=== PATIENT | female | born 1960 | race Caucasian/White ===

== ENCOUNTER 2020-05-15 07:01 | Day surgery (SDC) | payer OTHER, SELFPAY ==
[2020-05-09 11:08] VITALS: BMI 18.9
--- NOTE | 2020-05-12 09:10 | P.CONAN_ITS ---
Documented by User: Viviane Patel 05/12/20 09:11 HPI - Anesthesia Eval Consult details Narrative: 60yo F for L knee arthroscopy PMFSH Past Medical History Medical History Anxiety Arthritis Asthma Back pain COPD (chronic obstructive pulmonary disease) Elevated cholesterol History of depression History of nephrolithiasis History of positive PPD Hx of hepatitis C Smoker Thyroid disease Surgical History Surgical History (Updated 05/09/20 @ 11:02 by Pura Gaytan) Hx of colonoscopy Hx of hysterectomy Hx of left knee surgery S/P cystoscopy with ureteral stent placement Social History Social History Smoking Status: Current every day smoker Packs Per Day: 0.5 Cigarettes Per Day: 10.0 Years Smoked: 40 plus Smoked in Last 30 Days: Yes Patient Interested in Nicotine Replacement: No Patient Given Instructions on How to Stop Smoking: Yes Date Education Initiated: 05/09/20 Use of substances other than those prescribed or required for medical reasons: No Advance Directives: No Advance Directives Information Provided: Yes Meds Allergies Allergy/AdvReac Type Severity Reaction Status Date / Time simvastatin [SIMVASTATIN] Allergy Unknown MUSCLE Unverified 05/09/20 11:04 ACHES celecoxib [From Celebrex] AdvReac Gastrointestinal Verified 05/09/20 11:04 Upset Home Medications Medication Instructions Recorded Confirmed Type albuterol sulfate [ProAir HFA] 2 puff INHALATION Q4-6H PRN 05/09/20 05/09/20 History ascorbic acid (vitamin C) [Vitamin 500 mg PO DAILY 05/09/20 05/09/20 History C] aspirin [Aspir-81] 81 mg PO DAILY 05/09/20 05/09/20 History levothyroxine 1 tab PO DAILY 05/09/20 05/09/20 History lidocaine 1 patch DAILY 05/09/20 05/09/20 History sertraline 1 tab PO DAILY 05/09/20 05/09/20 History Exam Exam Date and Time: May 12, 2020 0910 Height,Weight and Vital Signs: Height 5 ft 3 in Weight 48.534 kg Assessment and Plan Assessment Anesthesia Assessment: Chart Reviewed Documented by User: Shantelle Sellers 05/15/20 08:22 [facility] Past Medical History Medical History Anxiety Arthritis Asthma Back pain COPD (chronic obstructive pulmonary disease) Elevated cholesterol History of depression History of nephrolithiasis History of positive PPD Hx of hepatitis C Smoker Thyroid disease Family History Family history of problems with anesthesia: No Surgical History Surgical History (Updated 05/09/20 @ 11:02 by Pura Gaytan) Hx of colonoscopy Hx of hysterectomy Hx of left knee surgery S/P cystoscopy with ureteral stent placement History of Problems with Anesthesia: No Social History Social History Smoking Status: Current every day smoker Packs Per Day: 0.5 Cigarettes Per Day: 10.0 Years Smoked: 40 plus Smoked in Last 30 Days: Yes Patient Interested in Nicotine Replacement: No Patient Given Instructions on How to Stop Smoking: Yes Date Education Initiated: 05/09/20 Use of substances other than those prescribed or required for medical reasons: No Advance Directives: No Advance Directives Information Provided: Yes Meds Allergies Allergy/AdvReac Type Severity Reaction Status Date / Time simvastatin [SIMVASTATIN] Allergy Unknown MUSCLE Unverified 05/09/20 11:04 ACHES celecoxib [From Celebrex] AdvReac Gastrointestinal Verified 05/09/20 11:04 Upset Home Medications Medication Instructions Recorded Confirmed Type albuterol sulfate [ProAir HFA] 2 puff INHALATION Q4-6H PRN 05/09/20 05/09/20 History ascorbic acid (vitamin C) [Vitamin 500 mg PO DAILY 05/09/20 05/09/20 History C] aspirin [Aspir-81] 81 mg PO DAILY 05/09/20 05/09/20 History levothyroxine 1 tab PO DAILY 05/09/20 05/09/20 History lidocaine 1 patch DAILY 05/09/20 05/09/20 History sertraline 1 tab PO DAILY 05/09/20 05/09/20 History Exam Height,Weight and Vital Signs: Vital Signs Temp Pulse Resp BP Pulse Ox 05/15/20 07:54 97.8 F 62 20 126/69 100 05/15/20 06:14 97.8 F 60 20 126/69 100 Airway Mallampati Class: I TM Dist: >3cm Neck ROM: Full Loose/Missing/Broken Teeth: Upper (No teeth) and Lower (Only few teeth. No loose) Heart: RRR Lungs: CTAB Assessment and Plan Assessment Anesthesia Assessment: Anesthesia Plan Discussed, Consent Obtained and Chart Reviewed Final Anesthetic Review NPO: Yes Intake Type: Clears (Sip of water with medication) ASA Class: II Final Preanesthetic Review: No Changes in Pt Med Stat, Consent Obtained/Reviewed, Med/Surg/Anes Hx Reviewed, Last Cigarette (If Appl.) (05/14/2020 evening) and Anes Risks/Benef Reviewed Patient Risk: Intermediate Procedure Risk: Low Anesthetic Plan Anesthetic Plan: GA Disposition: Standard PACU
--- NOTE | 2020-05-13 22:06 | MHC.SHP ---
Pre-Procedural Eval Section A The patient is an INPATIENT: No Changes since office visit: No Cold of Flu in the past 2 weeks, No New Medical Problems, No Changes in Medication and No Patient answered all questions The History & Physical has been completed within 30 days and I have reviewed it.: Yes Section B Chief Complaint: Snapping Syndrome, Left Knee Pain Allergies: Allergies Allergy/AdvReac Type Severity Reaction Status Date / Time simvastatin [SIMVASTATIN] Allergy Unknown MUSCLE Unverified 05/09/20 11:04 ACHES celecoxib [From Celebrex] AdvReac Gastrointestinal Verified 05/09/20 11:04 Upset Plan Patient has been examined and remains a candidate for the planned procedure
--- NOTE | 2020-05-14 10:36 | MHC.SHP ---
Pre-Procedural Eval Section B Chief Complaint: Snapping Syndrome, Left Knee Pain Allergies: Allergies Allergy/AdvReac Type Severity Reaction Status Date / Time simvastatin [SIMVASTATIN] Allergy Unknown MUSCLE Unverified 05/09/20 11:04 ACHES celecoxib [From Celebrex] AdvReac Gastrointestinal Verified 05/09/20 11:04 Upset Plan Patient has been examined and remains a candidate for the planned procedure
[2020-05-15] VITALS (7 sets, daily range): BP systolic 89–129; BP diastolic 40–74; PULSE 60–83; RESP 12–20; TEMP 36.2–36.6; O2SAT 99–100
[2020-05-15] MEDS: Lactated Ringers 1,000 ML 100 ML IVCONT (08:03)
--- NOTE | 2020-05-15 09:01 | P.PCNOP_ITS ---
Brief Operative Note Date of procedure: 05/15/20 Pre-op diagnosis: left knee pain with possible medial meniscal tear Post-op diagnosis: other (Grade 3 injury medial femoral condyle as well as anterior compartment chondral injury) Procedure: Arthroscopic surgery with debridement medial femoral condyle and anterior compartment left knee. Clinical note: This lady has had ongoing problems with pain discomfort involving her left knee. She infected been seen previously elsewhere and had arthroscopic procedure with a did it debridement of a medial plica. However she has had ongoing problems with pain and difficulty and despite non operative management she has continued to have problems and therefore after explaining the risks benefits and alternatives and answered all her questions which agreed upon cared followup procedure. Motion: Full range of motion Stability: cruciate collateral ligaments intact OPERATIVE DETAILS Preparation: GA standard technique tourniquet to 300 mm Hg for 7 minutes Surgical time-out: Patient has identified. Procedure confirmed. Site confirmed. medical history and allergies reviewed. No preoperative antibiotics. No DVT prophylaxis. All other items discussed and agreed upon. Incisions: Superolateral inferolateral inferomedial stab incisions Synovial him: Normal Synovial fluid: Normal Medial compartment: The medial meniscus was thoroughly inspected and had no evidence of any abnormalities. There was grade 3 injury along a large portion of the weight-bearing surface of femoral condyle. This was debrided of loose articular cartilage. The tibial articular surface had grade 2 softening. Intercondylar notch: ACL visualized palpated intact. PCL palpated intact. Lateral compartment: The lateral meniscus was inspected and intact. The femoral and tibial articular surfaces were normal. The popliteus tendon was intact. Anterior compartment: Evidence of the previous medial plica resection was evidence. There was medial and lateral gutters were clear. Suprapatellar pouch was clear. The patella had grade 3 injury through the mid zone and medial facet. There was grade 3 injury through the femoral sulcus. This was all debrided with the power shaver. Closure: 30 cc of half and half solution of 0.75% Marcaine with epinephrine in no a mole saline was injected into the knee. Steri-Strips and sterile dressing were then applied. Recommendations: * Restore motion and strength * Activities tolerated * Discharge was prescription for Tylenol No.3, 20 tablets * Followup in the office in 2 weeks time Anesthesia: GLMA Surgeon: Rolf Sprague Estimated blood loss (mL): 0 Condition: stable Disposition: PACU
[2020-05-15] MEDS: Acetaminophen 325 MG TABLET 650 MG PO (09:39)
--- NOTE | 2020-05-15 10:36 | HO.POSTANES ---
Documented by User: Viviane Patel 05/15/20 10:38 Post Anesthesia Evaluation Post Anesthesia Evaluation Vital Signs: Vital Signs Temp Pulse Resp BP Pulse Ox 05/15/20 09:29 73 20 129/74 99 05/15/20 09:14 83 20 127/73 99 05/15/20 09:09 70 20 99/56 L 100 05/15/20 09:04 69 16 89/43 L 99 05/15/20 08:59 97.2 F 68 12 92/40 L 99 05/15/20 07:54 97.8 F 62 20 126/69 100 05/15/20 06:14 97.8 F 60 20 126/69 100 Anesthesia: General LMA Mental Status: Awake Pain Control: Satisfactory Nausea/Vomiting: None Hydration: Adequate Anesthesia-Related Issues: No Anes. Related Issues
== END 2020-05-15 11:05 | disposition home or self-care (01) ==
PROVIDERS: PCP Internal Medicine; Visit Provider Orthopaedic Surgery
PROC: (CPT 29870; principal; 2020-05-15 08:30)
DX: M22.2X2 Patellofemoral disorders, left knee (principal); M23.8X2 Other internal derangements of left knee; M25.562 Pain in left knee; Z98.890 Other specified postprocedural states; J44.9 Chronic obstructive pulmonary disease, unspecified; E78.00 Pure hypercholesterolemia, unspecified; E07.9 Disorder of thyroid, unspecified; Z86.19 Personal history of other infectious and parasitic diseases; Z79.82 Long term (current) use of aspirin; Z79.899 Other long term (current) drug therapy; F17.210 Nicotine dependence, cigarettes, uncomplicated; Z90.710 Acquired absence of both cervix and uterus; Z88.8 Allergy status to other drugs, medicaments and biological substances; M24.10 Other articular cartilage disorders, unspecified site
CPT/HCPCS: 29877; J0171; J1100; J1885; J2250; J3010

== ENCOUNTER → 2020-05-30 09:47 | Outpatient (BNVA) | payer OTHER, SELFPAY | PROVIDERS: PCP Internal Medicine; Referring Provider Internal Medicine; Visit Provider Physician Assistant | DX: Z47.89 Encounter for other orthopedic aftercare (principal) | CPT/HCPCS: 99212 ==

== ENCOUNTER → 2020-07-02 10:18 | Outpatient (BNVA) | payer OTHER, SELFPAY | PROVIDERS: Visit Provider Orthopaedic Surgery | DX: M17.12 Unilateral primary osteoarthritis, left knee (principal); Z98.890 Other specified postprocedural states | CPT/HCPCS: 20610; 99212; J1040 ==

== ENCOUNTER 2020-07-18 10:00 | Outpatient (RCR) | payer OTHER, SELFPAY ==
--- NOTE | 2020-06-10 12:04 | MHC.PT.EP ---
[facility] [place] Office [place] Office [place] Office [address] Lor Kinney [address] [phone] F: [phone] F: [phone] F: [phone] F: [phone] Physical Therapy Plan of Care Date of Evaluation: 06/10/20 Date of Surgery: 05/15/20 Diagnosis: Unilateral primary OA of L knee Assessment: 60 year old female referred for unilateral primary OA of L knee . Pt reports of having h/o chronic knee pain and has had 2 knee debridement surgeries- first was on apr 2019 and second was on 05/15/20. Pt is 3.5 weeks post op. Examination reveals 0/10 pain at rest and 7/10 pain with standing and walking more than 5 minutes, squats and stairs, TTP along medial aspect of knee, pain with knee bending, decreased muscle strength, altered posture and gait. She is independent with all ADLS but has pain with them and does them slowly to avoid increase in symptoms. She is a good candidate for PT based on age, goals, physical impairments and functional limitations. She would benefit from PT to decrease pain, improve ROM, increase muscle strength, postural correction and functional training. Frequency and Duration: The patient will be seen 2/week for 4 weeks Short Term Goals: 1. Pt will have 50% decrease in pain in 2 weeks. 2. Pt will be able to move knee joint without any in pain in 3 weeks. Chcf Goals: 1. Pt will be able to perform all ADLS without pain in 4 weeks. 2. Pt will return to PLOF in 5 weeks. Treatment Plan: Modalities to reduce pain, spasms and effusion. Manual therapy to restore motion and function. Therapeutic exercise to improve strength and flexibility. Neuromuscular re-education for posture and balance. Therapeutic activities to return to functional activities of daily living. Please sign and return to therapist. Thank you for your referral.
--- NOTE | 2020-08-04 11:55 | MHC.PT.DC ---
[facility] [place] Office [place] Office [place] Office [address] Lor Kinney [address] [phone] F: [phone] F: [phone] F: [phone] F: [phone] Physical Therapy Discharge Report Diagnosis: Unilateral primary OA of L knee Date of Surgery: 05/15/20 Date of Evaluation: 06/10/20 Date of Discharge: 08/04/20 Treatments to Date: 11 Cancellations to Date: 0 No Shows to Date: 0 Discharge Status: Recommend MD Follow-up Discharge Summary: Pt continued to reported of experiencing locking after standing for a long time. She had no change in this symptoms with exercise, tape and joint mobs. She functionally independent and independent with all her HEPS. Pt therefore d/c from therapy and advised to follow up with her physician. Electronically signed by: Marisol Pyle DPT Please sign and return to therapist. Thank you for your referral.
== END 2020-08-04 11:56 | disposition other institution (70) ==
LOC: HO.PT 10:00
PROVIDERS: Visit Provider Physician Assistant
DX: M17.12 Unilateral primary osteoarthritis, left knee (principal)
CPT/HCPCS: 97110; 97140; 97161; 97530

== ENCOUNTER → 2020-08-12 09:14 | Outpatient (BNVA) | payer OTHER, SELFPAY | PROVIDERS: Visit Provider Orthopaedic Surgery | DX: M17.12 Unilateral primary osteoarthritis, left knee (principal) | CPT/HCPCS: 99212 ==

== ENCOUNTER → 2020-08-26 14:23 | Outpatient (BNVA) | payer OTHER, SELFPAY | PROVIDERS: Visit Provider Orthopaedic Surgery | DX: M17.12 Unilateral primary osteoarthritis, left knee (principal) | CPT/HCPCS: 20610; 99212; J7323 ==

== ENCOUNTER → 2020-09-02 14:22 | Outpatient (BNVA) | payer OTHER, SELFPAY | PROVIDERS: Visit Provider Orthopaedic Surgery | DX: M17.12 Unilateral primary osteoarthritis, left knee (principal) | CPT/HCPCS: 20610; J7323 ==

== ENCOUNTER → 2020-09-09 14:24 | Outpatient (BNVA) | payer OTHER, SELFPAY | PROVIDERS: Visit Provider Orthopaedic Surgery | DX: M17.12 Unilateral primary osteoarthritis, left knee (principal) | CPT/HCPCS: 20610; J7323 ==

== ENCOUNTER → 2020-10-21 14:24 | Outpatient (BNVA) | payer OTHER, SELFPAY | PROVIDERS: PCP Internal Medicine; Visit Provider Orthopaedic Surgery | DX: M17.12 Unilateral primary osteoarthritis, left knee (principal) | CPT/HCPCS: 99212 ==

== ENCOUNTER → 2020-12-03 14:45 | Outpatient (BNVA) | payer OTHER, SELFPAY | PROVIDERS: PCP Internal Medicine; Visit Provider Nurse Practitioner Family | DX: M17.12 Unilateral primary osteoarthritis, left knee (principal) | CPT/HCPCS: 99202 ==

== ENCOUNTER 2020-12-31 09:48 | Outpatient (REF) | payer OTHER, SELFPAY ==
--- NOTE | ~2020-12-31 | US_ITS ---
EXAMINATION: US RETROPERITONEAL LIMITED (RENAL ONLY) CLINICAL INFORMATION: Calculus. COMPARISON: Ultrasound renal with bladder 12/13/2019 and 12/21/2018. TECHNIQUE: Real-time imaging of the kidneys. FINDINGS: RIGHT KIDNEY: 10.6 x 3.2 x 3.6 cm (SAG x AP x TRV). The kidney is normal in size, contour, and echogenicity. Renal cortical thickness is normal. No calculi or focal parenchymal lesions. No hydronephrosis. There is a duplicated collecting system with an extrarenal kidney pelvis. LEFT KIDNEY: 10.7 x 4.3 x 3.9 cm (SAG x AP x TRV). The kidney is normal in size, contour, and echogenicity. Renal cortical thickness is normal. No focal parenchymal lesions. There is nonobstructive echogenic stone upper/midpole measuring 0.1 x 0.1 cm. There is mild hydronephrosis versus extrarenal pelvis. 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 There is a nonobstructive echogenic calculi upper/midpole. Mild hydronephrosis versus extrarenal pelvis is noted.
== END 2020-12-31 09:49 | disposition home or self-care (01) ==
LOC: HO.US 09:48
PROVIDERS: PCP Internal Medicine; Visit Provider Urology
DX: N20.0 Calculus of kidney (principal)
CPT/HCPCS: 76775

== ENCOUNTER 2021-01-20 06:25 | Outpatient (REF) | payer OTHER, SELFPAY ==
--- NOTE | ~2021-01-20 | FL_ITS ---
EXAMINATION: XR FLUOROSCOPY WITH IMAGES CLINICAL INFORMATION: Unilateral primary osteoarthritis, left knee COMPARISON: None. TECHNIQUE: Fluoroscopy performed by Marnie Urbina. Fluoroscopy time: 0.1 minutes DAP: 3.55 Gycm2 Images: 1 FINDINGS: A single lateral image of the liver reveals 2 needles positioned superior to the patella and a solitary needle adjacent to the proximal tibia. No AP view was obtained. FL/FL guidance in treatment room IMPRESSION: Fluoroscopy was provided to Marnie Urbina for left knee pain management.
== END 2021-01-20 06:26 | disposition home or self-care (01) ==
LOC: HO.RADIR 06:25
PROVIDERS: Visit Provider Anesthesiology
DX: M17.12 Unilateral primary osteoarthritis, left knee (principal)
CPT/HCPCS: 64454

== ENCOUNTER → 2021-01-29 08:28 | Outpatient (BNVA) | payer OTHER, SELFPAY | PROVIDERS: PCP Internal Medicine; Visit Provider Anesthesiology | DX: M17.12 Unilateral primary osteoarthritis, left knee (principal); M25.562 Pain in left knee; G90.522 Complex regional pain syndrome I of left lower limb; E78.00 Pure hypercholesterolemia, unspecified; F41.8 Other specified anxiety disorders; F17.200 Nicotine dependence, unspecified, uncomplicated; Z98.890 Other specified postprocedural states | CPT/HCPCS: 99212 ==

== ENCOUNTER → 2021-02-11 14:26 | Outpatient (BNVA) | payer OTHER, SELFPAY | PROVIDERS: Visit Provider Urology ==

== ENCOUNTER 2021-06-04 11:23 | Outpatient (REF) | payer OTHER, SELFPAY ==
--- NOTE | ~2021-06-04 | US_ITS ---
EXAMINATION: US RETROPERITONEAL LIMITED (RENAL ONLY) CLINICAL INFORMATION: Calculus of kidney. COMPARISON: Renal ultrasound 12/31/2020 and 12/13/2019. CT abdomen and pelvis 02/28/2017. TECHNIQUE: Real-time imaging of the kidneys. FINDINGS: RIGHT KIDNEY: 10.0 x 3.2 x 4.3 cm (SAG x AP x TRV). The kidney is normal in size, contour, and echogenicity. Renal cortical thickness is normal. There are several small 1 mm echogenic densities questionable for tiny stones. No hydronephrosis is seen. There is fullness of the right renal pelvis. This may represent an extrarenal pelvis. LEFT KIDNEY: 9.3 x 3.3 x 4.4 cm (SAG x AP x TRV). The kidney is normal in size, contour, and echogenicity. Renal cortical thickness is normal. There are several small 1 mm echogenic densities questionable for tiny stones. No hydronephrosis is seen. There is fullness of the left renal pelvis. This may represent an extrarenal pelvis. US/US renal BI IMPRESSION: Question multiple small 1 mm in size stones. Probable bilateral extrarenal pelvises.
== END 2021-06-04 11:24 | disposition home or self-care (01) ==
LOC: HO.US 11:23
PROVIDERS: PCP Internal Medicine; Visit Provider Urology
DX: N20.0 Calculus of kidney (principal)
CPT/HCPCS: 76775

== ENCOUNTER → 2021-08-20 15:12 | Outpatient (BNVA) | payer OTHER, SELFPAY | PROVIDERS: PCP Internal Medicine ==

== ENCOUNTER → 2021-08-31 14:39 | Outpatient (BNVA) | payer OTHER, SELFPAY | PROVIDERS: PCP Internal Medicine; Visit Provider Anesthesiology | DX: M17.12 Unilateral primary osteoarthritis, left knee (principal); G90.522 Complex regional pain syndrome I of left lower limb | CPT/HCPCS: 99212 ==

== ENCOUNTER 2022-01-21 16:30 | Outpatient (REF) | payer OTHER, SELFPAY ==
--- NOTE | ~2022-01-21 | US_ITS ---
EXAMINATION: US RETROPERITONEAL LIMITED (RENAL ONLY) CLINICAL INFORMATION: Calculus of kidney. COMPARISON: Renal ultrasound 06/04/2021 and 12/31/2020. CT abdomen and pelvis 02/28/2017. TECHNIQUE: Real-time imaging of the kidneys. FINDINGS: RIGHT KIDNEY: 10.1 x 3.3 x 5.1 cm (SAG x AP x TRV). The kidney is normal in size, contour, and echogenicity. Renal cortical thickness is normal. No calculi or focal parenchymal lesions. No hydronephrosis. There are bilateral extrarenal pelvis with mild fullness. There are echogenic punctate calcifications seen throughout right kidney. LEFT KIDNEY: 11.3 x 4.0 x 4.4 cm (SAG x AP x TRV). The kidney is normal in size, contour, and echogenicity. Renal cortical thickness is normal. No calculi or focal parenchymal lesions. No hydronephrosis. There is an extrarenal left kidney pelvis with mild pelvic fullness and echogenic punctate calcifications throughout US/US renal BI IMPRESSION: Bilateral renal pelvic fullness with extrarenal kidney pelvises. There are bilateral echogenic punctate calcification seen throughout both kidneys.
== END 2022-01-21 16:31 | disposition home or self-care (01) ==
LOC: HO.US 16:30
DX: N20.0 Calculus of kidney (principal)
CPT/HCPCS: 76775

== ENCOUNTER → 2022-02-18 12:43 | Outpatient (BNVA) | payer OTHER, SELFPAY | PROVIDERS: PCP Internal Medicine | DX: N20.0 Calculus of kidney (principal); R33.9 Retention of urine, unspecified | CPT/HCPCS: 51798; 99212 ==

== ENCOUNTER 2022-03-04 16:11 | Outpatient (REF) | payer OTHER, SELFPAY ==
[2022-03-04 18:21] LABS: Creatinine Urine 54.08 mg/dL; Total Protein Urine Random < 7 mg/dL (<12)
[2022-03-04 18:25] LABS: Alanine Aminotransferase 20 U/L (0-31); Albumin Level 4.6 g/dL (3.5-5.0); Alkaline Phosphatase 38 U/L (39-117); Anion Gap 16 (12-20); Aspartate Amino Transferase 32 U/L (5-31); Bilirubin Total 0.4 mg/dL (0.0-1.0); Blood Urea Nitrogen 17 mg/dL (9-16); Calcium 9.7 mg/dL (8.4-10.2); Carbon Dioxide 24 mmol/L (22-29); Chloride 101 mmol/L (96-108); Estimated Glomerular Filt Rate 52; Glucose Random 83 mg/dL (60-115); Potassium 4.8 mmol/L (3.3-5.1); Sodium 136 mmol/L (135-145)
== END 2022-03-04 16:12 | disposition home or self-care (01) ==
LOC: HO.LAB 16:11
PROVIDERS: PCP Internal Medicine; Visit Provider Internal Medicine Hypertension Specialist
DX: N20.0 Calculus of kidney (principal)
CPT/HCPCS: 36415; 80053; 84156

== ENCOUNTER → 2022-06-11 09:56 | Outpatient (BNVA) | payer OTHER, SELFPAY | PROVIDERS: PCP Internal Medicine; Visit Provider Urology | DX: N20.0 Calculus of kidney (principal); R33.9 Retention of urine, unspecified | CPT/HCPCS: 99212 ==

== ENCOUNTER 2022-07-15 14:18 | Outpatient (REF) | payer OTHER, SELFPAY ==
--- NOTE | ~2022-07-15 | US_ITS ---
EXAMINATION: US RETROPERITONEAL LIMITED (RENAL ONLY) CLINICAL INFORMATION: Calculus of kidney. COMPARISON: Ultrasound retroperitoneal limited (renal only) 01/21/2022 and 06/04/2021. CT abdomen and pelvis without contrast 02/28/2017. TECHNIQUE: Real-time imaging of the kidneys. FINDINGS: RIGHT KIDNEY: 9.5 x 2.9 x 4.7 cm (SAG x AP x TRV). The kidney is normal in size, contour, and echogenicity. Renal cortical thickness is normal. No calculi or focal parenchymal lesions. No hydronephrosis. LEFT KIDNEY: 9.8 x 4.0 x 4.5 cm (SAG x AP x TRV). The kidney is normal in size, contour, and echogenicity. Renal cortical thickness is normal. No calculi or focal parenchymal lesions. No hydronephrosis. Extrarenal pelvis noted. US/US renal BI IMPRESSION: No renal calculi identified. No hydronephrosis.
== END 2022-07-15 14:19 | disposition home or self-care (01) ==
LOC: HO.US 14:18
PROVIDERS: Visit Provider Urology
DX: N20.0 Calculus of kidney (principal)
CPT/HCPCS: 76775

== ENCOUNTER 2022-12-31 09:46 | Outpatient (REF) | payer OTHER, SELFPAY ==
--- NOTE | ~2022-12-31 | US_ITS ---
EXAMINATION: US RETROPERITONEAL LIMITED (RENAL ONLY) CLINICAL INFORMATION: Calculus of kidney. COMPARISON: Renal ultrasound 07/15/2022 and 01/21/2022. CT abdomen and pelvis 02/28/2017. TECHNIQUE: Real-time imaging of the kidneys. FINDINGS: RIGHT KIDNEY: 10.0 x 4.5 x 5.1 cm (SAG x AP x TRV). The kidney is normal in size, contour, and echogenicity. Renal cortical thickness is normal. No calculi or focal parenchymal lesions. No hydronephrosis. LEFT KIDNEY: 10.9 x 4.0 x 4.4 cm (SAG x AP x TRV). The kidney is normal in size, contour, and echogenicity. Renal cortical thickness is normal. No calculi or focal parenchymal lesions. No hydronephrosis. US/US renal BI IMPRESSION: Unremarkable examination.
== END 2022-12-31 09:47 | disposition home or self-care (01) ==
LOC: HO.US 09:46
PROVIDERS: PCP Internal Medicine; Visit Provider Urology
DX: N20.0 Calculus of kidney (principal)
CPT/HCPCS: 76775

== ENCOUNTER → 2023-01-21 09:18 | Outpatient (BNVA) | payer OTHER, SELFPAY | PROVIDERS: PCP Internal Medicine; Visit Provider Urology | DX: N20.0 Calculus of kidney (principal); R33.9 Retention of urine, unspecified; N39.8 Other specified disorders of urinary system | CPT/HCPCS: 51798 ==

== ENCOUNTER 2023-03-07 13:51 | Outpatient (AMB) | payer OTHER, SELFPAY ==
--- NOTE | 2023-03-07 13:53 | MHC.PC.OV ---
Vital Signs 03/07/23 13:54 Height 5 ft 3 in Weight 122 lb BMI 21.6 BP 116/80 Blood Pressure Location Lt brachial Position Sitting Pulse 65 Pulse Source Pulse Oximeter Pulse Oximetry (%) 96 Oxygen Delivery Method Room Air Intake Visit Reasons: New patient-COPD Labor Specialist Required: No Accompanied by: Self / Same As Patient Allergies simvastatin [SIMVASTATIN] Allergy (Unknown, Verified 06/08/23 14:30) MUSCLE ACHES celecoxib [From Celebrex] Adverse Reaction (Verified 06/08/23 14:30) Gastrointestinal Upset Medication List - Last Reconciled 03/07/23 by Brooks Al MD albuterol sulfate 90 mcg/actuation (ProAir HFA) 2 puffs inhalation Q4-6H PRN ascorbic acid (vitamin C) (Vitamin C) 500 mg PO DAILY ezetimibe (Zetia) 10 mg PO DAILY fenofibrate nanocrystallized 145 mg PO DAILY lactobacillus combination no.9 (Adult 50 Plus Probiotic) 4,000 mmu cells PO DAILY levothyroxine 1 tab PO DAILY lidocaine 5% 1 patch DAILY pyridoxine (vitamin B6) 100 mg PO DAILY 90 days sertraline 100 mg PO DAILY Tobacco use date assessed: 03/07/23 Dental Screening Dental Screen Date: 03/07/23 Did you have a dental visit in the last 12 months?: Yes Did you have a dental problem in the last 6 months where you did not have access to dental care?: No Was dental information given to patient?: Patient has dentist HPI New patient-COPD HPI Details Patient comes in today to establish care - is a new patient to the practice States that she has had problems with her left knee and has been experiencing increasing pain over her knee lately Has been advised that she has some problems with her kidneys and should no longer be taking NSAIDs as much as possible Was recently started on a trial of Celebrex to help with her pain and at the same time cut down on the number of times she has to take Rx for pain but could not tolerate Celebrex (recalls that the medication upset her stomach) She was seeing orthopedics and pain management in the past but has not been back to see them in a while and would like to try going back to pain management She continues to follow up with urology regularly for recurrent kidney stones States that she feels okay otherwise She denies any headaches or dizziness Denies any chest pains, no SOB No nausea/vomiting, no abdominal pain No change in bowel habits noted Needs her Levothyroxine Rx refilled PFSH Medical History (Updated 06/09/23 @ 06:10 by Brooks Al MD) Locking of left knee Acquired hypothyroidism Retention of urine Complex regional pain syndrome i of left lower limb Arthritis Back pain Thyroid disease Hx of hepatitis C History of positive PPD COPD (chronic obstructive pulmonary disease) Anxiety History of depression History of nephrolithiasis Smoker Asthma Elevated cholesterol Surgical History Hx of colonoscopy Hx of hysterectomy S/P cystoscopy with ureteral stent placement Hx of left knee surgery Social History Housing: Apartment Patient Tobacco Use Status: Current everyday Tobacco user Cigarette Packs Per Day: 0.5 Cigarettes Per Day: 10.0 Years Smoked: 40 plus e-Cigarette/Vaping Use: Never Used service: No Current occupational status: other Current occupation: Right Handed Cognitive needs: No Hearing needs: No Vision needs: No Questionnaire PHQ-9 Over the last 2 weeks, how often have you been bothered by any of the following problems? 1. Little interest or pleasure in doing things: nearly every day 2. Feeling down, depressed, or hopeless: nearly every day 3. Trouble falling or staying asleep, or sleeping too much: nearly every day 4. Feeling tired or having little energy: nearly every day 5. Poor appetite or overeating: not at all 6. Feeling bad about yourself - or that you are a failure or have let yourself or your family down: not at all 7. Trouble concentrating on things, such as reading the newspaper or watching television: not at all 8. Moving or speaking so slowly that other people could have noticed. Or the opposite - being so fidgety or restless that you have been moving around a lot more than usual: not at all 9. Thoughts that you would be better off or of hurting yourself in some way: not at all Total score: 12 Depression Screening Interpretation: Positive Depression Screening Follow-up: Existing condition and In treatment 44830 - PHQ-9 Billing: Yes Source: Developed by Felicity Neil Murphy, Kit Carballo and colleagues, with an educational elena from [employer]. Thrive Questionnaire Date Thrive assessed: 03/07/23 I am a: Patient What is your living situation today?: I have a steady place to live Within the past 12 months, did the food you bought not last and you didn't have the money to get more?: Never true Within the past 12 months, did you worry whether your food would run out before you got money to buy more?: Never true Do you have trouble paying for medicines?: No Do you have trouble getting transportation to medical appointments?: No Do you have trouble paying your heating and electricity bill?: No Do you have trouble taking care of your child, family member or friend?: No Do you have trouble with day-to-day activities such as bathing, preparing meals, shopping, managing finances, etc.?: No Are you currently unemployed and looking for a job?: No Are you interested in more education?: No Please select the resources that you would like help with: None Currently or been in a relationship where the following occur: no concerns reported AUDIT C Alcohol Use Questionnaire (AUDIT-C) 1. How often do you have a drink containing alcohol?: Monthly or less Total Score: 1 Score Reviewed/Action Taken: Yes TIMOTHY-7 AMB Questionnaire TIMOTHY-7 Date TIMOTHY - 7 assessed: 03/07/23 Feeling nervous, anxious, or on edge: 1 = Several days Not being able to stop or control worryin = Several days Worrying too much about different things: 1 = Several days Trouble relaxin = Several days Being so restless that it is hard to sit still: 1 = Several days Becoming easily annoyed or irritable: 1 = Several days Feeling afraid as if something awful might happen: 0 = Not at all Total TIMOTHY-7 score (0-4 normal; 5-9 mild; 10-14 moderate; 15-21 severe): 6 Source: Developed by Drs. Agustin Tse, Felicity Arrington, Kit Carballo and colleagues, with an educational elena from [employer]. Review of Systems Const Denies chills, Denies fatigue, Denies fever(s) and Denies headache(s) ENT Denies dysphagia, Denies dizziness, Denies otalgia, Denies headache(s), Denies neck pain, Denies odynophagia and Denies sore throat Card Denies chest pain, Denies palpitations and Denies dyspnea Resp Denies cough and Denies dyspnea GI Denies abdominal pain, Denies constipation, Denies dysphagia, Denies heartburn, Denies diarrhea, Denies nausea, Denies odynophagia and Denies vomiting Denies difficulty voiding, Denies nocturia and Denies dysuria Musc Details: (+) chronic left lower extremity pain Reports arthralgias (left knee) and Denies neck pain Skin/Breast Details: (+) painful cyst on the left forearm near the elbow Denies rash Neuro Denies dizziness and Denies headache(s) Endo Denies fatigue and Denies palpitations Physical exam (Primary Care) Vital Signs: Last Vital Signs Pulse 65 03/07/23 13:54 BP 116/80 03/07/23 13:54 Pulse Ox 96 03/07/23 13:54 Oxygen Delivery Method Room Air 03/07/23 13:54 BMI result Body Mass Index 21.6 Tobacco/Smoking Status: Tobacco use Status Tobacco use date assessed 03/07/23 03/07/23 14:04 Patient Tobacco Use Status Current everyday Tobacco 03/07/23 14:04 e-Cigarette/Vaping Use Never Used 03/07/23 14:04 PHQ-9: PHQ-9 Score PHQ-9: Total score 12 05/30/23 18:43 Depression Screening Interpretation: Positive Depression Screening Follow-up: Existing condition and In treatment Thrive Assessment: Date of Thrive Assessment Date Thrive assessed 03/07/23 03/07/23 14:04 Currently or been in a relationship where the following occur: no concerns reported Const General: no acute distress and alert HENMT Ears: TM's normal bilaterally and EAC's normal Throat: Yes posterior oropharynx normal and Yes tonsils normal (no TP congestion) Neck Neck: Yes no lymphadenopathy and Yes supple Resp Auscultation: clear to auscultation bilaterally, no rales and no wheezes Cardio Rate: regular rate Rhythm: regular rhythm Heart sounds: no murmurs GI Palpation (GI): Soft to palpation and nontender Auscultation: normal bowel sounds Skin Other: (+) small firm cystic lesion over the extensor aspect of the left forearm, just a couple of inches distal to the left elbow Rashes: no rashes Extrem General: Yes no clubbing, cyanosis or edema Left lower extremity: knee Details: tenderness (chronic); no swelling Assessment and Plan Assessment & Plan (1) Acquired hypothyroidism: Code(s): E03.9 - Hypothyroidism, unspecified Plan: Continue Levothyroxine 88 mcg 1 tablet daily on Mondays to Saturdays and 2 tablets QD on Sundays - Rx refilled Will recheck her TFTs in 4 months for follow up (2) Mixed hyperlipidemia: Code(s): E78.2 - Mixed hyperlipidemia Plan: Reinforced low-cholesterol diet Continue Fenofibrate 145 mg QD and Ezetimibe 10 mg QD Will recheck her labs and fasting lipids in 3 months for follow-up (3) Asthma: Code(s): J45.909 - Unspecified asthma, uncomplicated Qualifiers: Asthma severity: mild Asthma persistence: intermittent Asthma complication type: uncomplicated Qualified Code(s): J45.20 - Mild intermittent asthma, uncomplicated Plan: Continue Albuterol HFA 1 to 2 inhalations Q 6 hours PRN (4) Osteoarthritis of left knee: Code(s): M17.12 - Unilateral primary osteoarthritis, left knee Qualifiers: Osteoarthritis type: primary Qualified Code(s): M17.12 - Unilateral primary osteoarthritis, left knee Plan: S/P arthroscopic surgery x 2 in the past; has also tried physical therapy, cortisone injections and Euflexxa injections with no significant relief or improvement of symptoms Used to see both orthopedics and pain management but has not been back in a while Per request, will refer her back to pain management and orthopedics for her chronic left knee issues and pain (5) Nephrolithiasis: Code(s): N20.0 - Calculus of kidney Plan: Follow up with urology as scheduled for continuing management (6) Anxiety: Code(s): F41.9 - Anxiety disorder, unspecified Plan: Continue Sertraline 100 mg QD (7) Smoker: Code(s): F17.200 - Nicotine dependence, unspecified, uncomplicated Plan: Counseled on smoking cessation Plan Follow up in 3 months Orders: Orders Complete Blood Count Auto Diff 3 Months I10 - Essential (primary) hypertension Lipid Panel 3 Months E78.00 - Pure hypercholesterolemia, unspecified Vitamin D 25-OH Total 3 Months E55.9 - Vitamin D deficiency, unspecified UA CC w/rflx Micro + Cult 3 Months R30.0 - Dysuria Comprehensive [facility]. Panel Fast 3 Months E78.00 - Pure hypercholesterolemia, unspecified Thyroid Stimulating Hormone 3 Months E03.9 - Hypothyroidism, unspecified Free T4 (Free Thyroxine) 3 Months E03.9 - Hypothyroidism, unspecified Hemoglobin A1c 3 Months R73.01 - Impaired fasting glucose Referrals Pain Management Referral M17.12 - Unilateral primary osteoarthritis, left knee Orthopedics Referral M17.12 - Unilateral primary osteoarthritis, left knee Medications: Changed From levothyroxine Take 1 tablet daily Mondays through Saturdays and 2 tablets daily on Sundays daily E03.9 - Hypothyroidism, unspecified To levothyroxine Take 1 tablet daily Mondays through Saturdays and 2 tablets daily on Sundays daily 96 tabs 3RF 12 weeks E03.9 - Hypothyroidism, unspecified Coding Level of Care Code Est Pt Level 4 (17470) Diagnoses Acquired hypothyroidism E03.9 Mixed hyperlipidemia E78.2 Mild intermittent asthma without complication J45.20 Asthma severity: mild Asthma persistence: intermittent Asthma complication type: uncomplicated Primary osteoarthritis of left knee M17.12 Osteoarthritis type: primary Nephrolithiasis N20.0 Anxiety F41.9 Smoker F17.200
[2023-03-07 13:54] VITALS: BP 116/80; PULSE 65; O2SAT 96; BMI 21.6
== END 2023-03-07 15:06 | disposition home or self-care (01) ==
PROVIDERS: PCP Internal Medicine; Visit Provider Internal Medicine
DX: E03.9 Hypothyroidism, unspecified (principal); E78.2 Mixed hyperlipidemia; J45.20 Mild intermittent asthma, uncomplicated; M17.12 Unilateral primary osteoarthritis, left knee; N20.0 Calculus of kidney; F41.9 Anxiety disorder, unspecified; F17.200 Nicotine dependence, unspecified, uncomplicated
CPT/HCPCS: 99214

== ENCOUNTER 2023-03-25 09:43 | Outpatient (REF) | payer OTHER, SELFPAY ==
--- NOTE | ~2023-03-25 | XR_ITS ---
EXAMINATION: XR KNEE, RIGHT CLINICAL INFORMATION: Pain in unspecified knee COMPARISON: Same-day standing view both knees TECHNIQUE: Lateral and sunrise views of the right knee FINDINGS: No fracture or joint effusion. The lateral femoral condyle does not fully cover the lateral tibial plateau bilaterally. No joint space narrowing. No abnormal soft tissue calcification. XR/XR knee RT 2V IMPRESSION: The lateral femoral condyle does not fully cover the lateral tibial plateau bilaterally. No joint space narrowing.
--- NOTE | ~2023-03-25 | XR_ITS ---
EXAMINATION: XR KNEE, LEFT CLINICAL INFORMATION: Pain in unspecified knee COMPARISON: Same-day standing view both knees TECHNIQUE: Lateral and sunrise view of the left knee FINDINGS: No fracture or joint effusion. The lateral femoral condyle does not fully cover the lateral tibial plateau bilaterally. No joint space narrowing. No abnormal soft tissue calcification. XR/XR knee LT 2V IMPRESSION: The lateral femoral condyle does not fully cover the lateral tibial plateau bilaterally. No joint space narrowing.
--- NOTE | ~2023-03-25 | XR_ITS ---
EXAMINATION: XR KNEE AP STANDING CLINICAL INFORMATION: Pain in unspecified knee COMPARISON: Lateral and sunrise view of the right and left knee today TECHNIQUE: AP bilateral standing view of the knees was obtained. FINDINGS: No fracture or joint effusion. The lateral femoral condyle does not fully cover the lateral tibial plateau bilaterally. No joint space narrowing. No abnormal soft tissue calcification. XR/XR knee standing BI IMPRESSION: The lateral femoral condyle does not fully cover the lateral tibial plateau bilaterally. No joint space narrowing.
== END 2023-03-25 09:44 | disposition home or self-care (01) ==
LOC: HO.HOSX 09:43
PROVIDERS: Visit Provider Orthopaedic Surgery
DX: M23.92 Unspecified internal derangement of left knee (principal); M17.12 Unilateral primary osteoarthritis, left knee; M25.561 Pain in right knee
CPT/HCPCS: 73560; 73565

== ENCOUNTER 2023-03-25 11:05 | Outpatient (AMB) | payer OTHER, SELFPAY ==
--- NOTE | 2023-03-25 11:32 | MHC.OFFVIS ---
Intake Vital Signs 03/25/23 11:33 Height 5 ft 3 in Weight 122 lb BMI 21.6 Intake Visit Reasons: OV- B/L knee pain Intake Note: Jessy is a 62 year old female who presents today for a follow up of her bilateral knee pain. Last seen with Dr. Sprague who did Euflexxa injections with no relief, she was then referred to pain mgmt. They are seeing her for Complex Regional Pain Syndrome of the lower extremity and have scheduled her for a Femoral Nerve block. Allergies simvastatin [SIMVASTATIN] Allergy (Unknown, Verified 03/30/23 09:38) MUSCLE ACHES celecoxib [From Celebrex] Adverse Reaction (Verified 03/30/23 09:38) Gastrointestinal Upset HPI OV- B/L knee pain HPI Details Jessy Buenrostro is a 62-year-old female who returns with bilateral knee pain. She was last seen in the clinic in 09/[address] Sprague. She received a Euflexxa injection in the left knee on 09/09/2020. She states the Euflexxa injection gave her no relief and she was referred to Pain Management. She claims she may have had about 2 weeks of pain relief. She states Pain Management is seeing her for Complex Regional Pain Syndrome of the lower extremities. She confirms she is scheduled for a Femoral Nerve Block. She states she is unsure if she is going to move forward due to feeling uncomfortable with the side effects. She confirms pain the her back. She states the pain in chronic throughout the entire knee. She states she has issues walking and is unable to walk long distances. She states her bilateral knees lock on her and she has to manually manipulate the knee to cause it to unlock. She denies any inflammation. She confirms taking Tylenol OTC PRN with no relief. She states she has tired Lidocaine and dicolfenac, with no relief. She confirms a knee arthroscopy with Dr. Sprague. He performed the 2nd surgery in 2019. She also has a surgery with Dr. Solis prior for a left knee arthroscopy for a tissue biopsy in 2019. [facility] Medical History (Updated 03/30/23 @ 11:52 by Daniel Aguirre MD) Acquired hypothyroidism Anxiety Arthritis Asthma Back pain Complex regional pain syndrome i of left lower limb COPD (chronic obstructive pulmonary disease) Elevated cholesterol History of depression History of nephrolithiasis History of positive PPD Hx of hepatitis C Locking of left knee Retention of urine Smoker Thyroid disease Surgical History Hx of colonoscopy Hx of hysterectomy Hx of left knee surgery S/P cystoscopy with ureteral stent placement Social History Housing: Apartment Patient Tobacco Use Status: Current everyday Tobacco user Cigarette Packs Per Day: 0.5 Cigarettes Per Day: 10.0 Years Smoked: 40 plus e-Cigarette/Vaping Use: Never Used service: No Current occupational status: other Current occupation: Right Handed Cognitive needs: No Hearing needs: No Vision needs: No Review of Systems Const All systems reviewed & are unremarkable except as noted in HPI and below Physical Exam Vital Signs: BMI result Body Mass Index 21.6 Const General: cooperative, healthy appearing and no acute distress Orientation/consciousness: patient oriented x3 Resp Effort & Inspection: normal respiratory effort and able to speak in complete sentences Cardio Rate: regular rate Peripheral pulses: Peripheral pulses 2+ throughout GI Palpation (GI): Soft to palpation Skin General skin exam: no rashes or lesions noted Lesions: no lesions Rashes: no rashes Neuro General: patient oriented x3 Extrem Other: Left knee: Lateral compartment and lateral joint line pain. Tenderness to palpation without effusion. No medial sided pain. Assessment & Plan Assessment & Plan (1) Locking of left knee: Code(s): M23.92 - Unspecified internal derangement of left knee (2) Osteoarthritis of left knee: Code(s): M17.12 - Unilateral primary osteoarthritis, left knee Qualifiers: Osteoarthritis type: primary Qualified Code(s): M17.12 - Unilateral primary osteoarthritis, left knee Plan I discussed the role of non-surgical verses surgical intervention with patient today. I discussed the role of cortisone injections verses Gel injections. Because locking is present we will proceed forward with MRI imaging. She will be referred for an MRI to further evaluate the integrity of the left knee. Follow up will be after the MRI is obtained. Orders: Orders XR knee LT 2V 03/25/23 M25.569 - Pain in unspecified knee XR knee RT 2V 03/25/23 M25.569 - Pain in unspecified knee XR knee standing BI 03/25/23 M25.569 - Pain in unspecified knee MR knee LT wo con 03/25/23 M23.92 - Unspecified internal derangement of left knee Patient Instructions: Scribed for Dr. Osei Pineda by Julianna Ferrell, medical education specialist, on 03/15/2023 at 11:25 am, EST. Coding Level of Care Code Est Pt Level 4 (96176) Diagnoses Locking of left knee M23.92 Osteoarthritis of left knee M17.12 Osteoarthritis type: primary
[2023-03-25 11:33] VITALS: BMI 21.6
== END 2023-03-25 12:01 | disposition home or self-care (01) ==
PROVIDERS: PCP Internal Medicine; Visit Provider Orthopaedic Surgery
DX: M23.92 Unspecified internal derangement of left knee (principal); M17.12 Unilateral primary osteoarthritis, left knee
CPT/HCPCS: 99214

== ENCOUNTER 2023-03-30 09:18 | Outpatient (AMB) | payer OTHER, SELFPAY ==
--- NOTE | 2023-03-30 09:34 | MHC.OFFVIS ---
Intake Vital Signs 03/30/23 09:37 Height 5 ft 3 in Weight 119 lb BMI 21.1 BP 130/66 Blood Pressure Location Rt brachial Position Sitting Respiration 14 Pulse 71 Pulse Source Pulse Oximeter Pulse Oximetry (%) 97 Oxygen Delivery Method Room Air Intake Visit Reasons: F.U./Unilateral primary osteoarthritis, left knee Allergies simvastatin [SIMVASTATIN] Allergy (Unknown, Verified 03/30/23 09:38) MUSCLE ACHES celecoxib [From Celebrex] Adverse Reaction (Verified 03/30/23 09:38) Gastrointestinal Upset HPI HPI Comments History of Present Illness Details Jessy is back in my office to discuss possibility of treatments in our office. She is currently under observation of Dr. Pineda who sent her for MRI of the left knee. Therefore I would need to wait with neuromodulation on this patient until Dr. Pineda is done and through with her. If no new surgeries after MRI will be implicated she will be back in pain management office. I offered her today platelet rich plasma injection. She cannot afford this procedure. In the past I was considering femoral nerve block. If femoral block will successfully cover her pain I will perform trial and implantation of freedom/cure on X PNS. If this will not be effective I will try SCS [employer] in left gutter lumbar position in the attempt to alleviate her pain. Prior: complaints of left knee pain. She had arthroscopic surgery performed by Dr. Solis in 2016 and then again by in May 2020. She noted a slight improvement after her most recent surgery and was able to complete physical therapy.? Unfortunately, her pain returned and worsened around July 2020, without any inciting events.? She has tried cortisone injections as well as 3 EUFLEXXA injections with little to no improvement in her pain.? At this time, she has reportedly not a surgical candidate for total knee replacement.?She went for diagnostic genicular nerve block and she reported only aggravation of the pain from the genicular nerve block.? I examined the left knee of the patient today and the results are as below.? I strongly believe that patient suffers from Complex regional pain syndrome of the left lower extremity.? She reports that pain spreads wider than the knee area itself.?? Knee image revealed osteoarthritis as well as intact tendons.? Most of the pain she is experiencing is anterior.? She reports some instability after prolonged walking and a ?popping and clicking? sensation.? She denies any edema, erythema or warmth of the left knee. ?I think that at this time appropriate?way of treating her pain would be left diagnostic femoral nerve block.??The patient was confused thinking that the injection in the vicinity of the left femoral nerve will cause permanent paralysis in the leg.? I explained to her that although partial paralysis of the muscular groups of the legs are inevitable side effect of the injection if the pain relieve lasts longer than the paralysis than there is a possibility to treat her pain with peripheral nerve stimulation. [facility] Medical History (Updated 03/30/23 @ 11:52 by Daniel Aguirre MD) Acquired hypothyroidism Anxiety Arthritis Asthma Back pain Complex regional pain syndrome i of left lower limb COPD (chronic obstructive pulmonary disease) Elevated cholesterol History of depression History of nephrolithiasis History of positive PPD Hx of hepatitis C Locking of left knee Retention of urine Smoker Thyroid disease Surgical History Hx of colonoscopy Hx of hysterectomy Hx of left knee surgery S/P cystoscopy with ureteral stent placement Social History Housing: Apartment Patient Tobacco Use Status: Current everyday Tobacco user Cigarette Packs Per Day: 0.5 Cigarettes Per Day: 10.0 Years Smoked: 40 plus e-Cigarette/Vaping Use: Never Used service: No Current occupational status: other Current occupation: Right Handed Cognitive needs: No Hearing needs: No Vision needs: No Review of Systems Const All systems reviewed & are unremarkable except as noted in HPI and below Physical Exam Vital Signs: Last Vital Signs Pulse 71 03/30/23 09:37 Resp 14 03/30/23 09:37 BP 130/66 03/30/23 09:37 Pulse Ox 97 03/30/23 09:37 Oxygen Delivery Method Room Air 03/30/23 09:37 BMI result Body Mass Index 21.1 Const Other: Severely uncomfortable was walking. General: cooperative, healthy appearing, no acute distress and alert Orientation/consciousness: oriented to person, oriented to place and oriented to time Limitations: ambulation with cane HEENT Head: Yes normal to inspection, Yes normocephalic and Yes atraumatic Ears: hearing grossly normal bilaterally Mouth: moist mucous membranes Eyes General: appearance normal, both eyes and all related structures Resp Effort & Inspection: normal respiratory effort, able to speak in complete sentences and audible wheezes Cardio Jugular venous distension: no JVD Palpation: other (no appreciable rhythmic abnormalities) Peripheral pulses: popliteal pulses present Back/Spine/Pelvis Other: Examination of patient's bilateral knees was performed today: She had her left knee about 2.5 cm thinner in the mid patellar area compared to the healthy right knee. There is certain discoloration in projection of the left knee it is more red in color. The temperature is different on palpation of bilateral knees. The left knee is more warm on palpation. Flexing the knee results in very loud clicks and crepitus which can be heard even without palpation. Anterior drawer posterior drawer over and lateral collateral tests seem to be negative for instability. Majority of the patient's problem mostly is patellofemoral osteoarthritis. Neuro General: oriented to person, oriented to place, oriented to time and moves all extremities Gait exam (Neuro): Antalgic gait present Motor exam (neuro): 5/5 motor strength present throughout Psych Appearance: grossly normal Mental Status: mental status grossly normal Speech and movement: Normal speech and movement present and Clear speech present Affect: normal affect Attitude: cooperative Thought process: Normal thought process present Thought content: Normal thought content present Insight: Good insight present (Psych) Judgement: Good judgement present (Psych) Assessment & Plan Assessment & Plan (1) Osteoarthritis of left knee: Code(s): M17.12 - Unilateral primary osteoarthritis, left knee Qualifiers: Osteoarthritis type: primary Qualified Code(s): M17.12 - Unilateral primary osteoarthritis, left knee (2) Complex regional pain syndrome i of left lower limb: Code(s): G90.522 - Complex regional pain syndrome I of left lower limb Plan: The patient is under care of Dr. Pineda at this time. She was sent for MRI. If after MRI she will go for surgery on the left knee no to pain management interventions will be planned. However if surgery is not indicated for this patient she will come back to this office will try femoral nerve block in preparation for PNS freedom/cure on X. If femoral nerve block will not be effective I will consider [employer] SCS left lumbar gutter. She will give us a call after she is through with Dr. Pineda. Coding Level of Care Code Est Pt Level 3 (20152) Diagnoses Osteoarthritis of left knee M17.12 Osteoarthritis type: primary Complex regional pain syndrome i of left lower limb G90.520
[2023-03-30 09:37] VITALS: BP 130/66; PULSE 71; RESP 14; O2SAT 97; BMI 21.1
== END 2023-03-30 10:15 | disposition home or self-care (01) ==
PROVIDERS: PCP Internal Medicine; Visit Provider Anesthesiology
DX: M17.12 Unilateral primary osteoarthritis, left knee (principal); G90.522 Complex regional pain syndrome I of left lower limb
CPT/HCPCS: 99213

== ENCOUNTER → 2023-03-30 09:18 | Outpatient (BNVA) | payer OTHER, SELFPAY | PROVIDERS: PCP Internal Medicine; Visit Provider Anesthesiology ==

== ENCOUNTER 2023-05-06 08:53 | Outpatient (REF) | payer OTHER, SELFPAY ==
--- NOTE | ~2023-05-06 | MR_ITS ---
EXAMINATION: MR KNEE WITHOUT CONTRAST, LEFT CLINICAL INFORMATION: Left knee pain and locking. Prior cartilage surgery. COMPARISON: Left knee radiographs dated 03/25/2023. TECHNIQUE: MRI of the knee without contrast was performed using routine sequences on a high-field scanner. FINDINGS: MENISCI: Medial Meniscus: Intact Lateral Meniscus: Intact LIGAMENTS: Cruciate: Mildly increased T2 signal within the anterior cruciate ligament which could represent normal variation versus a grade 1 sprain. Intact posterior cruciate ligament. Collateral: Intact. EXTENSOR MECHANISM: Intact. ARTICULAR CARTILAGE/BONE: Patellofemoral Compartment: Patellar articular cartilage signal heterogeneity with partial-thickness loss along the central and medial patella. Central trochlear signal heterogeneity. Tiny marginal osteophytes. Medial Compartment: Intact articular cartilage. Lateral Compartment: Intact articular cartilage. JOINT FLUID AND BURSAE: Small joint effusion. MR/MR knee LT wo con IMPRESSION: 1. Mild patellofemoral osteoarthritis. Small joint effusion. 2. Increased T2 signal within the anterior cruciate ligament which could represent normal variation versus a grade 1 sprain. 3. No meniscal tear.
== END 2023-05-06 08:54 | disposition home or self-care (01) ==
LOC: HO.MRI 08:53
PROVIDERS: PCP Internal Medicine; Visit Provider Orthopaedic Surgery
DX: M23.92 Unspecified internal derangement of left knee (principal)
CPT/HCPCS: 73721

== ENCOUNTER 2023-05-25 11:38 | Outpatient (REF) | payer OTHER, SELFPAY ==
[2023-05-25 12:05] LABS: MANUAL DIFF FLAG NO
[2023-05-25 12:44] LABS: Basophils Percent Auto 0.6 % (0-2); Eosinophils Absolute Auto 0.2 X10*3/uL (0.0-0.4); Eosinophils Percent Auto 3.2 % (0-4); Hemoglobin 13.7 g/dl (12.0-16.0); Imm Gran Abs Auto 0.02 X10*3/uL (0.00-0.03); Imm Gran Pct Auto 0.4 % (0.0-0.4); Lymphocytes Absolute Auto 1.8 X10*3/uL (1.2-4.9); Lymphocytes Percent Auto 39.2 % (20-40); Mean Corpuscular HGB Conc 33.4 g/dl (31.0-35.0); Mean Corpuscular Hemoglobin 33.3 pg (27.0-33.0); Mean Corpuscular Volume 99.5 fL (80.0-98.0); Mean Platelet Volume 9.9 fL (9.4-12.3); Monocytes Absolute Auto 0.6 X10*3/uL (0.1-1.2); Monocytes Percent Auto 11.7 % (2-11); Neutrophils Absolute Auto 2.1 x10*3/uL (2.0-8.3); Neutrophils Percent Auto 44.9 % (45-73); Platelet Count 286 X10*3/uL (160-400); Red Blood Count 4.12 X10*6/uL (4.20-5.50); Red Cell Distribution Width 13.2 % (11.0-16.0); White Blood Count 4.7 X10*3/uL (4.8-10.8)
[2023-05-25 12:51] LABS: Estimated Average Glucose 103 mg/dL; Hemoglobin A1c % 5.2 % (<6.0)
[2023-05-25 13:04] LABS: Appearance Urine Cloudy; Color Urine Yellow; Glucose Urine UA Negative (Negative); Leukocyte Esterase Urine Trace (Negative); Nitrite Urine Negative (Negative); Specific Gravity - Urine 1.015 (1.005-1.025); UMIC TRIGGER UACC YES; Urine Blood Negative (Negative); Urine Ketones Negative (Negative); Urine Protein Negative (Neg-Trace)
[2023-05-25 13:07] LABS: Bacteria Urine None Seen (None Seen); Hyaline Casts Urine 0-2 /LPF (0-2); WBC Urine 0-5 /HPF (0-5)
[2023-05-25 14:48] LABS: Alanine Aminotransferase 17 U/L (0-31); Albumin Level 4.7 g/dL (3.5-5.0); Alkaline Phosphatase 37 U/L (39-117); Anion Gap 15 (12-20); Aspartate Amino Transferase 30 U/L (5-31); Bilirubin Total 0.5 mg/dL (0.0-1.0); Blood Urea Nitrogen 14 mg/dL (9-16); Calcium 10.4 mg/dL (8.4-10.2); Carbon Dioxide 26 mmol/L (22-29); Chloride 102 mmol/L (96-108); Cholesterol 213 mg/dL (<200); Estimated Glomerular Filt Rate 49; Glucose Fasting 89 mg/dL (60-99); HDL Cholesterol 75 mg/dL (>40); LDL Cholesterol Calculated 120 mg/dL (<100); Potassium 4.3 mmol/L (3.3-5.1); Sodium 139 mmol/L (135-145); Total Protein 7.7 g/dL (6.5-8.0); Triglycerides 92 mg/dL (<150)
[2023-05-25 14:59] LABS: Free T4 (Free Thyroxine) 1.17 ng/dL (0.71-1.85); Thyroid Stimulating Hormone 0.58 uIU/mL (0.32-4.0); Vitamin D 25-OH Total 33.2 ng/mL (>30)
== END 2023-05-25 11:39 | disposition home or self-care (01) ==
LOC: HO.LAB 11:38
PROVIDERS: PCP Internal Medicine; Visit Provider Internal Medicine
DX: I10 Essential (primary) hypertension (principal); E78.00 Pure hypercholesterolemia, unspecified; E55.9 Vitamin D deficiency, unspecified; E03.9 Hypothyroidism, unspecified; R73.01 Impaired fasting glucose
CPT/HCPCS: 36415; 80053; 80061; 81001; 81003; 82306; 83036; 84439; 84443; 85025

== ENCOUNTER 2023-06-02 12:41 | Outpatient (AMB) | payer OTHER, SELFPAY ==
--- NOTE | 2023-06-02 12:54 | MHC.OFFVIS ---
Intake Intake Visit Reasons: MRI Review LT knee 05/06/2023 Intake Note: Jessy is a 63 year old female who presents today for an MRI follow up of her left knee. At her last visit Injection vs Surgery was discussed, due to her locking an MRI was ordered. She has also been seen with pain mgmt who suggested possible neuromodulation but wanted patient to follow up to see is surgical intervention is needed Allergies simvastatin [SIMVASTATIN] Allergy (Unknown, Verified 03/30/23 09:38) MUSCLE ACHES celecoxib [From Celebrex] Adverse Reaction (Verified 03/30/23 09:38) Gastrointestinal Upset HPI MRI Review LT knee 05/06/2023 HPI Details Jessy is a 63-year-old woman who returns for an MRI review of her left knee pain. She continues to have pain with daily activity, along with locking of her knee occasionally. She is unable to walk long distances and that her pain continues to be throughout her knee. She follows with Dr. Aguirre for CRPS I of the lower extremities. She was offered a femoral nerve block trial & a PRP injection. She was unable to afford PRP and wanted to discuss treatment options here before returning to discuss a nerve block. She confirms taking Tylenol OTC PRN with no relief. She states she has tired Lidocaine and dicolfenac, with no relief. [facility], [facility] Medical History (Updated 03/30/23 @ 11:52 by Daniel Aguirre MD) Locking of left knee Acquired hypothyroidism Retention of urine Complex regional pain syndrome i of left lower limb Arthritis Back pain Thyroid disease Hx of hepatitis C History of positive PPD COPD (chronic obstructive pulmonary disease) Anxiety History of depression History of nephrolithiasis Smoker Asthma Elevated cholesterol Surgical History Hx of colonoscopy Hx of hysterectomy S/P cystoscopy with ureteral stent placement Hx of left knee surgery Social History Housing: Apartment Patient Tobacco Use Status: Current everyday Tobacco user Cigarette Packs Per Day: 0.5 Cigarettes Per Day: 10.0 Years Smoked: 40 plus e-Cigarette/Vaping Use: Never Used service: No Current occupational status: other Current occupation: Right Handed Cognitive needs: No Hearing needs: No Vision needs: No Physical Exam Extrem Other: Mild retropatellar ttp FUll ROM Stable ligamentous exam Results Reviewed Results Reviewed: 1. Mild patellofemoral osteoarthritis. Small joint effusion. 2. Increased T2 signal within the anterior cruciate ligament which could represent normal variation versus a grade 1 sprain. 3. No meniscal tear. Assessment & Plan Assessment & Plan (1) Osteoarthritis of left knee: Code(s): M17.12 - Unilateral primary osteoarthritis, left knee Qualifiers: Osteoarthritis type: primary Qualified Code(s): M17.12 - Unilateral primary osteoarthritis, left knee Plan: This is a 63 year old woman with mild left knee PF OA. MRI unimpressive. She has pain with daily activity, along with popping, and is limited in her ambulation. No intervention warranted at this time. Will return for injections shoud pain worsen. (2) Complex regional pain syndrome i of left lower limb: Code(s): G90.522 - Complex regional pain syndrome I of left lower limb Coding Level of Care Code Est Pt Level 3 (77255) Diagnoses Primary osteoarthritis of left knee M17.12 Osteoarthritis type: primary Complex regional pain syndrome i of left lower limb G90.522
== END 2023-06-02 14:10 | disposition home or self-care (01) ==
PROVIDERS: PCP Internal Medicine; Visit Provider Orthopaedic Surgery
DX: M17.12 Unilateral primary osteoarthritis, left knee (principal); G90.522 Complex regional pain syndrome I of left lower limb
CPT/HCPCS: 99213

== ENCOUNTER → 2023-06-02 12:41 | Outpatient (BNVA) | payer OTHER, SELFPAY | PROVIDERS: PCP Internal Medicine; Visit Provider Orthopaedic Surgery ==

== ENCOUNTER 2023-06-08 13:55 | Outpatient (AMB) | payer OTHER, SELFPAY ==
[2023-06-08 13:56] VITALS: BP 130/82; PULSE 76; O2SAT 95; BMI 21.0
--- NOTE | 2023-06-08 13:56 | MHC.PC.OV ---
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 Accompanied by: Self / Same As Patient Allergies simvastatin [SIMVASTATIN] Allergy (Unknown, Verified 06/08/23 14:30) MUSCLE ACHES celecoxib [From Celebrex] Adverse Reaction (Verified 06/08/23 14:30) Gastrointestinal Upset Medication List - Last Reconciled 06/08/23 by Brooks Al MD albuterol sulfate 90 mcg/actuation (ProAir HFA) 2 puffs inhalation Q4-6H PRN ascorbic acid (vitamin C) (Vitamin C) 500 mg PO DAILY ezetimibe (Zetia) 10 mg PO DAILY fenofibrate nanocrystallized 145 mg PO DAILY 90 days folic acid 1 mg PO DAILY 90 days lactobacillus combination no.9 (Adult 50 Plus Probiotic) 4,000 mmu cells PO DAILY levothyroxine Take 1 tablet daily Mondays through Saturdays and 2 tablets daily on Sundays daily 12 weeks pyridoxine (vitamin B6) 100 mg PO DAILY 90 days sertraline 100 mg PO DAILY Tobacco use date assessed: 06/08/23 Dental Screening Dental Screen Date: 06/08/23 Did you have a dental visit in the last 12 months?: No Did you have a dental problem in the last 6 months where you did not have access to dental care?: No Was dental information given to patient?: No HPI 3 month f/u HPI Details Patient comes in today for her follow-up visit States that she feels okay She denies any headaches or dizziness Denies any chest pains, no shortness of breath No nausea / vomiting, no abdominal pain No change in bowel habits noted States that she has a cyst near left elbow that has been present for a few years but feels that it has gotten bigger lately and feels painful sometimes - would like to see if this can be removed She continues to follow-up with Dr. Pineda for her chronic left knee pain /osteoarthritis; has also been seeing Pain Management for her chronic left knee and left leg pain and was apparently advised to call them back if needed after her knee issues are addressed by orthopedics States that keen surgery/joint replacement is a possibilty She would also like to request for some thing to help with quitting smoking - states that she has done well with Chantix in the past but she went back to smoking after a while Had her follow up labs done a couple of weeks ago - to discuss her results FORMERLY [facility], [facility] Medical History (Updated 06/09/23 @ 06:10 by Brooks Al MD) Locking of left knee Acquired hypothyroidism Retention of urine Complex regional pain syndrome i of left lower limb Arthritis Back pain Thyroid disease Hx of hepatitis C History of positive PPD COPD (chronic obstructive pulmonary disease) Anxiety History of depression History of nephrolithiasis Smoker Asthma Elevated cholesterol Surgical History Hx of colonoscopy Hx of hysterectomy S/P cystoscopy with ureteral stent placement Hx of left knee surgery Social History Housing: Apartment Patient Tobacco Use Status: Current everyday Tobacco user Cigarette Packs Per Day: 0.5 Cigarettes Per Day: 10.0 Years Smoked: 40 plus e-Cigarette/Vaping Use: Never Used service: No Current occupational status: other Current occupation: Right Handed Cognitive needs: No Hearing needs: No Vision needs: No Questionnaire PHQ-9 Over the last 2 weeks, how often have you been bothered by any of the following problems? 1. Little interest or pleasure in doing things: nearly every day 2. Feeling down, depressed, or hopeless: nearly every day 3. Trouble falling or staying asleep, or sleeping too much: nearly every day 4. Feeling tired or having little energy: nearly every day 5. Poor appetite or overeating: not at all 6. Feeling bad about yourself - or that you are a failure or have let yourself or your family down: not at all 7. Trouble concentrating on things, such as reading the newspaper or watching television: not at all 8. Moving or speaking so slowly that other people could have noticed. Or the opposite - being so fidgety or restless that you have been moving around a lot more than usual: not at all 9. Thoughts that you would be better off or of hurting yourself in some way: not at all Total score: 12 Depression Screening Interpretation: Positive Depression Screening Follow-up: Existing condition and In treatment Depression Screening Done: Yes [id number] - PHQ-9 Billing: Yes Source: Developed by Drs. Agustin Tse, Kit Schuster and colleagues, with an educational elena from [employer]. Thrive Questionnaire Date Thrive assessed: 06/08/23 I am a: Patient What is your living situation today?: I have a steady place to live Within the past 12 months, did the food you bought not last and you didn't have the money to get more?: Never true Within the past 12 months, did you worry whether your food would run out before you got money to buy more?: Never true Do you have trouble paying for medicines?: No Do you have trouble getting transportation to medical appointments?: No Do you have trouble paying your heating and electricity bill?: No Do you have trouble taking care of your child, family member or friend?: No Do you have trouble with day-to-day activities such as bathing, preparing meals, shopping, managing finances, etc.?: No Are you currently unemployed and looking for a job?: No Are you interested in more education?: No Please select the resources that you would like help with: None Currently or been in a relationship where the following occur: no concerns reported AUDIT C Alcohol Use Questionnaire (AUDIT-C) 1. How often do you have a drink containing alcohol?: Monthly or less 3. How often do you have six or more drinks on one occasion?: Less than monthly Total Score: 2 Score Reviewed/Action Taken: Yes TIMOTHY-7 AMB Questionnaire TIMOTHY-7 Date TIMOTHY - 7 assessed: 06/08/23 Feeling nervous, anxious, or on edge: 1 = Several days Not being able to stop or control worryin = Several days Worrying too much about different things: 1 = Several days Trouble relaxin = Several days Being so restless that it is hard to sit still: 1 = Several days Becoming easily annoyed or irritable: 1 = Several days Feeling afraid as if something awful might happen: 0 = Not at all Total TIMOTHY-7 score (0-4 normal; 5-9 mild; 10-14 moderate; 15-21 severe): 6 Source: Developed by Felicity Neil Kurt Kroenke and colleagues, with an educational elena from [employer]. Review of Systems Const Denies chills, Denies fatigue, Denies fever(s) and Denies headache(s) ENT Denies dysphagia, Denies dizziness, Denies otalgia, Denies headache(s), Denies neck pain, Denies odynophagia and Denies sore throat Card Denies chest pain, Denies palpitations and Denies dyspnea Resp Denies cough and Denies dyspnea GI Denies abdominal pain, Denies constipation, Denies dysphagia, Denies heartburn, Denies diarrhea, Denies nausea, Denies odynophagia and Denies vomiting Denies difficulty voiding, Denies nocturia and Denies dysuria Musc Details: (+) chronic left lower extremity pain Reports arthralgias (left knee) and Denies neck pain Skin/Breast Details: (+) painful cyst on the left forearm near the elbow Neuro Denies dizziness and Denies headache(s) Endo Denies fatigue and Denies palpitations Physical exam (Primary Care) Vital Signs: Last Vital Signs Pulse 76 06/08/23 13:56 BP 130/82 06/08/23 13:56 Pulse Ox 95 06/08/23 13:56 Oxygen Delivery Method Room Air 06/08/23 13:56 BMI result Body Mass Index 21.0 Tobacco/Smoking Status: Tobacco use Status Tobacco use date assessed 06/08/23 06/08/23 13:58 Patient Tobacco Use Status Current everyday Tobacco 06/08/23 13:58 e-Cigarette/Vaping Use Never Used 06/08/23 13:58 PHQ-9: PHQ-9 Score PHQ-9: Total score 12 06/08/23 14:34 Depression Screening Interpretation: Positive Depression Screening Follow-up: Existing condition and In treatment Thrive Assessment: Date of Thrive Assessment Date Thrive assessed 06/08/23 06/08/23 13:58 Currently or been in a relationship where the following occur: no concerns reported Const General: no acute distress and alert HENMT Ears: TM's normal bilaterally and EAC's normal Throat: Yes posterior oropharynx normal and Yes tonsils normal (no TP congestion) Neck Neck: Yes no lymphadenopathy and Yes supple Resp Auscultation: clear to auscultation bilaterally, no rales and no wheezes Cardio Rate: regular rate Rhythm: regular rhythm Heart sounds: no murmurs GI Palpation (GI): Soft to palpation and nontender Auscultation: normal bowel sounds Skin Other: (+) small firm cystic lesion over the extensor aspect of the left forearm, just a couple of inches distal to the left elbow Rashes: no rashes Extrem General: Yes no clubbing, cyanosis or edema Left lower extremity: knee Details: tenderness (chronic) Results Reviewed Results Reviewed: Laboratory Tests 05/25/23 05/25/23 11:56 12:03 WBC 4.7 L Hgb 13.7 Hct 41.0 Plt Count 286 Sodium 139 Potassium 4.3 Creatinine 1.12 Estimated GFR 49 Fasting Glucose 89 Hemoglobin A1c % 5.2 Calcium 10.4 H D AST 30 ALT 17 Triglycerides 92 Cholesterol 213 H LDL Cholesterol, Calc 120 H HDL Cholesterol 75 25-OH Vitamin D Total 33.2 TSH 0.58 Free T4 1.17 Ur Specific [place] 1.015 Urine Protein Negative Urine Glucose (UA) Negative Urine Blood Negative Assessment and Plan Assessment & Plan (1) Mixed hyperlipidemia: Code(s): E78.2 - Mixed hyperlipidemia Plan: Results of her labs done a couple of weeks ago reviewed and discussed with patient Reinforced low-cholesterol diet Continue Fenofibrate 145 mg QD and Ezetimibe 10 mg QD Will recheck her labs and fasting lipids in 4 months for follow-up (2) Acquired hypothyroidism: Code(s): E03.9 - Hypothyroidism, unspecified Plan: Her TFTs are normal on recent labs Continue Levothyroxine 88 mcg 1 tablet daily on Mondays to Saturdays and 2 tablets QD on Sundays Will recheck her TFTs in 4 months for follow up (3) Asthma: Code(s): J45.909 - Unspecified asthma, uncomplicated Qualifiers: Asthma severity: mild Asthma persistence: intermittent Asthma complication type: uncomplicated Qualified Code(s): J45.20 - Mild intermittent asthma, uncomplicated Plan: Continue Albuterol HFA 1 to 2 inhalations Q 6 hours PRN (4) Osteoarthritis of left knee: Code(s): M17.12 - Unilateral primary osteoarthritis, left knee Qualifiers: Osteoarthritis type: primary Qualified Code(s): M17.12 - Unilateral primary osteoarthritis, left knee Plan: S/P arthroscopic surgery x 2 in the past; has also tried physical therapy, cortisone injections and Euflexxa injections with no significant relief or improvement of symptoms Follow up with orthopedics as scheduled (5) Complex regional pain syndrome i of left lower limb: Code(s): G90.522 - Complex regional pain syndrome I of left lower limb Plan: Follow up with pain management as scheduled (6) Nephrolithiasis: Code(s): N20.0 - Calculus of kidney Plan: Follow up with urology as scheduled for continuing management (7) Cutaneous cyst: Code(s): L72.9 - Follicular cyst of the skin and subcutaneous tissue, unspecified Plan: Will refer her to surgery for further evaluation and consideration for excision of the cyst on her left forearm (8) Anxiety: Code(s): F41.9 - Anxiety disorder, unspecified Plan: Continue Sertraline 100 mg QD (9) Smoker: Code(s): F17.200 - Nicotine dependence, unspecified, uncomplicated Plan: Counseled again on smoking cessation Per request, will start back on Varenicline to help patient quit smoking Plan Follow up in 4 months Orders: Orders Comprehensive Met. Panel 4 Months E78.2 - Mixed hyperlipidemia Free T4 (Free Thyroxine) 4 Months E03.9 - Hypothyroidism, unspecified Vitamin D 25-OH Total 4 Months E55.9 - Vitamin D deficiency, unspecified Lipid Panel 4 Months E78.00 - Pure hypercholesterolemia, unspecified Complete Blood Count Auto Diff 4 Months D72.819 - Decreased white blood cell count, unspecified, E78.2 - Mixed hyperlipidemia Thyroid Stimulating Hormone 4 Months E03.9 - Hypothyroidism, unspecified UA CC w/rflx Micro + Cult 4 Months R30.0 - Dysuria Referrals General Surgery Referral L72.9 - Follicular cyst of the skin and subcutaneous tissue, unspecified Medications: New varenicline administer on days 4, 5, and 6 of therapy 0.5 mg PO BID 6 tabs 0RF 3 days varenicline administer on days 1, 2, and 3 of therapy 0.5 mg PO DAILY 3 tabs 0RF 3 days varenicline 1 mg PO BID 56 tabs 3RF 28 days Coding Level of Care Code Est Pt Level 4 (00566) Diagnoses Mixed hyperlipidemia E78.2 Acquired hypothyroidism E03.9 Mild intermittent asthma without complication J45.20 Asthma severity: mild Asthma persistence: intermittent Asthma complication type: uncomplicated Primary osteoarthritis of left knee M17.12 Osteoarthritis type: primary Complex regional pain syndrome i of left lower limb G90.522 Nephrolithiasis N20.0 Cutaneous cyst L72.9 Anxiety F41.9 Smoker F17.200
== END 2023-06-08 14:50 | disposition home or self-care (01) ==
PROVIDERS: PCP Internal Medicine; Visit Provider Internal Medicine
DX: E78.2 Mixed hyperlipidemia (principal); E03.9 Hypothyroidism, unspecified; J45.20 Mild intermittent asthma, uncomplicated; M17.12 Unilateral primary osteoarthritis, left knee; G90.522 Complex regional pain syndrome I of left lower limb; N20.0 Calculus of kidney; L72.9 Follicular cyst of the skin and subcutaneous tissue, unspecified; F41.9 Anxiety disorder, unspecified; F17.200 Nicotine dependence, unspecified, uncomplicated
CPT/HCPCS: 99214

== ENCOUNTER 2023-06-15 08:48 | Outpatient (AMB) | payer OTHER, SELFPAY ==
--- NOTE | 2023-06-15 08:52 | MHC.OFFVIS ---
Intake Vital Signs 06/15/23 08:57 Height 5 ft 3 in Weight 120 lb BMI 21.3 BP 119/58 L Blood Pressure Location Rt brachial Position Sitting Respiration 14 Pulse 70 Pulse Source Pulse Oximeter Pulse Oximetry (%) 99 Oxygen Delivery Method Room Air Intake Visit Reasons: Requesting nerve block left knee/CONFIRMED Allergies simvastatin [SIMVASTATIN] Allergy (Unknown, Verified 06/15/23 08:58) MUSCLE ACHES celecoxib [From Celebrex] Adverse Reaction (Verified 06/15/23 08:58) Gastrointestinal Upset HPI HPI Comments History of Present Illness Details Jessy is back in my office to discuss possibility of treatments in our office. She went to Dr. Pineda for recent consult and she was told that no surgeries indicated for her knee. The MRI also was negative for any soft tissue changes. The patient complains on pain on anterior as well as posterior surface of the knee. I will schedule her for femoral nerve block. I will send her for psychological evaluation in preparation of freedom/curonix PNS. She will go for trial of curonix after the positive femoral nerve block. Therefore need to perform femoral nerve block for her now. If this will not be effective I will try SCS [employer] in left gutter lumbar position in the attempt to alleviate her pain. Prior: complaints of left knee pain. She had arthroscopic surgery performed by Dr. Solis in 2016 and then again by in May 2020. She noted a slight improvement after her most recent surgery and was able to complete physical therapy.? Unfortunately, her pain returned and worsened around July 2020, without any inciting events.? She has tried cortisone injections as well as 3 EUFLEXXA injections with little to no improvement in her pain.? At this time, she has reportedly not a surgical candidate for total knee replacement.?She went for diagnostic genicular nerve block and she reported only aggravation of the pain from the genicular nerve block.? I examined the left knee of the patient today and the results are as below.? I strongly believe that patient suffers from Complex regional pain syndrome of the left lower extremity.? She reports that pain spreads wider than the knee area itself.?? Knee image revealed osteoarthritis as well as intact tendons.? Most of the pain she is experiencing is anterior.? She reports some instability after prolonged walking and a ?popping and clicking? sensation.? She denies any edema, erythema or warmth of the left knee. FORMERLY [facility] Medical History (Updated 06/15/23 @ 09:12 by Daniel Aguirre MD) Locking of left knee Acquired hypothyroidism Retention of urine Complex regional pain syndrome i of left lower limb Arthritis Back pain Thyroid disease Hx of hepatitis C History of positive PPD COPD (chronic obstructive pulmonary disease) Anxiety History of depression History of nephrolithiasis Smoker Asthma Elevated cholesterol Surgical History Hx of colonoscopy Hx of hysterectomy S/P cystoscopy with ureteral stent placement Hx of left knee surgery Social History Housing: Apartment Patient Tobacco Use Status: Current everyday Tobacco user Cigarette Packs Per Day: 0.5 Cigarettes Per Day: 10.0 Years Smoked: 40 plus e-Cigarette/Vaping Use: Never Used service: No Current occupational status: other Current occupation: Right Handed Cognitive needs: No Hearing needs: No Vision needs: No Review of Systems Const All systems reviewed & are unremarkable except as noted in HPI and below Physical Exam Const Other: Severely uncomfortable was walking. General: cooperative, healthy appearing, no acute distress and alert Orientation/consciousness: oriented to person, oriented to place and oriented to time Limitations: ambulation with cane HEENT Head: Yes normal to inspection, Yes normocephalic and Yes atraumatic Ears: hearing grossly normal bilaterally Mouth: moist mucous membranes Eyes General: appearance normal, both eyes and all related structures Resp Effort & Inspection: normal respiratory effort, able to speak in complete sentences and audible wheezes Cardio Jugular venous distension: no JVD Palpation: other (no appreciable rhythmic abnormalities) Peripheral pulses: popliteal pulses present Back/Spine/Pelvis Other: Examination of patient's bilateral knees was performed today: She had her left knee about 2.5 cm thinner in the mid patellar area compared to the healthy right knee. There is certain discoloration in projection of the left knee it is more red in color. The temperature is different on palpation of bilateral knees. The left knee is more warm on palpation. Flexing the knee results in very loud clicks and crepitus which can be heard even without palpation. Anterior drawer posterior drawer over and lateral collateral tests seem to be negative for instability. Majority of the patient's problem mostly is patellofemoral osteoarthritis. Neuro General: oriented to person, oriented to place, oriented to time and moves all extremities Gait exam (Neuro): Antalgic gait present Motor exam (neuro): 5/5 motor strength present throughout Extrem Other: Mild retropatellar ttp FUll ROM Stable ligamentous exam Psych Appearance: grossly normal Mental Status: mental status grossly normal Speech and movement: Normal speech and movement present and Clear speech present Affect: normal affect Attitude: cooperative Thought process: Normal thought process present Thought content: Normal thought content present Insight: Good insight present (Psych) Judgement: Good judgement present (Psych) Assessment & Plan Assessment & Plan (1) Osteoarthritis of left knee: Code(s): M17.12 - Unilateral primary osteoarthritis, left knee Qualifiers: Osteoarthritis type: primary Qualified Code(s): M17.12 - Unilateral primary osteoarthritis, left knee (2) Complex regional pain syndrome i of left lower limb: Code(s): G90.522 - Complex regional pain syndrome I of left lower limb Plan: No indication for surgery from Dr. Pineda. She complains on pain on anterior and posterior levels of the knee. She reports anterior pain is hurting her more. She exhibits symptoms of Complex regional pain syndrome of the left lower extremity. She has discoloration of the knee as well as lose of muscular mass on the anterior surface of the left thigh. Femoral nerve PNS is considered to help her pain. I will send her for psychological evaluation. Meanwhile I will schedule her for femoral nerve block. Schedule now for femoral nerve block in preparation for PNS freedom/cure on X. If femoral nerve block will not be effective I will consider [employer] SCS left lumbar gutter. (3) Status post arthroscopy of left knee: Code(s): Z98.890 - Other specified postprocedural states (4) Left knee pain: Code(s): M25.562 - Pain in left knee Coding Level of Care Code Est Pt Level 3 (67577) Diagnoses Primary osteoarthritis of left knee M17.12 Osteoarthritis type: primary Complex regional pain syndrome i of left lower limb G90.522 Status post arthroscopy of left knee Z98.890 Left knee pain M25.562
[2023-06-15 08:57] VITALS: BP 119/58; PULSE 70; RESP 14; O2SAT 99; BMI 21.3
== END 2023-06-15 09:09 | disposition home or self-care (01) ==
PROVIDERS: PCP Internal Medicine; Visit Provider Anesthesiology
DX: M17.12 Unilateral primary osteoarthritis, left knee (principal); G90.522 Complex regional pain syndrome I of left lower limb; Z98.890 Other specified postprocedural states; M25.562 Pain in left knee
CPT/HCPCS: 99214

== ENCOUNTER → 2023-06-15 08:48 | Outpatient (BNVA) | payer OTHER, SELFPAY | PROVIDERS: PCP Internal Medicine; Visit Provider Anesthesiology ==

== ENCOUNTER 2023-06-21 13:44 | Outpatient (AMB) | payer OTHER, SELFPAY ==
--- NOTE | 2023-06-21 13:50 | A.OFFVIS_ITS ---
Intake Vital Signs 06/21/23 13:58 Height 5 ft 3 in Weight 117 lb BMI 20.7 BP 141/68 H Blood Pressure Location Rt brachial Position Sitting Pulse 80 Intake Visit Reasons: Cyst~ Lt forearm distal to elbow Intake Note: Patient referred by PCP Dr. Al for cyst on Lt forearm. Has been present for 1yr. C/o increasing in size. Denies hx of trauma to area. Fitness/Wellness Director Required: No Accompanied by: Self / Same As Patient Allergies simvastatin [SIMVASTATIN] Allergy (Unknown, Verified 06/21/23 13:55) MUSCLE ACHES celecoxib [From Celebrex] Adverse Reaction (Verified 06/21/23 13:55) Gastrointestinal Upset Medication List - Last Reconciled 06/21/23 by Christo Bob MD albuterol sulfate 90 mcg/actuation (ProAir HFA) 2 puffs inhalation Q4-6H PRN ascorbic acid (vitamin C) (Vitamin C) 500 mg PO DAILY ezetimibe (Zetia) 10 mg PO DAILY fenofibrate nanocrystallized 145 mg PO DAILY 90 days folic acid 1 mg PO DAILY 90 days lactobacillus combination no.9 (Adult 50 Plus Probiotic) 4,000 mmu cells PO DAILY levothyroxine Take 1 tablet daily Mondays through Saturdays and 2 tablets daily on Sundays daily 12 weeks pyridoxine (vitamin B6) 100 mg PO DAILY 90 days sertraline 100 mg PO DAILY varenicline 0.5 mg PO BID 3 days HPI HPI Comments History of Present Illness Details Patient has approximate 1 year history of a left soft tissue cyst just distal to her left elbow. His increasing in size, becoming more symptomatic. She wishes to have it excised. She has no such lesions elsewhere. Chart was reviewed patient evaluated [facility] Medical History Locking of left knee Acquired hypothyroidism Retention of urine Complex regional pain syndrome i of left lower limb Arthritis Back pain Thyroid disease Hx of hepatitis C History of positive PPD COPD (chronic obstructive pulmonary disease) Anxiety History of depression History of nephrolithiasis Smoker Asthma Elevated cholesterol Surgical History Hx of colonoscopy Hx of hysterectomy S/P cystoscopy with ureteral stent placement Hx of left knee surgery Social History (Updated 06/21/23 @ 13:56 by BRETT Bonilla) Housing: Apartment Alcohol intake: current Alcohol intake frequency: holidays/special occasions only Alcohol type: beer and hard liquor Patient Tobacco Use Status: Current everyday Tobacco user Cigarette Packs Per Day: 0.5 Cigarettes Per Day: 10.0 Years Smoked: 40 plus e-Cigarette/Vaping Use: Never Used service: No Current occupational status: other Current occupation: Right Handed Cognitive needs: No Hearing needs: No Vision needs: No Physical Exam Vital Signs: Last Vital Signs Pulse 80 06/21/23 13:58 BP 141/68 H 06/21/23 13:58 BMI result Body Mass Index 20.7 Extrem Other: Approximately 2 x 1 cm subcutaneous cyst type mass. Very mobile. Very superficial Office Procedures Excision Details: Risks, benefits, alternatives of excision of left elbow soft tissue cyst reviewed the patient included but not limited to bleeding, infection, recurrence, numbness, pain, scarring, wound dehiscence and the patient wished to proceed. All questions were answered. Consent was signed. After appropriately position, patient's left elbow area underwent 1% lidocaine and Betadine prep. A longitudinal incision was made over the cyst type mass which was uneventfully enucleated. This measured approximately 2 x 1 cm. And passing of the pathology, the cyst actually popped. Was irrigated, secured hemostasis, and closed using interrupted inverted dermal 3-0 Vicryl sutures followed by Steri-Strips and sterile dressings. Patient tolerated procedure well. Procedure code (CPT) selection complete Office Meds lidocaine 1 %-epinephrine 1:100,000 injection solution Performing Provider: Christo Bob MD Performing Location: [facility] [place] General Surgeons Administered by: Christo Bob MD on 06/21/23 14:13 Dose Route Admin Location Dispensed Lot Number Expiration Date [facility] [place]NOTE 2[place] Residential Therapist 10 mL Infiltration 10 mL Assessment & Plan Assessment & Plan (1) EIC (epidermal inclusion cyst): Code(s): L72.0 - Epidermal cyst Plan: Patient has been given local instructions including avoid strenuous activities for next few days, ice to the wound periodically, may shower in 2 days, and will follow-up as directed or p.r.n.. Tylenol p.r.n. pain. Orders: Orders AMB Excision Today L72.0 - Epidermal cyst Coding Level of Care Code New Pt Level 4 (92331) Diagnoses EIC (epidermal inclusion cyst) L72.0
[2023-06-21 13:58] VITALS: BP 141/68; PULSE 80; BMI 20.7
== END 2023-06-21 14:12 | disposition home or self-care (01) ==
PROVIDERS: PCP Internal Medicine; Referring Provider Internal Medicine; Visit Provider Surgery
DX: L72.0 Epidermal cyst (principal)
CPT/HCPCS: 99204

== ENCOUNTER 2023-06-21 13:44 | Outpatient (REF) | payer OTHER, SELFPAY | END 2023-06-21 13:45 | disposition home or self-care (01) | LOC: HO.LNP 13:44 | PROVIDERS: PCP Internal Medicine; Referring Provider Internal Medicine; Visit Provider Surgery | DX: L72.0 Epidermal cyst (principal); Z79.899 Other long term (current) drug therapy | CPT/HCPCS: 11402; 88304; 88305 ==

== ENCOUNTER 2023-06-28 11:23 | Outpatient (AMB) | payer OTHER, SELFPAY ==
[2023-06-28 11:28] VITALS: BP 116/57; PULSE 80; BMI 20.5
--- NOTE | 2023-06-28 11:28 | A.OFFVIS_ITS ---
Intake Vital Signs 06/28/23 11:28 Height 5 ft 3 in Weight 116 lb BMI 20.5 BP 116/57 L Blood Pressure Location Rt brachial Position Sitting Pulse 80 Intake Visit Reasons: S/p exc lt distal forearm Intake Note: Patient here s/p exc Lt distal forearm. Reports incision healing well. Denies bleeding, pain, itch. Director Of Corporate Sales Required: No Accompanied by: Self / Same As Patient Allergies simvastatin [SIMVASTATIN] Allergy (Unknown, Verified 06/28/23 11:29) MUSCLE ACHES celecoxib [From Celebrex] Adverse Reaction (Verified 06/28/23 11:29) Gastrointestinal Upset HPI HPI Comments History of Present Illness Details Patient presents for follow-up. She has no wound issues or complaints. Pathology is benign. [facility] Medical History Locking of left knee Acquired hypothyroidism Retention of urine Complex regional pain syndrome i of left lower limb Arthritis Back pain Thyroid disease Hx of hepatitis C History of positive PPD COPD (chronic obstructive pulmonary disease) Anxiety History of depression History of nephrolithiasis Smoker Asthma Elevated cholesterol Surgical History Hx of colonoscopy Hx of hysterectomy S/P cystoscopy with ureteral stent placement Hx of left knee surgery Housing: Apartment Alcohol intake: current Alcohol intake frequency: holidays/special occasions only Alcohol type: beer and hard liquor Patient Tobacco Use Status: Current everyday Tobacco user Cigarette Packs Per Day: 0.5 Cigarettes Per Day: 10.0 Years Smoked: 40 plus e-Cigarette/Vaping Use: Never Used service: No Current occupational status: other Current occupation: Right Handed Cognitive needs: No Hearing needs: No Vision needs: No Physical Exam Vital Signs: Last Vital Signs Pulse 80 06/28/23 11:28 BP 116/57 L 06/28/23 11:28 BMI result Body Mass Index 20.5 Extrem Other: Wound healing very well clean dry and intact Assessment & Plan Assessment & Plan (1) EIC (epidermal inclusion cyst): Code(s): L72.0 - Epidermal cyst Plan Patient has been given local wound instructions, and will follow-up p.r.n. Coding Level of Care Code Global (57141) Diagnoses EIC (epidermal inclusion cyst) L72.0
== END 2023-06-28 11:46 | disposition home or self-care (01) ==
PROVIDERS: PCP Internal Medicine; Visit Provider Surgery
DX: L72.0 Epidermal cyst (principal)
CPT/HCPCS: 99024

== ENCOUNTER → 2023-06-28 11:23 | Outpatient (BNVA) | payer OTHER, SELFPAY | PROVIDERS: PCP Internal Medicine; Visit Provider Surgery ==

== ENCOUNTER 2023-07-19 06:05 | Outpatient (REF) | payer OTHER, SELFPAY | END 2023-07-19 06:06 | disposition home or self-care (01) | LOC: CF 06:05 | PROVIDERS: Visit Provider Anesthesiology | DX: M17.12 Unilateral primary osteoarthritis, left knee (principal); G90.522 Complex regional pain syndrome I of left lower limb; Z98.890 Other specified postprocedural states | CPT/HCPCS: 64447; J2795 ==

== ENCOUNTER 2023-07-19 09:50 | Outpatient (AMB) | payer OTHER, SELFPAY ==
--- OUTSIDE RECORDS SUMMARY | 2023-07-19 09:51 | XMS_ITS | Continuity of Care Document ---
Author Name Unknown Organization [facility] Address [address] [place] [address]- Care Team Providers Care Digitizer Name Role Phone Solomon DE LA FUENTE MD, Shaun Wheeler Primary Care Physician [phone] Encounter [facility] Date(s): 05/27/22 - 05/27/[address] [address]- Discharge Disposition: A-D/C Home Attending Physician: Júnior Perdue MD Admitting Physician: Júnior Perdue MD Referring Physician: Not on Staff, Referring MD Allergies, Adverse Reactions, Alerts Substance Reaction Severity Status simvastatin Active Immunizations Given and Recorded Vaccine Date Status Refusal Reason tetanus/diphtheria/pertussis, acel(Tdap) 09/14/20 Given Medications Acidophilus Probiotic Blend By Mouth, Daily, 0 Refills, Maintenance, 09/14/20 19:36:00 EST, Partial fill upon patient request if the prescription is for a schedule II opioid drug. Start Date: 09/14/20 Status: Ordered cetirizine 10 mg oral tablet 1 tablet = 10 mg, By Mouth, Daily, # 30 tablet, 0 Refills, Maintenance, 04/14/22 16:48:00 EDT, Tablet, Partial fill upon patient request if the prescription is for a schedule II opioid drug. Start Date: 04/14/22 Status: Ordered ibuprofen 600 mg oral tablet 600 mg, 1, tablet, By Mouth, 3 times a day, for 30 days, # 90 tablet, Refills 0, Tot. Refills 0, Acute 06/26/22 11:51:00 EST, 05/27/22 11:51:00 EDT, Route to Pharmacy Electronically, [facility]/pharmacy #[id number], Partial fill upon patient request if the prescri... Start Date: 05/27/22 Stop Date: 06/26/22 Status: Ordered levothyroxine 0.088 mg oral tablet 1 tablet = 88 mcg, By Mouth, Daily, # 30 tablet, 0 Refills, Maintenance, 04/14/22 13:00:00 EDT, Tablet, Partial fill upon patient request if the prescription is for a schedule II opioid drug. Start Date: 04/14/22 Status: Ordered NuLYTELY with Flavor Packs oral powder for reconstitution 240 mL, By Mouth, Every 10 minutes, prior to colonoscopy, # 1 each, 0 Refills, Maintenance, 04/29/21 10:16:00 EDT, REC Powder, [facility]/pharmacy #[id number], Partial fill upon patient request if the prescription is for a schedule II opioid drug., 240 mL By Mouth... Start Date: 04/29/21 Status: Ordered oxyCODONE 5 mg oral tablet 5 mg, 1, tablet, By Mouth, Every 6 hours, PRN, for 5 days, # 16 tablet, Refills 0, Tot. Refills 0, Acute 06/01/22 11:51:00 EDT, Pain , Severe, 05/27/22 11:51:00 EDT, Route to Pharmacy Electronically,[facility]/pharmacy #[id number], Partial fill upon patient reque... Start Date: 05/27/22 Stop Date: 06/01/22 Status: Ordered Sertraline = 10 mg, By Mouth, Daily, 0 Refills, Maintenance, 09/14/20 19:35:00 EST, Partial fill upon patient request if the prescription is for a schedule II opioid drug. Start Date: 09/14/20 Status: Ordered turmeric 500 mg oral capsule 1 capsule = 500 mg, By Mouth, Daily, # 60 capsule, 0 Refills, Maintenance, 09/14/20 19:36:00 EST, Capsule, Partial fill upon patient request if the prescription is for a schedule II opioid drug. Start Date: 09/14/20 Status: Ordered Vitamin C By Mouth, Daily, 0 Refills, Maintenance, 09/14/20 19:37:00 EST, Partial fill upon patient request if the prescription is for a schedule II opioid drug. Start Date: 09/14/20 Status: Ordered Vitamin D3 By Mouth, Daily, 0 Refills, Maintenance, 09/14/20 19:37:00 EST, Partial fill upon patient request if the prescription is for a schedule II opioid drug. Start Date: 09/14/20 Status: Ordered Zetia 10 mg oral tablet 1 tablet = 10 mg, By Mouth, Daily, # 30 tablet, 0 Refills, Maintenance, 09/14/20 19:36:00 EST, Tablet, Partial fill upon patient request if the prescription is for a schedule II opioid drug. Start Date: 09/14/20 Status: Ordered Results Radiology Reports * Exam Date Time Procedure Performing Provider Status 05/27/22 10:49 AM Ribs W/ PA Chest Right Margaret Johnson; Auth (Verified) Notes: (Ribs W/ PA Chest Right) Reason For Exam: Trauma RESULT: Ribs W/ PA Chest Right Ribs W/ PA Chest Right Total of 4 images. Hx of Present Illness: R rib pain Epigastric pain x 2 weeks. Unsure of injury. Pain worse on palpation and with position changes. Describes as aching . Denies N V D.; Reason: Trauma; Clinical Question(s): Fracture COMPARISON: 04/02/2022. FINDINGS: LINES AND TUBES: None. LUNGS AND PLEURA: Stable calcified granuloma in the lower right lung. Otherwise, the lungs are clear. No focal consolidation or pulmonary edema. No effusion or pneumothorax. HEART, MEDIASTINUM AND MISHEL: Normal. BONES: No fractures or bone lesions, including no displaced rib fracture identified. SOFT TISSUES: No acute abnormality. IMPRESSION: No acute fracture or dislocation. No acute cardiopulmonary abnormality. WSN: [id number] Ordering Physician: Júnior Perdue Dictated By: Pollo Mooney MD Dictated Date/Time: 05/27/22 11:26 a Reviewed By: Pollo Mooney MD Signed By: Pollo Mooney MD Signed Date/Time: 05/27/22 11:26 am Transcribed By: GERMANIA Transcribed Date/Time: 05/27/22 11:22 am Vital Signs Most recent to oldest [Reference Range]: 1 2 3 Height 160 cm (05/27/22 12:07 PM) 160 cm (05/27/22 10:05 AM) 160 cm (05/27/22 10:03 AM) Weight 58.1 kg (05/27/22 12:07 PM) 58.1 kg (05/27/22 10:05 AM) 58.1 kg (05/27/22 10:03 AM) Oxygen Saturation [94-100 %] 99 % (05/27/22 12:07 PM) 100 % (05/27/22 10:03 AM) Pulse Rate [55-90 bpm] 77 bpm (05/27/22 12:07 PM) 81 bpm (05/27/22 10:03 AM) Body Mass Index [18.5-24.99 kg/m2] 22.7 kg/m2 (05/27/22 12:07 PM) 22.7 kg/m2 (05/27/22 10:03 AM) Blood Pressure [90-138/55-84 mm Hg] 138/79mm Hg (05/27/22 12:07 PM) 135/73mm Hg (05/27/22 10:03 AM) Respiratory Rate [16-30 br/min] 20 br/min (05/27/22 12:07 PM) 18 br/min (05/27/22 10:03 AM) Temperature [96.8-100.4 DegF] 97.8 DegF (05/27/22 10:03 AM) Mode of Delivery (Oxygen) Room air (05/27/22 12:07 PM) Room air (05/27/22 10:03 AM) Blood pressure sites Arm, left (05/27/22 12:07 PM) Arm, left (05/27/22 10:03 AM) Temperature Route Temporal (05/27/22 10:03 AM) Dry Weight 58.1 kg (05/27/22 12:07 PM) 58.1 kg (05/27/22 10:05 AM) 58.1 kg (05/27/22 10:03 AM) Weight Obtained Via Standing scale (05/27/22 10:03 AM) Social History Social History Type Response Smoking Status 10 or more cigarette s (1/2 pack or more)/day in last 30 days entered on: 05/27/22 Sex XR Ribs - right Views and Chest PA * [facility] , CIS S: TRANSCRIBE Pollo Mooney MD: VERIFY Event Display: Result: Authored Date: Ribs W/ PA Chest Right Total of 4 images. Hx of Present Illness: R rib pain Epigastric pain x 2 weeks. Unsure of injury. Pain worse on palpation and with position changes. Describes as aching . Denies N V D.; Reason: Trauma; Clinical Question(s): Fracture COMPARISON: 04/02/2022. FINDINGS: LINES AND TUBES: None. LUNGS AND PLEURA: Stable calcified granuloma in the lower right lung. Otherwise, the lungs are clear. No focal consolidation or pulmonary edema. No effusion or pneumothorax. HEART, MEDIASTINUM AND MISHEL: Normal. BONES: No fractures or bone lesions, including no displaced rib fracture identified. SOFT TISSUES: No acute abnormality. IMPRESSION: No acute fracture or dislocation. No acute cardiopulmonary abnormality. WSN: [id number] Ordering Physician: Júnior Perdue Dictated By: Pollo Mooney MD Dictated Date/Time: 05/27/22 11:26 a Reviewed By: Pollo Mooney MD Signed By: Pollo Mooney MD Signed Date/Time: 05/27/22 11:26 am Transcribed By: GERMANIA Transcribed Date/Time: 05/27/22 11:22 am Patient Care team information Personnel Name: Shaun Carbajal III, MD Address: Address: [address] [place] [id number]
--- OUTSIDE RECORDS SUMMARY | 2023-07-19 09:51 | XMS_ITS | Continuity of Care Document ---
Author Name Unknown Organization [facility] Address [address] [place] [address]- Care Team Providers Care Pr Intern Name Role Phone Shaun Carbajal III, MD Primary Care Physician Encounter [facility] Date(s): 04/29/21 - 05/29/21 [facility] [address] [place] [address]- Attending Physician: Esteban Baig Admitting Physician: AdmEsteban knowles Referring Physician: AdmtrEsteban Allergies, Adverse Reactions, Alerts Substance Reaction Severity Status simvastatin Active Immunizations Given and Recorded Vaccine Date Status Refusal Reason tetanus/diphtheria/pertussis, acel(Tdap) 09/14/20 Given Medications Acidophilus Probiotic Blend By Mouth, Daily, 0 Refills, Maintenance, 09/14/20 19:36:00 EST, Partial fill upon patient request if the prescription is for a schedule II opioid drug. Start Date: 09/14/20 Status: Ordered aspirin 81 mg oral tablet, chewable 81 mg, 1, tablet, By Mouth, Daily, # 30 tablet, Refills 0, Maintenance, 09/14/20 19:36:00 EST, Partial fill upon patient request if the prescription is for a schedule II opioid drug. Start Date: 09/14/20 Status: Ordered Sertraline = 10 mg, By [...]
--- OUTSIDE RECORDS SUMMARY | 2023-07-19 09:51 | XMS_ITS | Continuity of Care Document ---
Author Name Unknown Organization [facility] Address [address] [place] [address]- Care Team Providers Care Roller Picker Name Role Phone Shaun Carbajal III, MD Primary Care Physician Encounter [facility] Date(s): 04/14/22 - 04/14/[address] [address]- Encounter Diagnosis Chronic sinusitis, unspecified(Final) - 04/14/22 Cigarette smoker motivated to quit(Final) - 04/14/22 Discharge Disposition: A-D/C Home Attending Physician: Júnior [...] opioid drug. Start Date: 04/14/22 Status: Ordered levothyroxine 0.088 mg oral tablet [...] Refills, Maintenance, 04/29/21 10:16:00 EDT, REC Powder, [facility]/pharmacy #[id number], Partial fill upon patient request if the prescription is for a schedule II opioid drug., 240 mL By Mouth... Start Date: 04/29/21 Status: Ordered Sertraline = 10 mg, By Mouth, Daily, 0 Refills, Maintenance, 09/14/20 19:35:00 EST, Partial fill upon patient request if the prescription is for a schedule II opioid drug. Start Date: 09/14/20 Status: Ordered tamsulosin 0.4 mg oral capsule 0.4 mg, 1, capsule, By Mouth, Daily, # 30 capsule, Refills 0, Maintenance, 04/14/22 16:48:00 EDT, Partial fill upon patient request if the prescription is for a schedule II opioid drug. Start Date: 04/14/22 Status: Ordered tamsulosin 0.4 mg oral capsule 0.4 mg, 1, capsule, By Mouth, Daily, # 30 capsule, Refills 0, Maintenance, 04/14/22 13:01:00 EDT, Partial fill upon patient request if the prescription is for a schedule II opioid drug. Start Date: 04/14/22 Status: Ordered turmeric 500 mg oral capsule [...] opioid drug. Start Date: 09/14/20 Status: Ordered Vital Signs Most recent to oldest [Reference Range]: 1 2 3 Height 160 cm (04/14/22 5:36 PM) 160 cm (04/14/22 12:59 PM) 160 cm (04/14/22 12:58 PM) Weight 56.0 kg (04/14/22 12:59 PM) 56.0 kg (04/14/22 12:58 PM) Oxygen Saturation [94-100 %] 100 % (04/14/22 5:36 PM) 100 % (04/14/22 12:59 PM) Pulse Rate [55-90 bpm] 59 bpm (04/14/22 5:36 PM) 63 bpm (04/14/22 12:59 PM) Body Mass Index [18.5-24.99] 21.88 (04/14/22 12:58 PM) Blood Pressure [90-138/55-84 mm Hg] 132/78mm Hg (04/14/22 5:36 PM) 138/72mm Hg (04/14/22 12:59 PM) Respiratory Rate [16-30 br/min] 16 br/min (04/14/22 5:36 PM) 18 br/min (04/14/22 12:59 PM) Temperature [96.8-100.4 DegF] 97.2 DegF (04/14/22 12:59 PM) Mode of Delivery (Oxygen) Room air (04/14/22 5:36 PM) Room air (04/14/22 12:59 PM) Blood pressure sites Arm, right (04/14/22 5:36 PM) Arm, right (04/14/22 12:59 PM) Temperature Route Temporal (04/14/22 12:59 PM) Dry Weight 56.0 kg (04/14/22 12:59 PM) 56.0 kg (04/14/22 12:58 PM) Care Team Personnel Name: Solomon DE LA FUENTE MD, Shaun Wheeler Address: [address] [place] [id number]
--- OUTSIDE RECORDS SUMMARY | 2023-07-19 09:51 | XMS_ITS | Continuity of Care Document ---
Author Name Unknown Organization [facility] Address [address] [place] [address]- Care Team Providers Care Outside Machinist Helper Name Role Phone hSaun Carbajal III, MD Primary Care Physician Encounter [facility] Date(s): 05/29/21 - 05/29/[address] [address]- Discharge Disposition: A-D/C Home Attending Physician: Darius Ly MD Admitting Physician: Darius Ly MD Referring Physician: Darius Ly MD Allergies, Adverse Reactions, Alerts Substance Reaction [...] opioid drug. Start Date: 09/14/20 Status: Ordered Procedures Procedure Date Related Diagnosis Body Site Status Colonoscopy 05/29/21 Completed Vital Signs Most recent to oldest [Reference Range]: 1 2 3 Height 160 cm (05/29/21 12:43 PM) Weight 59.5 kg (05/29/21 12:43 PM) Oxygen Saturation [94-100 %] 97 % (05/29/21 2:10 PM) 98 % (05/29/21 2:04 PM) 98 % (05/29/21 1:52 PM) Pulse Rate [55-90 bpm] 59 bpm (05/29/21 12:43 PM) Body Mass Index [18.5-24.99] 23.24 (05/29/21 12:43 PM) Blood Pressure [90-138/55-84 mm Hg] 117/70mm Hg (05/29/21 2:20 PM) 102/60mm Hg (05/29/21 2:10 PM) 107/45mm Hg (05/29/21 2:04 PM) Respiratory Rate [16-30 br/min] 22 br/min (05/29/21 2:20 PM) 16 br/min (05/29/21 2:10 PM) 13 br/min *L* (05/29/21 2:04 PM) Temperature [96.8-100.4 DegF] 97.7 DegF (05/29/21 12:43 PM) Mode of Delivery (Oxygen) Room air (05/29/21 2:20 PM) Room air (05/29/21 2:10 PM) Room air (05/29/21 2:04 PM) Blood pressure sites Arm, left (05/29/21 2:20 PM) Arm, left (05/29/21 2:10 PM) Arm, left (05/29/21 2:04 PM) Temperature Route Temporal (05/29/21 12:43 PM) Weight Obtained Via Patient/family state d (05/29/21 12:43 PM)
--- OUTSIDE RECORDS SUMMARY | 2023-07-19 09:51 | XMS_ITS | Continuity of Care Document ---
Author Name Unknown Organization [facility] Address [address] [place] [address]- Care Team Providers Care Sock Lining Examiner Name Role Phone Not on Staff, PCP Primary Care Physician Unavail able [id number] Date(s): 09/14/20 - 09/14/[address] [address]- Discharge Disposition: A-D/C Home Attending Physician: Ansley Wu MD Admitting Physician: Ansley Wu MD Referring Physician: Shaun Carbajal III, MD Allergies, Adverse Reactions, Alerts Substance Reaction [...] Most recent to oldest [Reference Range]: 1 Height 160 cm (09/14/20 7:32 PM) Weight 56.1 kg (09/14/20 7:32 PM) Oxygen Saturation [94-100 %] 97 % (09/14/20 7:32 PM) Pulse Rate [55-90 bpm] 80 bpm (09/14/20 7:32 PM) Blood Pressure [90-138/55-84 mm Hg] 115/ 96mm Hg (09/14/20 7:32 PM) Respiratory Rate [16-30 br/min] 20 br/mi n (09/14/20 7:32 PM) Temperature [96.8-100.4 DegF] 98.5 DegF (09/14/20 7:32 PM) Mode of Delivery (Oxygen) Room air (09/14/20 7:32 PM) Blood pressure sites Arm, left (09/14/20 7:32 PM) Temperature Route Oral (09/14/20 7:32 PM) Dry Weight 56.1 kg (09/14/20 7:32 PM) Weight Obtained Via Standing scale (09/14/20 7:32 PM)
[2023-07-19 10:01] VITALS: BP 98/68; PULSE 66; RESP 16; O2SAT 99; BMI 20.5
--- NOTE | 2023-07-19 10:01 | MHC.OFFVIS ---
Intake Vital Signs 07/19/23 10:01 07/19/23 11:06 Height 5 ft 3 in 5 ft 3 in Weight 116 lb 116 lb BMI 20.5 20.5 BP 98/68 98/74 Blood Pressure Location Rt brachial Lt brachial Position Sitting Sitting Respiration 16 16 Pulse 66 60 Pulse Source Pulse Oximeter Pulse Oximeter Pulse Oximetry (%) 99 99 Oxygen Delivery Method Room Air Room Air Comment pre-op post-op Intake Visit Reasons: L FEM NERVE BLOCK W/US/LOCAL Allergies simvastatin [SIMVASTATIN] Allergy (Unknown, Verified 07/19/23 10:02) MUSCLE ACHES celecoxib [From Celebrex] Adverse Reaction (Verified 07/19/23 10:02) Gastrointestinal Upset PFSH Medical History Locking of left knee Acquired hypothyroidism Retention of urine Complex regional pain syndrome i of left lower limb Arthritis Back pain Thyroid disease Hx of hepatitis C History of positive PPD COPD (chronic obstructive pulmonary disease) Anxiety History of depression History of nephrolithiasis Smoker Asthma Elevated cholesterol Surgical History Hx of colonoscopy Hx of hysterectomy S/P cystoscopy with ureteral stent placement Hx of left knee surgery Social History Housing: Apartment Alcohol intake: current Alcohol intake frequency: holidays/special occasions only Alcohol type: beer and hard liquor Patient Tobacco Use Status: Current everyday Tobacco user Cigarette Packs Per Day: 0.5 Cigarettes Per Day: 10.0 Years Smoked: 40 plus e-Cigarette/Vaping Use: Never Used service: No Current occupational status: other Current occupation: Right Handed Cognitive needs: No Hearing needs: No Vision needs: No Physical Exam Vital Signs: Last Vital Signs Pulse 60 07/19/23 11:06 Resp 16 07/19/23 11:06 BP 98/74 07/19/23 11:06 Pulse Ox 99 07/19/23 11:06 Oxygen Delivery Method Room Air 07/19/23 11:06 BMI result Body Mass Index 20.5 Assessment & Plan Assessment & Plan (1) Osteoarthritis of left knee: Code(s): M17.12 - Unilateral primary osteoarthritis, left knee Qualifiers: Osteoarthritis type: primary Qualified Code(s): M17.12 - Unilateral primary osteoarthritis, left knee (2) Complex regional pain syndrome i of left lower limb: Code(s): G90.522 - Complex regional pain syndrome I of left lower limb Plan: No indication for surgery from Dr. Pineda. She complains on pain on anterior and posterior levels of the knee. She reports anterior pain is hurting her more. She exhibits symptoms of Complex regional pain syndrome of the left lower extremity. She has discoloration of the knee as well as lose of muscular mass on the anterior surface of the left thigh. Femoral nerve PNS is considered to help her pain. I will send her for psychological evaluation. Meanwhile I will schedule her for femoral nerve block. Schedule now for femoral nerve block in preparation for PNS freedom/cure on X. If femoral nerve block will not be effective I will consider Robert Applebaum MD SCS left lumbar gutter. (3) Status post arthroscopy of left knee: Code(s): Z98.890 - Other specified postprocedural states Plan: Ultrasound-guided left femoral nerve block. Informed consent was obtained risks and benefits were explained to the patient. The patient came to the examination room and she was position supine on the examination stretcher. Time-out was performed delineating name and date of of the patient, site and side of the procedure, need for antibiotic prophylaxis which is none , risk of DVT. Left groin of the patient was prepped with ChloraPrep and draped with sterile safe adhesive utility towels. Sterilely draped ultrasound probe was brought over the operating field and ultrasound picture of the femoral vein, femoral artery and femoral nerves were delineating on the screen. 100 mm echo stim needle was inserted extra anatomically through the skin in in plane fashion, it was advanced to were the projection of the femoral nerve under direct live view vision. When tip of the needle was in the projection of the vicinity of the femoral nerve injection of the normal saline was performed into the needle after aspiration. There were no blood on aspiration. The injection met no resistance. 1 cc was injected. After that 5 cc of ropivacaine 0.5% was injected in the vicinity of the femoral nerve. Upon completion of the injection the needle was withdrawn and Band-Aid was applied. Patient tolerated procedure well. She went home without immediate complications. (4) Left knee pain: Code(s): M25.562 - Pain in left knee Plan Orders: Orders US guide needle placement 07/19/23 G90.522 - Complex regional pain syndrome I of left lower limb Coding Level of Care Code Procedure Only Diagnoses Primary osteoarthritis of left knee M17.12 Osteoarthritis type: primary Complex regional pain syndrome i of left lower limb G90.522 Status post arthroscopy of left knee Z98.890 Left knee pain M25.562
[2023-07-19 11:06] VITALS: BP 98/74; PULSE 60; RESP 16; O2SAT 99; BMI 20.5
== END 2023-07-19 10:57 | disposition home or self-care (01) ==
LOC: HO.PMCPRC 09:50
PROVIDERS: PCP Internal Medicine; Visit Provider Anesthesiology
DX: M17.12 Unilateral primary osteoarthritis, left knee (principal); G90.522 Complex regional pain syndrome I of left lower limb; Z98.890 Other specified postprocedural states; M25.562 Pain in left knee
CPT/HCPCS: 64447; 76942

== ENCOUNTER 2023-07-21 10:37 | Outpatient (AMB) | payer OTHER, SELFPAY ==
--- NOTE | 2023-07-21 10:41 | A.OFFVIS_ITS ---
Intake Vital Signs 07/21/23 11:00 Height 5 ft 3 in Weight 117 lb 6 oz BMI 20.8 BP 118/62 Blood Pressure Location Lt brachial Position Sitting Respiration 14 Pulse 79 Pulse Source Pulse Oximeter Pulse Oximetry (%) 99 Oxygen Delivery Method Room Air Intake Visit Reasons: L FEM NERVE BLOCK W/US 07/19/confirmed Allergies simvastatin [SIMVASTATIN] Allergy (Unknown, Verified 07/21/23 11:02) MUSCLE ACHES celecoxib [From Celebrex] Adverse Reaction (Verified 07/21/23 11:02) Gastrointestinal Upset HPI HPI Comments History of Present Illness Details Jessy is here for the follow up after the diagnostic left femorel nerve block Reports appropriate numbness and weakness in the left knee after the procedure. reports no pain while the knee was nimb. Longevity of the numbness is 28 hours. I believe with this report curonix PTM left femoral nerve trial is justified. I will send her for psychological evaluation in preparation of freedom/curonix PNS. She will go for trial of curonix after the positive femoral nerve block. Therefore need to perform femoral nerve block for her now. If this will not be effective I will try SCS [employer] in left gutter lumbar position in the attempt to alleviate her pain. She will try xynex stimulation meanwhile. She went to Dr. Pineda for recent consult and she was told that no surgeries indicated for her knee. The MRI also was negative for any soft tissue changes. The patient complains on pain on anterior as well as posterior surface of the knee. I will send her for psychological evaluation. Prior: complaints of left knee pain. She had arthroscopic surgery performed by Dr. Solis in 2016 and then again by in May 2020. She noted a slight improvement after her most recent surgery and was able to complete physical therapy.? Unfortunately, her pain returned and worsened around July 2020, without any inciting events.? She has tried cortisone injections as well as 3 EUFLEXXA injections with little to no improvement in her pain.? At this time, she has reportedly not a surgical candidate for total knee replacement.?She went for diagnostic genicular nerve block and she reported only aggravation of the pain from the genicular nerve block.? I examined the left knee of the patient today and the results are as below.? I strongly believe that patient suffers from Complex regional pain syndrome of the left lower e xtremity.? She reports that pain spreads wider than the knee area itself.?? Knee image revealed osteoarthritis as well as intact tendons.? Most of the pain she is experiencing is anterior.? She reports some instability after prolonged walking and a ?popping and clicking? sensation.? She denies any edema, erythema or warmth of the left knee. [facility] Medical History Locking of left knee Acquired hypothyroidism Retention of urine Complex regional pain syndrome i of left lower limb Arthritis Back pain Thyroid disease Hx of hepatitis C History of positive PPD COPD (chronic obstructive pulmonary disease) Anxiety History of depression History of nephrolithiasis Smoker Asthma Elevated cholesterol Surgical History Hx of colonoscopy Hx of hysterectomy S/P cystoscopy with ureteral stent placement Hx of left knee surgery Social History Housing: Apartment Alcohol intake: current Alcohol intake frequency: holidays/special occasions only Alcohol type: beer and hard liquor Patient Tobacco Use Status: Current everyday Tobacco user Cigarette Packs Per Day: 0.5 Cigarettes Per Day: 10.0 Years Smoked: 40 plus e-Cigarette/Vaping Use: Never Used service: No Current occupational status: other Current occupation: Right Handed Cognitive needs: No Hearing needs: No Vision needs: No Review of Systems Const All systems reviewed & are unremarkable except as noted in HPI and below Physical Exam Vital Signs: Last Vital Signs Pulse 79 07/21/23 11:00 Resp 14 07/21/23 11:00 BP 118/62 07/21/23 11:00 Pulse Ox 99 07/21/23 11:00 Oxygen Delivery Method Room Air 07/21/23 11:00 BMI result Body Mass Index 20.8 Const Other: Severely uncomfortable was walking. General: cooperative, healthy appearing, no acute distress and alert Orientation/consciousness: oriented to person, oriented to place and oriented to time Limitations: ambulation with cane HEENT Head: Yes normal to inspection, Yes normocephalic and Yes atraumatic Ears: hearing grossly normal bilaterally Mouth: moist mucous membranes Eyes General: appearance normal, both eyes and all related structures Resp Effort & Inspection: normal respiratory effort, able to speak in complete sentences and audible wheezes Cardio Jugular venous distension: no JVD Palpation: other (no appreciable rhythmic abnormalities) Peripheral pulses: popliteal pulses present Back/Spine/Pelvis Other: Examination of patient's bilateral knees was performed today: She had her left knee about 2.5 cm thinner in the mid patellar area compared to the healthy right knee. There is certain discoloration in projection of the left knee it is more red in color. The temperature is different on palpation of bilateral knees. The left knee is more warm on palpation. Flexing the knee results in very loud clicks and crepitus which can be heard even without palpation. Anterior drawer posterior drawer over and lateral collateral tests seem to be negative for instability. Majority of the patient's problem mostly is patellofemoral osteoarthritis. Neuro General: oriented to person, oriented to place, oriented to time and moves all extremities Gait exam (Neuro): Antalgic gait present Motor exam (neuro): 5/5 motor strength present throughout Extrem Other: Mild retropatellar ttp FUll ROM Stable ligamentous exam Psych Appearance: grossly normal Mental Status: mental status grossly normal Speech and movement: Normal speech and movement present and Clear speech present Affect: normal affect Attitude: cooperative Thought process: Normal thought process present Thought content: Normal thought content present Insight: Good insight present (Psych) Judgement: Good judgement present (Psych) Assessment & Plan Assessment & Plan (1) Osteoarthritis of left knee: Code(s): M17.12 - Unilateral primary osteoarthritis, left knee Qualifiers: Osteoarthritis type: primary Qualified Code(s): M17.12 - Unilateral primary osteoarthritis, left knee (2) Complex regional pain syndrome i of left lower limb: Code(s): G90.522 - Complex regional pain syndrome I of left lower limb Plan: No indication for surgery from Dr. Pineda. She complains on pain on anterior and posterior levels of the knee. She reports anterior pain is hurting her more. She exhibits symptoms of Complex regional pain syndrome of the left lower extremity. She has discoloration of the knee as well as lose of muscular mass on the anterior surface of the left thigh. Femoral nerve PNS is considered to help her pain. Femoral nerve block left results are 28 hrs of numbness with corresponding pain relieve. She has to go for psych eval if she wants a trial of PNS curonix. If trial is not effective - I will consider [employer] SCS left lumbar gutter. Meanwhile she will try xynex stimulation as temporization measure. (3) Status post arthroscopy of left knee: Code(s): Z98.890 - Other specified postprocedural states Plan: Ultrasound-guided left femoral nerve block. Informed consent was obtained risks and benefits were explained to the patient. The patient came to the examination room and she was position supine on the examination stretcher. Time-out was performed delineating name and date of of the patient, site and side of the procedure, need for antibiotic prophylaxis which is none , risk of DVT. Left groin of the patient was prepped with ChloraPrep and draped with sterile safe adhesive utility towels. Sterilely draped ultrasound probe was brought over the operating field and ultrasound picture of the femoral vein, femoral artery and femoral nerves were delineating on the screen. 100 mm echo stim needle was inserted extra anatomically through the skin in in plane fashion, it was advanced to were the projection of the femoral nerve under direct live view vision. When tip of the needle was in the projection of the vicinity of the femoral nerve injection of the normal saline was performed into the needle after aspiration. There were no blood on aspiration. The injection met no resistance. 1 cc was injected. After that 5 cc of ropivacaine 0.5% was injected in the vicinity of the femoral nerve. Upon completion of the injection the needle was withdrawn and Band-Aid was applied. Patient tolerated procedure well. She went home without immediate complications. (4) Left knee pain: Code(s): M25.562 - Pain in left knee Plan Coding Level of Care Code Est Pt Level 3 (71990) Diagnoses Primary osteoarthritis of left knee M17.12 Osteoarthritis type: primary Complex regional pain syndrome i of left lower limb G90.522 Status post arthroscopy of left knee Z98.890 Left knee pain M25.562
[2023-07-21 11:00] VITALS: BP 118/62; PULSE 79; RESP 14; O2SAT 99; BMI 20.8
== END 2023-07-21 11:09 | disposition home or self-care (01) ==
PROVIDERS: PCP Internal Medicine; Visit Provider Anesthesiology
DX: M17.12 Unilateral primary osteoarthritis, left knee (principal); G90.522 Complex regional pain syndrome I of left lower limb; Z98.890 Other specified postprocedural states; M25.562 Pain in left knee
CPT/HCPCS: 99213

== ENCOUNTER → 2023-07-21 10:37 | Outpatient (BNVA) | payer OTHER, SELFPAY | PROVIDERS: PCP Internal Medicine; Visit Provider Anesthesiology ==

== ENCOUNTER 2023-08-03 11:34 | Outpatient (AMB) | payer OTHER, SELFPAY ==
--- NOTE | 2023-08-03 11:37 | MHC.OFFVIS ---
Intake Vital Signs 08/03/23 11:45 Height 5 ft 3 in Weight 119 lb BMI 21.1 BP 124/60 Blood Pressure Location Lt brachial Position Sitting Respiration 14 Pulse 71 Pulse Source Pulse Oximeter Pulse Oximetry (%) 97 Oxygen Delivery Method Room Air Intake Visit Reasons: discuss medication options per /conf Allergies simvastatin [SIMVASTATIN] Allergy (Unknown, Verified 08/03/23 11:44) MUSCLE ACHES celecoxib [From Celebrex] Adverse Reaction (Verified 08/03/23 11:44) Gastrointestinal Upset HPI HPI Comments History of Present Illness Details Jessy is here for the follow up in my office with complaint on severe pain in the left knee with radiation down to the medial ankle. She reports pain is unbearable she is requesting me to prescribe some medications for her. She needs to go through psychological evaluation in preparation of PNS Curonix. She reports that she will have co-pay only next month and then she will pain for the psychological evaluation. To temporize her pain I offered her oxycodone 5 mg qid for the next 10 days. Unfortunately she cannot take NSAIDs due to stomach problems, she tried topical diclofenac without success. Tried muscle relaxants without effect. She received good results of diagnostic left femoral nerve block .Reports appropriate numbness and weakness in the left knee after the procedure. reports no pain while the knee was nimb. Longevity of the numbness is 28 hours. I believe with this report curonix PTM left femoral nerve trial is justified. I will send her for psychological evaluation in preparation of freedom/curonix PNS. She will go for trial of curonix after the positive femoral nerve block. Therefore need to perform femoral nerve block for her now. If this will not be effective I will try S[facility] [employer] in left gutter lumbar position in the attempt to alleviate her pain. She will try xynex stimulation meanwhile. She went to Dr. Pineda for recent consult and she was told that no surgeries indicated for her knee. The MRI also was negative for any soft tissue changes. The patient complains on pain on anterior as well as posterior surface of the knee. I will send her for psychological evaluation. Prior: complaints of left knee pain. She had arthroscopic surgery performed by Dr. Solis in 2016 and then again by in May 2020. She noted a slight improvement after her most recent surgery and was able to complete physical therapy.? Unfortunately, her pain returned and worsened around July 2020, without any inciting events.? She has tried cortisone injections as well as 3 EUFLEXXA injections with little to no improvement in her pain.? At this time, she has reportedly not a surgical candidate for total knee replacement.?She went for diagnostic genicular nerve block and she reported only aggravation of the pain from the genicular nerve block.? I examined the left knee of the patient today and the results are as below.? I strongly believe that patient suffers from Complex regional pain syndrome of the left lower extremity.? She reports that pain spreads wider than the knee area itself.?? Knee image revealed osteoarthritis as well as intact tendons.? Most of the pain she is experiencing is anterior.? She reports some instability after prolonged walking and a ?popping and clicking? sensation.? She denies any edema, erythema or warmth of the left knee. COUNT INCLUDES [facility] Medical History Locking of left knee Acquired hypothyroidism Retention of urine Complex regional pain syndrome i of left lower limb Arthritis Back pain Thyroid disease Hx of hepatitis C History of positive PPD COPD (chronic obstructive pulmonary disease) Anxiety History of depression History of nephrolithiasis Smoker Asthma Elevated cholesterol Surgical History Hx of colonoscopy Hx of hysterectomy S/P cystoscopy with ureteral stent placement Hx of left knee surgery Social History Housing: Apartment Alcohol intake: current Alcohol intake frequency: holidays/special occasions only Alcohol type: beer and hard liquor Patient Tobacco Use Status: Current everyday Tobacco user Cigarette Packs Per Day: 0.5 Cigarettes Per Day: 10.0 Years Smoked: 40 plus e-Cigarette/Vaping Use: Never Used service: No Current occupational status: other Current occupation: Right Handed Cognitive needs: No Hearing needs: No Vision needs: No Review of Systems Const All systems reviewed & are unremarkable except as noted in HPI and below Physical Exam Vital Signs: Last Vital Signs Pulse 71 08/03/23 11:45 Resp 14 08/03/23 11:45 BP 124/60 08/03/23 11:45 Pulse Ox 97 08/03/23 11:45 Oxygen Delivery Method Room Air 08/03/23 11:45 BMI result Body Mass Index 21.1 Const Other: Severely uncomfortable was walking. General: cooperative, healthy appearing, no acute distress and alert Orientation/consciousness: oriented to person, oriented to place and oriented to time Limitations: ambulation with cane HEENT Head: Yes normal to inspection, Yes normocephalic and Yes atraumatic Ears: hearing grossly normal bilaterally Mouth: moist mucous membranes Eyes General: appearance normal, both eyes and all related structures Resp Effort & Inspection: normal respiratory effort, able to speak in complete sentences and audible wheezes Cardio Jugular venous distension: no JVD Palpation: other (no appreciable rhythmic abnormalities) Peripheral pulses: popliteal pulses present Back/Spine/Pelvis Other: She had her left knee about 2.5 cm thinner in the mid patellar area compared to the healthy right knee. There is certain discoloration in projection of the left knee it is more red in color. The temperature is different on palpation of bilateral knees. The left knee is more warm on palpation. Flexing the knee results in very loud clicks and crepitus which can be heard even without palpation. Anterior drawer posterior drawer over and lateral collateral tests seem to be negative for instability. Majority of the patient's problem mostly is patellofemoral osteoarthritis. Neuro General: oriented to person, oriented to place, oriented to time and moves all extremities Gait exam (Neuro): Antalgic gait present Motor exam (neuro): 5/5 motor strength present throughout Extrem Other: Mild retropatellar ttp FUll ROM Stable ligamentous exam Psych Appearance: grossly normal Mental Status: mental status grossly normal Speech and movement: Normal speech and movement present and Clear speech present Affect: normal affect Attitude: cooperative Thought process: Normal thought process present Thought content: Normal thought content present Insight: Good insight present (Psych) Judgement: Good judgement present (Psych) Assessment & Plan Assessment & Plan (1) Osteoarthritis of left knee: Code(s): M17.12 - Unilateral primary osteoarthritis, left knee Qualifiers: Osteoarthritis type: primary Qualified Code(s): M17.12 - Unilateral primary osteoarthritis, left knee (2) Complex regional pain syndrome i of left lower limb: Code(s): G90.522 - Complex regional pain syndrome I of left lower limb Plan: No indication for surgery from Dr. Pineda. She complains on pain on anterior and posterior levels of the knee. She reports anterior pain is hurting her more. She exhibits symptoms of Complex regional pain syndrome of the left lower extremity. She has discoloration of the knee as well as lose of muscular mass on the anterior surface of the left thigh. Femoral nerve PNS is considered to help her pain. Femoral nerve block left results are 28 hrs of numbness with corresponding pain relieve. She has to go for psych eval if she wants a trial of PNS curonix. If trial is not effective - I will consider [employer] SCS left lumbar gutter. I will issue a short course of the opioids for the patient she will try to stretch the pills to get her through the psychological evaluation. (3) Status post arthroscopy of left knee: Code(s): Z98.890 - Other specified postprocedural states Plan: Ultrasound-guided left femoral nerve block. Informed consent was obtained risks and benefits were explained to the patient. The patient came to the examination room and she was position supine on the examination stretcher. Time-out was performed delineating name and date of of the patient, site and side of the procedure, need for antibiotic prophylaxis which is none , risk of DVT. Left groin of the patient was prepped with ChloraPrep and draped with sterile safe adhesive utility towels. Sterilely draped ultrasound probe was brought over the operating field and ultrasound picture of the femoral vein, femoral artery and femoral nerves were delineating on the screen. 100 mm echo stim needle was inserted extra anatomically through the skin in in plane fashion, it was advanced to were the projection of the femoral nerve under direct live view vision. When tip of the needle was in the projection of the vicinity of the femoral nerve injection of the normal saline was performed into the needle after aspiration. There were no blood on aspiration. The injection met no resistance. 1 cc was injected. After that 5 cc of ropivacaine 0.5% was injected in the vicinity of the femoral nerve. Upon completion of the injection the needle was withdrawn and Band-Aid was applied. Patient tolerated procedure well. She went home without immediate complications. (4) Left knee pain: Code(s): M25.562 - Pain in left knee Plan Medications: New oxycodone Partial Fill upon patient request. 5 mg PO Q6H 10 days PRN 40 tabs 0RF pain Coding Level of Care Code Est Pt Level 3 (74703) Diagnoses Primary osteoarthritis of left knee M17.12 Osteoarthritis type: primary Complex regional pain syndrome i of left lower limb G90.522 Status post arthroscopy of left knee Z98.890 Left knee pain M25.562
[2023-08-03 11:45] VITALS: BP 124/60; PULSE 71; RESP 14; O2SAT 97; BMI 21.1
== END 2023-08-03 12:05 | disposition home or self-care (01) ==
PROVIDERS: PCP Internal Medicine; Visit Provider Anesthesiology
DX: G90.522 Complex regional pain syndrome I of left lower limb (principal); Z98.890 Other specified postprocedural states; M17.12 Unilateral primary osteoarthritis, left knee; M25.562 Pain in left knee
CPT/HCPCS: 64447; 99213

== ENCOUNTER → 2023-08-03 11:34 | Outpatient (BNVA) | payer OTHER, SELFPAY | PROVIDERS: PCP Internal Medicine; Visit Provider Anesthesiology | DX: M17.12 Unilateral primary osteoarthritis, left knee (principal); G90.522 Complex regional pain syndrome I of left lower limb; Z98.890 Other specified postprocedural states | CPT/HCPCS: 64447; J2795 ==

== ENCOUNTER 2023-09-05 10:58 | Outpatient (AMB) | payer OTHER, SELFPAY ==
--- NOTE | 2023-09-05 11:04 | MHC.OFFVIS ---
Intake Vital Signs 09/05/23 11:08 Height 5 ft 3 in Weight 119 lb BMI 21.1 BP 130/60 Blood Pressure Location Lt brachial Position Sitting Respiration 14 Pulse 85 Pulse Source Pulse Oximeter Pulse Oximetry (%) 98 Oxygen Delivery Method Room Air Intake Visit Reasons: refill request Intake Note: Patient comes in to discuss medication. Reports pain 04/17. Allergies simvastatin [SIMVASTATIN] Allergy (Unknown, Verified 09/05/23 11:09) MUSCLE ACHES celecoxib [From Celebrex] Adverse Reaction (Verified 09/05/23 11:09) Gastrointestinal Upset HPI HPI Comments History of Present Illness Details Jessy is here for the follow up in my office with complaint on severe pain in the left knee with radiation down to the medial ankle. She reports pain is unbearable she is requesting me to prescribe some medications for her. She needs to go through psychological evaluation in preparation of PNS Curonix. She stated today that she will not have funds to pay for psychological evaluation until October of 2023. I am willing to wait for it. She requested me to give her another refill of the oxycodone. I agreed to do it for the last time. I explained to her that chronic opioid program at this time with close. I told her that she might request her primary care physician Dr. Al to prescribe her some short-term opioid medications or admit her to opioid program if this exists with Dr. Al's practice. Unfortunately she cannot take NSAIDs due to stomach problems, she tried topical diclofenac without success. Tried muscle relaxants without effect. She received good results of diagnostic left femoral nerve block .Reports appropriate numbness and weakness in the left knee after the procedure. reports no pain while the knee was nimb. Longevity of the numbness is 28 hours. I believe with this report curonix PTM left femoral nerve trial is justified. I will send her for psychological evaluation in preparation of freedom/curonix PNS. She will go for trial of curonix after the positive femoral nerve block. Therefore need to perform femoral nerve block for her now. If this will not be effective I will try SCS [employer] in left gutter lumbar position in the attempt to alleviate her pain. She will try xynex stimulation meanwhile. She went to Dr. Pineda for recent consult and she was told that no surgeries indicated for her knee. The MRI also was negative for any soft tissue changes. The patient complains on pain on anterior as well as posterior surface of the knee. I will send her for psychological evaluation. Prior: complaints of left knee pain. She had arthroscopic surgery performed by Dr. Solis in 2016 and then again by in May 2020. She noted a slight improvement after her most recent surgery and was able to complete physical therapy.? Unfortunately, her pain returned and worsened around July 2020, without any inciting events.? She has tried cortisone injections as well as 3 EUFLEXXA injections with little to no improvement in her pain.? At this time, she has reportedly not a surgical candidate for total knee replacement.?She went for diagnostic genicular nerve block and she reported only aggravation of the pain from the genicular nerve block.? I examined the left knee of the patient today and the results are as below.? I strongly believe that patient suffers from Complex regional pain syndrome of the left lower extremity.? She reports that pain spreads wider than the knee area itself.?? Knee image revealed osteoarthritis as well as intact tendons.? Most of the pain she is experiencing is anterior.? She reports some instability after prolonged walking and a ?popping and clicking? sensation.? She denies any edema, erythema or warmth of the left knee. [facility] Medical History Locking of left knee Acquired hypothyroidism Retention of urine Complex regional pain syndrome i of left lower limb Arthritis Back pain Thyroid disease Hx of hepatitis C History of positive PPD COPD (chronic obstructive pulmonary disease) Anxiety History of depression History of nephrolithiasis Smoker Asthma Elevated cholesterol Surgical History Hx of colonoscopy Hx of hysterectomy S/P cystoscopy with ureteral stent placement Hx of left knee surgery Social History Housing: Apartment Alcohol intake: current Alcohol intake frequency: holidays/special occasions only Alcohol type: beer and hard liquor Patient Tobacco Use Status: Current everyday Tobacco user Cigarette Packs Per Day: 0.5 Cigarettes Per Day: 10.0 Years Smoked: 40 plus e-Cigarette/Vaping Use: Never Used service: No Current occupational status: other Current occupation: Right Handed Cognitive needs: No Hearing needs: No Vision needs: No Review of Systems Const All systems reviewed & are unremarkable except as noted in HPI and below Physical Exam Const Other: Severely uncomfortable was walking. General: cooperative, healthy appearing, no acute distress and alert Orientation/consciousness: oriented to person, oriented to place and oriented to time Limitations: ambulation with cane HEENT Head: Yes normal to inspection, Yes normocephalic and Yes atraumatic Ears: hearing grossly normal bilaterally Mouth: moist mucous membranes Eyes General: appearance normal, both eyes and all related structures Resp Effort & Inspection: normal respiratory effort, able to speak in complete sentences and audible wheezes Cardio Jugular venous distension: no JVD Palpation: other (no appreciable rhythmic abnormalities) Peripheral pulses: popliteal pulses present Back/Spine/Pelvis Other: She had her left knee about 2.5 cm thinner in the mid patellar area compared to the healthy right knee. There is certain discoloration in projection of the left knee it is more red in color. The temperature is different on palpation of bilateral knees. The left knee is more warm on palpation. Flexing the knee results in very loud clicks and crepitus which can be heard even without palpation. Anterior drawer posterior drawer over and lateral collateral tests seem to be negative for instability. Majority of the patient's problem mostly is patellofemoral osteoarthritis. Neuro General: oriented to person, oriented to place, oriented to time and moves all extremities Gait exam (Neuro): Antalgic gait present Motor exam (neuro): 5/5 motor strength present throughout Extrem Other: Mild retropatellar ttp FUll ROM Stable ligamentous exam Psych Appearance: grossly normal Mental Status: mental status grossly normal Speech and movement: Normal speech and movement present and Clear speech present Affect: normal affect Attitude: cooperative Thought process: Normal thought process present Thought content: Normal thought content present Insight: Good insight present (Psych) Judgement: Good judgement present (Psych) Assessment & Plan Assessment & Plan (1) Osteoarthritis of left knee: Code(s): M17.12 - Unilateral primary osteoarthritis, left knee Qualifiers: Osteoarthritis type: primary Qualified Code(s): M17.12 - Unilateral primary osteoarthritis, left knee (2) Complex regional pain syndrome i of left lower limb: Code(s): G90.522 - Complex regional pain syndrome I of left lower limb Plan: No indication for surgery from Dr. Pineda. She complains on pain on anterior and posterior levels of the knee. She reports anterior pain is hurting her more. She exhibits symptoms of Complex regional pain syndrome of the left lower extremity. She has discoloration of the knee as well as lose of muscular mass on the anterior surface of the left thigh. Femoral nerve PNS is considered to help her pain. Femoral nerve block left results are 28 hrs of numbness with corresponding pain relieve. Psychologic evaluation in preparation for PNS curonix trial would need to be made in October because of the patient's financial constraints.. If trial is not effective - I will consider [employer] SCS left lumbar gutter. I will renew her opioid medications 1 more time. After that I will recommend her to discuss chronic opioid therapy with primary care physician Dr. Al since the chronic opioid program in this office currently is closed for new admissions. (3) Status post arthroscopy of left knee: Code(s): Z98.890 - Other specified postprocedural states (4) Left knee pain: Code(s): M25.562 - Pain in left knee Plan Medications: Refilled oxycodone Partial Fill upon patient request. 5 mg PO Q6H 10 days PRN 40 tabs 0RF pain Coding Level of Care Code Est Pt Level 3 (36366) Diagnoses Primary osteoarthritis of left knee M17.12 Osteoarthritis type: primary Complex regional pain syndrome i of left lower limb G90.522 Status post arthroscopy of left knee Z98.890 Left knee pain M25.562
[2023-09-05 11:08] VITALS: BP 130/60; PULSE 85; RESP 14; O2SAT 98; BMI 21.1
== END 2023-09-05 11:18 | disposition home or self-care (01) ==
PROVIDERS: PCP Internal Medicine; Visit Provider Anesthesiology
DX: M17.12 Unilateral primary osteoarthritis, left knee (principal); G90.522 Complex regional pain syndrome I of left lower limb; Z98.890 Other specified postprocedural states; M25.562 Pain in left knee
CPT/HCPCS: 99213

== ENCOUNTER → 2023-09-05 10:58 | Outpatient (BNVA) | payer OTHER, SELFPAY | PROVIDERS: PCP Internal Medicine; Visit Provider Anesthesiology ==

== ENCOUNTER 2023-10-03 07:33 | Outpatient (REF) | payer MEDICARE, SELFPAY ==
[2023-10-03 07:46] LABS: MANUAL DIFF FLAG NO
[2023-10-03 08:00] LABS: Basophils Percent Auto 0.7 % (0-2); Eosinophils Absolute Auto 0.1 X10*3/uL (0.0-0.4); Eosinophils Percent Auto 2.5 % (0-4); Hematocrit 40.6 % (37.0-47.0); Hemoglobin 13.2 g/dl (12.0-16.0); Imm Gran Abs Auto 0.03 X10*3/uL (0.00-0.03); Imm Gran Pct Auto 0.5 % (0.0-0.4); Lymphocytes Percent Auto 35.3 % (20-40); Mean Corpuscular HGB Conc 32.5 g/dl (31.0-35.0); Mean Corpuscular Hemoglobin 32.3 pg (27.0-33.0); Mean Corpuscular Volume 99.3 fL (80.0-98.0); Mean Platelet Volume 9.6 fL (9.4-12.3); Monocytes Absolute Auto 0.5 X10*3/uL (0.1-1.2); Monocytes Percent Auto 8.1 % (2-11); Neutrophils Percent Auto 52.9 % (45-73); Platelet Count 283 X10*3/uL (160-400); Red Blood Count 4.09 X10*6/uL (4.20-5.50); Red Cell Distribution Width 13.2 % (11.0-16.0); White Blood Count 5.7 X10*3/uL (4.8-10.8)
[2023-10-03 08:24] LABS: Alanine Aminotransferase 18 U/L (0-31); Albumin Level 4.4 g/dL (3.5-5.0); Alkaline Phosphatase 38 U/L (39-117); Anion Gap 12 (12-20); Aspartate Amino Transferase 27 U/L (5-31); Bilirubin Total 0.5 mg/dL (0.0-1.0); Blood Urea Nitrogen 23 mg/dL (9-16); Calcium 9.7 mg/dL (8.4-10.2); Carbon Dioxide 27 mmol/L (22-29); Chloride 106 mmol/L (96-108); Cholesterol 218 mg/dL (<200); Estimated Glomerular Filt Rate 43; Glucose Random 94 mg/dL (60-115); HDL Cholesterol 74 mg/dL (>40); LDL Cholesterol Calculated 126 mg/dL (<100); Potassium 4.6 mmol/L (3.3-5.1); Sodium 140 mmol/L (135-145); Total Protein 7.2 g/dL (6.5-8.0); Triglycerides 93 mg/dL (<150)
[2023-10-03 08:39] LABS: Free T4 (Free Thyroxine) 0.95 ng/dL (0.71-1.85); Thyroid Stimulating Hormone 3.82 uIU/mL (0.32-4.0); Vitamin D 25-OH Total 25.5 ng/mL (>30)
== END 2023-10-03 07:34 | disposition home or self-care (01) ==
LOC: HO.LAB 07:33
PROVIDERS: PCP Internal Medicine; Visit Provider Internal Medicine
DX: E03.9 Hypothyroidism, unspecified (principal); E55.9 Vitamin D deficiency, unspecified; D72.819 Decreased white blood cell count, unspecified; E78.2 Mixed hyperlipidemia
CPT/HCPCS: 36415; 80053; 80061; 82306; 84439; 84443; 85025

== ENCOUNTER 2023-10-07 13:41 | Outpatient (AMB) | payer OTHER, SELFPAY ==
[2023-10-07 13:45] VITALS: BP 128/68; PULSE 64; RESP 15; O2SAT 100; BMI 20.6
--- NOTE | 2023-10-07 13:45 | MHC.PC.OV ---
Vital Signs 10/07/23 13:45 Height 5 ft 3 in Weight 116 lb 6 oz BMI 20.6 BP 128/68 Blood Pressure Location Lt brachial Position Sitting Respiration 15 Pulse 64 Pulse Source Pulse Oximeter Pulse Oximetry (%) 100 Oxygen Delivery Method Room Air Intake Visit Reasons: pre op Intake Note: Patient is here for a Pre-op for Right middle lobe wedge resection possible Lobectomy with Ascencion Desouza on 10/12/23. . Quarter Supervisor Required: No Accompanied by: Self / Same As Patient Allergies simvastatin [SIMVASTATIN] Allergy (Unknown, Verified 10/07/23 14:21) MUSCLE ACHES celecoxib [From Celebrex] Adverse Reaction (Verified 10/07/23 14:21) Gastrointestinal Upset Medication List - Last Reconciled 10/07/23 by Brooks Al MD albuterol sulfate 90 mcg/actuation (ProAir HFA) 2 puffs inhalation Q4-6H PRN ascorbic acid (vitamin C) (Vitamin C) 500 mg PO DAILY ezetimibe (Zetia) 10 mg PO DAILY fenofibrate nanocrystallized 145 mg PO DAILY 90 days folic acid 1 mg PO DAILY 90 days lactobacillus combination no.9 (Adult 50 Plus Probiotic) 4,000 mmu cells PO DAILY levothyroxine Take 1 tablet daily Mondays through Saturdays and 2 tablets daily on Sundays daily 12 weeks oxycodone 5 mg PO Q6H PRN 10 days pyridoxine (vitamin B6) 100 mg PO DAILY 90 days sertraline 100 mg PO DAILY varenicline 0.5 mg PO BID 3 days Tobacco use date assessed: 10/07/23 HPI pre op HPI Details Patient comes in today at the request of Dr. Ramirez for a preoperative medical examination for clearance for surgery She is scheduled for Da Anaid right middle lobe wedge resection with possible lobectomy under general anesthesia on 10/12/2023 Patient reportedly already had pulmonary function testing done recently, with FEV1 at 86% of predicted prebronchodilator going up to 101% of predicted post-bronch and DLCO VA at 56% of predicted Patient states that she currently feels okay She denies any headaches or dizziness; denies any fever or recent weight loss Denies any chest pains, no increased SOB and is independent with most ADLs No nausea/vomiting, no abdominal pain No change in bowel habits noted She had some follow up labs done earlier this week and also reportedly had an EKG done at [place] recently She is also requesting again for a prescription for some Oxycodone 5 mg for her chronic pain [facility] Medical History Locking of left knee Acquired hypothyroidism Retention of urine Complex regional pain syndrome i of left lower limb Arthritis Back pain Thyroid disease Hx of hepatitis C History of positive PPD COPD (chronic obstructive pulmonary disease) Anxiety History of depression History of nephrolithiasis Smoker Asthma Elevated cholesterol Surgical History Hx of colonoscopy Hx of hysterectomy S/P cystoscopy with ureteral stent placement Hx of left knee surgery Social History Housing: Apartment Alcohol intake: current Alcohol intake frequency: holidays/special occasions only Alcohol type: beer and hard liquor Patient Tobacco Use Status: Current everyday Tobacco user Cigarette Packs Per Day: 0.5 Cigarettes Per Day: 10.0 Years Smoked: 40 plus e-Cigarette/Vaping Use: Never Used service: No Current occupational status: other Current occupation: Right Handed Cognitive needs: No Hearing needs: No Vision needs: No Questionnaire PHQ-9 Over the last 2 weeks, how often have you been bothered by any of the following problems? 1. Little interest or pleasure in doing things: not at all 2. Feeling down, depressed, or hopeless: several days 3. Trouble falling or staying asleep, or sleeping too much: nearly every day 4. Feeling tired or having little energy: more than half the days 5. Poor appetite or overeating: not at all 6. Feeling bad about yourself - or that you are a failure or have let yourself or your family down: not at all 7. Trouble concentrating on things, such as reading the newspaper or watching television: more than half the days 8. Moving or speaking so slowly that other people could have noticed. Or the opposite - being so fidgety or restless that you have been moving around a lot more than usual: not at all 9. Thoughts that you would be better off or of hurting yourself in some way: not at all Total score: 8 Depression Screening Interpretation: Positive Depression Screening Follow-up: Existing condition and In treatment Depression Screening Done: Yes 52669 - PHQ-9 Billing: Yes Source: Developed by Drs. Agustin Tse, Felicity Arrington, Kit Carballo and colleagues, with an educational elena from [employer]. Thrive Questionnaire Date Thrive assessed: 10/07/23 I am a: Patient What is your living situation today?: I have a steady place to live Within the past 12 months, did the food you bought not last and you didn't have the money to get more?: Never true Within the past 12 months, did you worry whether your food would run out before you got money to buy more?: Never true Do you have trouble paying for medicines?: No Do you have trouble getting transportation to medical appointments?: No Do you have trouble paying your heating and electricity bill?: No Do you have trouble taking care of your child, family member or friend?: No Do you have trouble with day-to-day activities such as bathing, preparing meals, shopping, managing finances, etc.?: No Are you currently unemployed and looking for a job?: No Are you interested in more education?: No Please select the resources that you would like help with: None Currently or been in a relationship where the following occur: no concerns reported THRIVE Score: 0 AUDIT C Alcohol Use Questionnaire (AUDIT-C) 1. How often do you have a drink containing alcohol?: Monthly or less 2. How many drinks containing alcohol do you have on a typical day when you are drinking?: 1 or 2 3. How often do you have six or more drinks on one occasion?: Never Total Score: 1 Score Reviewed/Action Taken: Yes TIMOTHY-7 AMB Questionnaire TIMOTHY-7 Date TIMOTHY - 7 assessed: 10/07/23 Feeling nervous, anxious, or on edge: 3 = Nearly every day Not being able to stop or control worryin = Several days Worrying too much about different things: 3 = Nearly every day Trouble relaxin = More than half the days Being so restless that it is hard to sit still: 1 = Several days Becoming easily annoyed or irritable: 2 = More than half the days Feeling afraid as if something awful might happen: 2 = More than half the days Total TIMOTHY-7 score (0-4 normal; 5-9 mild; 10-14 moderate; 15-21 severe): 14 Source: Developed by Drs. Agustin Tse, Felicity Arrington, Kit Carballo and colleagues, with an educational elena from [employer]. TIMOTHY-7 Assessment Billing TIMOTHY-7 Assessment Tool: TIMOTHY-7 Assessment 94256 Review of Systems Const Denies chills, Denies fatigue, Denies fever(s) and Denies headache(s) ENT Denies dysphagia, Denies dizziness, Denies otalgia, Denies headache(s), Denies neck pain, Denies odynophagia and Denies sore throat Card Denies chest pain, Denies palpitations and Denies dyspnea Resp Denies chest congestion, Reports cough (on and off, non-productive), Denies hemoptysis and Denies dyspnea GI Denies abdominal pain, Denies constipation, Denies dysphagia, Denies heartburn, Denies diarrhea, Denies nausea, Denies odynophagia and Denies vomiting Denies difficulty voiding, Denies nocturia, Denies dysuria and Denies urinary urgency Musc Details: (+) chronic left lower extremity pain Reports arthralgias (left knee) and Denies neck pain Skin/Breast Denies rash Neuro Denies dizziness and Denies headache(s) Endo Denies fatigue and Denies palpitations Physical exam (Primary Care) Vital Signs: Last Vital Signs Pulse 64 10/07/23 13:45 Resp 15 10/07/23 13:45 BP 128/68 10/07/23 13:45 Pulse Ox 100 10/07/23 13:45 Oxygen Delivery Method Room Air 10/07/23 13:45 BMI result Body Mass Index 20.6 Tobacco/Smoking Status: Tobacco use Status Tobacco use date assessed 10/07/23 10/07/23 13:49 Patient Tobacco Use Status Current everyday Tobacco 10/07/23 13:45 e-Cigarette/Vaping Use Never Used 10/07/23 13:45 PHQ-9: PHQ-9 Score PHQ-9: Total score 8 10/07/23 14:26 Depression Screening Interpretation: Positive Depression Screening Follow-up: Existing condition and In treatment Thrive Assessment: Date of Thrive Assessment Date Thrive assessed 10/07/23 10/07/23 14:00 Currently or been in a relationship where the following occur: no concerns reported Const General: no acute distress and alert HENMT Ears: TM's normal bilaterally and EAC's normal Throat: Yes posterior oropharynx normal and Yes tonsils normal (no TP congestion) Neck Neck: Yes no lymphadenopathy and Yes supple Thyroid: Thyroid normal Resp Auscultation: clear to auscultation bilaterally, no rales and no wheezes Cardio Rate: regular rate Rhythm: regular rhythm Heart sounds: no murmurs GI Palpation (GI): Soft to palpation and nontender Auscultation: normal bowel sounds General: Yes no CVA tenderness Back/Spine/Pelvis Back: no CVA tenderness Thoracic/Lumbar Spine: thoracic and lumbar spine normal to inspection Skin Rashes: no rashes Extrem General: Yes no clubbing, cyanosis or edema Left lower extremity: knee Details: tenderness (chronic) Results Reviewed Results Reviewed: Laboratory Tests 10/03/23 07:41 WBC 5.7 Hgb 13.2 Hct 40.6 Plt Count 283 Sodium 140 Potassium 4.6 Creatinine 1.25 Estimated GFR 43 Random Glucose 94 Calcium 9.7 D AST 27 ALT 18 Triglycerides 93 Cholesterol 218 H LDL Cholesterol, Calc 126 H HDL Cholesterol 74 25-OH Vitamin D Total 25.5 L TSH 3.82 Free T4 0.95 Assessment and Plan Assessment & Plan (1) Preoperative examination: Code(s): Z01.818 - Encounter for other preprocedural examination Plan: Patient presents with acceptable risks and appears to be medically optimized for planned intermediate cardiac risk procedure Results of her labs done earlier this week reviewed and discussed with patient - her results are attached to this report Per patient, she also had an EKG done at [place] recently but we do not have a copy of this for review We will try to see if we can get a copy of her recent EKG sent over [facility] but in case we are not successful, will have patient get her EKG done at [facility] to complete her preop evaluation (2) Pulmonary nodule: Code(s): R91.1 - Solitary pulmonary nodule Plan: She is currently scheduled for Da Anaid right middle lobe wedge resection with possible lobectomy under general anesthesia by Dr. Ascencion Ramirez on 10/12/2023 (3) Mixed hyperlipidemia: Code(s): E78.2 - Mixed hyperlipidemia Plan: Reinforced low-cholesterol diet Continue Fenofibrate 145 mg QD and Ezetimibe 10 mg QD Will recheck her labs and fasting lipids in 3 to 4 months for follow-up (4) Acquired hypothyroidism: Code(s): E03.9 - Hypothyroidism, unspecified Plan: Her TFTs are normal on recent labs Continue Levothyroxine 88 mcg 1 tablet daily on Mondays to Saturdays and 2 tablets QD on Sundays Will recheck her TFTs in 3 to 4 months for follow up (5) Asthma: Code(s): J45.909 - Unspecified asthma, uncomplicated Qualifiers: Asthma severity: mild Asthma persistence: intermittent Asthma complication type: uncomplicated Qualified Code(s): J45.20 - Mild intermittent asthma, uncomplicated Plan: Continue Albuterol HFA 1 to 2 inhalations Q 6 hours PRN (6) Osteoarthritis of left knee: Code(s): M17.12 - Unilateral primary osteoarthritis, left knee Qualifiers: Osteoarthritis type: primary Qualified Code(s): M17.12 - Unilateral primary osteoarthritis, left knee Plan: S/P arthroscopic surgery x 2 in the past; she has also tried physical therapy, cortisone injections and Euflexxa injections with no significant relief or improvement of symptoms Follow up with orthopedics as scheduled (7) Complex regional pain syndrome i of left lower limb: Code(s): G90.522 - Complex regional pain syndrome I of left lower limb Plan: Follow up with pain management as scheduled Per request, will provide her again with Rx for a small amount of Oxycodone 5 mg to take PRN for increased pain (8) Nephrolithiasis: Code(s): N20.0 - Calculus of kidney Plan: Follow up with urology as scheduled for continuing management (9) Anxiety: Code(s): F41.9 - Anxiety disorder, unspecified Plan: Continue Sertraline 100 mg QD (10) Smoker: Code(s): F17.200 - Nicotine dependence, unspecified, uncomplicated Plan: Counseled again on smoking cessation Plan Patient currently appears medically optimized for surgery and unless her EKG comes back abnormal, should not have any contraindications to undergo planned surgical procedure on 10/12/2023 Will follow up her EKG, which she is instructed to get done DAVID or her recent EKG done at [place], whichever arrives first, and will then provide final clearance for her upcoming surgery Follow up in 3 to 4 months Orders: Orders Free T4 (Free Thyroxine) 3 Months E03.9 - Hypothyroidism, unspecified ECG 12 lead EKG 10/07/23 R91.1 - Solitary pulmonary nodule, Z01.818 - Encounter for other preprocedural examination Comprehensive [place]. Panel Fast 3 Months E78.00 - Pure hypercholesterolemia, unspecified Lipid Panel 3 Months E78.00 - Pure hypercholesterolemia, unspecified Complete Blood Count Auto Diff 3 Months D64.9 - Anemia, unspecified Thyroid Stimulating Hormone 3 Months E03.9 - Hypothyroidism, unspecified UA CC w/rflx Micro + Cult 3 Months R30.0 - Dysuria Vitamin D 25-OH Total 3 Months E55.9 - Vitamin D deficiency, unspecified Medications: Refilled oxycodone Partial Fill upon patient request. 5 mg PO Q6H PRN 40 tabs 0RF pain 10 days Coding Level of Care Code Est Pt Level 4 (80192) Diagnoses Preoperative examination Z01.818 Pulmonary nodule R91.1 Mixed hyperlipidemia E78.2 Acquired hypothyroidism E03.9 Mild intermittent asthma without complication J45.20 Asthma severity: mild Asthma persistence: intermittent Asthma complication type: uncomplicated Primary osteoarthritis of left knee M17.12 Osteoarthritis type: primary Complex regional pain syndrome i of left lower limb G90.522 Nephrolithiasis N20.0 Anxiety F41.9 Smoker F17.200 Additional Codes TIMOTHY-7 Assessment Billing - TIMOTHY-7 Assessment Tool: TIMOTHY-7 Assessment [id number] ([id number])
== END 2023-10-07 14:31 | disposition home or self-care (01) ==
PROVIDERS: PCP Internal Medicine; Visit Provider Internal Medicine
DX: Z01.818 Encounter for other preprocedural examination (principal); R91.1 Solitary pulmonary nodule; E78.2 Mixed hyperlipidemia; E03.9 Hypothyroidism, unspecified; J45.20 Mild intermittent asthma, uncomplicated; M17.12 Unilateral primary osteoarthritis, left knee; G90.522 Complex regional pain syndrome I of left lower limb; N20.0 Calculus of kidney; F41.9 Anxiety disorder, unspecified; F17.200 Nicotine dependence, unspecified, uncomplicated
CPT/HCPCS: 99214

== ENCOUNTER → 2023-10-10 09:12 | Outpatient (REF) | payer OTHER, MEDICAID, SELFPAY ==
--- NOTE | 2023-10-10 09:17 | ECG_ITS ---
Test Reason : PREPROC EXAM Blood Pressure : / mmHG Vent. Rate : 065 BPM Atrial Rate : 065 BPM P-R Int : 178 ms QRS Dur : 074 ms QT Int : 398 ms P-R-T Axes : 045 -38 041 degrees QTc Int : 413 ms Normal sinus rhythm Left axis deviation Nonspecific T wave abnormality Abnormal ECG When compared with ECG of 28-FEB-2017 16:21, Criteria for Septal infarct are no longer Present Nonspecific T wave abnormality now evident in Lateral leads Referred By: Brooks Al Electronically Signed By:David Emery
== END ==
LOC: HO.CARD 09:12
PROVIDERS: PCP Internal Medicine; Visit Provider Internal Medicine
DX: Z01.818 Encounter for other preprocedural examination (principal); R91.1 Solitary pulmonary nodule
CPT/HCPCS: 93005

== ENCOUNTER → 2023-10-10 09:17 | Outpatient (BNV) | payer OTHER, SELFPAY | PROVIDERS: PCP Internal Medicine; Visit Provider Internal Medicine Cardiovascular Disease | DX: I44.4 Left anterior fascicular block (principal); Z01.810 Encounter for preprocedural cardiovascular examination | CPT/HCPCS: 93010 ==

== ENCOUNTER 2023-11-27 11:42 | Emergency (ER) | payer MEDICAID, SELFPAY ==
--- NOTE | ~2023-11-27 | CT_ITS ---
EXAMINATION: CT abdomen pelvis w IV con CLINICAL INFORMATION: Reason for Exam lower abdominal pain, blood in stool, diarrhea COMPARISON: Prior CT 2017 TECHNIQUE: Multidetector volumetric imaging was performed from the superior aspect of the liver through the pubic symphysis approximately 85 mL of Omnipaque 350 injected. Sagittal and coronal reformatted images were obtained on the technologist's workstation. This CT examination was performed using dose optimization techniques as appropriate, variously including the following: *Automated exposure control *Adjustment of mA and/or kV according to patient size (this includes techniques or standardized protocols for targeted exams where dose is matched to indication/reason for exam; i.e. extremities or head) *Use of iterative reconstruction technique DLP: 322 mGy-cm FINDINGS: LOWER THORAX: Included lung bases are clear. HEPATOBILIARY: No focal hepatic lesions. No biliary ductal dilatation. GALLBLADDER: Gallbladder unremarkable. SPLEEN: Spleen is normal in size. PANCREAS: No focal mass or ductal dilatation. STOMACH AND GASTROINTESTINAL TRACT: Stomach is grossly unremarkable. There is circumferential wall thickening of the rectum and sigmoid colon without evidence of obstruction, this is nonspecific CT finding and can be due to infection, inflammatory and less commonly neoplastic process. Visualized bowels are otherwise normal. No CT evidence of appendicitis. ADRENALS: No adrenal nodules. KIDNEYS/URETERS: There is heterogeneous solid renal lesion involving the right kidney upper pole measures 2.4 x 2 cm, irregular margins, concerning for infection nephroma versus renal cell carcinoma. No kidney stone or hydronephrosis. Left kidney is unremarkable. URINARY BLADDER: Partially decompressed. PELVIC VISCERA: Unremarkable PERITONEUM: No free air or fluid. LYMPH NODES: No lymphadenopathy. VASCULAR:Aortic vascular calcifications. BONES, ABDOMINAL WALL AND SOFT TISSUES: Age-appropriate changes of the spine and skeletal system, no destructive osteolytic or osteosclerotic bone lesion found CT/CT abdomen pelvis w IV con IMPRESSION: 1. There is circumferential WALL THICKENING OF THE RECTUM and sigmoid colon without evidence of obstruction, this is nonspecific CT finding and can be due to infection, inflammatory and less commonly neoplastic process. GI consultation recommended, consider correlation with follow-up colonoscopy. 2. There is heterogeneous SOLID RIGHT RENAL LESION involving the right kidney upper pole measures 2.4 cm, irregular margins, concerning for infection nephroma versus renal cell carcinoma. Further investigation with follow-up advanced imaging contrast enhanced MRI recommended. 3. Vascular calcifications. (Referring physician staff is being called, by physician staff assistance, to be alerted of the above critical findings and recommendations.) A J 11/27/2023 3:44 PM
[2023-11-27 11:47] VITALS: BP 139/41; PULSE 80; RESP 19; TEMP 36.6; O2SAT 98; BMI 18.6
--- NOTE | 2023-11-27 11:50 | ED_ITS ---
HPI - General Adult General Chief complaint: Abdominal Pain Stated complaint: GI issues Time Seen by Provider: 11/27/23 11:58 Source: patient and family Mode of arrival: ambulatory Limitations: no limitations History of Present Illness HPI narrative: 63-year-old female history of high cholesterol, hypothyroidism, kidney stones, pulmonary nodule with recent wedge resection here with complaints of abdominal pain and diarrhea for the last 6 days. Patient reports pain is on the right side. She has had up to 4 episodes of diarrhea daily although this seems to be improving and stools are more formed now. She denies any bloody stools but reports some blood in the toilet paper after moving her bowels noted. No vomiting, fevers, chills. No history of abdominal surgery. No recent travel or sick contact. Related Data Home Medications ?Medication ?Instructions ?Recorded ?Confirmed ascorbic acid (vitamin C) 500 mg 500 mg PO DAILY 05/09/20 10/07/23 tablet (Vitamin C) lactobacillus combination no.9 4 4,000 mmu cells PO DAILY 12/03/20 10/07/23 billion cell capsule (Adult 50 Plus Probiotic) Previous Rx's ?Medication ?Instructions ?Recorded levothyroxine 88 mcg tablet See Rx Instructions .Route DAILY 03/07/23 12 weeks #96 tabs pyridoxine (vitamin B6) 100 mg 100 mg PO DAILY 90 days #90 tabs 03/07/23 tablet ezetimibe 10 mg tablet (Zetia) 10 mg PO DAILY #90 tabs 03/16/23 albuterol sulfate 90 mcg/actuation 2 puff inhalation Q4-6H PRN 03/22/23 aerosol inhaler (ProAir HFA) Wheezing #8.5 grams folic acid 1 mg tablet 1 mg PO DAILY 90 days #90 tabs 03/22/23 fenofibrate nanocrystallized 145 145 mg PO DAILY 90 days #90 tabs 05/30/23 mg tablet varenicline 0.5 mg tablet 0.5 mg PO BID 3 days #6 tabs 07/15/23 oxycodone 5 mg tablet 5 mg PO Q6H PRN pain 10 days #40 10/07/23 tabs sertraline 100 mg tablet 100 mg PO DAILY #30 tabs 10/23/23 dicyclomine 10 mg capsule 10 mg PO QID PRN abdominal pain 11/27/23 #20 caps levofloxacin 750 mg tablet 750 mg PO DAILY 7 days #7 tabs 11/27/23 metronidazole 500 mg tablet 500 mg PO BID 10 days #20 tabs 11/27/23 ondansetron 4 mg disintegrating 4 mg PO Q6H PRN nausea and 11/27/23 tablet vomiting #10 tabs Allergies Allergy/AdvReac Type Severity Reaction Status Date / Time simvastatin [SIMVASTATIN] Allergy Unknown MUSCLE Verified 11/27/23 11:49 ACHES celecoxib [From Celebrex] AdvReac Gastrointestinal Verified 11/27/23 11:49 Upset Review of Systems 2 Review of Systems: Yes all other systems are reviewed and are negative Constitutional: Constitutional: Reports no additional constitutional complaints, Denies body ache(s), Denies chills, Denies fever(s), Denies headache(s) and Denies weakness Eyes: Eyes: Reports no additional eye complaints and Denies change in vision ENT: Reports system reviewed and no additional complaints, except as documented, Denies dizziness, Denies headache(s), Denies nasal congestion, Denies nasal discharge and Denies neck pain Cardiovascular: Cardiovascular: Reports no additional cardiovascular complaints, Denies chest pain, Denies leg edema and Denies dyspnea Respiratory: Respiratory: Reports no additional respiratory complaints, Denies cough and Denies dyspnea Gastrointestinal: Gastrointestinal: Reports no additional gastrointestinal complaints, Reports abdominal pain, Denies melena, Reports diarrhea, Denies nausea and Denies vomiting Genitourinary: Genitourinary: Reports no additional female genitourinary complaints and Denies urinary incontinence Musculoskeletal: Musculoskeletal: Reports no additional musculoskeletal complaints, Denies back pain, Denies arthralgias, Denies joint swelling, Denies neck pain, Denies numbness and Denies tingling Integumentary/Breasts: Skin/Breast: Reports system reviewed and no additional complaints, except as docu and Denies rash Neurologic: Reports system reviewed and no additional complaints, except as documented, Denies Abnormal speech present, Denies dizziness, Denies headache(s), Denies numbness, Denies tingling and Denies weakness PMFSH Past Medical History Attestation statement: The following information was validated with the patient. Source: old records reviewed and nursing notes reviewed Medical History Locking of left knee Acquired hypothyroidism Retention of urine Complex regional pain syndrome i of left lower limb Arthritis Back pain Thyroid disease Hx of hepatitis C History of positive PPD COPD (chronic obstructive pulmonary disease) Anxiety History of depression History of nephrolithiasis Smoker Asthma Elevated cholesterol Surgical History Hx of colonoscopy Hx of hysterectomy S/P cystoscopy with ureteral stent placement Hx of left knee surgery Social History Social History Housing: Apartment Alcohol intake: current Alcohol intake frequency: holidays/special occasions only Alcohol type: beer and hard liquor Patient Tobacco Use Status: Current everyday Tobacco user Cigarette Packs Per Day: 0.5 Cigarettes Per Day: 10.0 Years Smoked: 40 plus Smoked in Last 30 Days: No e-Cigarette/Vaping Use: Never Used Use of substances other than those prescribed or required for medical reasons: No Advance Directives: No Advance Directives Information Provided: No service: No Current occupational status: other Current occupation: Right Handed Cognitive needs: No Hearing needs: No Vision needs: No Physical Exam ED Vital Signs: Vital Signs - 24 hr 11/27/23 11:47 11/27/23 12:00 11/27/23 12:43 Temperature 98 F 98.0 F Pulse Rate 80 73 Respiratory Rate 19 16 15 Blood Pressure 139/41 L 126/63 Pulse Oximetry 98 98 Oxygen Delivery Method Room Air Room Air 11/27/23 15:00 11/27/23 17:23 Temperature 98 F Pulse Rate 59 59 Respiratory Rate 16 18 Blood Pressure 127/56 L 127/56 L Pulse Oximetry 99 97 Oxygen Delivery Method Room Air Room Air BMI result Body Mass Index 18.6 Const General: cooperative, healthy appearing, comfortable and no acute distress Orientation/consciousness: patient oriented x3 Limitations: no limitations HENMT Head: Yes normal to inspection Ears: hearing grossly normal bilaterally General nose exam: Normal external nose present Face and sinus: Yes normal facial exam Mouth: Normal oral and palatal mucosa present Throat: Yes posterior oropharynx normal Eyes General: appearance normal, both eyes and all related structures Pupils: Equal, round and reactive pupils present Neck Neck: Yes normal visual inspection Chest Chest palpation & inspection: normal inspection of the chest Resp Effort & Inspection: normal respiratory effort Auscultation: clear to auscultation bilaterally Cardio Rate: regular rate Rhythm: regular rhythm Peripheral pulses: Peripheral pulses 2+ throughout GI Inspection: Yes normal to inspection Palpation (GI): Soft to palpation, Tenderness to palpation present (GI) in the RLQ and in the RUQ and Guarding due to palpation present (GI) Auscultation: normal bowel sounds Back/Spine/Pelvis Thoracic/Lumbar Spine: thoracic and lumbar spine normal to inspection Skin General skin exam: no rashes or lesions noted Neuro General: patient oriented x3, no focal motor deficits and normal sensation to monofilament Cranial nerves: Yes Equal, round and reactive pupils present Cognition (Neuro): normal cognition Speech: No Abnormal speech present Gait exam (Neuro): Normal gait present Motor exam (neuro): 5/5 motor strength present throughout Extrem General: Yes normal to inspection Course Course Course Narrative: RME: 63-year-old female presents to ED 6 days of diarrhea, slight blood in stool, and lower abdominal pain. labs, stool sample, and CT scan of abdomen Reevaluation(s) Reevaluation #1: 1600- Ct shows IMPRESSION: 1. There is circumferential WALL THICKENING OF THE RECTUM and sigmoid colon without evidence of obstruction, this is nonspecific CT finding and can be due to infection, inflammatory and less commonly neoplastic process. GI consultation recommended, consider correlation with follow-up colonoscopy. 2. There is heterogeneous SOLID RIGHT RENAL LESION involving the right kidney upper pole measures 2.4 cm, irregular margins, concerning for infection nephroma versus renal cell carcinoma. Further investigation with follow-up advanced imaging contrast enhanced MRI recommended. 3. Vascular calcifications. UA is consistent with the UTI. Therefore I favor infection nephroma versus renal cell carcinoma. Patient non toxic, afebrile, normal renal function, no leukocytosis. i did speak to dr parekh who recommended treating urinary tract infection and then after completion patient should have outpatient follow- up with MRI in 1 month. Patient reports that she has been seen by Dr. Jean Marie brooks in the past and she will follow-up with her outpatient. In regards to the wall thickening of the rectum I did speak to Dr. Purcell from Gastroenterology. She believes patient can complete a course of antibiotics and then follow up outpatient for colonoscopy. I did speak to the patient in regards to this. She reports she had a colonoscopy 4 years ago which was normal. This was at [facility]. She will follow up outpatient with GI. Reviewed worrisome signs and symptoms of when to return to the emergency room. Comfortable plan for discharge home. Medications Administered Discontinued Medications Generic Name Dose Route Start Last Admin Trade Name Nicholas PRN Reason Stop Dose Admin Sodium Chloride 1,000 mls @ 999 mls/hr 11/27/23 12:20 11/27/23 12:43 Ns IV 11/27/23 13:20 999 mls/hr .Q1H1M STA Administration Iohexol 100 ml 11/27/23 13:36 11/27/23 13:37 Iohexol 350 Mg/Ml 100 Ml Infus..Btl IV 11/27/23 13:37 85 ml ONCE ONE Administration Levofloxacin 750 mg 11/27/23 16:33 11/27/23 17:18 Levofloxacin 750 Mg Tablet PO 11/27/23 16:34 750 mg ONCE ONE Administration Metronidazole 500 mg 11/27/23 16:33 11/27/23 17:18 Metronidazole 500 Mg Tablet PO 11/27/23 16:34 500 mg ONCE ONE Administration Morphine Sulfate 4 mg 11/27/23 12:20 11/27/23 12:43 Morphine Sulfate 4 Mg/Ml Cartridge IVPUSH 11/27/23 12:21 4 mg ONCE ONE Administration Protocol Ondansetron HCl 4 mg 11/27/23 12:20 11/27/23 12:41 Ondansetron Hcl 4 Mg/2 Ml Vial IVPUSH 11/27/23 12:21 4 mg ONCE ONE Administration Medical Decision Making Medical Decision Making MDM Narrative: 63 year-old female history of high cholesterol, hypothyroidism, kidney stones, pulmonary nodule with recent wedge resection here with complaints of abdominal pain and diarrhea for the last 6 days.? Patient reports pain is on the right side.? She has had up to 4 episodes of diarrhea daily although this seems to be improving and stools are more formed now.? She denies any bloody stools but reports some blood in the toilet paper after moving her bowels noted.? No vomiting, fevers, chills.? No history of abdominal surgery.? No recent travel or sick contact. Tenderness the right abdomen with no rebound or guarding Will obtain labs, stool studies, UA and CT Differential Diagnosis Differential Diagnoses: The differential diagnosis associated with the presentation includes Diverticulitis, gastroenteritis, infectious colitis, IBD Admission/Observation Consideration of admission/observation: Escalation of care including admission/observation considered see course of care Consult Healthcare Provider Management of the patient was discussed with: Director [employer] Lab Data MDM Lab Attestation statement: I reviewed the patient's lab results. 11/27/23 12:07 11/27/23 12:07 Labs: Lab Results 11/27/23 11/27/23 Range/Units 12:07 15:03 WBC 9.0 (4.8-10.8) X10*3/uL RBC 3.97 L (4.20-5.50) X10*6/uL Hgb 12.8 (12.0-16.0) g/dl Hct 38.2 (37.0-47.0) % MCV 96.2 (80.0-98.0) fL MCH 32.2 (27.0-33.0) pg MCHC 33.5 (31.0-35.0) g/dl RDW 12.8 (11.0-16.0) % Plt Count 305 (160-400) X10*3/uL MPV 9.4 (9.4-12.3) fL Immature Gran % (Auto) 0.7 H (0.0-0.4) % Neut % (Auto) 74.0 H (45-73) % Lymph % (Auto) 11.0 L (20-40) % [place] % (Auto) 13.7 H (2-11) % Eos % (Auto) 0.3 (0-4) % Baso % (Auto) 0.3 (0-2) % Lymph # (Auto) 1.0 L (1.2-4.9) X10*3/uL [place] # (Auto) 1.2 (0.1-1.2) X10*3/uL Eos # (Auto) 0.0 (0.0-0.4) X10*3/uL Baso # (Auto) 0.0 (0.0-0.2) X10*3/uL Abs Immat Gran (auto) 0.06 H (0.00-0.03) X10*3/uL Absolute Neuts (auto) 6.7 (2.0-8.3) x10*3/uL Absolute Nucleated RBC 0.000 (0.0-0.012) X10*3/uL Nucleated RBC % (auto) 0.0 (0.0-0.2) /100WBC PT 13.5 H (11.1-13.3) SEC INR 1.1 (0.9-1.1) APTT 29.3 (26.0-36.8) SEC Sodium 140 (135-145) mmol/L Potassium 4.5 (3.3-5.1) mmol/L Chloride 105 (96-108) mmol/L Carbon Dioxide 26 (22-29) mmol/L Anion Gap 14 (12-20) BUN 15 (9-16) mg/dL Creatinine 1.02 (0.5-1.4) mg/dL Estim Creat Clear Calc 42.4 Estimated GFR 55 Random Glucose 97 (60-115) mg/dL Calcium 10.2 (8.4-10.2) mg/dL Total Bilirubin 0.4 (0.0-1.0) mg/dL AST 23 (5-31) U/L ALT 15 (0-31) U/L Alkaline Phosphatase 51 (39-117) U/L Total Protein 8.2 H (6.5-8.0) g/dL Albumin 4.6 (3.5-5.0) g/dL Lipase 19 (8-78) U/L Urine Color Yellow Urine Appearance Clear Urine pH 5.5 (5.0-9.0) Ur Specific [place] >= 1.030 H (1.005-1.025) Urine Protein Trace (Neg-Trace) mg/dL Urine Glucose (UA) Negative (Negative) mg/dL Urine Ketones Negative (Negative) mg/dL Urine Blood Small (1+) H (Negative) Urine Nitrite Positive H (Negative) Ur Leukocyte Esterase Moderate (2+) H (Negative) Urine RBC 3-5 H (0-2) /HPF Urine WBC >50 H (0-5) /HPF Ur Squamous Epith Cells 0-2 (0-2) /HPF Urine Bacteria 4+ (None Seen) Hyaline Casts 0-2 (0-2) /LPF Independent Interpretation I performed an independent interpretation of an: CT Scan Interpretation: I independently reviewed the CT scan and agree with the rad report. Radiology Impression Discussion of test interpretation with radiology: I have reviewed the radiologist's reading. Radiologist Impression: [address] [address] [address] Scan Report Signed Patient: Jessy Buenrostro MR#: [id number] : 1960 Acct:[id number] Age/Sex: 63 / F ADM Date: 11/27/23 Loc: HO.ED Attending Dr: Ordering Physician: Balbir Rosenbaum Date of Service: 11/27/23 Procedure(s): CT abdomen pelvis w IV con Accession Number(s): [id number] cc: Brooks Al MD; Balbir Rosenbaum~ EXAMINATION: CT abdomen pelvis w IV con CLINICAL INFORMATION: Reason for Exam lower abdominal pain, blood in stool, diarrhea COMPARISON: Prior CT 2017 TECHNIQUE: Multidetector volumetric imaging was performed from the superior aspect of the liver through the pubic symphysis approximately 85 mL of Omnipaque 350 injected. Sagittal and coronal reformatted images were obtained on the technologist's workstation. This CT examination was performed using dose optimization techniques as appropriate, variously including the following: *Automated exposure control *Adjustment of mA and/or kV according to patient size (this includes techniques or standardized protocols for targeted exams where dose is matched to indication/reason for exam; i.e. extremities or head) *Use of iterative reconstruction technique DLP: 322 mGy-cm FINDINGS: LOWER THORAX: Included lung bases are clear. HEPATOBILIARY: No focal hepatic lesions. No biliary ductal dilatation. GALLBLADDER: Gallbladder unremarkable. SPLEEN: Spleen is normal in size. PANCREAS: No focal mass or ductal dilatation. STOMACH AND GASTROINTESTINAL TRACT: Stomach is grossly unremarkable. There is circumferential wall thickening of the rectum and sigmoid colon without evidence of obstruction, this is nonspecific CT finding and can be due to infection, inflammatory and less commonly neoplastic process. Visualized bowels are otherwise normal. No CT evidence of appendicitis. ADRENALS: No adrenal nodules. KIDNEYS/URETERS: There is heterogeneous solid renal lesion involving the right kidney upper pole measures 2.4 x 2 cm, irregular margins, concerning for infection nephroma versus renal cell carcinoma. No kidney stone or hydronephrosis. Left kidney is unremarkable. URINARY BLADDER: Partially decompressed. PELVIC VISCERA: Unremarkable PERITONEUM: No free air or fluid. LYMPH NODES: No lymphadenopathy. VASCULAR:Aortic vascular calcifications. BONES, ABDOMINAL WALL AND SOFT TISSUES: Age-appropriate changes of the spine and skeletal system, no destructive osteolytic or osteosclerotic bone lesion found CT/CT abdomen pelvis w IV con IMPRESSION: 1. There is circumferential WALL THICKENING OF THE RECTUM and sigmoid colon without evidence of obstruction, this is nonspecific CT finding and can be due to infection, inflammatory and less commonly neoplastic process. GI consultation recommended, consider correlation with follow-up colonoscopy. 2. There is heterogeneous SOLID RIGHT RENAL LESION involving the right kidney upper pole measures 2.4 cm, irregular margins, concerning for infection nephroma versus renal cell carcinoma. Further investigation with follow-up advanced imaging contrast enhanced MRI recommended. 3. Vascular calcifications. (Referring physician staff is being called, by physician staff assistance, to be alerted of the above critical findings and recommendations.) Lisy Lester 11/27/2023 3:44 PM Critical Care Time Critical Care Time Critical Care Time: Yes Total Critical Care Time: 60 Attestation: Multiple abnormalities on CT scan requiring consultation with both Urology and Gastroenterology Discharge Plan Discharge Clinical Impression: Colitis, UTI (urinary tract infection), Abnormal CT scan Patient Disposition: Home, Self-Care Instructions: Urinary Tract Infection in Women (ED), Colitis (ED) Additional Instructions: Your CT scan shows inflammation in your colon. This may be from an infection. We can not rule out any underlying mass. They do recommend that he have an outpatient colonoscopy to rule this out completely. Therefore we spoke to the foil stamp operator and you can follow-up with them outpatient Your CT also shows a lesion on your right kidney. This may be from your urinary tract infection but may also be underlying cancer. We spoke to the urologist who recommended that you have an outpatient MRI 1 month. Please return for any worsening pain, fever or vomiting Prescriptions: New metronidazole 500 mg tablet 500 mg PO BID 10 Days Qty: 20 0RF levofloxacin 750 mg tablet 750 mg PO DAILY 7 Days Qty: 7 0RF ondansetron 4 mg tablet,disintegrating 4 mg PO Q6H PRN (Reason: nausea and vomiting) Qty: 10 0RF dicyclomine 10 mg capsule 10 mg PO QID PRN (Reason: abdominal pain) Qty: 20 0RF No Action pyridoxine (vitamin B6) 100 mg tablet 100 mg PO DAILY 90 Days Qty: 90 3RF ezetimibe [Zetia] 10 mg tablet 10 mg PO DAILY Qty: 90 1RF albuterol sulfate [ProAir HFA] 90 mcg/actuation HFA aerosol inhaler 2 puff INHALATION Q4-6H PRN (Reason: Wheezing) Qty: 8.5 3RF folic acid 1 mg tablet 1 mg PO DAILY 90 Days Qty: 90 3RF fenofibrate nanocrystallized 145 mg tablet 145 mg PO DAILY 90 Days Qty: 90 3RF varenicline 0.5 mg tablet 0.5 mg PO BID 3 Days Qty: 6 0RF Rx Instructions: administer on days 4, 5, and 6 of therapy sertraline 100 mg tablet 100 mg PO DAILY Qty: 30 0RF ascorbic acid (vitamin C) [Vitamin C] 500 mg Tablet 500 mg PO DAILY levothyroxine 88 mcg tablet See Rx Instructions .ROUTE DAILY 84 Days Qty: 96 3RF Rx Instructions: Take 1 tablet daily Mondays through Saturdays and 2 tablets daily on Sundays daily oxycodone 5 mg tablet 5 mg PO Q6H PRN (Reason: pain) 10 Days Qty: 40 0RF Rx Instructions: Partial Fill upon patient request. Adult 50 Plus Probiotic 4 billion cell capsule 4,000 mmu cells PO DAILY Rx Instructions: administer with a meal Referrals: Althea Parekh MD [Physician] - 2 weeks Bonnie Purcell MD [Physician] - 2 weeks Interventions: ED Discharge Assessment Last Done: 11/27/23 17:23 Discharge Date/Time: 11/27/23 17:39 Print Language: Nigerien
[2023-11-27 12:00] VITALS: BP 126/63; PULSE 73; RESP 16; TEMP 36.7; O2SAT 98
[2023-11-27 12:18] LABS: MANUAL DIFF FLAG NO
[2023-11-27 12:19] LABS: Basophils Percent Auto 0.3 % (0-2); Eosinophils Percent Auto 0.3 % (0-4); Hematocrit 38.2 % (37.0-47.0); Hemoglobin 12.8 g/dl (12.0-16.0); Imm Gran Abs Auto 0.06 X10*3/uL (0.00-0.03); Imm Gran Pct Auto 0.7 % (0.0-0.4); Mean Corpuscular HGB Conc 33.5 g/dl (31.0-35.0); Mean Corpuscular Hemoglobin 32.2 pg (27.0-33.0); Mean Corpuscular Volume 96.2 fL (80.0-98.0); Mean Platelet Volume 9.4 fL (9.4-12.3); Monocytes Absolute Auto 1.2 X10*3/uL (0.1-1.2); Monocytes Percent Auto 13.7 % (2-11); Neutrophils Absolute Auto 6.7 x10*3/uL (2.0-8.3); Platelet Count 305 X10*3/uL (160-400); Red Blood Count 3.97 X10*6/uL (4.20-5.50); Red Cell Distribution Width 12.8 % (11.0-16.0)
[2023-11-27 12:24] LABS: INTERNATIONAL NORM RATIO 1.1 (0.9-1.1); Prothrombin Time 13.5 SEC (11.1-13.3)
[2023-11-27 12:27] LABS: Partial Thromboplastin Time 29.3 SEC (26.0-36.8)
--- NOTE | 2023-11-27 12:27 | PC.NURSE ---
Pt presents to ED from home, reports right sided ABD pain along with multiple episodes of watery diarrhea X6 days. Pt reports poor PO intake and a couple episode of vomiting. Pt denies CP, SOB, fevers, cough. Pt is alert and oriented, breathing even and unlabored, skin WNL. VSS.
[2023-11-27] MEDS: ondansetron HCL 4 MG/2 ML VIAL IVPUSH (12:41)
[2023-11-27 12:43] VITALS: RESP 15
[2023-11-27] MEDS: Morphine Sulfate 4 MG/ML CARTRIDGE IVPUSH (12:43)
[2023-11-27] MEDS: 0.9 % Sodium Chloride 1,000 ML 999 ML IV (12:43)
[2023-11-27 13:15] LABS: Alanine Aminotransferase 15 U/L (0-31); Albumin Level 4.6 g/dL (3.5-5.0); Alkaline Phosphatase 51 U/L (39-117); Anion Gap 14 (12-20); Aspartate Amino Transferase 23 U/L (5-31); Bilirubin Total 0.4 mg/dL (0.0-1.0); Blood Urea Nitrogen 15 mg/dL (9-16); Calcium 10.2 mg/dL (8.4-10.2); Carbon Dioxide 26 mmol/L (22-29); Chloride 105 mmol/L (96-108); Creatinine Clr Calc Pharmacy 42.4; Estimated Glomerular Filt Rate 55; Glucose Random 97 mg/dL (60-115); Lipase 19 U/L (8-78); Potassium 4.5 mmol/L (3.3-5.1); Sodium 140 mmol/L (135-145); Total Protein 8.2 g/dL (6.5-8.0)
[2023-11-27] MEDS: iohexoL 350 MG/ML 100 ML INFUS..BTL IV (13:37)
[2023-11-27 15:00] VITALS: BP 127/56; PULSE 59; RESP 16; O2SAT 99
[2023-11-27 15:10] LABS: Appearance Urine Clear; Color Urine Yellow; Glucose Urine UA Negative (Negative); Leukocyte Esterase Urine Moderate (2+) (Negative); Nitrite Urine Positive (Negative); PH 5.5 (5.0-9.0); Specific Gravity - Urine >= 1.030 (1.005-1.025); UMIC TRIGGER UACC YES; Urine Blood Small (1+) (Negative); Urine Ketones Negative (Negative); Urine Protein Trace mg/dL (Neg-Trace)
[2023-11-27 15:21] LABS: Bacteria Urine 4+ (None Seen); Hyaline Casts Urine 0-2 /LPF (0-2); Squamous Epithelial Cell Urine 0-2 /HPF (0-2); UACC Culture Trigger YES; WBC Urine >50 /HPF (0-5)
[2023-11-27] MEDS: metroNIDAZOLE 500 MG TABLET PO (17:18)
[2023-11-27] MEDS: levoFLOXacin 750 MG TABLET PO (17:18)
[2023-11-27 17:23] VITALS: BP 127/56; PULSE 59; RESP 18; TEMP 36.6; O2SAT 97
== END 2023-11-27 17:39 | disposition home or self-care (01) ==
PROVIDERS: Nurse Practitioner Family; Physician Assistant; Emergency Provider Emergency Medicine; PCP Internal Medicine
DX: K52.89 Other specified noninfective gastroenteritis and colitis (principal); N39.0 Urinary tract infection, site not specified; R93.89 Abnormal findings on diagnostic imaging of other specified body structures; R10.9 Unspecified abdominal pain; Z79.899 Other long term (current) drug therapy
CPT/HCPCS: 36415; 74177; 80053; 81001; 83690; 85025; 85610; 85730; 87086; 87088; 87186; 96374; 96375; 99284; J2270; J2405; Q9967

== ENCOUNTER 2023-12-19 13:57 | Outpatient (AMB) | payer OTHER, SELFPAY ==
--- NOTE | 2023-12-19 14:35 | A.OFFVIS_ITS ---
Intake Visit Reasons: ER follow up/kidney lesion Intake Note: Patient presents today for a ER follow-up Kidney Lesion: Meds: None Allergies to Antibiotic: None Blood Thinner: None Sales Account Associate Required: No Accompanied by: Self / Same As Patient Allergies simvastatin [SIMVASTATIN] Allergy (Unknown, Verified 12/19/23 14:36) MUSCLE ACHES celecoxib [From Celebrex] Adverse Reaction (Verified 12/19/23 14:36) Gastrointestinal Upset HPI Comments Details: 12/19/2023 Jessy is a 63-year-old female who has not followed for history of kidney stones. She was in the emergency room last month with pain and irritative voiding symptoms. Urinalysis was consistent with UTI, urine culture did come back positive for E coli. The patient had a CT scan done which was significant for a 2.4 cm solid lesion etiology considered inflammatory versus neoplastic. Jessy states that she does have persistent discomfort in the left flank area. Urinary symptoms are resolved. She has a renal ultrasound appointment this week that was ordered previously. Discussed that she will keep that appointment since is already scheduled. I have discussed MRI abdomen further evaluation. I have discussed that renal masses less than 3 cm respond well to minimally invasive cryoablation performed by Interventional Radiology. Reviewed chart: 07/23/22- Jessy Buenrostro is here for FU being followed for kidney stones. I reviewed most recent imaging 01/2022, with bilateral echogenic punctate calcifications, no renal calculi. The patient is asymptomatic. She states she was given flomax to help with bladder emptying but stopped due to sinus issues. Discussed 24 hour urine results: Total volume 1.9L, Calcium 168 mg; Oxalate 22 mg, Sodium 75, Citrate 560 mg. Discussed that her results are within normal limits and to continue treatment plan, reinforced the importance of adequate fluid intake, Low oxalate diet, low sodium diet. Plan: fu in 6 months - OV with renal u/s at that time. 01/21/23-- On discusion today discussed with the patient the renal US--12/31/22--WNL, no kidney stones visualized. The patient had history of kidney and had prior kidney stone t/t on 04/2017 right, ureteroscopy, stent placement. I have discussed with the patient to continue Vitamin B6 100 mg daily. Currently the patient is emptying bladder adequately. Evaluation today-- Blood: 10 Ariel/uL, leukocytes: 15 Petra/uL. Bladder scan PVR: 0 mL. Prior Imagin11/2017 - an IV Pyelogram, showing no evidence of stones 12/2018 - US no stones, mild left hydro 12/2019 - a renal ultrasound, showing no evidence of stones 12/2020 - renal ultrasound 1 mm stone on left side PFSH Medical History Locking of left knee Acquired hypothyroidism Retention of urine Complex regional pain syndrome i of left lower limb Arthritis Back pain Thyroid disease Hx of hepatitis C History of positive PPD COPD (chronic obstructive pulmonary disease) Anxiety History of depression History of nephrolithiasis Smoker Asthma Elevated cholesterol Surgical History Hx of colonoscopy Hx of hysterectomy S/P cystoscopy with ureteral stent placement Hx of left knee surgery Social History Housing: Apartment Alcohol intake: current Alcohol intake frequency: holidays/special occasions only Alcohol type: beer and hard liquor Patient Tobacco Use Status: Current everyday Tobacco user Cigarette Packs Per Day: 0.5 Cigarettes Per Day: 10.0 Years Smoked: 40 plus e-Cigarette/Vaping Use: Never Used service: No Current occupational status: other Current occupation: Right Handed Cognitive needs: No Hearing needs: No Vision needs: No Review of Systems Const All systems reviewed & are unremarkable except as noted in HPI and below Reports no additional complaints Eyes Reports no additional complaints ENT Reports no additional complaints Card Reports no additional complaints Resp Reports no additional complaints GI Reports no additional complaints Reports as per HPI Musc Reports no additional complaints Skin/Breast Reports system reviewed and no additional complaints, except as documented Neuro Reports no additional complaints Psych Reports no additional complaints Endo Reports no additional complaints Clifford/Lymph Reports no additional complaints Aller/Immun Reports no additional complaints Physical Exam Const General: cooperative, healthy appearing and no acute distress Orientation/consciousness: patient oriented x3 HEENT Head: Yes normal to inspection, Yes normocephalic and Yes atraumatic Eyes Conjunctivae: conjunctivae normal Neck Neck: Yes normal visual inspection and Yes trachea midline Chest Chest palpation & inspection: normal inspection of the chest Resp Effort & Inspection: normal respiratory effort Cardio Rate: regular rate GI Inspection: Yes normal to inspection Skin General skin exam: no rashes or lesions noted Neuro General: patient oriented x3 Extrem General: No edema Psych Appearance: grossly normal Results AMB Urinalysis, Automated UA Leukoctes 0 Petra/uL Last Edit by BRETT Turner on 12/19/23 14:39 UA Nitrite Negative Last Edit by BRETT Turner on 12/19/23 14:39 UA Urobilinogen 0.2 mg/dL Last Edit by Candelario Colbert Lisy on 12/19/23 14:3 9 UA Protein 0 mg/dL Last Edit by Candelario Colbert Lisy on 12/19/23 14:39 UA pH 6.0 Last Edit by Candelario Colbert Lisy on 12/19/23 14:39 UA Blood 10 Ariel/uL Last Edit by BRETT Turner on 12/19/23 14:39 UA Specific [place] 1.025 Last Edit by Candelario Colbert Lisy on 12/19/23 14: 39 UA Ketone Negative Last Edit by BRETT Turner on 12/19/23 14:39 UA Bilirubin 0 mg/dL Last Edit by Candelario Colbert Lisy on 12/19/23 14:39 UA Glucose 0 mg/dL Last Edit by Candelario Colbert [facility] on 12/19/23 14:39 Results Reviewed Results Reviewed: Laboratory Last Values Urine pH (Auto) 6.0 12/19/23 14:26 Specific [place] (Auto) 1.025 12/19/23 14:26 Urine Protein (Auto) 0 mg/dL 12/19/23 14:26 Glucose (UA)(Auto) 0 mg/dL 12/19/23 14:26 Urine Ketones (Auto) Negative 12/19/23 14:26 Urine Blood (Auto) 10 Ariel/uL 12/19/23 14:26 Urine Nitrite (Auto) Negative 12/19/23 14:26 Urine Bilirubin (Auto) 0 mg/dL 12/19/23 14:26 Urine Urobilinogen (Auto) 0.2 mg/dL 12/19/23 14:26 Leukocyte Esterase (Auto) 0 Petra/uL 12/19/23 14:26 Collected: 11/27/23-1503 Status: COMP Req#: [id number] Received: 11/27/23-1530 Source: [facility] Desc: Urine aponte Subm Dr: Saloni Hatfield [employer] Ordered: Urine Culture Procedure Result Verified Urine Culture Final 11/29/23-718 Organism 1 Escherichia coli Quant > 100,000 cfu/mL E coli M.I.C. RX --------- --- Ampicillin <=2 S Ceftriaxone <=0.25 S Gentamicin <=1 S Levofloxacin <=0.12 S Nitrofurantoin <=16 S Trimethoprim/Sulfamethoxazole <=20 S Date of Service: 11/27/23 EXAMINATION: CT abdomen pelvis w IV con CLINICAL INFORMATION: Reason for Exam lower abdominal pain, blood in stool, diarrhea COMPARISON: Prior CT 2016 TECHNIQUE: Multidetector volumetric imaging was performed from the superior aspect of the liver through the pubic symphysis approximately 85 mL of Omnipaque 350 injected. Sagittal and coronal reformatted images were obtained on the technologist's workstation. This CT examination was performed using dose optimization techniques as appropriate, variously including the following: *Automated exposure control *Adjustment of mA and/or kV according to patient size (this includes techniques or standardized protocols for targeted exams where dose is matched to indication/reason for exam; i.e. extremities or head) *Use of iterative reconstruction technique DLP: 322 mGy-cm FINDINGS: LOWER THORAX: Included lung bases are clear. HEPATOBILIARY: No focal hepatic lesions. No biliary ductal dilatation. GALLBLADDER: Gallbladder unremarkable. SPLEEN: Spleen is normal in size. PANCREAS: No focal mass or ductal dilatation. STOMACH AND GASTROINTESTINAL TRACT: Stomach is grossly unremarkable. There is circumferential wall thickening of the rectum and sigmoid colon without evidence of obstruction, this is nonspecific CT finding and can be due to infection, inflammatory and less commonly neoplastic process. Visualized bowels are otherwise normal. No CT evidence of appendicitis. ADRENALS: No adrenal nodules. KIDNEYS/URETERS: There is heterogeneous solid renal lesion involving the right kidney upper pole measures 2.4 x 2 cm, irregular margins, concerning for infection nephroma versus renal cell carcinoma. No kidney stone or hydronephrosis. Left kidney is unremarkable. URINARY BLADDER: Partially decompressed. PELVIC VISCERA: Unremarkable PERITONEUM: No free air or fluid. LYMPH NODES: No lymphadenopathy. VASCULAR:Aortic vascular calcifications. BONES, ABDOMINAL WALL AND SOFT TISSUES: Age-appropriate changes of the spine and skeletal system, no destructive osteolytic or osteosclerotic bone lesion found IMPRESSION: 1. There is circumferential WALL THICKENING OF THE RECTUM and sigmoid colon without evidence of obstruction, this is nonspecific CT finding and can be due to infection, inflammatory and less commonly neoplastic process. GI consultation recommended, consider correlation with follow-up colonoscopy. 2. There is heterogeneous SOLID RIGHT RENAL LESION involving the right kidney upper pole measures 2.4 cm, irregular margins, concerning for infection nephroma versus renal cell carcinoma. Further investigation with follow-up advanced imaging contrast enhanced MRI recommended. 3. Vascular calcifications. Date of Service: 12/31/22 US RETROPERITONEAL LIMITED (RENAL ONLY) CLINICAL INFORMATION: Calculus of kidney. COMPARISON: Renal ultrasound 07/15/2022 and 01/21/2022. CT abdomen and pelvis 02/28/2017. TECHNIQUE: Real-time imaging of the kidneys.? FINDINGS: RIGHT KIDNEY: 10.0 x 4.5 x 5.1 cm (SAG x AP x TRV). The kidney is normal in size, contour, and echogenicity. Renal cortical thickness is normal. No calculi or focal parenchymal lesions. No hydronephrosis. LEFT KIDNEY: 10.9 x 4.0 x 4.4 cm (SAG x AP x TRV). The kidney is normal in size, contour, and echogenicity. Renal cortical thickness is normal. No calculi or focal parenchymal lesions. No hydronephrosis. IMPRESSION: Unremarkable examination. Assessment & Plan Assessment & Plan (1) Renal mass of unknown nature: Code(s): N28.89 - Other specified disorders of kidney and ureter Category: Medical (2) Nephrolithiasis: Code(s): N20.0 - Calculus of kidney Category: Medical Plan History of kidney stones. No recurrent calcifications noted. Recent UTI. E coli, was treated with antibiotics urinary symptoms resolved. Right kidney renal mass 2.4 cm. MRI for further evaluation. Follow-up post. Orders: Orders AMB Urinalysis Automated Today Z13.9 - Encounter for screening, unspecified MR abdomen wo/w con Today N28.89 - Other specified disorders of kidney and ureter Patient Instructions: The patient had an opportunity to ask questions regarding treatment plan. The patient expressed understanding and agreement with the above treatment plan. The patient is aware they should contact our office by phone for worsening of their current condition or the appearance of new symptoms. Compliance is encouraged with any medications and followup testing that is ordered. It is a privilege to be allowed the opportunity to participate in the urologic care of your patient. If you have any questions or concerns regarding treatment for the above conditions please do not hesitate to contact me. The office telephone contact is [phone]. This note is constructed in part using voice recognition software. While every effort has been made to ensure accuracy technical supervisor errors may have been included. Yours sincerely, Althea Parekh MD Coding Level of Care Code Est Pt Level 4 (25557) Complex EM visit Add On G2211 Diagnoses Renal mass of unknown nature N28.89 Nephrolithiasis N20.0
== END 2023-12-19 15:27 | disposition home or self-care (01) ==
PROVIDERS: PCP Internal Medicine; Visit Provider Urology
DX: N28.89 Other specified disorders of kidney and ureter (principal); N20.0 Calculus of kidney; Z13.9 Encounter for screening, unspecified
CPT/HCPCS: 99214; G2211

== ENCOUNTER → 2023-12-19 13:57 | Outpatient (BNVA) | payer OTHER, SELFPAY | PROVIDERS: PCP Internal Medicine; Visit Provider Urology | DX: N28.89 Other specified disorders of kidney and ureter (principal); N20.0 Calculus of kidney | CPT/HCPCS: 81003; 99212 ==

== ENCOUNTER 2023-12-22 09:57 | Outpatient (REF) | payer OTHER, MEDICAID, SELFPAY ==
--- NOTE | ~2023-12-22 | US_ITS ---
EXAMINATION: US RETROPERITONEAL LIMITED (RENAL ONLY) CLINICAL INFORMATION: Calculus of kidney. COMPARISON: CT abdomen and pelvis 11/27/2023. Renal ultrasound 12/31/2022 and 07/15/2022. TECHNIQUE: Real-time imaging of the kidneys. FINDINGS: RIGHT KIDNEY: 9.2 x 3.6 x 4.8 cm (SAG x AP x TRV). The kidney is normal in size, contour, and echogenicity. Renal cortical thickness is normal. No renal calculi or hydronephrosis. Small simple cyst in the upper pole measuring 6 mm. No follow-up imaging is recommended. No discrete lesion is seen to correlate with recent CT. LEFT KIDNEY: 9.8 x 3.8 x 4.5 cm (SAG x AP x TRV). The kidney is normal in size, contour, and echogenicity. Renal cortical thickness is normal. No calculi or focal parenchymal lesions. No hydronephrosis. US/US renal BI IMPRESSION: No discrete lesion is seen in the upper pole the right kidney to correlate with the finding on recent abdominal CT. The lack of sonographic visualization does not exclude underlying pathology. Recommend follow-up CT abdomen without and with contrast as clinically appropriate. No visible nephrolithiasis.
== END 2023-12-22 09:58 | disposition home or self-care (01) ==
LOC: HO.US 09:57
PROVIDERS: PCP Internal Medicine; Visit Provider Urology
DX: N20.0 Calculus of kidney (principal); R33.9 Retention of urine, unspecified
CPT/HCPCS: 76775

== ENCOUNTER 2024-01-17 10:28 | Outpatient (AMB) | payer OTHER, SELFPAY ==
[2024-01-17 10:28] VITALS: BP 92/56; PULSE 61; O2SAT 97; BMI 19.7
--- NOTE | 2024-01-17 10:28 | MHC.PC.OV ---
Vital Signs 01/17/24 10:28 01/17/24 11:45 Height 5 ft 3 in Weight 111 lb 0.4 oz BMI 19.7 BP 92/56 L 104/70 Blood Pressure Location Lt brachial Lt brachial Position Sitting Sitting Pulse 61 Pulse Source Pulse Oximeter Pulse Oximetry (%) 97 Oxygen Delivery Method Room Air Intake Visit Reasons: 3mth f/u Intake Note: Patient is here to follow up [facility] Examiner Required: No Allergies simvastatin [SIMVASTATIN] Allergy (Unknown, Verified 01/17/24 11:38) MUSCLE ACHES celecoxib [From Celebrex] Adverse Reaction (Verified 01/17/24 11:38) Gastrointestinal Upset Medication List - Last Reconciled 01/17/24 by Brooks Al MD albuterol sulfate 90 mcg/actuation (ProAir HFA) 2 puffs inhalation Q4-6H PRN ascorbic acid (vitamin C) (Vitamin C) 500 mg PO DAILY dicyclomine 10 mg PO QID PRN ezetimibe (Zetia) 10 mg PO DAILY fenofibrate nanocrystallized 145 mg PO DAILY 90 days folic acid 1 mg PO DAILY 90 days lactobacillus combination no.9 (Adult 50 Plus Probiotic) 4,000 mmu cells PO DAILY levothyroxine Take 1 tablet daily Mondays through Saturdays and 2 tablets daily on Sundays daily 12 weeks oxycodone 5 mg PO Q6H PRN 10 days pyridoxine (vitamin B6) 100 mg PO DAILY 90 days sertraline 100 mg PO DAILY varenicline 0.5 mg PO BID 3 days Tobacco use date assessed: 01/17/24 Dental Screening Dental Screen Date: 01/17/24 HPI 3mth f/u HPI Details Patient comes in today for her follow up visit States that she currently feels okay except for on and off episodes of increased sweating over the past 3 weeks She denies any associated hot flashes or hot/cold intolerance She underwent a robotic right middle lobe wedge resection and mediastinal lymphadenectomy with Dr. Ramirez on 10/12/2023 States that her surgery went well and she is happy to report that her surgical pathology came out benign with no cancer Pathology was non-neoplastic lung with necrotizing granulomatous inflammation, stains were all negative and her lymph node was benign She went to the ER back in November 2023 for abdominal pain and diarrhea and abdominal CT done at the time revealed the presence of a solid right renal lesion She was then seen by urology and had renal US done last month, which surprisingly, did not show the right renal lesion - No discrete lesion is seen in the upper pole the right kidney to correlate with the finding on recent abdominal CT She is currently awaiting an abdominal MRI for further evaluation She denies any headaches or dizziness; denies any fever Denies any chest pains, no SOB No nausea/vomiting, no abdominal pain No change in bowel habits noted She had some labs done a couple of months ago but these were non-fasting labs and the ones I previously ordered are still in her chart - she is advised to try to go and get these done [facility] Medical History Locking of left knee Acquired hypothyroidism Retention of urine Complex regional pain syndrome i of left lower limb Arthritis Back pain Thyroid disease Hx of hepatitis C History of positive PPD COPD (chronic obstructive pulmonary disease) Anxiety History of depression History of nephrolithiasis Smoker Asthma Elevated cholesterol Surgical History (Updated 01/17/24 @ 12:42 by Brooks Al MD) History of lung surgery Hx of colonoscopy Hx of hysterectomy S/P cystoscopy with ureteral stent placement Hx of left knee surgery Social History Housing: Apartment Alcohol intake: current Alcohol intake frequency: holidays/special occasions only Alcohol type: beer and hard liquor Patient Tobacco Use Status: Current everyday Tobacco user Cigarette Packs Per Day: 0.5 Cigarettes Per Day: 10.0 Years Smoked: 40 plus Packs Per Year: 0 Packs per year/per ci.00 e-Cigarette/Vaping Use: Never Used service: No Current occupational status: other Current occupation: Right Handed Cognitive needs: No Hearing needs: No Vision needs: No Questionnaire PHQ-9 Over the last 2 weeks, how often have you been bothered by any of the following problems? 1. Little interest or pleasure in doing things: not at all 2. Feeling down, depressed, or hopeless: several days 3. Trouble falling or staying asleep, or sleeping too much: nearly every day 4. Feeling tired or having little energy: more than half the days 5. Poor appetite or overeating: not at all 6. Feeling bad about yourself - or that you are a failure or have let yourself or your family down: not at all 7. Trouble concentrating on things, such as reading the newspaper or watching television: more than half the days 8. Moving or speaking so slowly that other people could have noticed. Or the opposite - being so fidgety or restless that you have been moving around a lot more than usual: not at all 9. Thoughts that you would be better off or of hurting yourself in some way: not at all Total score: 8 Depression Screening Interpretation: Positive Depression Screening Follow-up: Existing condition and In treatment Depression Screening Done: Yes 01110 - PHQ-9 Billing: Yes Source: Developed by Drs. Agustin Tse, Felicity Arrington, Kit Carballo and colleagues, with an educational elena from [employer] Thrive Questionnaire Date Thrive assessed: 10/07/23 AUDIT C Alcohol Use Questionnaire (AUDIT-C) 1. How often do you have a drink containing alcohol?: Monthly or less 2. How many drinks containing alcohol do you have on a typical day when you are drinking?: 1 or 2 3. How often do you have six or more drinks on one occasion?: Never Total Score: 1 Score Reviewed/Action Taken: Yes TIMOTHY-7 AMB Questionnaire TIMOTHY-7 Date TIMOTHY - 7 assessed: 10/07/23 Source: Developed by Drs. Agustin Tse, Felicity Arrington, Kit Carballo and colleagues, with an educational elena from [employer] Review of Systems Const Denies chills, Reports excessive sweating (see HPI), Denies fatigue, Denies fever(s) and Denies headache(s) ENT Denies dysphagia, Denies dizziness, Denies otalgia, Denies headache(s), Denies neck pain, Denies odynophagia and Denies sore throat Card Denies chest pain, Denies palpitations and Denies dyspnea Resp Denies chest congestion, Denies cough, Denies hemoptysis and Denies dyspnea GI Denies abdominal pain, Denies constipation, Denies dysphagia, Denies heartburn, Denies diarrhea, Denies nausea, Denies odynophagia and Denies vomiting Denies difficulty voiding, Denies nocturia, Denies dysuria and Denies urinary urgency Musc Details: (+) chronic left lower extremity pain Denies back pain, Reports arthralgias (left knee) and Denies neck pain Skin/Breast Denies rash Neuro Denies dizziness and Denies headache(s) Endo Denies cold intolerance, Reports excessive sweating (see HPI), Denies fatigue, Denies flushing and Denies palpitations Physical exam (Primary Care) Vital Signs: Last Vital Signs Pulse 61 01/17/24 10:28 BP 104/70 01/17/24 11:45 Pulse Ox 97 01/17/24 10:28 Oxygen Delivery Method Room Air 01/17/24 10:28 BMI result Body Mass Index 19.7 Tobacco/Smoking Status: Tobacco use Status Tobacco use date assessed 01/17/24 01/17/24 10:30 Patient Tobacco Use Status Current everyday Tobacco 01/17/24 10:30 e-Cigarette/Vaping Use Never Used 01/17/24 10:30 PHQ-9: PHQ-9 Score PHQ-9: Total score 8 01/17/24 12:45 Depression Screening Interpretation: Positive Depression Screening Follow-up: Existing condition and In treatment Thrive Assessment: Date of Thrive Assessment Date Thrive assessed 10/07/23 01/17/24 10:30 Const General: no acute distress and alert HENMT Ears: TM's normal bilaterally and EAC's normal Throat: Yes posterior oropharynx normal and Yes tonsils normal (no TP congestion) Neck Neck: Yes no lymphadenopathy and Yes supple Thyroid: Thyroid normal Resp Auscultation: clear to auscultation bilaterally, no rales and no wheezes Cardio Rate: regular rate Rhythm: regular rhythm Heart sounds: no murmurs GI Palpation (GI): Soft to palpation and nontender Auscultation: normal bowel sounds General: Yes no CVA tenderness Back/Spine/Pelvis Back: no CVA tenderness Thoracic/Lumbar Spine: thoracic and lumbar spine normal to inspection Skin Rashes: no rashes Extrem General: Yes no clubbing, cyanosis or edema Left lower extremity: knee Details: tenderness (chronic) Assessment and Plan Assessment & Plan (1) Pulmonary nodule: Code(s): R91.1 - Solitary pulmonary nodule Plan: She underwent a robotic right middle lobe wedge resection and mediastinal lymphadenectomy with Dr. Ramirez on 10/12/2023 States that her surgery went well and she is happy to report that her surgical pathology came out benign with no cancer Pathology was non-neoplastic lung with necrotizing granulomatous inflammation, stains were all negative and her lymph node was benign (2) Mixed hyperlipidemia: Code(s): E78.2 - Mixed hyperlipidemia Plan: She was not able to get her follow up labs done yet and is instructed to go and get these done DAVID Reinforced low-cholesterol diet Continue Fenofibrate 145 mg QD and Ezetimibe 10 mg QD Will recheck her labs and fasting lipids again in 3 months for follow-up (3) Acquired hypothyroidism: Code(s): E03.9 - Hypothyroidism, unspecified Plan: Continue Levothyroxine 88 mcg 1 tablet daily on Mondays to Saturdays and 2 tablets QD on Sundays Will recheck her TFTs in 3 months for follow up (4) Asthma: Code(s): J45.909 - Unspecified asthma, uncomplicated Qualifiers: Asthma severity: mild Asthma persistence: intermittent Asthma complication type: uncomplicated Qualified Code(s): J45.20 - Mild intermittent asthma, uncomplicated Plan: Stable Continue Albuterol HFA 1 to 2 inhalations Q 6 hours PRN (5) Osteoarthritis of left knee: Code(s): M17.12 - Unilateral primary osteoarthritis, left knee Qualifiers: Osteoarthritis type: primary Qualified Code(s): M17.12 - Unilateral primary osteoarthritis, left knee Plan: S/P arthroscopic surgery x 2 in the past; she has also tried physical therapy, cortisone injections and Euflexxa injections with no significant relief or improvement of symptoms Follow up with orthopedics as scheduled (6) Complex regional pain syndrome i of left lower limb: Code(s): G90.522 - Complex regional pain syndrome I of left lower limb Plan: Follow up with pain management as scheduled (7) Nephrolithiasis: Code(s): N20.0 - Calculus of kidney Plan: Follow up with urology as scheduled for continuing management (8) Renal mass of unknown nature: Code(s): N28.89 - Other specified disorders of kidney and ureter Plan: This was first noted when she went to the ER back in November 2023 for abdominal pain and diarrhea - abdominal CT done at the time revealed the presence of a solid right renal lesion She was then seen by urology and had renal US done last month, which surprisingly, did not show the right renal lesion - No discrete lesion is seen in the upper pole the right kidney to correlate with the finding on recent abdominal CT She is currently awaiting an abdominal MRI for further evaluation Follow up with urology as scheduled (9) Anxiety: Code(s): F41.9 - Anxiety disorder, unspecified Plan: Continue Sertraline 100 mg QD (10) Smoker: Code(s): F17.200 - Nicotine dependence, unspecified, uncomplicated Plan: Counseled again on smoking cessation Plan To return as scheduled in April 2024 for her annual physical examination Coding Level of Care Code Est Pt Level 4 (38330) Diagnoses Pulmonary nodule R91.1 Mixed hyperlipidemia E78.2 Acquired hypothyroidism E03.9 Mild intermittent asthma without complication J45.20 Asthma severity: mild Asthma persistence: intermittent Asthma complication type: uncomplicated Primary osteoarthritis of left knee M17.12 Osteoarthritis type: primary Complex regional pain syndrome i of left lower limb G90.522 Nephrolithiasis N20.0 Renal mass of unknown nature N28.89 Anxiety F41.9 Smoker F17.200
[2024-01-17 11:45] VITALS: BP 104/70
== END 2024-01-17 16:23 | disposition home or self-care (01) ==
PROVIDERS: PCP Internal Medicine; Visit Provider Internal Medicine
DX: R91.1 Solitary pulmonary nodule (principal); E78.2 Mixed hyperlipidemia; E03.9 Hypothyroidism, unspecified; J45.20 Mild intermittent asthma, uncomplicated; M17.12 Unilateral primary osteoarthritis, left knee; G90.522 Complex regional pain syndrome I of left lower limb; N20.0 Calculus of kidney; N28.89 Other specified disorders of kidney and ureter; F41.9 Anxiety disorder, unspecified; F17.200 Nicotine dependence, unspecified, uncomplicated
CPT/HCPCS: 99214

== ENCOUNTER 2024-02-03 09:27 | Outpatient (REF) | payer OTHER, MEDICAID, SELFPAY ==
[2024-02-03 09:44] LABS: MANUAL DIFF FLAG NO
[2024-02-03 09:59] LABS: Basophils Percent Auto 0.4 % (0-2); Eosinophils Absolute Auto 0.2 X10*3/uL (0.0-0.4); Eosinophils Percent Auto 3.6 % (0-4); Hematocrit 39.1 % (37.0-47.0); Hemoglobin 13.1 g/dl (12.0-16.0); Imm Gran Abs Auto 0.01 X10*3/uL (0.00-0.03); Imm Gran Pct Auto 0.2 % (0.0-0.4); Lymphocytes Absolute Auto 1.7 X10*3/uL (1.2-4.9); Lymphocytes Percent Auto 36.4 % (20-40); Mean Corpuscular HGB Conc 33.5 g/dl (31.0-35.0); Mean Corpuscular Hemoglobin 32.8 pg (27.0-33.0); Mean Corpuscular Volume 97.8 fL (80.0-98.0); Mean Platelet Volume 9.6 fL (9.4-12.3); Monocytes Absolute Auto 0.6 X10*3/uL (0.1-1.2); Monocytes Percent Auto 11.6 % (2-11); Neutrophils Absolute Auto 2.3 x10*3/uL (2.0-8.3); Neutrophils Percent Auto 47.8 % (45-73); Platelet Count 271 X10*3/uL (160-400); Red Cell Distribution Width 13.9 % (11.0-16.0); White Blood Count 4.8 X10*3/uL (4.8-10.8)
[2024-02-03 11:15] LABS: Alanine Aminotransferase 16 U/L (0-31); Albumin Level 4.4 g/dL (3.5-5.0); Alkaline Phosphatase 39 U/L (39-117); Anion Gap 11 (12-20); Aspartate Amino Transferase 33 U/L (5-31); Bilirubin Total 0.4 mg/dL (0.0-1.0); Blood Urea Nitrogen 17 mg/dL (9-16); Calcium 9.9 mg/dL (8.4-10.2); Carbon Dioxide 30 mmol/L (22-29); Chloride 103 mmol/L (96-108); Cholesterol 199 mg/dL (<200); Estimated Glomerular Filt Rate 41; Glucose Fasting 95 mg/dL (60-99); HDL Cholesterol 68 mg/dL (>40); LDL Cholesterol Calculated 116 mg/dL (<100); Potassium 4.3 mmol/L (3.3-5.1); Sodium 140 mmol/L (135-145); Triglycerides 75 mg/dL (<150)
[2024-02-03 11:33] LABS: Free T4 (Free Thyroxine) 0.83 ng/dL (0.71-1.85); Thyroid Stimulating Hormone 2.43 uIU/mL (0.32-4.0); Vitamin D 25-OH Total 32.4 ng/mL (>30)
== END 2024-02-03 09:28 | disposition home or self-care (01) ==
LOC: HO.LAB 09:27
PROVIDERS: PCP Internal Medicine; Visit Provider Internal Medicine
DX: E78.00 Pure hypercholesterolemia, unspecified (principal); R30.0 Dysuria; E55.9 Vitamin D deficiency, unspecified; E03.9 Hypothyroidism, unspecified; D64.9 Anemia, unspecified
CPT/HCPCS: 36415; 80053; 80061; 82306; 84439; 84443; 85025

== ENCOUNTER 2024-02-09 09:42 | Outpatient (REF) | payer OTHER, MEDICAID, SELFPAY ==
--- NOTE | ~2024-02-09 | MR_ITS ---
EXAMINATION: MR ABDOMEN WITHOUT AND WITH CONTRAST CLINICAL INFORMATION: Other specified disorders of the kidneys and ureters COMPARISON: Renal ultrasound 12/22/[address] abdomen and pelvis 11/27/2023 TECHNIQUE: MRI of the abdomen before and after the IV administration of 5 mL of Gadavist was obtained using routine sequences. FINDINGS: LUNG BASES: The visualized lung bases are unremarkable. KIDNEYS AND URETERS: Bosniak 1 right renal cysts, no imaging follow-up recommended. Right upper pole renal parenchymal cortical scarring. There is been interval resolution of previously seen focal signal heterogeneity in the right upper renal pole, therefore favoring interval resolution of a focal pyelonephritis rather than a true renal mass. GALLBLADDER: Unremarkable. LIVER AND BILIARY TREE: The liver is normal in signal and morphology. No suspicious liver lesion. No intra or extrahepatic biliary duct dilatation. PANCREAS: Unremarkable SPLEEN: Unremarkable ADRENAL GLANDS: Unremarkable GASTROINTESTINAL TRACT: Unremarkable. LYMPH NODES: No lymphadenopathy. VASCULAR: Unremarkable ABDOMINAL WALL: Unremarkable. OSSEOUS STRUCTURES: Unremarkable. MR/MR abdomen wo/w con IMPRESSION: There has been interval resolution of previously seen focal signal heterogeneity in the right upper renal pole, therefore favoring interval resolution of a focal pyelonephritis rather than a true renal mass.
[2024-02-09] MEDS: gadobutroL 7.5 ML VIAL IVPUSH (09:55)
== END 2024-02-09 09:43 | disposition home or self-care (01) ==
LOC: HO.MRI 09:42
PROVIDERS: PCP Internal Medicine; Visit Provider Urology
DX: N28.89 Other specified disorders of kidney and ureter (principal)
CPT/HCPCS: 74183; A9585

== ENCOUNTER 2024-03-16 13:49 | Outpatient (AMB) | payer OTHER, MEDICAID, SELFPAY ==
--- NOTE | 2024-03-16 13:54 | A.OFFVIS_ITS ---
Intake Visit Reasons: Follow up/MRI(MRI 02/08) Intake Note: Patient presents today for a follow up/MRI Meds: None Allergies to Antibiotic: None Blood Thinner: None Outside Property Agent Required: No Accompanied by: Self / Same As Patient Allergies simvastatin [SIMVASTATIN] Allergy (Unknown, Verified 03/16/24 13:54) MUSCLE ACHES celecoxib [From Celebrex] Adverse Reaction (Verified 03/16/24 13:54) Gastrointestinal Upset HPI Comments Details: 03/16/24-- Discussed MRI 02/09/24-- notes resolution of abnormality in kidney cons istent with infectious process. Pt states she is doing well, no more pain. Plan US renal in 9 months. Reviewed chart: 12/19/2023 Jessy is a 63-year-old female who has not followed for history of ki dney stones. She was in the emergency room last month with pain and irritative voiding symptoms. Urinalysis was consistent with UTI, urine culture did come back positive for E coli. The patient had a CT scan done which was significant for a 2.4 cm solid lesion etiology considered inflammatory versus neoplastic. Jessy states that she does have persistent discomfort in the left flank area. Urinary symptoms are resolved. She has a renal ultrasound appointment this week that was ordered previously. Discussed that she will keep that appointment since is already scheduled. I have discussed MRI abdomen further evaluation. I have discussed that renal masses less than 3 cm respond well to minimally invasive cryoablation performed by Interventional Radiology. 07/23/22- Jessy Buenrostro is here for FU being followed for kidney stones. I reviewed most recent imaging 01/2022, with bilateral echogenic punctate calcifications, no renal calculi. The patient is asymptomatic. She states she was given flomax to help with bladder emptying but stopped due to sinus issues. Discussed 24 hour urine results: Total volume 1.9L, Calcium 168 mg; Oxalate 22 mg, Sodium 75, Citrate 560 mg. Discussed that her results are within normal limits and to continue treatment plan, reinforced the importance of adequate fluid intake, Low oxalate diet, low sodium diet. Plan: fu in 6 months - OV with renal u/s at that time. 01/21/23-- On discusion today discussed with the patient the renal US--12/31/22--WNL, no kidney stones visualized. The patient had history of kidney and had prior kidney stone t/t on 04/2017 right, ureteroscopy, stent placement. I have discussed with the patient to continue Vitamin B6 100 mg daily. Currently the patient is emptying bladder adequately. Evaluation today-- Blood: 10 Ariel/uL, leukocytes: 15 Petar/uL. Bladder scan PVR: 0 mL. Prior Imagin11/2017 - an IV Pyelogram, showing no evidence of stones 12/2018 - US no stones, mild left hydro 12/2019 - a renal ultrasound, showing no evidence of stones 12/2020 - renal ultrasound 1 mm stone on left side PFSH Medical History (Updated 03/16/24 @ 14:20 by Althea Parekh MD) Locking of left knee Acquired hypothyroidism Retention of urine Complex regional pain syndrome i of left lower limb Arthritis Back pain Thyroid disease Hx of hepatitis C History of positive PPD COPD (chronic obstructive pulmonary disease) Anxiety History of depression History of nephrolithiasis Smoker Asthma Elevated cholesterol Surgical History (Updated 01/17/24 @ 12:42 by Brooks Al MD) History of lung surgery Hx of colonoscopy Hx of hysterectomy S/P cystoscopy with ureteral stent placement Hx of left knee surgery Social History Housing: Apartment Alcohol intake: current Alcohol intake frequency: holidays/special occasions only Alcohol type: beer and hard liquor Patient Tobacco Use Status: Current everyday Tobacco user Cigarette Packs Per Day: 0.5 Cigarettes Per Day: 10.0 Years Smoked: 40 plus e-Cigarette/Vaping Use: Never Used service: No Current occupational status: other Current occupation: Right Handed Cognitive needs: No Hearing needs: No Vision needs: No Results Reviewed Results Reviewed: Date of Service: 02/09/24 MR ABDOMEN WITHOUT AND WITH CONTRAST CLINICAL INFORMATION: Other specified disorders of the kidneys and ureters COMPARISON: Renal ultrasound 12/22/[address] abdomen and pelvis 11/27/2023 TECHNIQUE: MRI of the abdomen before and after the IV administration of 5 mL of Gadavist was obtained using routine sequences. FINDINGS: LUNG BASES: The visualized lung bases are unremarkable. KIDNEYS AND URETERS: Bosniak 1 right renal cysts, no imaging follow-up recommended. Right upper pole renal parenchymal cortical scarring. There is been interval resolution of previously seen focal signal heterogeneity in the right upper renal pole, therefore favoring interval resolution of a focal pyelonephritis rather than a true renal mass. GALLBLADDER: Unremarkable. LIVER AND BILIARY TREE: The liver is normal in signal and morphology. No suspicious liver lesion. No intra or extrahepatic biliary duct dilatation. PANCREAS: Unremarkable SPLEEN: Unremarkable ADRENAL GLANDS: Unremarkable GASTROINTESTINAL TRACT: Unremarkable. LYMPH NODES: No lymphadenopathy. VASCULAR: Unremarkable ABDOMINAL WALL: Unremarkable. OSSEOUS STRUCTURES: Unremarkable. IMPRESSION: There has been interval resolution of previously seen focal signal heterogeneity in the right upper renal pole, therefore favoring interval resolution of a focal pyelonephritis rather than a true renal mass. Collected: 11/27/23 Status: COMP Req#: [id number] Received: 11/27/23153 Source: [facility] Sp Desc: Urine aponte Subm Dr: Saloni Hatfield HORSE TRADER Ordered: Urine Culture Procedure Result Verified Urine Culture Final 11/29/23 Organism 1 Escherichia coli Quant > 100,000 cfu/mL E coli M.I.C. RX --------- --- Ampicillin <=2 S Ceftriaxone <=0.25 S Gentamicin <=1 S Levofloxacin <=0.12 S Nitrofurantoin <=16 S Trimethoprim/Sulfamethoxazole <=20 S Date of Service: 11/27/23 EXAMINATION: CT abdomen pelvis w IV con CLINICAL INFORMATION: Reason for Exam lower abdominal pain, blood in stool, diarrhea COMPARISON: Prior CT 2016 TECHNIQUE: Multidetector volumetric imaging was performed from the superior aspect of the liver through the pubic symphysis approximately 85 mL of Omnipaque 350 injected. Sagittal and coronal reformatted images were obtained on the technologist's workstation. This CT examination was performed using dose optimization techniques as appropriate, variously including the following: *Automated exposure control *Adjustment of mA and/or kV according to patient size (this includes techniques or standardized protocols for targeted exams where dose is matched to indication/reason for exam; i.e. extremities or head) *Use of iterative reconstruction technique DLP: 322 mGy-cm FINDINGS: LOWER THORAX: Included lung bases are clear. HEPATOBILIARY: No focal hepatic lesions. No biliary ductal dilatation. GALLBLADDER: Gallbladder unremarkable. SPLEEN: Spleen is normal in size. PANCREAS: No focal mass or ductal dilatation. STOMACH AND GASTROINTESTINAL TRACT: Stomach is grossly unremarkable. There is circumferential wall thickening of the rectum and sigmoid colon without evidence of obstruction, this is nonspecific CT finding and can be due to infection, inflammatory and less commonly neoplastic process. Visualized bowels are otherwise normal. No CT evidence of appendicitis. ADRENALS: No adrenal nodules. KIDNEYS/URETERS: There is heterogeneous solid renal lesion involving the right kidney upper pole measures 2.4 x 2 cm, irregular margins, concerning for infection nephroma versus renal cell carcinoma. No kidney stone or hydronephrosis. Left kidney is unremarkable. URINARY BLADDER: Partially decompressed. PELVIC VISCERA: Unremarkable PERITONEUM: No free air or fluid. LYMPH NODES: No lymphadenopathy. VASCULAR:Aortic vascular calcifications. BONES, ABDOMINAL WALL AND SOFT TISSUES: Age-appropriate changes of the spine and skeletal system, no destructive osteolytic or osteosclerotic bone lesion found IMPRESSION: 1. There is circumferential WALL THICKENING OF THE RECTUM and sigmoid colon without evidence of obstruction, this is nonspecific CT finding and can be due to infection, inflammatory and less commonly neoplastic process. GI consultation recommended, consider correlation with follow-up colonoscopy. 2. There is heterogeneous SOLID RIGHT RENAL LESION involving the right kidney upper pole measures 2.4 cm, irregular margins, concerning for infection nephroma versus renal cell carcinoma. Further investigation with follow-up advanced imaging contrast enhanced MRI recommended. 3. Vascular calcifications. Date of Service: 12/31/22 US RETROPERITONEAL LIMITED (RENAL ONLY) CLINICAL INFORMATION: Calculus of kidney. COMPARISON: Renal ultrasound 07/15/2022 and 01/21/2022. CT abdomen and pelvis 02/28/2017. TECHNIQUE: Real-time imaging of the kidneys.? FINDINGS: RIGHT KIDNEY: 10.0 x 4.5 x 5.1 cm (SAG x AP x TRV). The kidney is normal in size, contour, and echogenicity. Renal cortical thickness is normal. No calculi or focal parenchymal lesions. No hydronephrosis. LEFT KIDNEY: 10.9 x 4.0 x 4.4 cm (SAG x AP x TRV). The kidney is normal in size, contour, and echogenicity. Renal cortical thickness is normal. No calculi or focal parenchymal lesions. No hydronephrosis. IMPRESSION: Unremarkable examination. Assessment & Plan Assessment & Plan (1) History of nephrolithiasis: Code(s): Z87.442 - Personal history of urinary calculi Category: Medical (2) History of kidney infection: Code(s): Z87.440 - Personal history of urinary (tract) infections Category: Medical Plan US in 8 months FU post. Orders: Orders US renal BI 8 Months Z87.440 - Personal history of urinary (tract) infections, Z87.442 - Personal history of urinary calculi Patient Instructions: The patient had an opportunity to ask questions regarding treatment plan. The patient expressed understanding and agreement with the above treatment plan. The patient is aware they should contact our office by phone for worsening of their current condition or the appearance of new symptoms. Compliance is encouraged with any medications and followup testing that is ordered. It is a privilege to be allowed the opportunity to participate in the urologic care of your patient. If you have any questions or concerns regarding treatment for the above conditions please do not hesitate to contact me. The office telephone contact is [phone]. This note is constructed in part using voice recognition software. While every effort has been made to ensure accuracy fur clipper errors may have been included. Yours sincerely, Althea Parekh MD Coding Level of Care Code Est Pt Level 3 (47096) Diagnoses History of nephrolithiasis Z87.442 History of kidney infection Z87.440
== END 2024-03-16 14:22 | disposition home or self-care (01) ==
PROVIDERS: PCP Internal Medicine; Visit Provider Urology
DX: Z87.442 Personal history of urinary calculi (principal); Z87.440 Personal history of urinary (tract) infections
CPT/HCPCS: 99213

== ENCOUNTER → 2024-03-16 13:49 | Outpatient (BNVA) | payer OTHER, MEDICAID, SELFPAY | PROVIDERS: PCP Internal Medicine; Visit Provider Urology | DX: Z87.442 Personal history of urinary calculi (principal); Z87.440 Personal history of urinary (tract) infections | CPT/HCPCS: 99212 ==

== ENCOUNTER 2024-04-18 13:39 | Outpatient (AMB) | payer OTHER, MEDICAID, SELFPAY ==
--- NOTE | 2024-04-18 13:46 | MHC.PC.OV ---
Vital Signs 04/18/24 13:47 Height 5 ft 3 in Weight 110 lb BMI 19.5 BP 108/70 Blood Pressure Location Lt brachial Position Sitting Pulse 69 Pulse Source Pulse Oximeter Pulse Oximetry (%) 97 Oxygen Delivery Method Room Air Intake Visit Reasons: PE/ mo f/u Strainer Tender Required: No Accompanied by: Self / Same As Patient Allergies simvastatin [SIMVASTATIN] Allergy (Unknown, Verified 04/18/24 14:08) MUSCLE ACHES celecoxib [From Celebrex] Adverse Reaction (Verified 04/18/24 14:08) Gastrointestinal Upset Medication List - Last Reconciled 04/18/24 by Brooks Al MD albuterol sulfate 90 mcg/actuation (ProAir HFA) 2 puffs inhalation Q4-6H PRN ascorbic acid (vitamin C) (Vitamin C) 500 mg PO DAILY dicyclomine 10 mg PO QID PRN ezetimibe (Zetia) 10 mg PO DAILY fenofibrate nanocrystallized 145 mg PO DAILY 90 days folic acid 1 mg PO DAILY 90 days lactobacillus combination no.9 (Adult 50 Plus Probiotic) 4,000 mmu cells PO DAILY levothyroxine Take 1 tablet daily Mondays through Saturdays and 2 tablets daily on Sundays daily 12 weeks oxycodone 5 mg PO Q6H PRN 7 days pyridoxine (vitamin B6) 100 mg PO DAILY 90 days sertraline 100 mg PO DAILY Tobacco use date assessed: 04/18/24 Fall risk assessment: 2 + Falls in past year Last assessed Fall Risk: 04/18/24 Dental Screening Dental Screen Date: 04/18/24 Did you have a dental visit in the last 12 months?: No Did you have a dental problem in the last 6 months where you did not have access to dental care?: No Was dental information given to patient?: Patient has dentist HPI PE/ 3 mo f/u HPI Details Patient comes in today for her annual physical examination States that she continues to experience increased pain in her knees States that she was working on getting psychological evaluation in preparation of PNS Curonix (she did not have enough funds to pay for psychological evaluation until October 2023) but she ended up having lung surgery (RML wedge resection) done for a pulmonary nodule that was suspicious for cancer and this set back the whole process Her pathology fortunately came out benign (non-neoplastic with necrotizing granulomatous inflammation) States that she will now start working on getting psychological evaluation and clearance again for her to be able to get the stimulator implant to help with her chronic pain States that she feels okay otherwise She denies any headaches or dizziness Denies any chest pains, no increased SOB No nausea/vomiting, no abdominal pain No change in bowel habits noted She denies any acute urinary symptoms Adds that she also has been experiencing recurrent tingling sensation and numbness in both of her hands lately and this seems to be occurring more often and feels more pronounced now She had her follow up labs done back in January 2024 just after her last visit She had a screening colonoscopy supposedly done at [facility] in [place] about 10 years ago and was advised that she had a polyp that was benign on pathology - was recommended to get a repeat colonoscopy in 10 years Her last annual mammogram was done at [facility] over a year ago and she is now due for repeat mammogram States that she had a complete hysterectomy done back in 1996 and she does not need to continue with yearly gynecology exam and pap smear as a result FORMERLY [facility], [facility]–1983 Medical History Locking of left knee Acquired hypothyroidism Retention of urine Complex regional pain syndrome i of left lower limb Arthritis Back pain Thyroid disease Hx of hepatitis C History of positive PPD COPD (chronic obstructive pulmonary disease) Anxiety History of depression History of nephrolithiasis Smoker Asthma Elevated cholesterol Surgical History Status post total abdominal hysterectomy and bilateral salpingo-oophorectomy (TA-BSO) History of lung surgery Hx of colonoscopy S/P cystoscopy with ureteral stent placement Hx of left knee surgery Social History Housing: Apartment Alcohol intake: current Alcohol intake frequency: holidays/special occasions only Alcohol type: beer and hard liquor Patient Tobacco Use Status: Current everyday Tobacco user Cigarette Packs Per Day: 0.5 Cigarettes Per Day: 10.0 Years Smoked: 40 plus e-Cigarette/Vaping Use: Never Used service: No Current occupational status: other Current occupation: Right Handed Cognitive needs: No Hearing needs: No Vision needs: No Questionnaire PHQ-9 Over the last 2 weeks, how often have you been bothered by any of the following problems? 1. Little interest or pleasure in doing things: several days 2. Feeling down, depressed, or hopeless: several days 3. Trouble falling or staying asleep, or sleeping too much: several days 4. Feeling tired or having little energy: several days 5. Poor appetite or overeating: not at all 6. Feeling bad about yourself - or that you are a failure or have let yourself or your family down: not at all 7. Trouble concentrating on things, such as reading the newspaper or watching television: not at all 8. Moving or speaking so slowly that other people could have noticed. Or the opposite - being so fidgety or restless that you have been moving around a lot more than usual: several days 9. Thoughts that you would be better off or of hurting yourself in some way: not at all Total score: 5 Depression Screening Interpretation: Positive Depression Screening Follow-up: Existing condition and In treatment Depression Screening Done: Yes 19650 - PHQ-9 Billing: Yes Source: Developed by Drs. Agustin Tse, Felicity Arrington, Kit Carballo and colleagues, with an educational elena from [employer]. Thrive Questionnaire Date Thrive assessed: 04/18/24 I am a: Patient What is your living situation today?: I have a steady place to live Within the past 12 months, did the food you bought not last and you didn't have the money to get more?: Sometimes True Within the past 12 months, did you worry whether your food would run out before you got money to buy more?: Sometimes True Do you have trouble paying for medicines?: No Do you have trouble getting transportation to medical appointments?: No Do you have trouble paying your heating and electricity bill?: No Do you have trouble taking care of your child, family member or friend?: No Do you have trouble with day-to-day activities such as bathing, preparing meals, shopping, managing finances, etc.?: No Are you currently unemployed and looking for a job?: No Are you interested in more education?: No Please select the resources that you would like help with: Housing/Fpc Currently or been in a relationship where the following occur: No concerns reported THRIVE Score: 2 AUDIT C Alcohol Use Questionnaire (AUDIT-C) 1. How often do you have a drink containing alcohol?: Monthly or less 2. How many drinks containing alcohol do you have on a typical day when you are drinking?: 1 or 2 3. How often do you have six or more drinks on one occasion?: Never Total Score: 1 Score Reviewed/Action Taken: Yes TIMOTHY-7 AMB Questionnaire TIMOTHY-7 Date TIMOTHY - 7 assessed: 04/18/24 Feeling nervous, anxious, or on edge: 1 = Several days Not being able to stop or control worryin = Several days Worrying too much about different things: 1 = Several days Trouble relaxin = Several days Being so restless that it is hard to sit still: 0 = Not at all Becoming easily annoyed or irritable: 1 = Several days Feeling afraid as if something awful might happen: 1 = Several days Total TIMOTHY-7 score (0-4 normal; 5-9 mild; 10-14 moderate; 15-21 severe): 6 Source: Developed by Drs. Agustin Tse, Felicity Arrington, Kit Carballo and colleagues, with an educational elena from [employer]. Review of Systems Const Denies chills, Denies fatigue, Denies fever(s) and Denies headache(s) Eyes Denies blurry vision, Denies change in vision, Denies irritation and Denies itchy eyes ENT Denies dysphagia, Denies dizziness, Denies otalgia, Denies headache(s), Denies neck pain, Denies odynophagia and Denies sore throat Card Denies chest pain, Denies palpitations and Denies dyspnea Resp Denies chest congestion, Denies cough, Denies hemoptysis, Denies dyspnea and Denies wheezing GI Denies abdominal pain, Denies constipation, Denies dysphagia, Denies heartburn, Denies diarrhea, Denies nausea, Denies odynophagia and Denies vomiting Denies difficulty voiding, Denies nocturia, Denies dysuria and Denies urinary urgency Musc Details: (+) chronic left lower extremity pain Denies back pain, Reports arthralgias (left knee - chronic), Denies neck pain, Reports numbness (recurrent, in both hands) and Reports tingling (recurrent in both hands) Skin/Breast Denies rash Neuro Denies dizziness, Denies headache(s), Reports numbness (recurrent, in both hands) and Reports tingling (recurrent in both hands) Psych Denies anxiety and Denies depression Endo Denies cold intolerance, Denies fatigue, Denies flushing and Denies palpitations Clifford/Lymph Denies easy bruising Aller/Immun Denies itchy eyes and Denies wheezing Physical exam (Primary Care) Vital Signs: Last Vital Signs Pulse 69 04/18/24 13:47 BP 108/70 04/18/24 13:47 Pulse Ox 97 04/18/24 13:47 Oxygen Delivery Method Room Air 04/18/24 13:47 BMI result Body Mass Index 19.5 Tobacco/Smoking Status: Tobacco use Status Tobacco use date assessed 04/18/24 04/18/24 13:52 Patient Tobacco Use Status Current everyday Tobacco 04/18/24 13:52 e-Cigarette/Vaping Use Never Used 04/18/24 13:52 PHQ-9: PHQ-9 Score PHQ-9: Total score 5 04/19/24 09:10 Depression Screening Interpretation: Positive Depression Screening Follow-up: Existing condition and In treatment Thrive Assessment: Date of Thrive Assessment Date Thrive assessed 04/18/24 04/18/24 13:52 Currently or been in a relationship where the following occur: No concerns reported Const General: no acute distress, alert and awake Orientation/consciousness: patient oriented x3 HENMT Head: Yes normocephalic and Yes atraumatic Ears: external ears normal, TM's normal bilaterally and EAC's normal General nose exam: No nasal discharge present Face and sinus: Yes normal facial exam and Yes sinuses nontender Teeth and gingiva: dentition normal Throat: Yes posterior oropharynx normal and Yes tonsils normal (no TP congestion) Eyes Eyelids: Yes eyelids normal Conjunctivae: conjunctivae normal Pupils: Equal, round and reactive pupils present EOM: EOMs intact bilaterally Neck Neck: Yes no lymphadenopathy and Yes supple Thyroid: Thyroid normal Resp Auscultation: clear to auscultation bilaterally, no rales and no wheezes Cardio Rate: regular rate Rhythm: regular rhythm Heart sounds: no murmurs GI Palpation (GI): Soft to palpation, nontender and No hepatosplenomegaly present Auscultation: normal bowel sounds General: Yes no CVA tenderness Back/Spine/Pelvis Back: no CVA tenderness Thoracic/Lumbar Spine: thoracic and lumbar spine normal to inspection Skin Lesions: no lesions Rashes: no rashes Neuro General: patient oriented x3, moves all extremities, no focal motor deficits and CN's II-XI intact bilaterally Cranial nerves: Yes Equal, round and reactive pupils present Cognition (Neuro): normal cognition Gait exam (Neuro): Normal gait present Extrem General: Yes no clubbing, cyanosis or edema Right upper extremity: wrist Details: no tenderness Left upper extremity: wrist (no tenderness noted on exam) Left lower extremity: knee Details: tenderness (chronic) Results Reviewed Results Reviewed: Laboratory Tests 11/27/23 02/03/24 12:07 09:43 WBC 9.0 4.8 Hgb 12.8 13.1 Hct 38.2 39.1 Plt Count 305 271 Sodium 140 140 Potassium 4.5 4.3 Creatinine 1.02 1.30 Estimated GFR 55 41 Random Glucose 97 Fasting Glucose 95 Calcium 10.2 9.9 AST 33 H ALT 16 Triglycerides 75 Cholesterol 199 LDL Cholesterol, Calc 116 H HDL Cholesterol 68 25-OH Vitamin D Total 32.4 TSH 2.43 Free T4 0.83 Assessment and Plan Assessment & Plan (1) Annual physical exam: Code(s): Z00.00 - Encounter for general adult medical examination without abnormal findings Plan: Results of her labs done back in January 2024 reviewed and discussed with patient States that she had a complete hysterectomy done back in 1996 and she does not need to continue with yearly gynecology exam and pap smear as a result She had a screening colonoscopy supposedly done at [facility] in [place] about 10 years ago and was advised that she had a polyp that was benign on pathology - was recommended to get a repeat colonoscopy in 10 years so she is now due for repeat colonoscopy Her last annual mammogram was done at [facility] over a year ago and she is now due for repeat mammogram States that she had a complete hysterectomy done back in 1996 and she does not need to continue with yearly gynecology exam and pap smear as a result (2) Pulmonary nodule: Code(s): R91.1 - Solitary pulmonary nodule Plan: She underwent a robotic right middle lobe wedge resection and mediastinal lymphadenectomy with Dr. Ramirez on 10/12/2023 States that her surgery went well and she is happy to report that her surgical pathology came out benign with no cancer Pathology was non-neoplastic lung with necrotizing granulomatous inflammation, stains were all negative and her lymph node was benign Follow up with thoracic surgery as scheduled or as needed (3) Mixed hyperlipidemia: Code(s): E78.2 - Mixed hyperlipidemia Plan: She is advised that her cholesterol levels were within normal range when they were last checked in January 2024 although her LDL cholesterol of 116 mg/dl should be improved further as much as possible Reinforced low-cholesterol diet Continue Fenofibrate 145 mg QD and Ezetimibe 10 mg QD Will recheck her labs and fasting lipids again in 4 months for follow-up (4) Acquired hypothyroidism: Code(s): E03.9 - Hypothyroidism, unspecified Plan: Her TFTs were normal when last checked in January 2024 Continue Levothyroxine 88 mcg 1 tablet daily on Mondays to Saturdays and 2 tablets QD on Sundays Will recheck her TFTs in 3 months for follow up (5) Asthma: Code(s): J45.909 - Unspecified asthma, uncomplicated Qualifiers: Asthma complication type: uncomplicated Asthma persistence: intermittent Asthma severity: mild Qualified Code(s): J45.20 - Mild intermittent asthma, uncomplicated Plan: Stable Continue Albuterol HFA 1 to 2 inhalations Q 6 hours PRN (6) Osteoarthritis of left knee: Code(s): M17.12 - Unilateral primary osteoarthritis, left knee Qualifiers: Osteoarthritis type: primary Qualified Code(s): M17.12 - Unilateral primary osteoarthritis, left knee Plan: S/P arthroscopic surgery x 2 in the past; she has also tried physical therapy, cortisone injections and Euflexxa injections with no significant relief or improvement of symptoms Follow up with orthopedics as scheduled (7) Complex regional pain syndrome i of left lower limb: Code(s): G90.522 - Complex regional pain syndrome I of left lower limb Plan: Follow up with pain management as scheduled Dr. Aguirre thinks that patient suffers from Complex regional pain syndrome (CRPS) of the left lower extremity and would benefit greatly from PNS Curonix but she needs to get psychological clearance for this before he can proceed with the implant Patient was supposedly working on getting psychological evaluation in preparation for the PNS Curonix (she did not have enough funds to pay for psychological evaluation and had to wait until October 2023) but she ended up having lung surgery (RML wedge resection) done in October 2023 for a pulmonary nodule that was suspicious for cancer and this set back the whole process for her States that now she had her pulmonary wedge resection done and has completely recovered from it, she will now start working on getting psychological evaluation and clearance again for her to be able to get the stimulator implant to help with her chronic pain I have advised her that I will agree to continue providing her with some pain meds (she is currently on Oxycodone 5 mg Q 6 hours) but she really needs to try taking it only as needed and as sparingly as possible until she can get back in to see Dr. Aguirre Have advised her that I have been concerned that she seems to need to take her pain meds every 6 hours [id number] for several weeks now and this will just make it harder for her to eventually be able to wean off and stop taking her Oxycodone the longer she is on it on a regular basis Follow up with pain management as scheduled In the meantime, will send her for repeat x-rays of both knees to complete her pain evaluation (8) Paresthesia of both hands: Code(s): R20.2 - Paresthesia of skin Plan: Will send her for EMG and NCV of both upper extremities for further evaluation (9) Nephrolithiasis: Code(s): N20.0 - Calculus of kidney Plan: Follow up with urology as scheduled for continuing management (10) Renal mass of unknown nature: Code(s): N28.89 - Other specified disorders of kidney and ureter Plan: This was first noted when she went to the ER back in November 2023 for abdominal pain and diarrhea - abdominal CT done at the time revealed the presence of a solid right renal lesion She was then seen by urology and had renal US done last month, which surprisingly, did not show the right renal lesion - No discrete lesion is seen in the upper pole the right kidney to correlate with the finding on recent abdominal CT Abdominal MRI done in early February 2024 confirmed the resolution of this renal mass - (+) interval resolution of the previously seen focal signal heterogeneity in the right upper renal pole, therefore favoring interval resolution of a focal pyelonephritis rather than a true renal mass Follow up with urology as scheduled (11) Anxiety: Code(s): F41.9 - Anxiety disorder, unspecified Plan: Continue Sertraline 100 mg QD (12) Smoker: Code(s): F17.200 - Nicotine dependence, unspecified, uncomplicated Plan: Counseled again on smoking cessation (13) Breast cancer screening by mammogram: Code(s): Z12.31 - Encounter for screening mammogram for malignant neoplasm of breast Plan: Will send her for repeat mammography for breast cancer screening - previous mammogram was done at [facility] (14) Colon cancer screening: Code(s): Z12.11 - Encounter for screening for malignant neoplasm of colon Plan: Will refer her to GI for repeat colonoscopy - her last one was done at [facility] at or over 10 years ago now (15) Osteoporosis screening: Code(s): Z13.820 - Encounter for screening for osteoporosis Plan: Will send patient for BMD for osteoporosis screening Plan Follow up in 4 months Orders: Orders XR DEXA axial skeleton 04/18/24 Z78.0 - Asymptomatic menopausal state XR knee LT 4V 04/18/24 M25.562 - Pain in left knee XR knee RT 4V 04/18/24 M25.561 - Pain in right knee NE electromyogram (EMG) 04/18/24 R20.2 - Paresthesia of skin Comprehensive [place]. Panel Fast 4 Months E78.00 - Pure hypercholesterolemia, unspecified Lipid Panel 4 Months E78.00 - Pure hypercholesterolemia, unspecified Thyroid Stimulating Hormone 4 Months E03.9 - Hypothyroidism, unspecified Free T4 (Free Thyroxine) 4 Months E03.9 - Hypothyroidism, unspecified Vitamin D 25-OH Total 4 Months E55.9 - Vitamin D deficiency, unspecified Vitamin B12 and Folate 4 Months E53.8 - Deficiency of other specified B group vitamins MM tomosynthesis screening BI 04/18/24 Z12.31 - Encounter for screening mammogram for malignant neoplasm of breast NE nerve conduction velocity 04/18/24 R20.2 - Paresthesia of skin Complete Blood Count Auto Diff 4 Months D64.9 - Anemia, unspecified Coding Level of Care Code Complex EM visit Add On G2211 Diagnoses Annual physical exam Z00.00 Pulmonary nodule R91.1 Mixed hyperlipidemia E78.2 Acquired hypothyroidism E03.9 Mild intermittent asthma without complication J45.20 Asthma complication type: uncomplicated Asthma persistence: intermittent Asthma severity: mild Primary osteoarthritis of left knee M17.12 Osteoarthritis type: primary Complex regional pain syndrome i of left lower limb G90.522 Paresthesia of both hands R20.2 Nephrolithiasis N20.0 Renal mass of unknown nature N28.89 Anxiety F41.9 Smoker F17.200 Breast cancer screening by mammogram Z12.31 Colon cancer screening Z12.11 Osteoporosis screening Z13.820
[2024-04-18 13:47] VITALS: BP 108/70; PULSE 69; O2SAT 97; BMI 19.5
== END 2024-04-18 14:31 | disposition home or self-care (01) ==
PROVIDERS: PCP Internal Medicine; Visit Provider Internal Medicine
DX: Z00.00 Encounter for general adult medical examination without abnormal findings (principal); R91.1 Solitary pulmonary nodule; E78.2 Mixed hyperlipidemia; E03.9 Hypothyroidism, unspecified; J45.20 Mild intermittent asthma, uncomplicated; M17.12 Unilateral primary osteoarthritis, left knee; G90.522 Complex regional pain syndrome I of left lower limb; R20.2 Paresthesia of skin; N20.0 Calculus of kidney; N28.89 Other specified disorders of kidney and ureter; F41.9 Anxiety disorder, unspecified; F17.200 Nicotine dependence, unspecified, uncomplicated; Z12.31 Encounter for screening mammogram for malignant neoplasm of breast; Z12.11 Encounter for screening for malignant neoplasm of colon; Z13.820 Encounter for screening for osteoporosis
CPT/HCPCS: 99214; 99396

== ENCOUNTER 2024-04-24 13:13 | Outpatient (REF) | payer OTHER, MEDICAID, SELFPAY ==
--- NOTE | ~2024-04-24 | XR_ITS ---
EXAMINATION: XR KNEE, LEFT CLINICAL INFORMATION: M25.562 - Pain in left knee COMPARISON: MRI 04/30/2023. TECHNIQUE: Four views of the left knee. FINDINGS: Normal bony mineralization. Normal alignment. No fracture, dislocation, or focal bony abnormality. Joint spaces are preserved. Mild patellofemoral arthritic change involving the lateral facet. There is no evidence of joint effusion. Patella is normally aligned. XR/XR knee LT 4V IMPRESSION: 1. No acute findings left knee. 2. Mild patellofemoral arthritic change. Electronically signed by: Joe Short MD 07/04/2024 01:36 PM [facility]
--- NOTE | ~2024-04-24 | XR_ITS ---
EXAMINATION: XR KNEE, RIGHT CLINICAL INFORMATION: M25.561 - Pain in right knee COMPARISON: 03/25/2023. TECHNIQUE: Four views of the right knee. FINDINGS: Normal bony mineralization. Normal alignment. No fracture, dislocation, or focal bony abnormality. Minimal loss of joint space medial and patellofemoral compartments. Subtle chondrocalcinosis medial compartment, suggesting CPPD. No evidence of significant joint effusion. Patella is normally aligned. No soft tissue abnormalities. XR/XR knee RT 4V IMPRESSION: 1. No acute findings left knee. 2. Mild medial and patellofemoral compartment arthritis. Subtle medial compartment chondrocalcinosis could suggest underlying CPPD. Electronically signed by: Joe Short MD 07/04/2024 01:38 PM [facility]
== END 2024-04-24 13:14 | disposition home or self-care (01) ==
LOC: HO.XRAY 13:13
PROVIDERS: PCP Internal Medicine; Visit Provider Internal Medicine
DX: M25.562 Pain in left knee (principal); M25.561 Pain in right knee
CPT/HCPCS: 73564

== ENCOUNTER → 2024-04-24 13:16 | Outpatient (BNV) | payer OTHER, MEDICAID, SELFPAY | PROVIDERS: PCP Internal Medicine; Visit Provider Radiology Diagnostic Radiology | DX: M25.562 Pain in left knee (principal); M25.561 Pain in right knee | CPT/HCPCS: 73564 ==

== ENCOUNTER 2024-05-17 15:06 | Outpatient (REF) | payer OTHER, SELFPAY ==
--- NOTE | 2024-05-17 | EMG_ITS ---
Chief complaint: Bilateral hand numbness, denies neck pain Reason for referral: Evaluate for Carpal Tunnel Syndrome Referred by: Dr. Al Procedure done: Upper extremity NCS/EMG Precautions and/or limitations: None The limb temperature was monitored continuously and remained between 32-36 degrees C during the performance of the NCS. Nerve Conduction Studies Anti Sensory Summary Table ?Stim Site NR Onset (ms) Norm Onset (ms) Peak (ms) Norm Peak (ms) O-P Amp (?V) Norm O-P Amp Site1 Site2 Delta-0 (ms) Dist (cm) Aron (m/s) Norm Aron (m/s) Left Median Anti Sensory (2nd Digit) Wrist ? 2.5 3.7 <3.6 24.6 >10 Wrist 2nd Digit 2.5 14.0 56 Right Median Anti Sensory (2nd Digit) Wrist ? 3.2 4.1 <3.6 34.0 >10 Wrist 2nd Digit 3.2 14.0 44 Left Ulnar Anti Sensory (5th Digit) Wrist ? 2.7 3.3 <3.7 40.0 >15.0 Wrist 5th Digit 2.7 14.0 52 Right Ulnar Anti Sensory (5th Digit) Wrist ? 2.6 3.5 <3.7 29.9 >15.0 Wrist 5th Digit 2.6 14.0 54 Motor Summary Table ?Stim Site NR Onset (ms) Norm Onset (ms) O-P Amp (mV) Norm O-P Amp iAmp (mV) Amp (1st) (%) Site1 Site2 Delta-0 (ms) Dist (cm) Aron (m/s) Norm Aron (m/s) Left Median Motor (Abd Poll Brev) Wrist ? 3.0 <3.9 6.8 >4.5 8.2 100.0 Elbow Wrist 3.9 19.0 49 >45 Elbow ? 6.9 9.7 11.5 142.6 Right Median Motor (Abd Poll Brev) Wrist ? 3.8 <3.9 11.7 >4.5 13.8 100.0 Elbow Wrist 3.4 18.0 53 >45 Elbow ? 7.2 12.2 13.6 104.3 Left Ulnar Motor (Abd Dig Minimi) Wrist ? 3.0 <3.0 8.1 >5 9.7 100.0 B Elbow Wrist 3.0 16.5 55 >45 B Elbow ? 6.0 7.6 9.3 93.8 A Elbow B Elbow 1.4 10.0 71 >45 A Elbow ? 7.4 7.5 9.2 92.6 Right Ulnar Motor (Abd Dig Minimi) Wrist ? 2.8 <3.0 7.6 >5 10.2 100.0 B Elbow Wrist 3.1 16.5 53 >45 B Elbow ? 5.9 6.8 9.0 89.5 A Elbow B Elbow 1.0 10.0 100 >45 A Elbow ? 6.9 6.7 8.8 88.2 Comparison Summary Table ?Stim Site NR Peak (ms) Norm Peak (ms) P-T Amp (?V) Site1 Site2 Delta-P (ms) Norm Delta (ms) Right Median/Radial Dig I Comparison (Digit 1 - 10cm) Median ? 3.3 <2.9 87.5 Median Radial 0.1 Radial ? 3.2 <2.8 70.2 EMG ?Side Muscle Nerve Root Ins Act Fibs Psw Amp Dur Poly Recrt Int Pat Comment Right 1stDorInt Ulnar C8-T1 Nml Nml Nml Nml Nml 0 Nml Complete Right FlexCarRad Median C6-7 Nml Nml Nml Nml Nml 0 Nml Complete Right Biceps Musculocut C5-6 Nml Nml Nml Nml Nml 0 Nml Complete Right Triceps Radial C6-7-8 Nml Nml Nml Nml Nml 0 Nml Complete Right Deltoid Axillary C5-6 Nml Nml Nml Nml Nml 0 Nml Complete Left 1stDorInt Ulnar C8-T1 Nml Nml Nml Nml Nml 0 Nml Complete Left FlexCarRad Median C6-7 Nml Nml Nml Nml Nml 0 Nml Complete Left Biceps Musculocut C5-6 Nml Nml Nml Nml Nml 0 Nml Complete Left Triceps Radial C6-7-8 Nml Nml Nml Nml Nml 0 Nml Complete Left Deltoid Axillary C5-6 Nml Nml Nml Nml Nml 0 Nml Complete FINDINGS: Bilateral median sensory nerves showed prolonged peak latency. All other nerves tested were within normal. Concentric needle EMG was performed in selected muscles of the bilateral upper extremities. Study did not reveal signs of electric abnormalities as shown in the table above. IMPRESSION: 1. This is an abnormal study. 2. There is electrodiagnostic evidence for bilateral mild median neuropathy at the wrist, consistent with carpal tunnel syndrome. 3. There is no electrodiagnostic evidence for ulnar neuropathy, brachial plexopathy, or cervical radiculopathy. CLINICAL COMMENT: Advised to wear wrist splints at night. Thank you for your kind referral. Shabnam Schwartz MD, WES Board Certified, [place] [employer] and [employer] (ABPMR) Board Certified, [place] [employer] Electrodiagnostic Medicine (ABEM) CODIN [phone] MTDD
== END 2024-05-17 15:07 | disposition home or self-care (01) ==
LOC: HO.NEURO 15:06
PROVIDERS: PCP Internal Medicine; Visit Provider Internal Medicine
DX: R20.2 Paresthesia of skin (principal)
CPT/HCPCS: 95886; 95911

== ENCOUNTER → 2024-05-17 15:10 | Outpatient (BNV) | payer OTHER, SELFPAY | PROVIDERS: PCP Internal Medicine; Visit Provider Physical Medicine & Rehabilitation | DX: G56.03 Carpal tunnel syndrome, bilateral upper limbs (principal) | CPT/HCPCS: 95886; 95911 ==

== ENCOUNTER 2024-05-25 14:08 | Outpatient (REF) | payer OTHER, SELFPAY ==
--- NOTE | ~2024-05-25 | MM_ITS ---
EXAMINATION: MM SCREENING DIGITAL BREAST TOMOSYNTHESIS, BILATERAL CLINICAL INFORMATION: Screening. Asymptomatic. COMPARISON: Mammography: Comparison is made with available priors TECHNIQUE: Digital breast mammography with tomosynthesis is performed in both the craniocaudal and mediolateral oblique views along with computer-aided detection (CAD). FINDINGS: The breasts are heterogeneously dense, which may obscure small masses (ACR BI-RADS breast composition Category c). There are no significant masses, abnormal calcifications, or other abnormalities. MM/MM tomosynthesis screening BI IMPRESSION: No mammographic evidence of malignancy. ASSESSMENT: BI-RADS BI-RADS 1 - Negative RECOMMENDATION: Routine annual mammography screening. 1 year F/U This examination should not preclude the clinical evaluation of a suspicious palpable abnormality. This patient's information was entered into a reminder system with a target due date for their next mammogram. Electronically signed by: Irlanda Da Silva DO 06/06/2024 04:03 PM EDT
--- NOTE | ~2024-05-25 | MM_ITS ---
EXAMINATION: BONE DENSITOMETRY CLINICAL INDICATION: Asymptomatic menopausal state. COMPARISON: This is the patient's baseline examination. TECHNIQUE: Using a [employer] DXA System (software version: 13.1) manufactured by [employer] ([employer]), dual-energy x-ray absorptiometry was performed of the lumbar spine and left hip. The images are of good technical quality. Summary results are attached. FINDINGS: AP SPINE L1-L4: BMD 1.031 g/cm2, Z-score 0.8, T-score -1.2, osteopenia. LEFT FEMUR, NECK: BMD 0.741 g/cm2, Z-score -0.4, T-score -2.1, osteopenia. LEFT FEMUR, TOTAL: BMD 0.803 g/cm2, Z-score -0.1, T-score -1.6, osteopenia. IDENTIFIED RISK FACTORS: Renal disease. Current smoker. Recurrent falls. Low calcium intake. Secondary osteoporosis (hyperthyroidism, early menopause). Hysterectomy. Bilateral oophorectomy. HISTORY OF FRACTURE: None listed. MEDICATIONS: Calcium supplement and/or multivitamin. Vitamin D. MM/XR DEXA axial skeleton IMPRESSION: 1. DIAGNOSIS: Osteopenia based on the lowest T-score value of -2.1 in the femoral neck applying World Health Organization criteria. 2. 10-YEAR FRACTURE RISK PREDICTION, FRAX: Major osteoporotic fracture (clinical spine, forearm, hip or shoulder) 10.2%. Hip fracture 2.9%. 3. Treatment Recommendations: NOF guidelines recommend consideration for treatment in postmenopausal women and men age 50 and older presenting with the following: -A hip or vertebral (clinical or morphometric) fracture. -T-score less than or equal to -2.5 at the femoral neck or spine after appropriate evaluation to exclude secondary causes. -Low bone mass at the hip or spine and a 10-year fracture probability by FRAX of greater than or equal to 3% for hip fracture or greater than or equal to 20% for major osteoporotic fracture based on the [place] adapted WHO algorithm. 4. Other Recommendations: All treatment decisions require clinical judgment and consideration of individual patient factors, including patient preferences, comorbidities, previous drug use, risk factors not captured in the FRAX model (e.g. frailty, falls, vitamin D deficiency, increased bone turnover, interval significant decline in bone density) and possible under or overestimation of fracture risk by FRAX. Additional medical evaluation for secondary cause of low bone mineral density may be appropriate. FUTURE SCAN RECOMMENDATION: People with diagnosed cases of osteoporosis or at high risk for fracture should have regular bone mineral density tests. For patients eligible for Medicare, routine testing is allowed once every 2 years. The testing frequency can be increased to one year for patients who have rapidly progressing disease, those who are receiving or discontinuing medical therapy to restore bone mass, or have additional risk factors. Electronically signed by: Pam Rodgers MD 05/28/2024 10:01 AM EDT [facility]
== END 2024-05-25 14:09 | disposition home or self-care (01) ==
LOC: HO.MAMMO 14:08
PROVIDERS: PCP Internal Medicine; Visit Provider Internal Medicine
DX: Z12.31 Encounter for screening mammogram for malignant neoplasm of breast (principal); Z13.820 Encounter for screening for osteoporosis; Z78.0 Asymptomatic menopausal state
CPT/HCPCS: 77063; 77067; 77080

== ENCOUNTER → 2024-05-25 14:51 | Outpatient (BNV) | payer OTHER, SELFPAY | PROVIDERS: PCP Internal Medicine; Visit Provider Internal Medicine | DX: Z12.31 Encounter for screening mammogram for malignant neoplasm of breast (principal) | CPT/HCPCS: 77063; 77067 ==

== ENCOUNTER 2024-08-13 13:09 | Outpatient (REF) | payer OTHER, SELFPAY ==
[2024-08-13 13:31] LABS: MANUAL DIFF FLAG NO
[2024-08-13 14:04] LABS: Basophils Percent Auto 0.7 % (0-2); Eosinophils Percent Auto 0.7 % (0-4); Hematocrit 37.2 % (37.0-47.0); Hemoglobin 12.3 g/dl (12.0-16.0); Imm Gran Abs Auto 0.02 X10*3/uL (0.00-0.03); Imm Gran Pct Auto 0.3 % (0.0-0.4); Lymphocytes Absolute Auto 1.3 X10*3/uL (1.2-4.9); Lymphocytes Percent Auto 22.7 % (20-40); Mean Corpuscular HGB Conc 33.1 g/dl (31.0-35.0); Mean Corpuscular Hemoglobin 32.5 pg (27.0-33.0); Mean Corpuscular Volume 98.2 fL (80.0-98.0); Monocytes Absolute Auto 0.5 X10*3/uL (0.1-1.2); Neutrophils Absolute Auto 3.9 x10*3/uL (2.0-8.3); Neutrophils Percent Auto 67.6 % (45-73); Platelet Count 298 X10*3/uL (160-400); Red Blood Count 3.79 X10*6/uL (4.20-5.50); Red Cell Distribution Width 13.4 % (11.0-16.0); White Blood Count 5.8 X10*3/uL (4.8-10.8)
[2024-08-13 14:53] LABS: Alanine Aminotransferase 17 U/L (0-31); Albumin Level 4.5 g/dL (3.5-5.0); Anion Gap 11 (12-20); Aspartate Amino Transferase 34 U/L (5-31); Bilirubin Total 0.4 mg/dL (0.0-1.0); Blood Urea Nitrogen 19 mg/dL (9-16); Calcium 9.6 mg/dL (8.4-10.2); Carbon Dioxide 29 mmol/L (22-29); Chloride 104 mmol/L (96-108); Cholesterol 180 mg/dL (<200); Estimated Glomerular Filt Rate 51; Glucose Fasting 112 mg/dL (60-99); HDL Cholesterol 71 mg/dL (>40); LDL Cholesterol Calculated 101 mg/dL (<100); Potassium 4.8 mmol/L (3.3-5.1); Sodium 139 mmol/L (135-145); Total Protein 7.1 g/dL (6.5-8.0); Triglycerides 43 mg/dL (<150)
[2024-08-13 15:21] LABS: Alkaline Phosphatase 29 U/L (39-117)
[2024-08-13 15:24] LABS: Free T4 (Free Thyroxine) 1.18 ng/dL (0.71-1.85); Thyroid Stimulating Hormone 0.77 uIU/mL (0.32-4.0); Vitamin D 25-OH Total 38.5 ng/mL (>30)
[2024-08-13 15:43] LABS: Folate > 20.0 ng/mL (> or = 4.0); Vitamin B12 597 pg/mL (200-900)
== END 2024-08-13 13:10 | disposition home or self-care (01) ==
LOC: HO.LAB 13:09
PROVIDERS: PCP Internal Medicine; Visit Provider Internal Medicine
DX: D64.9 Anemia, unspecified (principal); E55.9 Vitamin D deficiency, unspecified; E03.9 Hypothyroidism, unspecified; E53.8 Deficiency of other specified B group vitamins; E78.00 Pure hypercholesterolemia, unspecified
CPT/HCPCS: 36415; 80053; 80061; 82306; 82607; 82746; 84439; 84443; 85025

== ENCOUNTER 2024-08-20 13:50 | Outpatient (AMB) | payer OTHER, SELFPAY ==
--- NOTE | 2024-08-20 08:59 | MHC.PC.OV ---
Vital Signs 08/20/24 13:52 Height 5 ft 3 in Weight 109 lb 2 oz BMI 19.3 BP 100/72 Blood Pressure Location Lt brachial Position Sitting Pulse 76 Pulse Source Pulse Oximeter Temp 98.4 F Temp Source Oral Pulse Oximetry (%) 97 Oxygen Delivery Method Room Air Intake Visit Reasons: 4 month f/u Seed Laboratory Assistant Required: No Accompanied by: Self / Same As Patient Allergies simvastatin [SIMVASTATIN] Allergy (Unknown, Verified 08/20/24 14:00) MUSCLE ACHES celecoxib [From Celebrex] Adverse Reaction (Verified 08/20/24 14:00) Gastrointestinal Upset Medication List - Last Reconciled 08/20/24 by IRASEMA Carrero albuterol sulfate 90 mcg/actuation (ProAir HFA) 2 puffs inhalation Q4-6H PRN ascorbic acid (vitamin C) (Vitamin C) 500 mg PO DAILY dicyclomine 10 mg PO QID PRN ezetimibe (Zetia) 10 mg PO DAILY fenofibrate nanocrystallized 145 mg PO DAILY 90 days folic acid 1 mg PO DAILY 90 days lactobacillus combination no.9 (Adult 50 Plus Probiotic) 4,000 mmu cells PO DAILY levothyroxine Take 1 tablet daily Mondays through Saturdays and 2 tablets daily on Sundays daily 12 weeks oxycodone 5 mg PO Q6H PRN 7 days pyridoxine (vitamin B6) 100 mg PO DAILY 90 days sertraline 100 mg PO DAILY varenicline (Chantix Starting Month Box) PO PER PKG DIR Tobacco use date assessed: 08/20/24 Fall risk assessment: 2 + Falls in past year Last assessed Fall Risk: 08/20/24 Dental Screening Dental Screen Date: 08/20/24 Did you have a dental visit in the last 12 months?: Yes Did you have a dental problem in the last 6 months where you did not have access to dental care?: No Was dental information given to patient?: Patient has dentist HPI 4 month f/u HPI Details The patient is a 64-year-old female with significant past medical history of solitary pulmonary nodule post right middle lobe wedge resection and mediastinal lymphadenectomy with Dr. Ramirez on 10/2023, mixed hyperlipidemia, acquired hypothyroidism, as, osteoarthritis of left knee The patient is presenting for follow up appointment she had labs done few days ago-to discuss The patient denies shortness of breath, chest pain, heart palpitations, abdominal pain or change in bowel habits. [facility] Medical History Locking of left knee Acquired hypothyroidism Retention of urine Complex regional pain syndrome i of left lower limb Arthritis Back pain Thyroid disease Hx of hepatitis C History of positive PPD COPD (chronic obstructive pulmonary disease) Anxiety History of depression History of nephrolithiasis Smoker Asthma Elevated cholesterol Surgical History Status post total abdominal hysterectomy and bilateral salpingo-oophorectomy (TA-BSO) History of lung surgery Hx of colonoscopy S/P cystoscopy with ureteral stent placement Hx of left knee surgery Social History Housing: Apartment Alcohol intake: current Alcohol intake frequency: holidays/special occasions only Alcohol type: beer and hard liquor Patient Tobacco Use Status: Current everyday Tobacco user Cigarette Packs Per Day: 0.5 Cigarettes Per Day: 10.0 Years Smoked: 40 plus e-Cigarette/Vaping Use: Never Used service: No Current occupational status: other Current occupation: Right Handed Cognitive needs: No Hearing needs: No Vision needs: No Questionnaire PHQ-9 Over the last 2 weeks, how often have you been bothered by any of the following problems? 1. Little interest or pleasure in doing things: several days 2. Feeling down, depressed, or hopeless: several days 3. Trouble falling or staying asleep, or sleeping too much: several days 4. Feeling tired or having little energy: several days 5. Poor appetite or overeating: not at all 6. Feeling bad about yourself - or that you are a failure or have let yourself or your family down: not at all 7. Trouble concentrating on things, such as reading the newspaper or watching television: not at all 8. Moving or speaking so slowly that other people could have noticed. Or the opposite - being so fidgety or restless that you have been moving around a lot more than usual: several days 9. Thoughts that you would be better off or of hurting yourself in some way: not at all Total score: 5 Depression Screening Interpretation: Positive Depression Screening Follow-up: Existing condition and In treatment Depression Screening Done: Yes 32025 - PHQ-9 Billing: Yes Source: Developed by Drs. Agustin Tse, Felicity Arrington, Kit Carballo and colleagues, with an educational elena from [employer]. Thrive Questionnaire Date Thrive assessed: 08/20/24 I am a: Patient What is your living situation today?: I have a steady place to live Within the past 12 months, did the food you bought not last and you didn't have the money to get more?: Sometimes True Within the past 12 months, did you worry whether your food would run out before you got money to buy more?: Sometimes True Do you have trouble paying for medicines?: No Do you have trouble getting transportation to medical appointments?: No Do you have trouble paying your heating and electricity bill?: No Do you have trouble taking care of your child, family member or friend?: No Do you have trouble with day-to-day activities such as bathing, preparing meals, shopping, managing finances, etc.?: No Are you currently unemployed and looking for a job?: No Are you interested in more education?: No Please select the resources that you would like help with: Housing/Snf Currently or been in a relationship where the following occur: No concerns reported THRIVE Score: 2 AUDIT C Alcohol Use Questionnaire (AUDIT-C) 1. How often do you have a drink containing alcohol?: Monthly or less 2. How many drinks containing alcohol do you have on a typical day when you are drinking?: 1 or 2 3. How often do you have six or more drinks on one occasion?: Never Total Score: 1 Score Reviewed/Action Taken: Yes TIMOTHY-7 AMB Questionnaire TIMOTHY-7 Date TIMTOHY - 7 assessed: 08/20/24 Feeling nervous, anxious, or on edge: 1 = Several days Not being able to stop or control worryin = Several days Worrying too much about different things: 1 = Several days Trouble relaxin = Several days Being so restless that it is hard to sit still: 0 = Not at all Becoming easily annoyed or irritable: 1 = Several days Feeling afraid as if something awful might happen: 1 = Several days Total TIMOTHY-7 score (0-4 normal; 5-9 mild; 10-14 moderate; 15-21 severe): 6 Source: Developed by Drs. Agustin Tse, Felicity Arrington, Kit Carballo and colleagues, with an educational elena from [employer]. TIMOTHY-7 Assessment Billing TIMOTHY-7 Assessment Tool: TIMOTHY-7 Assessment 02022 Review of Systems Const Details: Denies chills, Denies fatigue, Denies fever(s), Denies headache(s) and Denies weakness HEENT Denies change in vision, Denies dizziness, Denies headache(s), Denies hearing loss, Denies nasal congestion, Denies sinus pain, Denies sinus pressure and Denies sore throat Card Denies chest pain, Denies lightheadedness, Denies dyspnea and Denies other (palpitations) Resp Denies cough, Denies dyspnea and Denies wheezing GI Denies abdominal pain, Denies melena, Denies hematochezia, Denies change in bowel habits, Denies dyspepsia and Denies nausea Denies hematuria and Denies dysuria Musc Denies abnormal gait, reports recurrent myalgias in left lower extremity, reports recurrent arthralgias in left lower extremity, Denies numbness and Denies tingling Skin/Breast Denies rash, Denies unusual bruising and Denies wounds Neuro Denies abnormal gait, Denies dizziness, Denies headache(s), Denies memory loss, Denies numbness, Denies Sensory deficit (Neuro), Denies tingling and Denies weakness Psych Denies anxiety, Denies depression and Denies memory loss Endo Denies cold intolerance, Denies fatigue, Denies heat intolerance, Denies polydipsia and Denies polyuria Clifford/Lymph Denies easy bleeding and Denies easy bruising Aller/Immun Denies wheezing Physical exam (Primary Care) Vital Signs: Last Vital Signs Temp 98.4 F 08/20/24 13:52 Pulse 76 08/20/24 13:52 BP 100/72 08/20/24 13:52 Pulse Ox 97 08/20/24 13:52 Oxygen Delivery Method Room Air 08/20/24 13:52 BMI result Body Mass Index 19.3 Tobacco/Smoking Status: Tobacco use Status Tobacco use date assessed 08/20/24 08/20/24 13:58 Patient Tobacco Use Status Current everyday Tobacco 08/20/24 09:06 e-Cigarette/Vaping Use Never Used 08/20/24 09:06 PHQ-9: PHQ-9 Score PHQ-9: Total score 5 08/20/24 21:02 Depression Screening Interpretation: Positive Depression Screening Follow-up: Existing condition and In treatment Thrive Assessment: Date of Thrive Assessment Date Thrive assessed 08/20/24 08/20/24 13:58 Currently or been in a relationship where the following occur: No concerns reported Const Other: General: no acute distress, well developed, alert and awake Nutritional Appearance: well nourished Orientation/consciousness: patient oriented x3 HENMT Head: Yes normocephalic and Yes atraumatic Ears: hearing grossly normal bilaterally and TM's normal bilaterally General nose exam: Normal external nose present and Normal nares present Mouth: Normal oral and palatal mucosa present and moist mucous membranes Teeth and gingiva: dentition normal Throat: Yes oropharynx normal Eyes Pupils: Equal, round and reactive pupils present and Pupil accommodation reflex normal EOM: EOMs intact bilaterally Neck Neck: Yes normal visual inspection, Yes no lymphadenopathy and Yes trachea midline Thyroid: Thyroid normal Carotids: no bruits Lymphatic: no lymphadenopathy noted Chest Chest palpation & inspection: normal inspection of the chest Resp Effort & Inspection: normal respiratory effort Auscultation: clear to auscultation bilaterally Cardio Rate: regular rate Rhythm: regular rhythm Heart sounds: S1 normal heart sound present, S2 normal heart sound present, no gallops, no murmurs and no rubs Bruits: no abdominal aortic bruits and no carotid bruits GI Palpation (GI): No Abdominal aortic bruit present, Soft to palpation, nontender, No hepatosplenomegaly present and No Rebound tenderness present Auscultation: normal bowel sounds General: Yes no CVA tenderness Back/Spine/Pelvis Back: no CVA tenderness Cervical Spine: cervical ROM normal and No Cervical spine tenderness Thoracic/Lumbar Spine: thoraco-lumbar ROM normal, No pain with thoraco-lumbar ROM, No thoracic spinal tenderness and No lumbar spinal tenderness, left knee tenderness to palpation. Positive range of motion bilateral knees. Skin General: warm and dry. Normal skin color. Normal skin turgor Lesions: no lesions Rashes: no rashes Trauma: no lacerations or abrasions Wounds: no wounds Nails: normal Neuro General: patient oriented x3, gait normal and CN's II-XI intact bilaterally Cranial nerves: Yes Equal, round and reactive pupils present Cognition (Neuro): normal cognition Gait exam (Neuro): Normal gait present Extrem General: Yes normal to inspection, No edema and No calf tenderness Psych Appearance: grossly normal Affect: normal affect Attitude: cooperative Thought process: Normal thought process present Results Reviewed Results Reviewed: Laboratory Tests 08/13/24 13:29 WBC 5.8 RBC 3.79 L Hgb 12.3 Hct 37.2 MCV 98.2 H MCH 32.5 Plt Count 298 Sodium 139 Potassium 4.8 Chloride 104 Carbon Dioxide 29 BUN 19 H Creatinine 1.09 Estimated GFR 51 Fasting Glucose 112 H AST 34 H ALT 17 Alkaline Phosphatase 29 L Triglycerides 43 Cholesterol 180 LDL Cholesterol, Calc 101 H HDL Cholesterol 71 Vitamin B12 597 25-OH Vitamin D Total 38.5 Folate > 20.0 TSH 0.77 Free T4 1.18 Coding Level of Care Code Est Pt Level 4 (04802) Diagnoses Mixed hyperlipidemia E78.2 Mild intermittent asthma without complication J45.20 Asthma complication type: uncomplicated Asthma persistence: intermittent Asthma severity: mild Acquired hypothyroidism E03.9 Primary osteoarthritis of left knee M17.12 Osteoarthritis type: primary Elevated AST (SGOT) R74.01 Anxiety F41.9 Smoker F17.200 Additional Codes TIMOTHY-7 Assessment Billing - TIMOTHY-7 Assessment Tool: TIMOTHY-7 Assessment 57321 ([id number]) PHQ-9 - 02293 - PHQ-9 Billing: Yes ([id number]) Assessment & Plan Assessment & Plan (1) Mixed hyperlipidemia: Code(s): E78.2 - Mixed hyperlipidemia Category: Medical Plan: LDL 101 Continued ezetimibe 10 mg daily and fenofibrate 145 mg daily Recheck labs in 6 months (2) Asthma: Code(s): J45.909 - Unspecified asthma, uncomplicated Category: Medical Qualifiers: Asthma complication type: uncomplicated Asthma persistence: intermittent Asthma severity: mild Qualified Code(s): J45.20 - Mild intermittent asthma, uncomplicated Plan: Stable Continue Albuterol HFA 1 to 2 inhalation (3) Acquired hypothyroidism: Code(s): E03.9 - Hypothyroidism, unspecified Category: Medical Plan: TFTs continues to be within normal range Continue Levothyroxine 88 mcg 1 tablet daily on Mondays to Saturdays and 2 tablets QD on Sundays Will recheck her TFTs in 6 months for follow up (4) Osteoarthritis of left knee: Code(s): M17.12 - Unilateral primary osteoarthritis, left knee Category: Medical Qualifiers: Osteoarthritis type: primary Qualified Code(s): M17.12 - Unilateral primary osteoarthritis, left knee Plan: S/P arthroscopic surgery x 2 in the past; she has also tried physical therapy, cortisone injections and Euflexxa injections with no significant relief or improvement of symptoms continue oxycodone 5 mg prn Q6H PRN X 7 days Follow up with orthopedics as scheduled (5) Elevated AST (SGOT): Code(s): R74.01 - Elevation of levels of liver transaminase levels Category: Medical Plan: AST 34: patient reports taking Tylenol 1000mg otc twice a day. reports infrequent alcohol intake Encouraged decreasing Tylenol intake and alcohol cessation (6) Anxiety: Code(s): F41.9 - Anxiety disorder, unspecified Category: Medical Plan: Continue sertraline 100 mg daily Denies SI/HI (7) Smoker: Code(s): F17.200 - Nicotine dependence, unspecified, uncomplicated Category: Social Hx Plan: Encouraged smoking cessation, patient verbalized that she is ready to try to stop again Varenicline ordered with RX instructions: the patient verbalized that this worked in the past for her Plan I personally spent 34 minutes reviewing the chart, caring for the patient and documenting after the visit. Follow up in 6 months Orders: Orders Complete Blood Count Auto Diff 6 Months E03.9 - Hypothyroidism, unspecified, E78.2 - Mixed hyperlipidemia, F17.200 - Nicotine dependence, unspecified, uncomplicated, F41.9 - Anxiety disorder, unspecified, J45.20 - Mild intermittent asthma, uncomplicated, R91.1 - Solitary pulmonary nodule, Z00.00 - Encounter for general adult medical examination without abnormal findings Comprehensive [place]. Panel Fast 6 Months E03.9 - Hypothyroidism, unspecified, E78.2 - Mixed hyperlipidemia, F17.200 - Nicotine dependence, unspecified, uncomplicated, F41.9 - Anxiety disorder, unspecified, J45.20 - Mild intermittent asthma, uncomplicated, R91.1 - Solitary pulmonary nodule, Z00.00 - Encounter for general adult medical examination without abnormal findings Glucose Fasting 6 Months E03.9 - Hypothyroidism, unspecified, E78.2 - Mixed hyperlipidemia, F17.200 - Nicotine dependence, unspecified, uncomplicated, F41.9 - Anxiety disorder, unspecified, J45.20 - Mild intermittent asthma, uncomplicated, R91.1 - Solitary pulmonary nodule, Z00.00 - Encounter for general adult medical examination without abnormal findings TSH reflex Free T4 6 Months E03.9 - Hypothyroidism, unspecified, E78.2 - Mixed hyperlipidemia, F17.200 - Nicotine dependence, unspecified, uncomplicated, F41.9 - Anxiety disorder, unspecified, J45.20 - Mild intermittent asthma, uncomplicated, R91.1 - Solitary pulmonary nodule, Z00.00 - Encounter for general adult medical examination without abnormal findings Free T4 (Free Thyroxine) 6 Months E03.9 - Hypothyroidism, unspecified, E78.2 - Mixed hyperlipidemia, F17.200 - Nicotine dependence, unspecified, uncomplicated, F41.9 - Anxiety disorder, unspecified, J45.20 - Mild intermittent asthma, uncomplicated, R91.1 - Solitary pulmonary nodule, Z00.00 - Encounter for general adult medical examination without abnormal findings UA CC w/rflx Micro + Cult 6 Months E03.9 - Hypothyroidism, unspecified, E78.2 - Mixed hyperlipidemia, F17.200 - Nicotine dependence, unspecified, uncomplicated, F41.9 - Anxiety disorder, unspecified, J45.20 - Mild intermittent asthma, uncomplicated, R91.1 - Solitary pulmonary nodule, Z00.00 - Encounter for general adult medical examination without abnormal findings Vitamin B12 and Folate 6 Months E03.9 - Hypothyroidism, unspecified, E78.2 - Mixed hyperlipidemia, F17.200 - Nicotine dependence, unspecified, uncomplicated, F41.9 - Anxiety disorder, unspecified, J45.20 - Mild intermittent asthma, uncomplicated, R91.1 - Solitary pulmonary nodule, Z00.00 - Encounter for general adult medical examination without abnormal findings Vitamin D 25-OH Total 6 Months E03.9 - Hypothyroidism, unspecified, E78.2 - Mixed hyperlipidemia, F17.200 - Nicotine dependence, unspecified, uncomplicated, F41.9 - Anxiety disorder, unspecified, J45.20 - Mild intermittent asthma, uncomplicated, R91.1 - Solitary pulmonary nodule, Z00.00 - Encounter for general adult medical examination without abnormal findings Microalbumin, Random (w Creat) 6 Months E03.9 - Hypothyroidism, unspecified, E78.2 - Mixed hyperlipidemia, F17.200 - Nicotine dependence, unspecified, uncomplicated, F41.9 - Anxiety disorder, unspecified, J45.20 - Mild intermittent asthma, uncomplicated, R91.1 - Solitary pulmonary nodule, Z00.00 - Encounter for general adult medical examination without abnormal findings Lipid Panel 6 Months E03.9 - Hypothyroidism, unspecified, E78.2 - Mixed hyperlipidemia, F17.200 - Nicotine dependence, unspecified, uncomplicated, F41.9 - Anxiety disorder, unspecified, J45.20 - Mild intermittent asthma, uncomplicated, R91.1 - Solitary pulmonary nodule, Z00.00 - Encounter for general adult medical examination without abnormal findings Medications: New varenicline (Chantix Starting Month Box) PO PER PKG DIR 53 ea 0RF nicotine dependance
[2024-08-20 13:52] VITALS: BP 100/72; PULSE 76; TEMP 36.9; O2SAT 97; BMI 19.3
== END 2024-08-20 14:22 | disposition home or self-care (01) ==
PROVIDERS: PCP Internal Medicine
DX: E78.2 Mixed hyperlipidemia (principal); J45.20 Mild intermittent asthma, uncomplicated; E03.9 Hypothyroidism, unspecified; M17.12 Unilateral primary osteoarthritis, left knee; R74.01 Elevation of levels of liver transaminase levels; F41.9 Anxiety disorder, unspecified; F17.200 Nicotine dependence, unspecified, uncomplicated

== ENCOUNTER → 2024-08-20 13:50 | Outpatient (BNVA) | payer OTHER, SELFPAY | PROVIDERS: PCP Internal Medicine | DX: E78.2 Mixed hyperlipidemia (principal); J45.20 Mild intermittent asthma, uncomplicated; E03.9 Hypothyroidism, unspecified; M17.12 Unilateral primary osteoarthritis, left knee; R74.01 Elevation of levels of liver transaminase levels; F41.1 Generalized anxiety disorder; F17.200 Nicotine dependence, unspecified, uncomplicated; Z71.6 Tobacco abuse counseling | CPT/HCPCS: 96127; 99212 ==

== ENCOUNTER 2024-11-14 12:49 | Outpatient (REF) | payer OTHER, SELFPAY ==
--- NOTE | ~2024-11-14 | US_ITS ---
EXAMINATION: ULTRASOUND RENAL BILATERALLY. CLINICAL INFORMATION: Urinary tract infection. COMPARISON: December 22, 2023. Correlated to MRI abdomen dated February 09, 2024. TECHNIQUE: Real-time ultrasound of the kidneys using grayscale and color Doppler technique. FINDINGS: Right kidney: 10 x 4 x 4. Normal echotexture. Normal renal cortical thickness. No hydronephrosis. No solid lesion. 5 mm anechoic lesion in the upper pole without septations or flow on color Doppler interrogation. Left kidney: 11 x 5 x 3 cm. Normal echotexture. Normal renal cortical thickness. No hydronephrosis. No solid or cystic lesion. Normal flow on color Doppler interrogation of the renal hilum. US/US renal BI IMPRESSION: 5 mm simple cyst, upper pole right kidney. No hydronephrosis. Electronically signed by: Jonh Giron MD 11/14/2024 02:26 PM EDT
--- OUTSIDE RECORDS SUMMARY | 2024-11-14 14:49 | XMS_ITS | Clinical Summary ---
Author Organization [facility] Address [address] [place] [address] Care Team Providers Care Blanket Washer Name Role Phone Brooks Al MD Primary Care Provider [phone] Surgical History Surgery Date Site/Laterality Comments HYSTERECTOMY 1989 PROCEDURE: HISTORICAL TOTAL HYSTERECTOMY WITH BSO; COMMENT: chronic infection, scarring CHOLECYSTECTOMY 1989 PROCEDURE: HISTORICAL CHOLECYSTECTOMY OTHER SURGICAL HISTORY 07/30/2013 PROCEDURE: OUTSIDE MAMMO; COMMENT: breast MRI Kenny Nazario 6 month repeat advised COLONOSCOPY 07/23/2010 PROCEDURE: OUTSIDE COLONOSCOPY; COMMENT: normal Dr Fernandez OTHER SURGICAL HISTORY 04/2019 Left PROCEDURE: [place] ARTHROSCOPY KNEE SYNOVECTOMY LIMITED SPX; COMMENT: for synovial plica impingement OTHER SURGICAL HISTORY 10/12/2023 Right PROCEDURE: [place] THORACOSCOPY W/THERA WEDGE RESEXN INITIAL UNILAT; COMMENT: RML Wedge with Biopsies Medical History Medical History Date Comments Hep C w/o coma, chronic (CMS/HCC) 12/14/2013 DX:Hep C w/o coma, chronic (HCC); COMMENT: Per pt, had treatment, follows with Dr. Fernandez, Major depression in full rem ission (CMS/HCC) DX:Major depression in full remission (HCC) Osteopenia 03/13/2014 DX:Osteopenia Skin cancer DX:Skin cancer Mixed hyperlipidemia DX:Mixed hy perlipidemia Kidney disease DX:Kidney diseas e Thyroid disease DX:Thyroid disea se COPD (chronic obstructive pu lmonary disease) (CMS/HCC) DX:COPD (chronic obstructive pulmonary disease) ([facility]) Tuberculosis DX:Tuberculosis; COMMENT: teens, s/p treatment (per patient) Family History Medical History Relation Name Comments Hyperlipidemia Brother 1 Lymphoma Brother 1 Other: HIV Brother 1 Coronary artery disease Brother 2 Hypertension Brother 2 Diabetes Father at age 85 from DM complication, no [place], Stroke Lung cancer Mother from lung Ca at age 42, smoker Arthritis Sister 1 Lung cancer Sister 1 Ovarian cancer Sister 1 Bipolar disorder Sister 2 Diabetes Sister 2 Hyperlipidemia Sister 2 Thyroid disease Sister 2 Hyperlipidemia Son Relation Name Status Comments Brother 1 HIV Brother 2 Alive hepatitis Father Mother Sister 1 Alive Sister 2 Alive Son Alive Social History Tobacco Use Types Packs/Day Years Used Date Smoking Tobacco: Former Cigarettes 1 47.2 0 08/08/1976 - 10/12/2023 Smokeless Tobacco: Never Alcohol Use Standard Drinks/Week Comments Yes 0 (1 standard drink = 0.6 oz pur e alcohol) Comments Unknown Sex and Gender Information Value Date Recorded Sex Assigned at Not on file Legal Sex Female 9:29 AM EST Gender Identity Not on file Sexual Orientation Not on file Obstetrics History Last Filed Vital Signs Vital Sign Reading Time Taken Comments Blood Pressure 136/72 01/26/2024 9:12 AM EDT Sit ting L Arm Pulse 62 01/26/2024 9:12 AM EDT Temperature - - Respiratory Rate - - Oxygen Saturation - - Inhaled Oxygen Concentration - - Weight 49.9 kg (110 lb) 01/26/2024 9:12 AM EDT Height 160 cm (5' 3 ) 01/26/2024 9:12 AM EDT Body Mass Index 19.49 01/26/2024 9:12 AM EDT Plan of Treatment Health Maintenance Due Date Last Done Comments Cervical Cancer Screening: Pap Smear 1981 Hepatitis A Vaccines (2 of 2 - Risk 2-dose series) 09/18/2008 03/18/2008 Pneumococcal Vaccine: 50+ Years (2 of 2 - PCV) 05/25/2013 05/25/2012, 05/23/2011 Hepatitis B Vaccines (1 of 3 - Risk 3-dose series) 2020 RSV Immunization Adult Patients (1 - Risk 60-74 years 1-dose series) 2020 Cholesterol Screening (Lipid Panel) 07/17/2022 Colorectal Cancer Screening: Colonoscopy 07/17/2022 Depression Screening 07/17/2022 HIV Screening 07/17/2022 Hepatitis C Screening 07/17/2022 Social Influencers of Health Screening 07/17/2022 COVID-19 Vaccine ( season) 2024 11/10/2021, 10/09/2020, 09/18/2020 Lung Cancer Screening (Low Dose CT) 05/30/2024 05/30/2023, 05/20/2022, 05/14/2021 Breast Cancer Screening 06/17/2024 06/17/20, 06/12/2021, 08/05/2017 Influenza Vaccine (Season Ended) 2025 04/09/2020, 05/16/2019, 05/10/2018, Additional history exists DTaP,Tdap,and Td Vaccines (5 - Td or Tdap) 09/14/2030 09/14/2020, 12/14/2015, 12/14/2015, Additional history exists Pneumococcal Vaccine: Pediatrics (0 to 5 Years) and At-Risk Patients (6 to 64 Years) Aged Out 05/25/2012, 05/23/2011 No longer eligibl e based on patient's age to complete this topic Zoster Vaccines Completed 06/29/2019, 03/25/2019 HIB Vaccines Aged Out No longer eligi ble based on patient's age to complete this topic HPV Vaccines Aged Out No longer eligi ble based on patient's age to complete this topic IPV Vaccines Aged Out No longer eligi ble based on patient's age to complete this topic MMR Vaccines Aged Out No longer eligi ble based on patient's age to complete this topic Meningococcal ACWY Vaccine Aged Out N o longer eligible based on patient's age to complete this topic Meningococcal B Vaccine Aged Out No l onger eligible based on patient's age to complete this topic RSV Immunization Patients Under 20 months Aged Out No longer eligible based on patient's age to complete this topic Varicella Vaccines Aged Out No longer eligible based on patient's age to complete this topic Procedures Procedure Name Priority Date/Time Associated Diagnosis Comments CT LUNG SCREENING LOW DOSE Routine 05/30/2023 4:57 AM EDT Personal history of nicotine dependence SCREENING MAMMOGRAPHY BI 2-VIEW BREAST INC CAD Routine 06/17/2022 9:08 AM EST Encounter for screening mammogram for malignant neoplasm of breast from Last 3 Months or Most Recently Relevant to Health Maintenance Results * CT LUNG SCREENING LOW DOSE (05/30/2023 4:57 AM EDT) Anatomical Region Laterality Modality Computed Tomogra phy 05/26/2023 11:1 4 AM EDT Narrative 05/30/2023 4:57 AM EDT [facility] Diagnostic Imaging Department [address] [place] [id number] Patient: ??JESSY BUENORSTRO ?/Age/Sex: 1960 - 63 - F Unit#: ??[id number] ? Location/Status: ??SPDICATLS/REG CLI ? Mnemonic/Ordering Site: ??[facility]/SPCT Ordering Physician: ??ASCENCION CASIANO MD CT Lung Screening Low Dose - 05/26/23 - Report Status:Signed Indication: Greater than 20 total pack-year smoking history, asymptomatic current smoker Technique: Low-dose CT scan of the chest obtained as a lung cancer screening study. Multiplanar reformatted images were obtained. ??Dose reduction technique: ASIR (Adaptive statistical iterative reconstruction) and/or AEC (automated exposure control) COMPARISON: 2021. FINDINGS: Lack of intravenous contrast limits evaluation of the jos, vascular structures and visualized abdominal viscera. Lungs/airways: Debris/secretions are noted in the trachea and mainstem bronchus. ??Mild bronchial wall thickening. ??Calcified granulomata. Tree-in-bud/reticulonodular opacities in the right middle lobe (series 4, image 143) which are more prominent in appearance in comparison to multiple priors, likely represents postinfectious/postinflammatory change and waxes and wanes over time. ??Mild emphysematous changes. New 6 mm juxtapleural nodule/opacity left lower lobe (series 4, image 143). Other scattered sub-5 mm pulmonary nodules are similar to prior. Base of the neck, mediastinum, heart, chest wall, vessels: Thoracic aortic and coronary artery calcifications. ??Calcified mediastinal and right hilar lymph nodes which may represent stigmata of prior granulomatous disease. Upper abdomen: ??This study was performed without contrast and with lower than standard dose. These factors reduce the sensitivity for detection of small lesions in the upper abdomen. No significant abnormality is seen Bones/soft tissues: Mild degenerative changes Impression: New 6 mm juxtapleural nodule/opacity left lower lobe which may be postinfectious or postinflammatory in etiology. Lung RADS 0: ??Incomplete. ??Findings suggestive of an inflammatory or infectious process.1-3 month LDCT Dictating Physician: ??SIRI GRIDER MD Electronically Signed by: ??SIRI GRIDER MD Dic Date/Time: ??05/30/23446 Sign date/Time: ??05/30/23456 Procedure Note Siri Grider MD - 09/13/2023 [facility] Diagnostic Imaging Department [address] [place] [id number] Patient: PINEDA,JESSY FrancisB./Age/Sex: 1960 - 63 - F Unit#: [id number] Location/Status: SPDICATLS/REG CLI [facility] Ordering Physician: ASCENCION CASIANO MD CT Lung Screening Low Dose - 05/26/23 - Report Status:Signed Indication: Greater than 20 total pack-year smoking history,asymptomatic current smoker Technique: Low-dose CT scan of the chest obtained as a lung cancerscreening study. Multiplanar reformatted images were obtained. Dose reductiontechnique: ASIR (Adaptive statistical iterative reconstruction) and/or AEC(automated exposure control) COMPARISON: 2021. FINDINGS: Lack of intravenous contrast limits evaluation of the jos,vascular structures and visualized abdominal viscera. Lungs/airways: Debris/secretions are noted in the trachea and mainstem bronchus. Mild bronchial wall thickening. Calcified granulomata. Tree-in-bud/reticulonodular opacities in the right middle lobe (series 4,image 143) which are more prominent in appearance in comparison to multiplepriors, likely represents postinfectious/postinflammatory change and waxes andwanes over time. Mild emphysematous changes. New 6 mm juxtapleural nodule/opacity left lower lobe (series 4, [id number]). Other scattered sub-5 mm pulmonary nodules are similar to prior. Base of the neck, mediastinum, heart, chest wall, vessels: Thoracic aorticand coronary artery calcifications. Calcified mediastinal and right hilarlymph nodes which may represent stigmata of prior granulomatous disease. Upper abdomen: This study was performed without contrast and with lowerthan standard dose. These factors reduce the sensitivity for detection ofsmall lesions in the upper abdomen. No significant abnormality is seen Bones/soft tissues: Mild degenerative changes Impression: New 6 mm juxtapleural nodule/opacity left lower lobe which may be postinfectious or postinflammatory in etiology. Lung RADS 0: Incomplete. Findings suggestive of an inflammatory orinfectious process.1-3 month LDCT Dictating Physician: SIRI GRIDER MD Electronically Signed by: SIRI GRIDER MD Dic Date/Time: 05/30/23446 Sign date/Time: 05/30/23456 us Acsencion Casiano MD IMG CT PROCEDURES Final Result * SCREENING MAMMOGRAPHY BI 2-VIEW BREAST INC CAD (06/17/2022 9:08 AM EST) Anatomical Region Laterality Modality Radiographic Jessica ging 06/12/2021 9:00 AM EDT Narrative 06/17/2022 5:28 PM EST This is a summary report. The complete report is available in the patient's medical record. If you cannot access the medical record, please contact the sending organization for a detailed fax or copy. BILATERAL 2D and 3D DIGITAL SCREENING MAMMOGRAM History: Routine screening. ??No current breast complaints. ?? Comparison: Multiple priors dating back to 08/05/2017 Technique: Bilateral full-field digital 2D and 3D mammography was performed using standard CC and MLO projections CAD was used to evaluate this mammogram. Findings: Density: ?? The breasts are heterogeneously dense which may obscure small masses-C RIGHT: No suspicious masses, groups of microcalcification or areas of architectural distortion identified. Stable typically benign parenchymal asymmetries LEFT: No suspicious masses, groups of microcalcifications or areas of architectural distortion identified. Stable typically benign parenchymal asymmetries IMPRESSION: : 1. ??No mammographic evidence of malignancy. BI-RADS Category 2 benign findings Recommendation: Routine annual screening mammography is recommended Procedure Note Flory Leblanc MD - 09/12/2023 This is a summary report. The complete report is available in thepatient's medical record. If you cannot access the medical record, pleasecontact the sending organization for a detailed fax or copy. BILATERAL 2D and 3D DIGITAL SCREENING MAMMOGRAM History: Routine screening. No current breast complaints. Comparison: Multiple priors dating back to 08/05/2017 Technique: Bilateral full-field digital 2D and 3D mammography wasperformed using standard CC and MLO projections CAD was used to evaluate this mammogram. Findings: Density: The breasts are heterogeneously dense which may obscure smallmasses-C RIGHT: No suspicious masses, groups of microcalcification or areas ofarchitectural distortion identified. Stable typically benign parenchymalasymmetries LEFT: No suspicious masses, groups of microcalcifications or areas ofarchitectural distortion identified. Stable typically benign parenchymalasymmetries IMPRESSION: : 1. No mammographic evidence of malignancy. BI-RADS Category 2 benign findings Recommendation: Routine annual screening mammography is recommended us Shaun Carbajal MD IMG XR PROCEDURES Final Result from Last 3 Months or Most Recently Relevant to Health Maintenance Care Teams Blanket Washer Relationship Specialty Start Date End Date Brooks Al MD [address] [place] [address] [address] EFREN Vivas PCP - General 05/30/23
--- OUTSIDE RECORDS SUMMARY | 2024-11-14 14:49 | XMS_ITS | Clinical Summary ---
Author Organization [facility] Facility Address [address] [place] [address] Care Team Providers Care Casino Cage Manager Name Role Phone Shaun Carbajal MD Primary Care Provider [phone] Allergies Active Allergy Reactions Criticality Noted Date Comments Celecoxib GI intolerance 03/03/2022 Simvastatin Other (see comments) 03/03/2022 Muscle aches Medications ezetimibe (ZETIA) 10 MG tablet Take 10 mg by mouth 09/14/2020 Active fenofibrate (TRICOR) 145 MG tablet Take 145 mg by mouth 1 (one) time each day 01/24/2022 Active levothyroxine (SYNTHROID, LEVOTHROID) 88 MCG tablet Take 88 mcg by mouth 1 (one) time each day 01/26/2022 Active pyridoxine (VITAMIN B-6) 100 MG tablet Take 100 mg by mouth 1 (one) time each day 03/03/2022 Active sertraline (ZOLOFT) 100 MG tablet Take 100 mg by mouth 1 (one) time each day 01/14/2022 Active tamsulosin (FLOMAX) 0.4 MG 24 hr capsule Take 0.4 mg by mouth every night 02/18/2022 Active Cholecalciferol (Vitamin D3) 1.25 MG (45407 UT) capsule Take by mouth Active Ascorbic Acid (vitamin C) 1000 MG tablet Take 1,000 mg by mouth 1 (one) time each day Active Turmeric (QC TUMERIC COMPLEX PO) Take by mouth Active Active Problems Problem Noted Date Diagnosed Date Nephrolithiasis 03/04/2022 Social History Tobacco Use Types Packs/Day Years Used Date Smoking Tobacco: Every Day Cigarettes 0.5 10 Tobacco Cessation:Ready to Q uit: Not Asked; Counseling Given: Not Answered Comments Unknown Sex and Gender Information Value Date Recorded Sex Assigned at Not on file Legal Sex Female 10:40 AM EDT Gender Identity Not on file Sexual Orientation Not on file Last Filed Vital Signs Vital Sign Reading Time Taken Comments Blood Pressure 108/60 03/04/2022 3:44 PM EDT Pulse 72 03/04/2022 3:44 PM EDT Temperature - - Respiratory Rate - - Oxygen Saturation 93% 03/04/2022 3:44 PM EDT Inhaled Oxygen Concentration - - Weight 67.4 kg (148 lb 9.6 oz) 03/04/2022 3:44 P M EDT Height - - Body Mass Index - - Plan of Treatment Health Maintenance Due Date Last Done Comments Breast Cancer Screening 1960 Pneumococcal Vaccine: Pediat rics (0 to 5 Years) and At-Risk Patients (6 to 64 Years) (1 of 2 - PCV) 1966 Colorectal Cancer Screening: Annual FOBT 2009 Colorectal Cancer Screening: Colonoscopy 2009 Colorectal Cancer Screening: Sigmoidoscopy 2009 Influenza Vaccine (Season Ended) 2025 Hepatitis B Vaccine Aged Out No longe r eligible based on patient's age to complete this topic Insurance MEDICAID [facility] MEDICAID Care Teams Casino Cage Manager Relationship Specialty Start Date End Date Shaun Carbajal MD PCP - General Internal Medicine 02/22/22
== END 2024-11-14 12:50 | disposition home or self-care (01) ==
LOC: HO.US 12:49
PROVIDERS: PCP Internal Medicine; Visit Provider Urology
DX: Z87.442 Personal history of urinary calculi (principal); Z87.440 Personal history of urinary (tract) infections
CPT/HCPCS: 76775

== ENCOUNTER → 2024-11-14 12:51 | Outpatient (BNV) | payer OTHER, SELFPAY | PROVIDERS: PCP Internal Medicine; Visit Provider Radiology Diagnostic Radiology | DX: N39.0 Urinary tract infection, site not specified (principal); N28.1 Cyst of kidney, acquired | CPT/HCPCS: 76775 ==

== ENCOUNTER 2024-11-14 15:06 | Outpatient (AMB) | payer OTHER, SELFPAY ==
--- NOTE | 2024-11-14 15:12 | A.OFFVIS_ITS ---
Vital Signs 11/14/24 15:14 Height 5 ft 3 in Weight 110 lb BMI 19.5 BP 105/56 L Blood Pressure Location Lt brachial Position Sitting Respiration 16 Pulse 69 Pulse Source Pulse Oximeter Pulse Oximetry (%) 99 Oxygen Delivery Method Room Air Intake Visit Reasons: FU Knee pain Detective Lieutenant Required: No Allergies simvastatin [SIMVASTATIN] Allergy (Unknown, Verified 11/14/24 15:14) MUSCLE ACHES celecoxib [From Celebrex] Adverse Reaction (Verified 11/14/24 15:14) Gastrointestinal Upset Medication List - Last Reconciled 11/14/24 by Marika Yi LPN albuterol sulfate 90 mcg/actuation (ProAir HFA) 2 puffs inhalation Q4-6H PRN ascorbic acid (vitamin C) (Vitamin C) 500 mg PO DAILY ezetimibe (Zetia) 10 mg PO DAILY fenofibrate nanocrystallized 145 mg PO DAILY 90 days folic acid 1 mg PO DAILY 90 days lactobacillus combination no.9 (Adult 50 Plus Probiotic) 4,000 mmu cells PO DAILY levothyroxine Take 1 tablet daily Mondays through Saturdays and 2 tablets daily on Sundays daily 12 weeks oxycodone 5 mg PO Q6H PRN 7 days pyridoxine (vitamin B6) 100 mg PO DAILY 90 days sertraline 100 mg PO DAILY 30 days varenicline tartrate (Chantix Starting Month Box) PO PER PKG DIR HPI Comments Details: Jessy is back in my office with continuous complain on pain in bilateral knees. See physical exam as below. She was under my care with complains on pain in th e left knee, she had multiple procedures in the left knee from orthopedic surgery, eventually she was told that she is not a good candidate for total knee replacement. However it was time ago. Patient now maybe at 64 years old better candidate for total knee replacement. I will refer her to the Orthopedic surgery office again. We were planning to do Curonix PNS, however patient can not afford psychological evaluation. I explained to the patient that there is a possibility of getting psychological evaluation from a psychologist in the community, she needs to get a referral for such a psychologist from her primary care physician. I gave her the formulation of the report we need to receive from that psychologist. We did not discuss chronic opioid therapy today. Prior: complaint on severe pain in the left knee with radiation down to the medial ankle. She received good results of diagnostic left femoral nerve block .Reports appropriate numbness and weakness in the left knee after the procedure. reports no pain while the knee was nimb. Longevity of the numbness is 28 hours. I believe with this report curonix PTM left femoral nerve trial is justified. I will send her for psychological evaluation in preparation of freedom/curonix PNS. She will go for trial of curonix after the positive femoral nerve block. Therefore need to perform femoral nerve block for her now. If this will not be effective I will try [employer] in left gutter lumbar position in the attempt to alleviate her pain. She will try xynex stimulation meanwhile. She went to Dr. Pineda for recent consult and she was told that no surgeries indicated for her knee. The MRI also was negative for any soft tissue changes. The patient complains on pain on anterior as well as posterior surface of the knee. I will send her for psychological evaluation. Prior: complaints of left knee pain. She had arthroscopic surgery performed by Dr. Solis in 2016 and then again by in May 2020. She noted a slight improvement after her most recent surgery and was able to complete physical therapy.? Unfortunately, her pain returned and worsened around July 2020, without any inciting events.? She has tried cortisone injections as well as 3 EUFLEXXA injections with little to no improvement in her pain.? At this time, she has reportedly not a surgical candidate for total knee replac ement.?She went for diagnostic genicular nerve block and she reported only aggravation of the pain from the genicular nerve block.? I examined the left knee of the patient today and the results are as below.? I strongly believe that patient suffers from Complex regional pain syndrome of the left lower extremity.? She reports that pain spreads wider than the knee area itself.?? Knee image revealed osteoarthritis as well as intact tendons.? Most of the pain she is experiencing is anterior.? She reports some instability after prolonged walking and a ?popping and clicking? sensation.? She denies any edema, erythema or warmth of the left knee. [facility], [facility] Medical History Locking of left knee Acquired hypothyroidism Retention of urine Complex regional pain syndrome i of left lower limb Arthritis Back pain Thyroid disease Hx of hepatitis C History of positive PPD COPD (chronic obstructive pulmonary disease) Anxiety History of depression History of nephrolithiasis Smoker Asthma Elevated cholesterol Surgical History Status post total abdominal hysterectomy and bilateral salpingo-oophorectomy (TA-BSO) History of lung surgery Hx of colonoscopy S/P cystoscopy with ureteral stent placement Hx of left knee surgery Social History Housing: Apartment Alcohol intake: current Alcohol intake frequency: holidays/special occasions only Alcohol type: beer and hard liquor Patient Tobacco Use Status: Current everyday Tobacco user Cigarette Packs Per Day: 0.5 Cigarettes Per Day: 10.0 Years Smoked: 40 plus e-Cigarette/Vaping Use: Never Used service: No Current occupational status: other Current occupation: Right Handed Cognitive needs: No Hearing needs: No Vision needs: No Review of Systems Const All systems reviewed & are unremarkable except as noted in HPI and below Physical Exam Vital Signs: Last Vital Signs Pulse 69 11/14/24 15:14 Resp 16 11/14/24 15:14 BP 105/56 L 11/14/24 15:14 Pulse Ox 99 11/14/24 15:14 Oxygen Delivery Method Room Air 11/14/24 15:14 BMI result Body Mass Index 19.5 Const Other: Severely uncomfortable was walking. General: cooperative, healthy appearing, no acute distress and alert Orientation/consciousness: oriented to person, oriented to place and oriented to time Limitations: ambulation with cane HEENT Head: Yes normal to inspection, Yes normocephalic and Yes atraumatic Ears: hearing grossly normal bilaterally Mouth: moist mucous membranes Eyes General: appearance normal, both eyes and all related structures Resp Effort & Inspection: normal respiratory effort, able to speak in complete sentences and audible wheezes Cardio Jugular venous distension: no JVD Palpation: other (no appreciable rhythmic abnormalities) Peripheral pulses: popliteal pulses present Back/Spine/Pelvis Other: Bilateral knees today are swollen and there is apparently effusion in both of the knees. Tapping is positive. Bilateral knees range of motion is limited, crepitus is sensed with range of motion performance in bilateral knees. Neuro General: oriented to person, oriented to place, oriented to time and moves all extremities Gait exam (Neuro): Antalgic gait present Motor exam (neuro): 5/5 motor strength present throughout Extrem Other: Mild retropatellar ttp FUll ROM Stable ligamentous exam Psych Appearance: grossly normal Mental Status: mental status grossly normal Speech and movement: Normal speech and movement present and Clear speech present Affect: normal affect Attitude: cooperative Thought process: Normal thought process present Thought content: Normal thought content present Insight: Good insight present (Psych) Judgement: Good judgement present (Psych) Assessment & Plan Assessment & Plan (1) Osteoarthritis of left knee: Code(s): M17.12 - Unilateral primary osteoarthritis, left knee Category: Medical Qualifiers: Osteoarthritis type: primary Qualified Code(s): M17.12 - Unilateral primary osteoarthritis, left knee (2) Complex regional pain syndrome i of left lower limb: Code(s): G90.522 - Complex regional pain syndrome I of left lower limb Category: Medical Plan: The patient will be sent to orthopedic surgery, diagnosis is bilateral knee pain, bilateral knee osteoarthritis. If treatment for this patient with total knee replacement is not indicated she needs to be sent back: - I will offer her sprint PNS on the left femoral nerve, we can not do injection of the right femoral nerve as well and schedule her for right PNS of the right femoral nerve as well. Unfortunately curonix PNS is not possible for this patient, she stated that she can not afford [employer] psychological evaluation. I also recommended her to try to obtain psychological evaluation with community referred psychologist, the referral needs to be made by primary care physician. The formulation of the psychological evaluation was given to the patient. (3) Status post arthroscopy of left knee: Code(s): Z98.890 - Other specified postprocedural states Category: Surgical (4) Left knee pain: Code(s): M25.562 - Pain in left knee Category: Medical (5) Bilateral knee pain: Code(s): M25.561 - Pain in right knee; M25.562 - Pain in left knee Category: Medical (6) Bilateral primary osteoarthritis of knee: Code(s): M17.0 - Bilateral primary osteoarthritis of knee Category: Medical Plan Orders: Referrals Orthopedics Referral M17.0 - Bilateral primary osteoarthritis of knee, M25.561 - Pain in right knee, M25.562 - Pain in left knee Patient Instructions: I here by testify that I spent 30 minutes in conversation with this patient as well as planning her care and organizing this note. Coding Level of Care Code Est Pt Level 4 (31549) Diagnoses Primary osteoarthritis of left knee M17.12 Osteoarthritis type: primary Complex regional pain syndrome i of left lower limb G90.522 Status post arthroscopy of left knee Z98.890 Left knee pain M25.562 Bilateral knee pain M25.561; M25.562 Bilateral primary osteoarthritis of knee M17.0
[2024-11-14 15:14] VITALS: BP 105/56; PULSE 69; RESP 16; O2SAT 99; BMI 19.5
--- OUTSIDE RECORDS SUMMARY | 2024-11-14 17:13 | XMS_ITS | Clinical Summary ---
Author Organization [facility] Address [address] [place] [address] Care Team Providers Care Restaurant Bartender Name Role Phone Brooks Al MD Primary Care Provider Surgical History Surgery Date Site/Laterality Comments HYSTERECTOMY 1989 PROCEDURE: HISTORICAL TOTAL HYSTERECTOMY WITH BSO; COMMENT: chronic infection, scarring CHOLECYSTECTOMY 1989 PROCEDURE: HISTORICAL CHOLECYSTECTOMY OTHER SURGICAL HISTORY 07/30/2013 PROCEDURE: OUTSIDE MAMMO; COMMENT: breast MRI Kenny Nazario 6 month repeat advised COLONOSCOPY 07/23/2010 PROCEDURE: OUTSIDE COLONOSCOPY; COMMENT: normal Dr Fernandez OTHER SURGICAL HISTORY 04/2019 Left PROCEDURE: PA ARTHROSCOPY KNEE SYNOVECTOMY LIMITED SPX; COMMENT: for synovial plica impingement OTHER SURGICAL HISTORY 10/12/2023 Right PROCEDURE: PA THORACOSCOPY W/THERA WEDGE RESEXN INITIAL UNILAT; COMMENT: [...] disease) (CMS/HCC) DX:COPD (chronic obstructive pulmonary disease) ([facility]) Tuberculosis DX:Tuberculosis; COMMENT: teens, s/p treatment (per patient) Family History Medical History Relation Name Comments Hyperlipidemia Brother 1 Lymphoma Brother 1 Other: HIV Brother 1 Coronary artery disease Brother 2 Hypertension Brother 2 Diabetes Father at age 85 from DM complication, no NH, Stroke Lung cancer Mother from lung Ca [...] AM EDT Narrative 05/30/2023 4:57 AM EDT [facility] Diagnostic Imaging Department [address] [place] [id number] Patient: ??JESSY UBENROSTRO ?/Age/Sex: 1960 - 63 - F Unit#: ??[id number] ? Location/Status: ??SPDICATLS/REG CLI ? Mnemonic/Ordering Site: [...] Procedure Note Siri Grider MD - 09/13/2023 [facility] Diagnostic Imaging Department [address] [place] [address] Patient: PINEDA,JESSY FrancisB./Age/Sex: 1960 - 63 - F Unit#: [id number] Location/Status: SPDICATLS/REG CLI [facility] Ordering Physician: ASCENCION CASIANO MD CT Lung [...] juxtapleural nodule/opacity left lower lobe (series 4, [id number]). Other scattered sub-5 mm pulmonary nodules are [...] Dic Date/Time: 05/30/23446 Sign date/Time: 05/30/23456 us Ascencion Casiano MD IMG CT PROCEDURES Final Result [...] Recently Relevant to Health Maintenance Care Teams Restaurant Bartender Relationship Specialty Start Date End Date Brooks Al MD [address] [place] [address] [address] EFREN Vivas PCP - General 05/30/23
--- OUTSIDE RECORDS SUMMARY | 2024-11-14 17:13 | XMS_ITS | Clinical Summary ---
Author Organization [facility] Facility Address [address] [place] [address] Care Team Providers Care Private Duty Rn Name Role Phone Shaun Carbajal MD Primary Care Provider [phone] Allergies Active Allergy Reactions Criticality Noted Date [...] 02/18/2022 Active Cholecalciferol (Vitamin D3) 1.25 MG (28052 UT) capsule Take by mouth Active Ascorbic [...] age to complete this topic Insurance MEDICAID [facility] MEDICAID Care Teams Private Duty Rn Relationship Specialty Start Date End Date Shaun Carbajal MD PCP - General Internal Medicine 02/22/22
== END 2024-11-14 15:35 | disposition home or self-care (01) ==
LOC: HO.PMC 15:06
PROVIDERS: PCP Internal Medicine; Visit Provider Anesthesiology
DX: M17.12 Unilateral primary osteoarthritis, left knee (principal); G90.522 Complex regional pain syndrome I of left lower limb; Z98.890 Other specified postprocedural states; M25.562 Pain in left knee; M25.561 Pain in right knee; M17.0 Bilateral primary osteoarthritis of knee
CPT/HCPCS: 99214

== ENCOUNTER 2024-12-25 08:42 | Outpatient (AMB) | payer OTHER, SELFPAY ==
--- NOTE | 2024-12-25 08:43 | A.OFFVIS_ITS ---
Intake Visit Reasons: follow up US Intake Note: Patient is present for US F/U Urology Medication:VITAMIN B6,VITAMIN C Antibiotic Allergy:SIMVASTATIN Blood Thinner:NONE Injection Molding Machine Setter Required: No Allergies simvastatin [SIMVASTATIN] Allergy (Unknown, Verified 12/25/24 08:43) MUSCLE ACHES celecoxib [From Celebrex] Adverse Reaction (Verified 12/25/24 08:43) Gastrointestinal Upset Medication List - Last Reconciled 12/25/24 by Althea Parekh MD albuterol sulfate 90 mcg/actuation (ProAir HFA) 2 puffs inhalation Q4-6H PRN ascorbic acid (vitamin C) (Vitamin C) 500 mg PO DAILY ezetimibe (Zetia) 10 mg PO DAILY fenofibrate nanocrystallized 145 mg PO DAILY 90 days folic acid 1 mg PO DAILY 90 days lactobacillus combination no.9 (Adult 50 Plus Probiotic) 4,000 mmu cells PO DAILY levothyroxine Take 1 tablet daily Mondays through Saturdays and 2 tablets daily on Sundays daily 12 weeks oxycodone 5 mg PO Q6H PRN 7 days pyridoxine (vitamin B6) 100 mg PO DAILY 90 days sertraline 100 mg PO DAILY 30 days varenicline tartrate 1 mg PO BID 28 days HPI Comments Details: 12/25/24--Jessy is a 64-year-old female presenting for telehealth follow-up she has a history of kidney stones, UTI's and pyelonephritis; h/o nicotine dependence; she had an abnormal CT scan finding a year ago, November, which was questionable for inflammatory versus neoplastic; follow-up MRI imaging February 2024 noted that the abnormal finding resolved consistent with an infectious/inflammatory process. I have discussed with Jessy that follow-up renal ultrasound 11/14/2024 again is within normal limits with a small simple cyst which is stable in no recurrent renal calculi. I have discussed the importance of adequate hydration, low sodium diet and adding citrate to her diet. We will follow-up in 1 year and monitor kidneys, renal ultrasound at that time. Results: US renal - 11/14/24--5 mm simple cyst, upper pole right kidney. No hydronephrosis. 03/16/24-- Discussed MRI 02/09/24-- notes resolution of abnormality in kidney consistent with infectious process. Pt states she is doing well, no more pain. Plan US renal in months. 12/19/2023 Jessy is a 63-year-old female who has not followed for history of kidney stones. She was in the emergency room last month with pain and irritative voiding symptoms. Urinalysis was consistent with UTI, urine culture did come back positive for E coli. The patient had a CT scan done which was significant for a 2.4 cm solid lesion etiology considered inflammatory versus neoplastic. Jessy states that she does have persistent discomfort in the left flank area. Urinary symptoms are resolved. She has a renal ultrasound appoi ntment this week that was ordered previously. Discussed that she will keep that appointment since is already scheduled. I have discussed MRI abdomen further evaluation. I have discussed that renal masses less than 3 cm respond well to minimally invasive cryoablation performed by Interventional Radiology. 07/23/22- Jessy Buenrostro is here for FU being followed for kidney stones. I reviewed most recent imaging 01/2022, with bilateral echogenic punctate calcifications, no renal calculi. The patient is asymptomatic. She states she was given flomax to help with bladder emptying but stopped due to sinus issues. Discussed 24 hour urine results: Total volume 1.9L, Calcium 168 mg; Oxalate 22 mg, Sodium 75, Citrate 560 mg. Discussed that her results are within normal limits and to continue treatment plan, reinforced the importance of adequate fluid intake, Low oxalate diet, low sodium diet. Plan: fu in 6 months - OV with renal u/s at that time. 01/21/23--On discusion today discussed with the patient the renal US--12/31/22--WNL, no kidney stones visualized. The patient had history of kidney and had prior kidney stone t/t on 04/2017 right, ureteroscopy, stent placement. I have discussed with the patient to continue Vitamin B6 100 mg daily. Currently the patient is emptying bladder adequately. Evaluation today-- Blood: 10 Ariel/uL, leukocytes: 15 Petra/uL. Bladder scan PVR: 0 mL. Prior Imagin11/2017 - an IV Pyelogram, showing no evidence of stones 12/2018 - US no stones, mild left hydro 12/2019 - a renal ultrasound, showing no evidence of stones 12/2020 - renal ultrasound 1 mm stone on left side [facility] Medical History Nicotine dependence, cigarettes, uncomplicated Locking of left knee Acquired hypothyroidism Retention of urine Complex regional pain syndrome i of left lower limb Arthritis Back pain Thyroid disease Hx of hepatitis C History of positive PPD COPD (chronic obstructive pulmonary disease) Anxiety History of depression History of nephrolithiasis Asthma Elevated cholesterol Surgical History Status post total abdominal hysterectomy and bilateral salpingo-oophorectomy (TA-BSO) History of lung surgery Hx of colonoscopy S/P cystoscopy with ureteral stent placement Hx of left knee surgery Social History Housing: Apartment Alcohol intake: current Alcohol intake frequency: holidays/special occasions only Alcohol type: beer and hard liquor Patient Tobacco Use Status: Current everyday Tobacco user Cigarette Packs Per Day: 0.5 Cigarettes Per Day: 10.0 Years Smoked: 40 plus e-Cigarette/Vaping Use: Never Used service: No Current occupational status: other Current occupation: Right Handed Cognitive needs: No Hearing needs: No Vision needs: No Review of Systems Const All systems reviewed & are unremarkable except as noted in HPI and below Reports no additional complaints Eyes Reports no additional complaints ENT Reports no additional complaints Card Reports no additional complaints Resp Reports no additional complaints GI Reports no additional complaints Reports as per HPI Musc Reports no additional complaints Skin/Breast Reports system reviewed and no additional complaints, except as documented Neuro Reports no additional complaints Psych Reports no additional complaints Endo Reports no additional complaints Clifford/Lymph Reports no additional complaints Aller/Immun Reports no additional complaints Telehealth Telehealth Telehealth Platform: [facility] Location of provider rendering services: practice address Location of patient: address on file Patient Identification confirmed using: Name, : Yes Telehealth method: voice only Patient verbally consented to treatment: Yes Patient verbally consented to billing insurance company: Yes Patient informed of any privacy concerns related to visit: Yes Minutes spent on Phone/Video with Pt.: 14 Results Reviewed Results Reviewed: Date of Service: 11/14/24 ULTRASOUND RENAL BILATERALLY. CLINICAL INFORMATION: Urinary tract infection. COMPARISON: December 22, 2023. Correlated to MRI abdomen dated February 09, 2024. TECHNIQUE: Real-time ultrasound of the kidneys using grayscale and color Doppler technique. FINDINGS: Right kidney: 10 x 4 x 4. Normal echotexture. Normal renal cortical thickness. No hydronephrosis. No solid lesion. 5 mm anechoic lesion in the upper pole without septations or flow on color Doppler interrogation. Left kidney: 11 x 5 x 3 cm. Normal echotexture. Normal renal cortical thickness. No hydronephrosis. No solid or cystic lesion. Normal flow on color Doppler interrogation of the renal hilum. IMPRESSION: 5 mm simple cyst, upper pole right kidney. No hydronephrosis. Date of Service: 02/09/24 MR ABDOMEN WITHOUT AND WITH CONTRAST CLINICAL INFORMATION: Other specified disorders of the kidneys and ureters COMPARISON: Renal ultrasound 12/22/[address] abdomen and pelvis 11/27/2023 TECHNIQUE: MRI of the abdomen before and after the IV administration of 5 mL of Gadavist was obtained using routine sequences. FINDINGS: LUNG BASES: The visualized lung bases are unremarkable. KIDNEYS AND URETERS: Bosniak 1 right renal cysts, no imaging follow-up recommended. Right upper pole renal parenchymal cortical scarring. There is been interval resolution of previously seen focal signal heterogeneity in the right upper renal pole, therefore favoring interval resolution of a focal pyelonephritis rather than a true renal mass. GALLBLADDER: Unremarkable. LIVER AND BILIARY TREE: The liver is normal in signal and morphology. No suspicious liver lesion. No intra or extrahepatic biliary duct dilatation. PANCREAS: Unremarkable SPLEEN: Unremarkable ADRENAL GLANDS: Unremarkable GASTROINTESTINAL TRACT: Unremarkable. LYMPH NODES: No lymphadenopathy. VASCULAR: Unremarkable ABDOMINAL WALL: Unremarkable. OSSEOUS STRUCTURES: Unremarkable. IMPRESSION: There has been interval resolution of previously seen focal signal heterogeneity in the right upper renal pole, therefore favoring interval resolution of a focal pyelonephritis rather than a true renal mass. Collected: 11/27/23 Status: COMP Req#: [id number] Received: 11/27/23153 Source: [facility] Sp Desc: Urine aponte Subm Dr: Saloni Hatfield DOOR SERVICEMAN Ordered: Urine Culture Procedure Result Verified Urine Culture Final 11/29/23 Organism 1 Escherichia coli Quant > 100,000 cfu/mL E coli M.I.C. RX --------- --- Ampicillin <=2 S Ceftriaxone <=0.25 S Gentamicin <=1 S Levofloxacin <=0.12 S Nitrofurantoin <=16 S Trimethoprim/Sulfamethoxazole <=20 S Date of Service: 11/27/23 EXAMINATION: CT abdomen pelvis w IV con CLINICAL INFORMATION: Reason for Exam lower abdominal pain, blood in stool, diarrhea COMPARISON: Prior CT 2016 TECHNIQUE: Multidetector volumetric imaging was performed from the superior aspect of the liver through the pubic symphysis approximately 85 mL of Omnipaque 350 injected. Sagittal and coronal reformatted images were obtained on the technologist's workstation. This CT examination was performed using dose optimization techniques as appropriate, variously including the following: *Automated exposure control *Adjustment of mA and/or kV according to patient size (this includes techniques or standardized protocols for targeted exams where dose is matched to indication/reason for exam; i.e. extremities or head) *Use of iterative reconstruction technique DLP: 322 mGy-cm FINDINGS: LOWER THORAX: Included lung bases are clear. HEPATOBILIARY: No focal hepatic lesions. No biliary ductal dilatation. GALLBLADDER: Gallbladder unremarkable. SPLEEN: Spleen is normal in size. PANCREAS: No focal mass or ductal dilatation. STOMACH AND GASTROINTESTINAL TRACT: Stomach is grossly unremarkable. There is circumferential wall thickening of the rectum and sigmoid colon without evidence of obstruction, this is nonspecific CT finding and can be due to infection, inflammatory and less commonly neoplastic process. Visualized bowels are otherwise normal. No CT evidence of appendicitis. ADRENALS: No adrenal nodules. KIDNEYS/URETERS: There is heterogeneous solid renal lesion involving the right kidney upper pole measures 2.4 x 2 cm, irregular margins, concerning for infection nephroma versus renal cell carcinoma. No kidney stone or hydronephrosis. Left kidney is unremarkable. URINARY BLADDER: Partially decompressed. PELVIC VISCERA: Unremarkable PERITONEUM: No free air or fluid. LYMPH NODES: No lymphadenopathy. VASCULAR:Aortic vascular calcifications. BONES, ABDOMINAL WALL AND SOFT TISSUES: Age-appropriate changes of the spine and skeletal system, no destructive osteolytic or osteosclerotic bone lesion found IMPRESSION: 1. There is circumferential WALL THICKENING OF THE RECTUM and sigmoid colon without evidence of obstruction, this is nonspecific CT finding and can be due to infection, inflammatory and less commonly neoplastic process. GI consultation recommended, consider correlation with follow-up colonoscopy. 2. There is heterogeneous SOLID RIGHT RENAL LESION involving the right kidney upper pole measures 2.4 cm, irregular margins, concerning for infection nephroma versus renal cell carcinoma. Further investigation with follow-up advanced imaging contrast enhanced MRI recommended. 3. Vascular calcifications. Date of Service: 12/31/22 US RETROPERITONEAL LIMITED (RENAL ONLY) CLINICAL INFORMATION: Calculus of kidney. COMPARISON: Renal ultrasound 07/15/2022 and 01/21/2022. CT abdomen and pelvis 02/28/2017. TECHNIQUE: Real-time imaging of the kidneys.? FINDINGS: RIGHT KIDNEY: 10.0 x 4.5 x 5.1 cm (SAG x AP x TRV). The kidney is normal in size, contour, and echogenicity. Renal cortical thickness is normal. No calculi or focal parenchymal lesions. No hydronephrosis. LEFT KIDNEY: 10.9 x 4.0 x 4.4 cm (SAG x AP x TRV). The kidney is normal in size, contour, and echogenicity. Renal cortical thickness is normal. No calculi or focal parenchymal lesions. No hydronephrosis. IMPRESSION: Unremarkable examination. Assessment & Plan Assessment & Plan (1) History of nephrolithiasis: Code(s): Z87.442 - Personal history of urinary calculi Category: Medical (2) History of kidney infection: Code(s): Z87.440 - Personal history of urinary (tract) infections Category: Medical (3) Renal cyst: Code(s): N28.1 - Cyst of kidney, acquired Category: Medical (4) Nicotine dependence: Code(s): F17.200 - Nicotine dependence, unspecified, uncomplicated Category: Medical Plan US in 1 year FU post. Orders: Orders US renal BI 11 Months N28.1 - Cyst of kidney, acquired, Z87.440 - Personal history of urinary (tract) infections, Z87.442 - Personal history of urinary calculi Medications: Refilled pyridoxine (vitamin B6) 100 mg PO DAILY 90 days 90 tabs 3RF N20.0 - Calculus of kidney Patient Instructions: The patient had an opportunity to ask questions regarding treatment plan. The patient expressed understanding and agreement with the above treatment plan. The patient is aware they should contact our office by phone for worsening of their current condition or the appearance of new symptoms. Compliance is encouraged with any medications and followup testing that is ordered. It is a privilege to be allowed the opportunity to participate in the urologic care of your patient. If you have any questions or concerns regarding treatment for the above conditions please do not hesitate to contact me. The office telephone contact is [phone]. This note is constructed in part using voice recognition software. While every effort has been made to ensure accuracy manager advertising errors may have been included. Yours sincerely, Althea Parekh MD Coding Level of Care Code Tele Est Pt Level 3 (65606) Diagnoses History of nephrolithiasis Z87.442 History of kidney infection Z87.440 Renal cyst N28.1 Nicotine dependence F17.200
--- OUTSIDE RECORDS SUMMARY | 2024-12-25 08:59 | XMS_ITS | Clinical Summary ---
Author Organization [facility] Facility Address [address] [place] [address] Care Team Providers Care Propulsion Systems Engineer Name Role Phone Shaun Carbajal MD Primary Care Provider [phone] Allergies Active Allergy Reactions Criticality Noted Date [...] 02/18/2022 Active Cholecalciferol (Vitamin D3) 1.25 MG (68673 UT) capsule Take by mouth Active Ascorbic [...] Comments Breast Cancer Screening 1960 Pneumococcal Vaccine: 50+ Ye ars (1 of 2 - PCV) 1979 Colorectal Cancer Screening: Annual FOBT 2009 Colorectal Cancer Screening: Colonoscopy 2009 Colorectal Cancer Screening: Sigmoidoscopy 2009 Influenza Vaccine (Season Ended) 2025 Hepatitis B Vaccine Aged Out No longe r eligible based on patient's age to complete this topic Insurance [facility] Medicaid [facility] Medicaid Care Teams Propulsion Systems Engineer Relationship Specialty Start Date End Date Shaun Carbajal MD PCP - General Internal Medicine 02/22/22
--- OUTSIDE RECORDS SUMMARY | 2024-12-25 08:59 | XMS_ITS | Clinical Summary ---
Author Organization [facility] Address [address] [place] [address] Phone Care Team Providers Care Hospital Laboratory Technician Name Role Phone Brooks Al MD Primary Care Provider [phone] Surgical History Surgery Date Site/Laterality Comments HYSTERECTOMY 1989 PROCEDURE: HISTORICAL TOTAL HYSTERECTOMY WITH BSO; COMMENT: chronic infection, scarring CHOLECYSTECTOMY 1989 PROCEDURE: HISTORICAL CHOLECYSTECTOMY OTHER SURGICAL HISTORY 07/30/2013 PROCEDURE: OUTSIDE MAMMO; COMMENT: breast MRI Kenny Nazario 6 month repeat advised COLONOSCOPY 07/23/2010 PROCEDURE: OUTSIDE COLONOSCOPY; COMMENT: normal Dr Fernandez OTHER SURGICAL HISTORY 04/2019 Left PROCEDURE: DC ARTHROSCOPY KNEE SYNOVECTOMY LIMITED SPX; COMMENT: for synovial plica impingement OTHER SURGICAL HISTORY 10/12/2023 Right PROCEDURE: DC THORACOSCOPY W/THERA WEDGE RESEXN INITIAL UNILAT; COMMENT: RML Wedge with Biopsies Medical History Medical History Date Comments Hep C w/o coma, chronic (CMS /HCC V24, CMS/[facility] V28) 12/14/2013 DX:Hep C w/o coma, chronic ( HCC); COMMENT: Per pt, had treatment, follows with Dr. Fernandez, Major depression in full rem ission ([facility] V24) DX:Major depression in full remission (HCC) Osteopenia 03/13/2014 DX:Osteopenia Skin cancer DX:Skin cancer Mixed hyperlipidemia DX:Mixed hy perlipidemia Kidney disease DX:Kidney diseas e Thyroid disease DX:Thyroid disea se COPD (chronic obstructive pu lmonary disease) (CMS/HCC V24, CMS/[facility] V28) DX:COPD (chronic o bstructive pulmonary disease) ([facility]) Tuberculosis DX:Tuberculosis; COMMENT: teens, s/p treatment (per patient) Family History Medical History Relation Name Comments Hyperlipidemia Brother 1 Lymphoma Brother 1 Other: HIV Brother 1 Coronary artery disease Brother 2 Hypertension Brother 2 Diabetes Father at age 85 from DM complication, no VT, Stroke Lung cancer Mother from lung Ca [...] 01/26/2024 9:12 AM EDT Plan of Treatment Upcoming Encounters Date Type Department Care Team (Late st Contact Info) Description 01/17/2025 8:[address] [facility] CT Scan [address] [place] [address] Health Maintenance Due Date Last Done Comments [...] AM EDT Narrative 05/30/2023 4:57 AM EDT [facility] Diagnostic Imaging Department [address] [place], [place] [id number] Patient: ??JESSY BUENROSTRO ?/Age/Sex: 1960 - 63 - F Unit#: ??[id number] ? Location/Status: ??SPDICATLS/REG CLI ? Mnemonic/Ordering Site: [...] Procedure Note Siri Grider MD - 09/13/2023 [facility] Diagnostic Imaging Department [address] [place] [id number] Patient: JESSY BUENROSTRO./Age/Sex: 1960 - 63 - F Unit#: [id number] [facility]/Ordering Site: [facility] Ordering Physician: ASCENCION CASIANO MD CT Lung [...] juxtapleural nodule/opacity left lower lobe (series 4, [id number]). Other scattered sub-5 mm pulmonary nodules are [...] MD Dic Date/Time: 05/30/23446 Sign date/Time: 05/30/23456 Ascencion Casiano MD IMG CT PROCEDURES Final [...] screening mammography is recommended Procedure Note Flory Lelbanc MD - 09/12/2023 This is a summary [...] Recommendation: Routine annual screening mammography is recommended Shaun Carbajal MD IMG XR PROCEDURES Final Result from Last 3 Months or Most Recently Relevant to Health Maintenance Insurance [place] - [place] [facility] Member Subscriber Plan / Payer (Ef fective 2024-Present) Name:JESSY BUENROSTRO Relation to Subscriber:Self Name:PeakJessy Payer ID:[id number] Group ID:Not on file Type:Not on file Address: [address] [place] [address] Care Teams Hospital Laboratory Technician Relationship Specialty Start Date End Date Brooks Al MD [address] [place] [address] [address] [place], [place] PCP - General 05/30/23
== END 2024-12-25 10:13 | disposition home or self-care (01) ==
LOC: HO.HUSH 08:42
PROVIDERS: PCP Internal Medicine; Visit Provider Urology
DX: Z87.442 Personal history of urinary calculi (principal); Z87.440 Personal history of urinary (tract) infections; N28.1 Cyst of kidney, acquired; F17.200 Nicotine dependence, unspecified, uncomplicated
CPT/HCPCS: 99213

== ENCOUNTER → 2024-12-25 08:42 | Outpatient (BNVA) | payer OTHER, SELFPAY | PROVIDERS: PCP Internal Medicine; Visit Provider Urology ==

== ENCOUNTER 2024-12-27 14:19 | Outpatient (AMB) | payer OTHER, SELFPAY ==
[2024-12-27 14:22] VITALS: BMI 19.5
--- NOTE | 2024-12-27 14:22 | A.OFFVIS_ITS ---
Vital Signs 12/27/24 14:22 Height 5 ft 3 in Weight 110 lb BMI 19.5 Intake Visit Reasons: New prob- R knee pain/arthritis Intake Note: Jessy is a 64 year old female who presents today for a new problem visit with complaints of right knee pain. We have seen this patient in the past for her left knee - she was informed to return if symptoms worsen for injection (HX of Gel), L knee arthroscopy 05/15/2020 KI. Patient reports that she is having pain in the left knee. Allergies simvastatin [SIMVASTATIN] Allergy (Unknown, Verified 12/25/24 08:43) MUSCLE ACHES celecoxib [From Celebrex] Adverse Reaction (Verified 12/25/24 08:43) Gastrointestinal Upset HPI HPI New prob- R knee pain/arthritis: Details: Jessy is a 64 year old female who presents today for a new problem visit with complaints of right knee pain. We have seen this patient in the past for her left knee - she was informed to return if symptoms worsen for injection (HX of Gel), L knee arthroscopy 05/15/2020 KI. Patient reports that she is having pain in the right knee. She has pain with stairs and standing from a seated position. the left knee injection was helpful but not for very long. She is seeing Dr Aguirre and is waiting for psychiatry counseling prior to left leg SPRINT placement. She was referred back here for her right knee. She has no history of injury, She can walk fairly comfortably on flat ground. [facility]LY [facility], [facility] Medical History Nicotine dependence, cigarettes, uncomplicated Locking of left knee Acquired hypothyroidism Retention of urine Complex regional pain syndrome i of left lower limb Arthritis Back pain Thyroid disease Hx of hepatitis C History of positive PPD COPD (chronic obstructive pulmonary disease) Anxiety History of depression History of nephrolithiasis Asthma Elevated cholesterol Surgical History Status post total abdominal hysterectomy and bilateral salpingo-oophorectomy (TA-BSO) History of lung surgery Hx of colonoscopy S/P cystoscopy with ureteral stent placement Hx of left knee surgery Social History Housing: Apartment Alcohol intake: current Alcohol intake frequency: holidays/special occasions only Alcohol type: beer and hard liquor Patient Tobacco Use Status: Current everyday Tobacco user Cigarette Packs Per Day: 0.5 Cigarettes Per Day: 10.0 Years Smoked: 40 plus e-Cigarette/Vaping Use: Never Used service: No Current occupational status: other Current occupation: Right Handed Cognitive needs: No Hearing needs: No Vision needs: No Physical Exam Vital Signs: BMI result Body Mass Index 19.5 Extrem Other: unremarkable examination of bilateral lower extremities. There is mild retropatellar ttp bilterally. Office Procedures Joint Inj/Aspir; Non-Pain Clin Joint Injection/Drain Details: Injected 1 mL of Decadron and 3 mL 1% lidocaine and 3 mL of 0.25% Marcaine. Site was prepped using aseptic technique. Patient tolerated the procedure well. Shoulders, Hips, Knees, Knee Large Joint Injection : Right Knee Coding Procedure code (CPT) selection complete Results Reviewed Results Reviewed: I personally reviewed relevant radiographs. mild OA, ? mild chondrocalcinosis Assessment & Plan Assessment & Plan (1) Bilateral primary osteoarthritis of knee: Code(s): M17.0 - Bilateral primary osteoarthritis of knee Category: Medical Plan: Mild OA wiht h/o CRPS on the left. I injected the right knee today and she can see me if needed but little to offer her surgically. Coding Level of Care Code Est Pt Level 3 (45353) Diagnoses Bilateral primary osteoarthritis of knee M17.0 CPT Codes Shoulders, Hips, Knees, - Knee Large Joint Injection : Right Knee ([id number])
--- OUTSIDE RECORDS SUMMARY | 2024-12-27 14:25 | XMS_ITS | Clinical Summary ---
Author Organization [facility] Address [address] [place] [address] Phone Care Team Providers Care Bindery Machine Tender Name Role Phone Brooks Al MD Primary Care Provider Encounters Date Type Department Care Team Description 12/25/2024 Telephone Lung Screening Program - [place] [address] [facility] [address] [place] [address] Jenn Arrington [place] Appointment (1st Notification) from Last 3 Months Surgical History Surgery Date Site/Laterality Comments HYSTERECTOMY 1989 PROCEDURE: HISTORICAL TOTAL HYSTERECTOMY WITH BSO; COMMENT: chronic infection, scarring CHOLECYSTECTOMY 1989 PROCEDURE: HISTORICAL CHOLECYSTECTOMY OTHER SURGICAL HISTORY 07/30/2013 PROCEDURE: OUTSIDE MAMMO; COMMENT: breast MRI Kenny Nazario 6 month repeat advised COLONOSCOPY 07/23/2010 PROCEDURE: OUTSIDE COLONOSCOPY; COMMENT: normal Dr Fernandez OTHER SURGICAL HISTORY 04/2019 Left PROCEDURE: WA ARTHROSCOPY KNEE SYNOVECTOMY LIMITED SPX; COMMENT: for synovial plica impingement OTHER SURGICAL HISTORY 10/12/2023 Right PROCEDURE: WA THORACOSCOPY W/THERA WEDGE RESEXN INITIAL UNILAT; COMMENT: RML Wedge with Biopsies Medical History Medical History Date Comments Hep C w/o coma, chronic (CMS /HCC V24, CMS/[facility] V28) 12/14/2013 DX:Hep C w/o coma, chronic ( HCC); COMMENT: Per pt, had treatment, follows with Dr. Fernandez, Major depression in full rem ission ([facility] V24) DX:Major depression in full remission (HCC) Osteopenia 03/13/2014 DX:Osteopenia Skin cancer DX:Skin cancer Mixed hyperlipidemia DX:Mixed hy perlipidemia Kidney disease DX:Kidney diseas e Thyroid disease DX:Thyroid disea se COPD (chronic obstructive pu lmonary disease) (CMS/HCC V24, CMS/[facility] V28) DX:COPD (chronic o bstructive pulmonary disease) ([facility]) Tuberculosis DX:Tuberculosis; COMMENT: teens, s/p treatment (per patient) Family History Medical History Relation Name Comments Hyperlipidemia Brother 1 Lymphoma Brother 1 Other: HIV Brother 1 Coronary artery disease Brother 2 Hypertension Brother 2 Diabetes Father at age 85 from DM complication, no [place], Stroke Lung cancer Mother from lung Ca [...] Info) Description 01/17/2025 8:30 AM EDT Appointment [facility] CT Scan [address] [place] [address] Health Maintenance Due Date Last [...] AM EDT Narrative 05/30/2023 4:57 AM EDT [facility] Diagnostic Imaging Department [address] [place] [id number] Patient: ??JESSY BUENROSTRO ?/Age/Sex: 1960 - 63 - F Unit#: ??[id number] ? Location/Status: ??SPDICATLS/REG CLI ? Mnemonic/Ordering Site: [...] Signed by: ??SIRI GRIDER MD Dic Date/Time: ??05/30/237 Sign date/Time: ??05/30/23456 Procedure Note Siri Grider MD - 09/13/2023 [facility] Diagnostic Imaging Department [address] [place] [address] Patient: JESSY BUENROSTRO /Age/Sex: 1960 - 63 - F Unit#: [id number] Location/Status: SPDICATLS/REG CLI Mnemonic/Ordering Site: [facility] Ordering Physician: ASCENCION CASIANO MD CT Lung [...] juxtapleural nodule/opacity left lower lobe (series 4, [id number]). Other scattered sub-5 mm pulmonary nodules are [...] to Health Maintenance Insurance [place] - [place] [facility] Member Subscriber Plan / Payer (Ef fective 2024-Present) Name:JESSY BUENROSTRO Relation to Subscriber:Self Name:Jessy Buenrostro Payer ID:[id number] Group ID:Not on file Type:Not on file Address: [address] [place] [address] Care Teams Bindery Machine Tender Relationship Specialty Start Date End Date Brooks Al MD [address] [place] [address] Dr [address] [place], [place] PCP - General 05/30/23
== END 2024-12-27 15:43 | disposition home or self-care (01) ==
LOC: HO.HOS 14:20
PROVIDERS: PCP Internal Medicine; Visit Provider Orthopaedic Surgery
DX: M17.0 Bilateral primary osteoarthritis of knee (principal)
CPT/HCPCS: 20610; 99213

== ENCOUNTER → 2024-12-27 14:19 | Outpatient (BNVA) | payer OTHER, SELFPAY | PROVIDERS: PCP Internal Medicine; Visit Provider Orthopaedic Surgery | DX: M17.0 Bilateral primary osteoarthritis of knee (principal) | CPT/HCPCS: 20610; 99212; J0665; J1100; J2003 ==

== ENCOUNTER 2025-02-18 14:16 | Outpatient (AMB) | payer OTHER, SELFPAY ==
--- NOTE | 2025-02-18 14:18 | A.OFFPC_ITS ---
Vital Signs 02/18/25 14:20 Height 5 ft 3 in Weight 110 lb BMI 19.5 BP 120/78 Blood Pressure Location Lt brachial Position Sitting Pulse 74 Pulse Source Pulse Oximeter Pulse Oximetry (%) 97 Oxygen Delivery Method Room Air Intake Visit Reasons: HLD, ANXIETY Intake Note: Patient here for a follow up HLD, Anxiety Welfare Worker Required: No Accompanied by: Self / Same As Patient Allergies simvastatin (SIMVASTATIN) Allergy (Unknown, Verified 02/18/25 14:43) MUSCLE ACHES celecoxib (From Celebrex) Adverse Reaction (Verified 02/18/25 14:43) Gastrointestinal Upset Medication List - Last Reconciled 02/18/25 by Brooks Al MD albuterol sulfate 90 mcg/actuation (ProAir HFA) 2 puffs inhalation Q4-6H PRN ascorbic acid (vitamin C) (Vitamin C) 500 mg PO DAILY ezetimibe (Zetia) 10 mg PO DAILY fenofibrate nanocrystallized 145 mg PO DAILY 90 days folic acid 1 mg PO DAILY lactobacillus combination no.9 (Adult 50 Plus Probiotic) 4,000 mmu cells PO DAILY levothyroxine Take 1 tablet daily Mondays through Saturdays and 2 tablets daily on Sundays daily 12 weeks oxycodone 5 mg PO Q6H PRN 7 days pyridoxine (vitamin B6) 100 mg PO DAILY 90 days sertraline 100 mg PO DAILY varenicline tartrate 1 mg PO BID 28 days Tobacco use date assessed: 08/20/24 Fall risk assessment: No Falls in past year Last assessed Fall Risk: 02/18/25 Dental Screening Dental Screen Date: 08/20/24 HPI HLD, ANXIETY HPI Details Patient comes in today for her follow up visit She continues to experience increased pain in her knees Recalls getting a cortisone injection into her right knee from Dr. Pineda a couple of months ago with (+) significant pain relief Is wondering how long she has to wait before she can receive another cortisone injection in her knee again She was working on getting psychological evaluation in preparation of PNS Curonix last year but she ended up having lung surgery (RML wedge resection) done for a pulmonary nodule that was suspicious for cancer and this set her back quite a bit Her pathology fortunately came out benign (non-neoplastic with necrotizing granulomatous inflammation) States that she has not yet gotten her psychological evaluation and clearance done (for her to be able to get the stimulator implant to help with her chronic pain) as she still cannot afford to pay for the evaluation out of pocket but she was advised by Dr. Aguirre at her recent follow up appointment with him that she can likely try to get her evaluation done by local psychologists in the community but she will need to get a referral from her PCP She also reports experiencing increased pain over her lower back lately and would like to get her lumbar spine x-rays updated Patient states that she feels okay otherwise She denies any headaches or dizziness Denies any chest pains, no increased SOB No nausea/vomiting, no abdominal pain No change in bowel habits noted Adds that she was stung repeatedly (she thinks about 3 times) by a wasp on her right forearm (near the elbow) just over a week ago when she was taking out her trash and there were wasps underneath the cover of her trash can States that she took some OTC Benadryl and ended up shaking (tremors) for a few hours Would like to know if there is anything else other than Benadryl that she can take to help clear up the rash and swelling on her forearm faster She was not able to get her follow up labs done prior to coming in for her appointment today [facility] Medical History Osteopenia Nicotine dependence, cigarettes, uncomplicated Locking of left knee Acquired hypothyroidism Retention of urine Complex regional pain syndrome i of left lower limb Arthritis Back pain Hx of hepatitis C History of positive PPD COPD (chronic obstructive pulmonary disease) Anxiety History of depression History of nephrolithiasis Asthma Elevated cholesterol Surgical History History of arthroscopy of left knee Status post total abdominal hysterectomy and bilateral salpingo-oophorectomy (TA-BSO) History of lung surgery Hx of colonoscopy S/P cystoscopy with ureteral stent placement Hx of left knee surgery Social History Housing: Apartment Alcohol intake: current Alcohol intake frequency: holidays/special occasions only Alcohol type: beer and hard liquor Patient Tobacco Use Status: Current everyday Tobacco user Tobacco use type: Cigarette Cigarette Packs Per Day: 0.5 Cigarettes Per Day: 10.0 Years Smoked: 40 plus Packs Per Year: 0 Packs per year/per ci.00 e-Cigarette/Vaping Use: Never Used service: No Current occupational status: other Current occupation: Right Handed Cognitive needs: No Hearing needs: No Vision needs: No Questionnaire PHQ-9 Over the last 2 weeks, how often have you been bothered by any of the following problems? 1. Little interest or pleasure in doing things: several days 2. Feeling down, depressed, or hopeless: several days 3. Trouble falling or staying asleep, or sleeping too much: several days 4. Feeling tired or having little energy: several days 5. Poor appetite or overeating: several days 6. Feeling bad about yourself - or that you are a failure or have let yourself or your family down: not at all 7. Trouble concentrating on things, such as reading the newspaper or watching television: several days 8. Moving or speaking so slowly that other people could have noticed. Or the opposite - being so fidgety or restless that you have been moving around a lot more than usual: not at all 9. Thoughts that you would be better off or of hurting yourself in some way: not at all Total score: 6 Depression Screening Interpretation: Positive Depression Screening Follow-up: Existing condition and In treatment Depression Screening Done: Yes 67293 - PHQ-9 Billing: Yes Source: Developed by Drs. Agustin Tse, Felicity Arrington, Kit Carballo and colleagues, with an educational elena from [employer]. Thrive Questionnaire Date Thrive assessed: 02/18/25 I am a: Patient What is your living situation today?: I have a place to live, but I am worried about losing it in the future Within the past 12 months, did the food you bought not last and you didn't have the money to get more?: Often true Within the past 12 months, did you worry whether your food would run out before you got money to buy more?: Often true Do you have trouble paying for medicines?: No Do you have trouble getting transportation to medical appointments?: No Do you have trouble paying your heating and electricity bill?: No Do you have trouble taking care of your child, family member or friend?: No Do you have trouble with day-to-day activities such as bathing, preparing meals, shopping, managing finances, etc.?: No Are you currently unemployed and looking for a job?: No Are you interested in more education?: No Please select the resources that you would like help with: Housing/Nursing Home Currently or been in a relationship where the following occur: Controlled Emot ionally and No concerns reported THRIVE Score: 4 AUDIT C Alcohol Use Questionnaire (AUDIT-C) 1. How often do you have a drink containing alcohol?: Monthly or less 2. How many drinks containing alcohol do you have on a typical day when you are drinking?: 1 or 2 3. How often do you have six or more drinks on one occasion?: Never Total Score: 1 Score Reviewed/Action Taken: Yes TIMOTHY-7 AMB Questionnaire TIMOTHY-7 Date TIMOTHY - 7 assessed: 02/18/25 Feeling nervous, anxious, or on edge: 1 = Several days Not being able to stop or control worryin = Several days Worrying too much about different things: 1 = Several days Trouble relaxin = Several days Being so restless that it is hard to sit still: 1 = Several days Becoming easily annoyed or irritable: 1 = Several days Feeling afraid as if something awful might happen: 1 = Several days Total TIMOTHY-7 score (0-4 normal; 5-9 mild; 10-14 moderate; 15-21 severe): 7 Source: Developed by Drs. Agustin Tse, Felicity Arrington, Kit Carballo and colleagues, with an educational elena from [employer]. Review of Systems Const Denies chills, Reports fatigue, Denies fever(s) and Denies headache(s) ENT Denies dysphagia, Denies dizziness, Denies otalgia, Denies headache(s), Denies neck pain, Denies odynophagia and Denies sore throat Card Denies chest pain, Denies palpitations and Denies dyspnea Resp Denies chest congestion, Denies cough and Denies dyspnea GI Denies abdominal pain, Denies constipation, Denies dysphagia, Denies heartburn, Denies diarrhea, Denies nausea, Denies odynophagia and Denies vomiting Denies difficulty voiding, Denies nocturia, Denies dysuria and Denies urinary urgency Musc Details: (+) chronic left lower extremity pain Reports back pain (over the lower back - increasing), Reports arthralgias (over both knees - chronic), Denies neck pain, Reports numbness (recurrent, in both hands) and Reports tingling (recurrent in both hands) Skin/Breast Reports rash (over the posteromedial aspect of her proximal right forearm ) Neuro Denies dizziness, Denies headache(s), Reports numbness (recurrent, in both hands) and Reports tingling (recurrent in both hands) Psych Denies anxiety and Denies depression Endo Reports fatigue and Denies palpitations Clifford/Lymph Denies easy bruising Physical exam (Primary Care) Vital Signs: Last Vital Signs Pulse 74 02/18/25 14:20 BP 120/78 02/18/25 14:20 Pulse Ox 97 02/18/25 14:20 Oxygen Delivery Method Room Air 02/18/25 14:20 BMI result Body Mass Index 19.5 Tobacco/Smoking Status: Tobacco use Status Tobacco use date assessed 08/20/24 02/18/25 14:25 Patient Tobacco Use Status Current everyday Tobacco 02/18/25 14:25 Tobacco use type Cigarette 02/18/25 14:27 e-Cigarette/Vaping Use Never Used 02/18/25 14:25 PHQ-9: PHQ-9 Score PHQ-9: Total score 6 02/18/25 14:44 Depression Screening Interpretation: Positive Depression Screening Follow-up: Existing condition and In treatment Thrive Assessment: Date of Thrive Assessment Date Thrive assessed 02/18/25 02/18/25 14:25 Currently or been in a relationship where the following occur: Controlled Emotionally and No concerns reported Const General: no acute distress and alert HENMT Ears: TM's normal bilaterally and EAC's normal Throat: Yes posterior oropharynx normal and Yes tonsils normal (no TP congestion) Neck Neck: Yes supple Thyroid: Thyroid normal Resp Auscultation: clear to auscultation bilaterally, no rales and no wheezes Cardio Rate: regular rate Rhythm: regular rhythm Heart sounds: no murmurs GI Palpation (GI): Soft to palpation and nontender Auscultation: normal bowel sounds General: Yes no CVA tenderness Back/Spine/Pelvis Back: no CVA tenderness Thoracic/Lumbar Spine: lumbar spinal tenderness Skin Other: (+) patchy erythema and mild edema over the posteromedial aspect of the proximal right forearm Extrem General: Yes no clubbing, cyanosis or edema Right upper extremity: wrist Details: no tenderness Left upper extremity: wrist (no tenderness noted on exam) Right lower extremity: knee Details: tenderness Location: of the pre-patellar area and of the infrapatellar area; no swelling Left lower extremity: knee Details: tenderness (chronic) Location: of the pre- patellar area and of the infrapatellar area; no swelling Coding Level of Care Code Est Pt Level 4 (96131) Diagnoses Mixed hyperlipidemia E78.2 Pulmonary nodule R91.1 Mild intermittent asthma without complication J45.20 Asthma complication type: uncomplicated Asthma persistence: intermittent Asthma severity: mild Acquired hypothyroidism E03.9 Primary osteoarthritis of both knees M17.0 Osteoarthritis type: primary Complex regional pain syndrome i of left lower limb G90.522 Neuropathy G62.9 Nephrolithiasis N20.0 Anxiety F41.9 Smoker F17.200 Additional Codes PHQ-9 - 08435 - PHQ-9 Billing: Yes ([id number]) Assessment & Plan Assessment & Plan (1) Mixed hyperlipidemia: Code(s): E78.2 - Mixed hyperlipidemia Category: Medical Plan: Reinforced low-cholesterol diet Continue Fenofibrate 145 mg QD and Ezetimibe 10 mg QD Will recheck her labs and fasting lipids again in a couple of months for follow- up (2) Pulmonary nodule: Code(s): R91.1 - Solitary pulmonary nodule Category: Medical Plan: She underwent a robotic right middle lobe wedge resection and mediastinal lymphadenectomy with Dr. 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; stains were all negative and her lymph node was benign Follow up with thoracic surgery as scheduled or as needed (3) Asthma: Code(s): J45.909 - Unspecified asthma, uncomplicated Category: Medical Qualifiers: Asthma complication type: uncomplicated Asthma persistence: intermittent Asthma severity: mild Qualified Code(s): J45.20 - Mild intermittent asthma, uncomplicated Plan: Controlled Continue Albuterol HFA 1 to 2 inhalations Q 6 hours PRN (4) Acquired hypothyroidism: Code(s): E03.9 - Hypothyroidism, unspecified Category: Medical Plan: Continue Levothyroxine 88 mcg 1 tablet daily on Mondays to Saturdays and 2 tablets QD on Sundays Will recheck her TFTs in a couple of months for follow up (5) Osteoarthritis of knees, bilateral: Code(s): M17.0 - Bilateral primary osteoarthritis of knee Category: Medical Qualifiers: Osteoarthritis type: primary Qualified Code(s): M17.0 - Bilateral primary osteoarthritis of knee Plan: S/P arthroscopic surgery x 2 in the past; she has also tried physical therapy, cortisone injections and Euflexxa injections with no significant relief or improvement of symptoms She more recently had cortisone injection into her right knee with orthopedics a couple of months ago - patient reports (+) significant relief of her pain for a while Follow up with orthopedics as scheduled (6) Complex regional pain syndrome i of left lower limb: Code(s): G90.522 - Complex regional pain syndrome I of left lower limb Category: Medical Plan: Follow up with pain management as scheduled Dr. Aguirre thinks that patient suffers from Complex regional pain syndrome (CRPS) of the left lower extremity and would benefit greatly from PNS Curonix b ut she needs to get psychological clearance for this first before he can proceed with the implant Patient was supposedly working on getting psychological evaluation in preparation for the PNS Curonix (she did not have enough funds to pay for psychological evaluation and had to wait until October 2023) but she ended up having lung surgery (RML wedge resection) done in October 2023 for a pulmonary nodule that was suspicious for cancer She still has not been able to get her psychological evaluation done as she could not afford it She has been advised by Dr. Aguirre recently that she can try to get this done through local psychologists - referral to psychology placed Continue Oxycodone 5 mg Q 6 hours PRN for now - Rx refilled She is reminded to try getting her psychological evaluation completed DAVID so she can proceed with her interventional pain management procedures (7) Neuropathy: Code(s): G62.9 - Polyneuropathy, unspecified Category: Medical Plan: EMG and NCV done back on 05/17/2024 revealed findings of bilateral mild median neuropathy at the wrist, consistent with carpal tunnel syndrome She has been advised to wear wrist splints as often as she can to help control / manage her symptoms for now (8) Nephrolithiasis: Code(s): N20.0 - Calculus of kidney Category: Medical Plan: Follow up with urology as scheduled for continuing management (9) Anxiety: Code(s): F41.9 - Anxiety disorder, unspecified Category: Medical Plan: Continue Sertraline 100 mg QD (10) Smoker: Code(s): F17.200 - Nicotine dependence, unspecified, uncomplicated Category: Social Hx Plan: Patient is counseled again on complete smoking cessation Plan Follow up as scheduled in April 2025 Orders: Orders Complete Blood Count Auto Diff 04/08/25 E03.9 - Hypothyroidism, unspecified, E78.2 - Mixed hyperlipidemia, F17.200 - Nicotine dependence, unspecified, uncomplicated, F41.9 - Anxiety disorder, unspecified, J45.20 - Mild intermittent asthma, uncomplicated, R91.1 - Solitary pulmonary nodule, Z00.00 - Encounter for general adult medical examination without abnormal findings Free T4 (Free Thyroxine) 04/08/25 E03.9 - Hypothyroidism, unspecified, E78.2 - Mixed hyperlipidemia, F17.200 - Nicotine dependence, unspecified, uncomplicated, F41.9 - Anxiety disorder, unspecified, J45.20 - Mild intermittent asthma, uncomplicated, R91.1 - Solitary pulmonary nodule, Z00.00 - Encounter for general adult medical examination without abnormal findings Lipid Panel 04/08/25 E03.9 - Hypothyroidism, unspecified, E78.2 - Mixed hyperlipidemia, F17.200 - Nicotine dependence, unspecified, uncomplicated, F41.9 - Anxiety disorder, unspecified, J45.20 - Mild intermittent asthma, uncomplicated, R91.1 - Solitary pulmonary nodule, Z00.00 - Encounter for general adult medical examination without abnormal findings UA CC w/rflx Micro + Cult 04/08/25 E03.9 - Hypothyroidism, unspecified, E78.2 - Mixed hyperlipidemia, F17.200 - Nicotine dependence, unspecified, uncomplicated, F41.9 - Anxiety disorder, unspecified, J45.20 - Mild intermittent asthma, uncomplicated, R91.1 - Solitary pulmonary nodule, Z00.00 - Encounter for general adult medical examination without abnormal findings Vitamin D 25-OH Total 04/08/25 E03.9 - Hypothyroidism, unspecified, E78.2 - Mixed hyperlipidemia, F17.200 - Nicotine dependence, unspecified, uncomplicated, F41.9 - Anxiety disorder, unspecified, J45.20 - Mild intermittent asthma, uncomplicated, R91.1 - Solitary pulmonary nodule, Z00.00 - Encounter for general adult medical examination without abnormal findings XR lumbar spine 2-3V Today M54.50 - Low back pain, unspecified Comprehensive [place]. Panel Fast 04/08/25 E03.9 - Hypothyroidism, unspecified, E78.2 - Mixed hyperlipidemia, F17.200 - Nicotine dependence, unspecified, uncomplicated, F41.9 - Anxiety disorder, unspecified, J45.20 - Mild intermittent asthma, uncomplicated, R91.1 - Solitary pulmonary nodule, Z00.00 - Encounter for general adult medical examination without abnormal findings Microalbumin, Random (w Creat) 04/08/25 E03.9 - Hypothyroidism, unspecified, E78.2 - Mixed hyperlipidemia, F17.200 - Nicotine dependence, unspecified, uncomplicated, F41.9 - Anxiety disorder, unspecified, J45.20 - Mild intermittent asthma, uncomplicated, R91.1 - Solitary pulmonary nodule, Z00.00 - Encounter for general adult medical examination without abnormal findings Vitamin B12 and Folate 04/08/25 E03.9 - Hypothyroidism, unspecified, E78.2 - Mixed hyperlipidemia, F17.200 - Nicotine dependence, unspecified, uncomplicated, F41.9 - Anxiety disorder, unspecified, J45.20 - Mild intermittent asthma, uncomplicated, R91.1 - Solitary pulmonary nodule, Z00.00 - Encounter for general adult medical examination without abnormal findings Thyroid Stimulating Hormone 04/08/25 E03.9 - Hypothyroidism, unspecified Referrals Psychology Referral F41.9 - Anxiety disorder, unspecified, Z00.8 - Encounter for other general examination Medications: New cetirizine 10 mg PO DAILY PRN 30 tabs 2RF allergy symptoms Refilled oxycodone Partial Fill upon patient request. 5 mg PO Q6H PRN 28 tabs 0RF pain 7 days
[2025-02-18 14:20] VITALS: BP 120/78; PULSE 74; O2SAT 97; BMI 19.5
--- OUTSIDE RECORDS SUMMARY | 2025-02-18 15:40 | XMS_ITS | Clinical Summary ---
Author Organization [facility] Address [address] [place] [address] Phone Care Team Providers Care Manager Food Name Role Phone Brooks Al MD Primary Care Provider Encounters Date Type Department Care Team Description 01/17/2025 8:10 AM EDT - 01/17/2025 11:59 PM EDT Hospital Encounter [facility] CT Scan [address] [place] [address] Encounter for screening for lung cancer; Cigarette smoker Discharge Disposition: Home or Self Care 12/25/2024 Telephone Lung Screening Program - [place] [address] [address] Jenn Arrington [place] Appointment (1st Notification) [...] Fernandez OTHER SURGICAL HISTORY 04/2019 Left PROCEDURE: DE ARTHROSCOPY KNEE SYNOVECTOMY LIMITED SPX; COMMENT: for synovial plica impingement OTHER SURGICAL HISTORY 10/12/2023 Right PROCEDURE: DE THORACOSCOPY W/THERA WEDGE RESEXN INITIAL UNILAT; COMMENT: RML Wedge with Biopsies Medical History Medical History Date Comments Hep C w/o coma, chronic (CMS /HCC V24, CMS/HCC V28) 12/14/2013 DX:Hep C w/o coma, chronic ( HCC); COMMENT: Per pt, had treatment, follows with Dr. Fernandez, Major depression in full rem ission ([facility] V24) DX:Major depression in full remission ([facility]) Osteopenia 03/13/2014 DX:Osteopenia Skin cancer DX:Skin cancer Mixed hyperlipidemia DX:Mixed hy perlipidemia Kidney disease DX:Kidney diseas e Thyroid disease DX:Thyroid disea se COPD (chronic obstructive pu lmonary disease) ([facility] V24, [facility] V28) DX:COPD (chronic o bstructive pulmonary disease) ([facility]) Tuberculosis DX:Tuberculosis; COMMENT: teens, s/p treatment (per patient) Family History Medical History Relation Name Comments Hyperlipidemia Brother 1 Lymphoma Brother 1 Other: HIV Brother 1 Coronary artery disease Brother 2 Hypertension Brother 2 Diabetes Father at age 85 from DM complication, no [place], Stroke Lung cancer Mother from lung Ca [...] Vaccine ( season) 2024 11/10/2021, 10/09/2020, 09/18/2020 Breast Cancer Screening 06/17/2024 06/17/20, 06/12/2021, 08/05/2017 Influenza Vaccine (#1) 2025 , 05/16/2019, 05/10/2018, Additional history exists Lung Cancer Screening (Low Dose CT) 01/17/2026 01/17/2025, 05/30/2023, 05/20/2022, Additional history exists DTaP,Tdap,and Td Vaccines (5 - Td or Tdap) 09/14/2030 09/14/2020, 12/14/2015, 12/14/2015, Additional history exists Zoster Vaccines Completed 06/29/2019, 03/25/2019 HIB Vaccines [...] Date/Time Associated Diagnosis Comments CT LUNG SCREENING Routine 01/17/2025 8:4 3 AM EDT Encounter for screening for lung cancer Cigarette smoker SCREENING MAMMOGRAPHY BI 2-VIEW BREAST INC CAD Routine 06/17/2022 9:08 AM EST Encounter for screening mammogram for malignant neoplasm of breast from Last 3 Months or Most Recently Relevant to Health Maintenance Results * CT Lung Screening (01/17/2025 8:43 AM EDT) Anatomical Region Laterality Modality Chest Computed Tomogra phy 01/17/2025 5:28 PM EDT Impressions 01/17/2025 5:37 PM EDT No new or suspicious pulmonary nodules. Lung RADS 2-benign. Recommend continued screening with low-dose chest CT in 12 months. -------- FINAL REPORT -------- Dictated By: SHOBHA HERNANDEZ Dictated Date: 01/17/2025 17:28 ET Assigned Physician: SHOBHA HERNANDEZ Reviewed and Electronically Signed By: SHOBHA HERNANDEZ Signed Date: 01/17/2025 17:37 ET Workstation ID: [id number] Transcribed By: Self Edit Transcribed Date: 01/17/2025 17:28 ET Narrative 01/17/2025 5:37 PM EDT PROCEDURE: Chest CT INDICATION: Current smoker, 64 pack year smoking history, lung cancer screening, follow-up nodule TECHNIQUE: Chest CT without contrast. Multi planar reformats were created and interpreted. The examination was performed utilizing dose reduction techniques. Total DLP 95 COMPARISON: 01/17/2024 and 09/02/2023 FINDINGS: LUNGS/PLEURA: Central airways are patent. Right middle lobe wedge resection with associated scarring. Small secretions are seen within the trachea. Multilobulated cyst with surrounding groundglass in the right anterior upper lobe measures 9 mm as compared to 9 mm prior. 3 mm subpleural nodule in the right middle lobe is unchanged. Calcified granulomas in the right lower lobe are unchanged. No new or suspicious pulmonary nodules. No pleural effusion or pneumothorax. MEDIASTINUM: Thyroid gland is normal. Calcified mediastinal and right hilar lymph nodes indicative of prior granulomatous infection. No mediastinal or hilar lymphadenopathy. Esophagus is normal. Cardiac chambers are normal in size. No pericardial effusion. Mild coronary calcifications. Mild arterial calcifications at the aorta and its major branches. CHEST WALL: No axillary lymphadenopathy or superficial hematoma. UPPER ABDOMEN:The visualized portions of the upper abdomen are unremarkable. BONES: No acute fracture. Scattered degenerative changes seen throughout the bones. Procedure Note Shobha Hernandez MD - 01/17/2025 PROCEDURE: Chest CT INDICATION: Current smoker, 64 pack year smoking history, lung cancerscreening, follow-up nodule TECHNIQUE: Chest CT without contrast. Multi planar reformats were createdand interpreted. The examination was performed utilizing dose reductiontechniques. Total DLP 95 COMPARISON: 01/17/2024 and 09/02/2023 FINDINGS: LUNGS/PLEURA: Central airways are patent. Right middle lobe wedgeresection with associated scarring. Small secretions are seen within thetrachea. Multilobulated cyst with surrounding groundglass in the rightanterior upper lobe measures 9 mm as compared to 9 mm prior. 3 mmsubpleural nodule in the right middle lobe is unchanged. Calcifiedgranulomas in the right lower lobe are unchanged. No new or suspiciouspulmonary nodules. No pleural effusion or pneumothorax. MEDIASTINUM: Thyroid gland is normal. Calcified mediastinal and righthilar lymph nodes indicative of prior granulomatous infection. Nomediastinal or hilar lymphadenopathy. Esophagus is normal. Cardiacchambers are normal in size. No pericardial effusion. Mild coronarycalcifications. Mild arterial calcifications at the aorta and its majorbranches. CHEST WALL: No axillary lymphadenopathy or superficial hematoma. UPPER ABDOMEN:The visualized portions of the upper abdomen areunremarkable. BONES: No acute fracture. Scattered degenerative changes seen throughoutthe bones. IMPRESSION: No new or suspicious pulmonary nodules. Lung RADS 2-benign. Recommendcontinued screening with low-dose chest CT in 12 months. -------- FINAL REPORT -------- Dictated By: SHOBHA HERNANDEZ Dictated Date: 01/17/2025 17:28 ET Assigned Physician: SHOBHA HERNANDEZ Reviewed and Electronically Signed By: SHOBHA HERNANDEZ Signed Date: 01/17/2025 17:37 ET Workstation ID: [id number] Transcribed By: Self Edit Transcribed Date: 01/17/2025 17:28 ET us Ascencion Ramirez MD IMG CT PROCEDURES Final Result * [...] typically benign parenchymal asymmetries IMPRESSION: : 1. No mammographic evidence of [...] Most Recently Relevant to Health Maintenance Insurance [facility] Member Subscriber Plan / Payer (Ef fective 2024-Present) Name:JESSY BUENROSTRO Relation to Subscriber:Self Name:Jessy Buenrostro Payer ID:[id number] Group ID:[id number] Type:Not on file Address: [place] [address] [address] [phone] Care Teams Manager Food Relationship Specialty Start Date End Date Brooks Al MD [address] [place] [address] Dr [address] [place], [place] PCP - General 05/30/23
--- OUTSIDE RECORDS SUMMARY | 2025-02-18 15:40 | XMS_ITS | Clinical Summary ---
Author Organization [facility] Facility Address [address] [place] [address] Care Team Providers Care Hi Teacher Name Role Phone Shaun Carbajal MD Primary Care Provider [phone] Allergies Active Allergy Reactions Criticality Noted Date [...] 02/18/2022 Active Cholecalciferol (Vitamin D3) 1.25 MG (43805 UT) capsule Take by mouth Active Ascorbic [...] Colorectal Cancer Screening: Sigmoidoscopy 2009 Influenza Vaccine (#1) 2025 Hepatitis B Vaccine Aged Out No longe r eligible based on patient's age to complete this topic Insurance [facility] Medicaid [facility] Medicaid Care Teams Hi Teacher Relationship Specialty Start Date End Date Shaun Carbajal MD PCP - General Internal Medicine 02/22/22
== END 2025-02-18 14:57 | disposition home or self-care (01) ==
LOC: HO.HMCH 14:16
PROVIDERS: PCP Internal Medicine; Visit Provider Internal Medicine
DX: E78.2 Mixed hyperlipidemia (principal); R91.1 Solitary pulmonary nodule; J45.20 Mild intermittent asthma, uncomplicated; E03.9 Hypothyroidism, unspecified; M17.0 Bilateral primary osteoarthritis of knee; G90.522 Complex regional pain syndrome I of left lower limb; G62.9 Polyneuropathy, unspecified; N20.0 Calculus of kidney; F41.9 Anxiety disorder, unspecified; F17.200 Nicotine dependence, unspecified, uncomplicated

== ENCOUNTER → 2025-02-18 14:16 | Outpatient (BNVA) | payer OTHER, SELFPAY | PROVIDERS: PCP Internal Medicine; Visit Provider Internal Medicine | DX: E78.2 Mixed hyperlipidemia (principal); R91.1 Solitary pulmonary nodule; J45.20 Mild intermittent asthma, uncomplicated; E03.9 Hypothyroidism, unspecified; M17.0 Bilateral primary osteoarthritis of knee; G90.522 Complex regional pain syndrome I of left lower limb; G62.9 Polyneuropathy, unspecified; N20.0 Calculus of kidney; F41.9 Anxiety disorder, unspecified; F17.210 Nicotine dependence, cigarettes, uncomplicated; Z79.899 Other long term (current) drug therapy; Z13.31 Encounter for screening for depression; Z13.39 Encounter for screening examination for other mental health and behavioral disorders | CPT/HCPCS: 96127; 99212 ==

== ENCOUNTER 2025-03-26 16:32 | Outpatient (REF) | payer OTHER, SELFPAY ==
--- NOTE | ~2025-03-26 | XR_ITS ---
EXAMINATION: XR LUMBOSACRAL SPINE CLINICAL INFORMATION: M54.50 - Low back pain, unspecified COMPARISON: Lumbar spine 08/30/2013 TECHNIQUE: Three views of the lumbosacral spine. FINDINGS: There is normal lumbar lordosis. The vertebral heights, alignment and disc heights are normal. No visible acute fracture, dislocation or lytic process seen. Mild endplate spondylosis seen mid lumbar spine. The paravertebral soft tissues are normal. Mild sclerosis of right superior SI joint. Otherwise the SI joints are symmetrical. XR/XR lumbar spine 2-3V IMPRESSION: Mild sclerosis of right superior SI joint likely sacroiliitis Mild endplate spondylosis mid lumbar spine. No acute fracture or dislocation. Electronically signed by: Chon Dewitt MD 03/27/2025 07:26 AM EDT
--- OUTSIDE RECORDS SUMMARY | 2025-03-26 17:44 | XMS_ITS | Clinical Summary ---
Author Organization [facility] Facility Address [address] [place] [address] Care Team Providers Care Research Investigator Name Role Phone Shaun Carbajal MD Primary Care Provider [phone] Allergies Active Allergy Reactions Criticality Noted Date [...] 02/18/2022 Active Cholecalciferol (Vitamin D3) 1.25 MG (61277 UT) capsule Take by mouth Active Ascorbic [...] patient's age to complete this topic Insurance [facility] Medicaid [facility] Medicaid Care Teams Research Investigator Relationship Specialty Start Date End Date Shaun Carbajal MD PCP - General Internal Medicine 02/22/22
--- OUTSIDE RECORDS SUMMARY | 2025-03-26 17:44 | XMS_ITS | Clinical Summary ---
Author Organization [facility] Address [address] [place] [address] Phone Care Team Providers Care Accountancy Professor Name Role Phone Brooks Al MD Primary Care Provider [phone] Encounters Date Type Department Care Team Description 01/17/2025 8:10 AM EDT - 01/17/2025 11:59 PM EDT Hospital Encounter [facility] CT Scan [address] [place] [address] Encounter for screening for lung cancer; Cigarette smoker Discharge Disposition: Home or Self Care 12/25/2024 Telephone Lung Screening Program - [place] [address] [address] Jenn Arrington [place] Appointment (1st [...] Fernandez OTHER SURGICAL HISTORY 04/2019 Left PROCEDURE: [place] ARTHROSCOPY KNEE SYNOVECTOMY LIMITED SPX; COMMENT: for synovial plica impingement OTHER SURGICAL HISTORY 10/12/2023 Right PROCEDURE: [place] THORACOSCOPY W/THERA WEDGE RESEXN INITIAL UNILAT; COMMENT: RML Wedge with Biopsies Medical History Medical History Date Comments Hep C w/o coma, chronic (CMS /HCC V24, CMS/HCC V28) 12/14/2013 DX:Hep C w/o coma, chronic ( HCC); COMMENT: Per pt, had treatment, follows with Dr. Fernandez, Major depression in full rem ission ([facility] V24) DX:Major depression in full remission ([facility]) Osteopenia 03/13/2014 DX:Osteopenia Skin cancer DX:Skin cancer Mixed hyperlipidemia DX:Mixed hy perlipidemia Kidney disease DX:Kidney diseas e Thyroid disease DX:Thyroid disea se COPD (chronic obstructive pu lmonary disease) ([facility] V24, [facility] V28) DX:COPD (chronic o bstructive pulmonary disease) ([facility]) Tuberculosis DX:Tuberculosis; COMMENT: teens, s/p treatment (per patient) Family History Medical History Relation Name Comments Hyperlipidemia Brother 1 Lymphoma Brother 1 Other: HIV Brother 1 Coronary artery disease Brother 2 Hypertension Brother 2 Diabetes Father at age 85 from DM complication, no [place], Stroke Lung cancer Mother from lung Ca [...] Panel) 07/17/2022 Colorectal Cancer Screening: Colonoscopy 07/17/2022 HIV Screening 07/17/2022 Hepatitis C Screening 07/17/2022 Medicare Annual Wellness Visit 07/17/2022 Social Influencers of Health Screening 07/17/2022 COVID-19 Vaccine ( season) 2024 11/10/2021, 10/09/2020, 09/18/2020 Breast Cancer Screening 06/17/2024 06/17/20, 06/12/2021, 08/05/2017 Depression Screening 08/08/2024 Influenza Vaccine (#1) 2025 , 05/16/2019, 05/10/2018, [...] Signed Date: 01/17/2025 17:37 ET Workstation ID: [id number] Transcribed By: Self Edit Transcribed Date: 01/17/2025 [...] Signed Date: 01/17/2025 17:37 ET Workstation ID: [id number] Transcribed By: Self Edit Transcribed Date: 01/17/2025 17:28 ET us Asecncion Ramirez MD IMG CT PROCEDURES Final Result [...] Most Recently Relevant [place] [id number] [facility] MEDICARE Member Subscriber Plan / Payer (Ef fective 2024-Present) Name:JESSY BUENROSTRO Relation to Subscriber:Self Name:Jessy Buenrostro Payer ID:[id number] Group ID:[id number] Type:Not on file Address: [place] [address] [address] [phone] Care Teams Accountancy Professor Relationship Specialty Start Date End Date Brooks Al MD [address] [place] [address] Dr [address] [place], [place] PCP - General 05/30/23
== END 2025-03-26 16:33 | disposition home or self-care (01) ==
LOC: HO.XRAY 16:32
PROVIDERS: PCP Internal Medicine; Visit Provider Internal Medicine
DX: M54.50 Low back pain, unspecified (principal)
CPT/HCPCS: 72100

== ENCOUNTER → 2025-03-26 16:35 | Outpatient (BNV) | payer OTHER, SELFPAY | PROVIDERS: PCP Internal Medicine; Visit Provider Radiology Diagnostic Radiology | DX: M46.1 Sacroiliitis, not elsewhere classified (principal) | CPT/HCPCS: 72100 ==

== ENCOUNTER 2025-04-15 12:53 | Outpatient (REF) | payer OTHER, SELFPAY ==
[2025-04-15 13:08] LABS: MANUAL DIFF FLAG NO
[2025-04-15 13:54] LABS: Hematocrit 39.5 % (37.0-47.0); Hemoglobin 13.0 g/dl (12.0-16.0); Imm Gran Abs Auto 0.02 X10*3/uL (0.00-0.03); Imm Gran Pct Auto 0.4 % (0.0-0.4); Lymphocytes Absolute Auto 1.0 X10*3/uL (1.2-4.9); Mean Corpuscular HGB Conc 32.9 g/dl (31.0-35.0); Mean Corpuscular Hemoglobin 32.1 pg (27.0-33.0); Mean Corpuscular Volume 97.5 fL (80.0-98.0); NRBC Abs Auto 0.000 X10*3/uL (0.0-0.012); NRBC Pct Auto 0.0 /100WBC (0.0-0.2); Platelet Count 310 X10*3/uL (160-400); Red Blood Count 4.05 X10*6/uL (4.20-5.50); White Blood Count 5.2 X10*3/uL (4.8-10.8)
[2025-04-15 14:22] LABS: Appearance Urine Clear; Glucose Urine UA Negative (Negative); PH 8.0 (5.0-9.0); Specific Gravity - Urine 1.010 (1.005-1.025); UMIC TRIGGER UACC YES
[2025-04-15 14:23] LABS: Alanine Aminotransferase 21 U/L (0-31); Albumin Level 4.8 g/dL (3.5-5.0); Alkaline Phosphatase 37 U/L (39-117); Anion Gap 14 (12-20); Aspartate Amino Transferase 34 U/L (5-31); Blood Urea Nitrogen 18 mg/dL (9-16); Calcium 9.6 mg/dL (8.4-10.2); Carbon Dioxide 28 mmol/L (22-29); Chloride 105 mmol/L (96-108); Cholesterol 186 mg/dL (<200); Estimated Glomerular Filt Rate 56; HDL Cholesterol 66 mg/dL (>40); Potassium 4.1 mmol/L (3.3-5.1); Sodium 143 mmol/L (135-145); Total Protein 7.4 g/dL (6.5-8.0); Triglycerides 73 mg/dL (<150)
[2025-04-15 14:50] LABS: Folate > 20.0 ng/mL (> or = 4.0); Vitamin B12 601 pg/mL (200-900)
[2025-04-15 14:53] LABS: Free T4 (Free Thyroxine) 1.11 ng/dL (0.71-1.85); Thyroid Stimulating Hormone 0.40 uIU/mL (0.32-4.0)
--- OUTSIDE RECORDS SUMMARY | 2025-04-15 15:04 | XMS_ITS | Clinical Summary ---
Author Organization [facility] Address [address] [place] [address] Phone Care Team Providers Care Drainlayer Name Role Phone Brooks Al MD Primary Care Provider [phone] Encounters Date Type Department Care Team Description 01/17/2025 8:10 AM EDT - 01/17/2025 11:59 PM EDT Hospital Encounter [facility] CT Scan [address] [place] [address] Encounter for screening for lung cancer; Cigarette smoker Discharge Disposition: Home or Self Care from Last 3 Months Surgical History Surgery Date Site/Laterality Comments HYSTERECTOMY 1989 PROCEDURE: HISTORICAL TOTAL HYSTERECTOMY WITH BSO; COMMENT: chronic infection, scarring CHOLECYSTECTOMY 1989 PROCEDURE: HISTORICAL CHOLECYSTECTOMY OTHER SURGICAL HISTORY 07/30/2013 PROCEDURE: OUTSIDE MAMMO; COMMENT: breast MRI Kenny Nazario 6 month repeat advised COLONOSCOPY 07/23/2010 PROCEDURE: OUTSIDE COLONOSCOPY; COMMENT: normal Dr Fernandez OTHER SURGICAL HISTORY 04/2019 Left PROCEDURE: [place] ARTHROSCOPY KNEE SYNOVECTOMY LIMITED SPX; COMMENT: for synovial plica impingement OTHER SURGICAL HISTORY 10/12/2023 Right PROCEDURE: [place] THORACOSCOPY W/THERA WEDGE RESEXN INITIAL UNILAT; COMMENT: RML Wedge with Biopsies Medical History Medical History Date Comments Hep C w/o coma, chronic (CMS /HCC V24, CMS/HCC V28) 12/14/2013 DX:Hep C w/o coma, chronic ( HCC); COMMENT: Per pt, had treatment, follows with Dr. Fernandez, Major depression in full rem ission (CMS/HCC V24) DX:Major depression in full remission (HCC) Osteopenia 03/13/2014 DX:Osteopenia Skin cancer DX:Skin cancer Mixed hyperlipidemia DX:Mixed hy perlipidemia Kidney disease DX:Kidney diseas e Thyroid disease DX:Thyroid disea se COPD (chronic obstructive pu lmonary disease) ([facility]/HCC V24, CMS/HCC V28) DX:COPD (chronic o bstructive pulmonary disease) ([facility]) Tuberculosis DX:Tuberculosis; COMMENT: teens, s/p treatment (per patient) Family History Medical History Relation Name Comments Hyperlipidemia Brother 1 Lymphoma Brother 1 Other: HIV Brother 1 Coronary artery disease Brother 2 Hypertension Brother 2 Diabetes Father at age 85 from DM complication, no [place], Stroke Lung cancer Mother from lung Ca [...] 07/17/2022 Social Influencers of Health Screening 07/17/2022 Breast Cancer Screening 06/17/2024 06/17/20 22, 06/12/2021, 08/05/2017 Depression Screening 08/08/2024 COVID-19 Vaccine ( season) 2025 11/10/2021, 10/09/2020, 09/18/2020 Influenza Vaccine (#1) 2025 , 05/16/2019, 05/10/2018, [...] Signed Date: 01/17/2025 17:37 ET Workstation ID: [id number] Transcribed By: Self Edit Transcribed Date: 01/17/2025 [...] Signed Date: 01/17/2025 17:37 ET Workstation ID: [id number] Transcribed By: Self Edit Transcribed Date: 01/17/2025 17:28 ET us Ascencion Ramirez MD IM CT PROCEDURES Final Result * SCREENING MAMMOGRAPHY [...] Most Recently Relevant to Health Maintenance Insurance [facility] [facility] MEDIC[employer] Member Subscriber Plan / Payer (Ef fective 2024-Present) Name:JESSY BUENROSTRO Relation to Subscriber:Self Name:Jessy Buenrostro Payer ID:[id number] Group ID:[id number] Type:Not on file Address: [place] [address] [address] [phone] Care Teams Drainlayer Relationship Specialty Start Date End Date Brooks Al MD [address] [place] [address] [address] [place], [place] PCP - General 05/30/23
--- OUTSIDE RECORDS SUMMARY | 2025-04-15 15:04 | XMS_ITS | Clinical Summary ---
Author Organization [facility] Facility Address [address] [place] [address] Care Team Providers Care Iron Worker Name Role Phone Shaun Carbajal MD Primary Care Provider [phone] Allergies Active Allergy Reactions Criticality Noted Date [...] 02/18/2022 Active Cholecalciferol (Vitamin D3) 1.25 MG (08011 UT) capsule Take by mouth Active Ascorbic [...] patient's age to complete this topic Insurance [facility] Medicaid [facility] Medicaid Care Teams Iron Worker Relationship Specialty Start Date End Date Shaun Carbajal MD PCP - General Internal Medicine 02/22/22
== END 2025-04-15 12:54 | disposition home or self-care (01) ==
LOC: HO.LAB 12:53
PROVIDERS: PCP Internal Medicine; Visit Provider Internal Medicine
DX: Z00.00 Encounter for general adult medical examination without abnormal findings (principal); R91.1 Solitary pulmonary nodule; F17.200 Nicotine dependence, unspecified, uncomplicated; F41.9 Anxiety disorder, unspecified; E78.2 Mixed hyperlipidemia; J45.20 Mild intermittent asthma, uncomplicated; E03.9 Hypothyroidism, unspecified
CPT/HCPCS: 36415; 80053; 80061; 81001; 81003; 82043; 82306; 82570; 82607; 82746; 84439; 84443; 85025

== ENCOUNTER 2025-04-22 14:44 | Outpatient (AMB) | payer OTHER, SELFPAY ==
--- NOTE | 2025-04-22 15:01 | A.OFFPC_ITS ---
Vital Signs 04/22/25 15:02 Height 5 ft 3 in Weight 111 lb BMI 19.7 BP 120/80 Blood Pressure Location Lt brachial Position Sitting Pulse 75 Pulse Source Pulse Oximeter Pulse Oximetry (%) 97 Oxygen Delivery Method Room Air Intake Visit Reasons: [id number] Milk Powder Grinder Required: No Accompanied by: Self / Same As Patient Allergies simvastatin (SIMVASTATIN) Allergy (Unknown, Verified 04/22/25 15:43) MUSCLE ACHES celecoxib (From Celebrex) Adverse Reaction (Verified 04/22/25 15:43) Gastrointestinal Upset Medication List - Last Reconciled 04/22/25 by Brooks Al MD albuterol sulfate 90 mcg/actuation (ProAir HFA) 2 puffs inhalation Q4-6H PRN ascorbic acid (vitamin C) (Vitamin C) 500 mg PO DAILY cetirizine 10 mg PO DAILY PRN ezetimibe (Zetia) 10 mg PO DAILY fenofibrate nanocrystallized 145 mg PO DAILY 90 days folic acid 1 mg PO DAILY lactobacillus combination no.9 (Adult 50 Plus Probiotic) 4,000 mmu cells PO DAILY levothyroxine Take 1 tablet daily Mondays through Saturdays and 2 tablets daily on Sundays daily 12 weeks oxycodone 5 mg PO Q6H PRN 7 days pyridoxine (vitamin B6) 100 mg PO DAILY 90 days sertraline 100 mg PO DAILY varenicline tartrate 1 mg PO BID 28 days Tobacco use date assessed: 04/22/25 Fall risk assessment: No Falls in past year Last assessed Fall Risk: 04/22/25 Dental Screening Dental Screen Date: 04/22/25 Did you have a dental visit in the last 12 months?: No Did you have a dental problem in the last 6 months where you did not have access to dental care?: No Was dental information given to patient?: No HPI [id number] HPI Details Patient comes in today for her follow up visit States that she went to her psychiatry appointment at the end of last month (March 2025) but found out that she was scheduled to see a therapist then instead of a psychiatrist and her appointment had to be rescheduled She needs to be seen by a psychiatrist so she can get clearance for pain management to proceed with interventional Tx for her chronic low back pain so they are trying to get her rescheduled with a psychiatrist as soon as possible Patient states that other than her low back pain, she feels okay She denies any headaches or dizziness Denies any chest pains, no increased shortness of breath No nausea/vomiting, no abdominal pain No change in bowel habits noted States that she needs to get refills for her vitamin-D and her pain medications and is also requesting again for prescription for nicotine patches to help her quit smoking She had her follow-up labs done last week - to discuss her results [facility] Medical History Osteopenia Nicotine dependence, cigarettes, uncomplicated Locking of left knee Acquired hypothyroidism Retention of urine Complex regional pain syndrome i of left lower limb Arthritis Back pain Hx of hepatitis C History of positive PPD COPD (chronic obstructive pulmonary disease) Anxiety History of depression History of nephrolithiasis Asthma Elevated cholesterol Surgical History History of arthroscopy of left knee Status post total abdominal hysterectomy and bilateral salpingo-oophorectomy (TA-BSO) History of lung surgery Hx of colonoscopy S/P cystoscopy with ureteral stent placement Hx of left knee surgery Social History Housing: Apartment Alcohol intake: current Alcohol intake frequency: holidays/special occasions only Alcohol type: beer and hard liquor Patient Tobacco Use Status: Current everyday Tobacco user Tobacco use type: Cigarette Cigarette Packs Per Day: 0.5 Cigarettes Per Day: 10.0 Years Smoked: 40 plus e-Cigarette/Vaping Use: Never Used service: No Current occupational status: other Current occupation: Right Handed Cognitive needs: No Hearing needs: No Vision needs: No Questionnaire PHQ-9 Over the last 2 weeks, how often have you been bothered by any of the following problems? Depression Screening Interpretation: Positive Depression Screening Follow-up: Existing condition and In treatment Depression Screening Done: Yes Source: Developed by Drs. Agustin Tse, Felicity Arrington, Kit Carballo and colleagues, with an educational elena from [employer] Thrive Questionnaire Date Thrive assessed: 02/18/25 I am a: Patient What is your living situation today?: I have a place to live, but I am worried about losing it in the future Within the past 12 months, did the food you bought not last and you didn't have the money to get more?: Often true Within the past 12 months, did you worry whether your food would run out before you got money to buy more?: Often true Do you have trouble paying for medicines?: No Do you have trouble getting transportation to medical appointments?: No Do you have trouble paying your heating and electricity bill?: No Do you have trouble taking care of your child, family member or friend?: No Do you have trouble with day-to-day activities such as bathing, preparing meals, shopping, managing finances, etc.?: No Are you currently unemployed and looking for a job?: No Are you interested in more education?: No Please select the resources that you would like help with: Housing/Intermediate Currently or been in a relationship where the following occur: Controlled Emotionally THRIVE Score: 4 AUDIT C Alcohol Use Questionnaire (AUDIT-C) 1. How often do you have a drink containing alcohol?: Monthly or less 2. How many drinks containing alcohol do you have on a typical day when you are drinking?: 1 or 2 3. How often do you have six or more drinks on one occasion?: Never Total Score: 1 Score Reviewed/Action Taken: Yes TIMOTHY-7 AMB Questionnaire TIMOTHY-7 Date TIMOTHY - 7 assessed: 02/18/25 Source: Developed by Drs. Agustin Tse, Felicity Arrington, Kit Carballo and colleagues, with an educational elena from [employer] Review of Systems Const Denies chills, Reports fatigue, Denies fever(s) and Denies headache(s) ENT Denies dysphagia, Denies dizziness, Denies otalgia, Denies headache(s), Denies neck pain, Denies odynophagia and Denies sore throat Card Denies chest pain, Denies palpitations and Denies dyspnea Resp Denies chest congestion, Denies cough and Denies dyspnea GI Denies abdominal pain, Denies constipation, Denies dysphagia, Denies heartburn, Denies diarrhea, Denies nausea, Denies odynophagia and Denies vomiting Denies difficulty voiding, Denies nocturia, Denies dysuria and Denies urinary urgency Musc Details: (+) chronic left lower extremity pain Reports back pain (over the lower back - increasing), Reports arthralgias (over both knees - chronic), Denies neck pain, Reports numbness (recurrent, in both hands) and Reports tingling (recurrent in both hands) Skin/Breast Reports rash (over the posteromedial aspect of her proximal right forearm ) Neuro Denies dizziness, Denies headache(s), Reports numbness (recurrent, in both hands) and Reports tingling (recurrent in both hands) Psych Denies anxiety and Denies depression Endo Reports fatigue and Denies palpitations Clifford/Lymph Denies easy bruising Physical exam (Primary Care) Vital Signs: Last Vital Signs Pulse 75 04/22/25 15:02 BP 120/80 04/22/25 15:02 Pulse Ox 97 04/22/25 15:02 Oxygen Delivery Method Room Air 04/22/25 15:02 BMI result Body Mass Index 19.7 Tobacco/Smoking Status: Tobacco use Status Tobacco use date assessed 04/22/25 04/22/25 15:09 Patient Tobacco Use Status Current everyday Tobacco 04/22/25 15:09 Tobacco use type Cigarette 04/22/25 15:09 e-Cigarette/Vaping Use Never Used 04/22/25 15:09 Depression Screening Interpretation: Positive Depression Screening Follow-up: Existing condition and In treatment Thrive Assessment: Date of Thrive Assessment Date Thrive assessed 02/18/25 04/22/25 15:09 Currently or been in a relationship where the following occur: Controlled Emotionally Const General: no acute distress and alert HENMT Ears: TM's normal bilaterally and EAC's normal Throat: Yes posterior oropharynx normal and Yes tonsils normal (no TP congestion) Neck Neck: Yes supple Thyroid: Thyroid normal Resp Auscultation: clear to auscultation bilaterally, no rales and no wheezes Cardio Rate: regular rate Rhythm: regular rhythm Heart sounds: no murmurs GI Palpation (GI): Soft to palpation and nontender Auscultation: normal bowel sounds General: Yes no CVA tenderness Back/Spine/Pelvis Back: no CVA tenderness Thoracic/Lumbar Spine: lumbar spinal tenderness Skin Other: (+) patchy erythema and mild edema over the posteromedial aspect of the proximal right forearm Extrem General: Yes no clubbing, cyanosis or edema Right upper extremity: wrist Details: no tenderness Left upper extremity: wrist (no tenderness noted on exam) Right lower extremity: knee Details: tenderness Location: of the pre-patellar area and of the infrapatellar area; no swelling Left lower extremity: knee Details: tenderness (chronic) Location: of the pre- patellar area and of the infrapatellar area; no swelling Results Reviewed Results Reviewed: Laboratory Tests 04/15/25 04/15/25 13:05 13:06 WBC 5.2 Hgb 13.0 Hct 39.5 Plt Count 310 Sodium 143 Potassium 4.1 Creatinine 0.99 Estimated GFR 56 Fasting Glucose 128 H Calcium 9.6 AST 34 H ALT 21 Triglycerides 73 Cholesterol 186 LDL Cholesterol, Calc 106 H HDL Cholesterol 66 Vitamin B12 601 25-OH Vitamin D Total 40.8 TSH 0.40 Free T4 1.11 Ur Specific [place] 1.010 Urine Protein Negative Urine Glucose (UA) Negative Urine Blood Negative Urine Nitrite Negative Ur Leukocyte Esterase Trace H Coding Level of Care Code Est Pt Level 4 (75964) Diagnoses Mixed hyperlipidemia E78.2 Pulmonary nodule R91.1 Mild intermittent asthma without complication J45.20 Asthma complication type: uncomplicated Asthma persistence: intermittent Asthma severity: mild Acquired hypothyroidism E03.9 Primary osteoarthritis of both knees M17.0 Osteoarthritis type: primary Complex regional pain syndrome i of left lower limb G90.522 Neuropathy G62.9 Nephrolithiasis N20.0 Anxiety F41.9 Smoker F17.200 Assessment & Plan Assessment & Plan (1) Mixed hyperlipidemia: Code(s): E78.2 - Mixed hyperlipidemia Category: Medical Plan: Results of her labs done last week reviewed and discussed with patient Reinforced low-cholesterol diet Continue Fenofibrate 145 mg QD and Ezetimibe 10 mg QD Will recheck her labs and fasting lipids again in 3 months for follow-up (2) Pulmonary nodule: Code(s): R91.1 - Solitary pulmonary nodule Category: Medical Plan: She underwent a robotic right middle lobe wedge resection and mediastinal lymphadenectomy with Dr. 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; stains were all negative and her lymph node was benign Follow up with thoracic surgery as scheduled or as needed (3) Asthma: Code(s): J45.909 - Unspecified asthma, uncomplicated Category: Medical Qualifiers: Asthma complication type: uncomplicated Asthma persistence: intermittent Asthma severity: mild Qualified Code(s): J45.20 - Mild intermittent asthma, uncomplicated Plan: Controlled Continue Albuterol HFA 1 to 2 inhalations Q 6 hours PRN (4) Acquired hypothyroidism: Code(s): E03.9 - Hypothyroidism, unspecified Category: Medical Plan: Her TFTs came back normal on her labs done last week Continue Levothyroxine 88 mcg 1 tablet daily on Mondays to Saturdays and 2 tablets QD on Sundays Will recheck her TFTs in 3 months for follow up (5) Osteoarthritis of knees, bilateral: Code(s): M17.0 - Bilateral primary osteoarthritis of knee Category: Medical Qualifiers: Osteoarthritis type: primary Qualified Code(s): M17.0 - Bilateral primary osteoarthritis of knee Plan: S/P arthroscopic surgery x 2 in the past; she has also tried physical therapy, cortisone injections and Euflexxa injections with no significant relief or improvement of symptoms She more recently had cortisone injection into her right knee with orthopedics a few months ago - patient reports (+) significant relief of her pain for a while Follow up with orthopedics as scheduled (6) Complex regional pain syndrome i of left lower limb: Code(s): G90.522 - Complex regional pain syndrome I of left lower limb Category: Medical Plan: Follow up with pain management as scheduled Dr. Aguirre thinks that patient suffers from Complex regional pain syndrome (CRPS) of the left lower extremity and would benefit greatly from PNS Curonix but she needs to get psychological clearance for this first before he can proceed with the implant Patient was supposedly working on getting psychological evaluation in preparation for the PNS Curonix (she did not have enough funds to pay for psychological evaluation and had to wait until October 2023) but she ended up having lung surgery (RML wedge resection) done in October 2023 for a pulmonary nodule that was suspicious for cancer She was has not able to get her psychological evaluation done as she could not afford it and was advised by Dr. Aguirre recently that she can try to get this done through local psychologists - referral to psychology was placed She went to her psychiatry appointment at the end of last month (March 2025) but found out that she was scheduled to see a therapist then instead of a psychiatrist and her appointment had to be rescheduled She needs to be seen by a psychiatrist so she can get clearance for pain management to proceed with interventional Tx for her chronic low back pain so they are trying to get her rescheduled with a psychiatrist as soon as possible Continue Oxycodone 5 mg Q 6 hours PRN for now - Rx refilled She is reminded to try getting her psychological evaluation completed DAVID so she can proceed with her interventional pain management procedures (7) Neuropathy: Code(s): G62.9 - Polyneuropathy, unspecified Category: Medical Plan: EMG and NCV done back on 05/17/2024 revealed findings of bilateral mild median neuropathy at the wrist, consistent with carpal tunnel syndrome She has been advised to wear wrist splints as often as she can to help control / manage her symptoms for now (8) Nephrolithiasis: Code(s): N20.0 - Calculus of kidney Category: Medical Plan: Follow up with urology as scheduled for continuing management (9) Anxiety: Code(s): F41.9 - Anxiety disorder, unspecified Category: Medical Plan: Continue Sertraline 100 mg QD (10) Smoker: Code(s): F17.200 - Nicotine dependence, unspecified, uncomplicated Category: Social Hx Plan: Patient is counseled again on complete smoking cessation Per request, Rx for nicotine patches sent in for patient Plan Follow up in 3 months Orders: Orders Thyroid Stimulating Hormone 3 Months E03.9 - Hypothyroidism, unspecified UA CC w/rflx Micro + Cult 3 Months R30.0 - Dysuria Vitamin D 25-OH Total 3 Months E55.9 - Vitamin D deficiency, unspecified Lipid Panel 3 Months E78.00 - Pure hypercholesterolemia, unspecified Complete Blood Count Auto Diff 3 Months D64.9 - Anemia, unspecified Comprehensive [place]. Panel Fast 3 Months E78.00 - Pure hypercholesterolemia, unspecified Free T4 (Free Thyroxine) 3 Months E03.9 - Hypothyroidism, unspecified Medications: New nicotine 1 patch transdermal DAILY 7 ea 0RF 7 days F17.200 - Nicotine dependence, unspecified, uncomplicated nicotine 1 patch transdermal DAILY 7 ea 0RF 7 days F17.200 - Nicotine dependence, unspecified, uncomplicated cholecalciferol (vitamin D3) 50 mcg PO DAILY 90 caps 3RF 90 days E55.9 - Vitamin D deficiency, unspecified nicotine 1 patch transdermal Q24H 28 ea 5RF 28 days F17.200 - Nicotine dependence, unspecified, uncomplicated Refilled oxycodone Partial Fill upon patient request. 5 mg PO Q6H PRN 28 tabs 0RF pain 7 days
[2025-04-22 15:02] VITALS: BP 120/80; PULSE 75; O2SAT 97; BMI 19.7
--- OUTSIDE RECORDS SUMMARY | 2025-04-22 20:11 | XMS_ITS | Clinical Summary ---
Author Organization [facility] Facility Address [address] [place] [address] Care Team Providers Care Zipper Repairer Name Role Phone Shaun Carbajal MD Primary Care Provider [phone] Allergies Active Allergy Reactions Criticality Noted Date [...] 02/18/2022 Active Cholecalciferol (Vitamin D3) 1.25 MG (67251 UT) capsule Take by mouth Active Ascorbic [...] patient's age to complete this topic Insurance [facility] Medicaid [facility] Medicaid Care Teams Zipper Repairer Relationship Specialty Start Date End Date Shaun Carbajal MD PCP - General Internal Medicine 02/22/22
--- OUTSIDE RECORDS SUMMARY | 2025-04-22 20:11 | XMS_ITS | Clinical Summary ---
Author Organization [facility] Address [address] [place] [address] Phone Care Team Providers Care Activities Concierge Name Role Phone Brooks Al MD Primary Care Provider [phone] Surgical History Surgery Date Site/Laterality Comments HYSTERECTOMY 1989 PROCEDURE: HISTORICAL TOTAL HYSTERECTOMY WITH BSO; COMMENT: chronic infection, scarring CHOLECYSTECTOMY 1989 PROCEDURE: HISTORICAL CHOLECYSTECTOMY OTHER SURGICAL HISTORY 07/30/2013 PROCEDURE: OUTSIDE MAMMO; COMMENT: breast MRI Kenny Nazario 6 month repeat advised COLONOSCOPY 07/23/2010 PROCEDURE: OUTSIDE COLONOSCOPY; COMMENT: normal Dr Fernandez OTHER SURGICAL HISTORY 04/2019 Left PROCEDURE: MI ARTHROSCOPY KNEE SYNOVECTOMY LIMITED SPX; COMMENT: for synovial plica impingement OTHER SURGICAL HISTORY 10/12/2023 Right PROCEDURE: MI THORACOSCOPY W/THERA WEDGE RESEXN INITIAL UNILAT; COMMENT: [...] (chronic obstructive pu lmonary disease) (CMS/HCC V24, CMS/HCC V28) DX:COPD (chronic o bstructive pulmonary disease) ([facility]) Tuberculosis DX:Tuberculosis; COMMENT: teens, s/p treatment (per patient) Family History Medical History Relation Name Comments Hyperlipidemia Brother 1 Lymphoma Brother 1 Other: HIV Brother 1 Coronary artery disease Brother 2 Hypertension Brother 2 Diabetes Father at age 85 from DM complication, no ME, Stroke Lung cancer Mother from lung Ca [...] Panel) 07/17/2022 Colorectal Cancer Screening: Colonoscopy 07/17/2022 Hepatitis C Screening 07/17/2022 Medicare Annual Wellness Visit 07/17/2022 Osteoporosis Screening (Bone Density Screening) 07/17/2022 Social Influencers of Health Screening 07/17/2022 Breast Cancer Screening 06/17/2024 06/17/20, 06/12/2021, 08/05/2017 Depression Screening 08/08/2024 COVID-19 Vaccine ( season) 2025 11/10/2021, 10/09/2020, 09/18/2020 Influenza Vaccine (#1) 2025 , 05/16/2019, 05/10/2018, Additional history exists Falls Risk Assessment 2025 Lung Cancer Screening (Low Dose CT) 01/17/2026 [...] Signed Date: 01/17/2025 17:37 ET Workstation ID: [id number] Transcribed By: Self Edit Transcribed Date: 01/17/2025 [...] Signed Date: 01/17/2025 17:37 ET Workstation ID: [id number] Transcribed By: Self Edit Transcribed Date: 01/17/2025 17:28 ET us Ascencion Ramirez MD [facility]ME[facility] CT PROCEDURES Final Result * SCREENING MAMMOGRAPHY [...] ID:[id number] Group ID:[id number] Type:Not on file Address: [facility] [address] [address] Care Teams Activities Concierge Relationship Specialty Start Date End Date Brooks Al MD [address] [place] [address] [address] EFREN Vivas PCP - General 05/30/23
== END 2025-04-22 15:58 | disposition home or self-care (01) ==
LOC: HO.HMCH 14:45
PROVIDERS: PCP Internal Medicine; Visit Provider Internal Medicine
DX: E78.2 Mixed hyperlipidemia (principal); R91.1 Solitary pulmonary nodule; J45.20 Mild intermittent asthma, uncomplicated; E03.9 Hypothyroidism, unspecified; M17.0 Bilateral primary osteoarthritis of knee; G90.522 Complex regional pain syndrome I of left lower limb; G62.9 Polyneuropathy, unspecified; N20.0 Calculus of kidney; F41.9 Anxiety disorder, unspecified; F17.200 Nicotine dependence, unspecified, uncomplicated

== ENCOUNTER → 2025-04-22 14:44 | Outpatient (BNVA) | payer OTHER, SELFPAY | PROVIDERS: PCP Internal Medicine; Visit Provider Internal Medicine | DX: E78.2 Mixed hyperlipidemia (principal); R91.1 Solitary pulmonary nodule; J45.20 Mild intermittent asthma, uncomplicated; E03.9 Hypothyroidism, unspecified; M17.0 Bilateral primary osteoarthritis of knee; G90.522 Complex regional pain syndrome I of left lower limb; G62.9 Polyneuropathy, unspecified; N20.0 Calculus of kidney; F41.9 Anxiety disorder, unspecified; F17.210 Nicotine dependence, cigarettes, uncomplicated | CPT/HCPCS: 99212 ==

== ENCOUNTER 2025-05-31 15:49 | Outpatient (AMB) | payer OTHER, SELFPAY ==
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
[2025-05-31 15:54] VITALS: BP 100/62; PULSE 76; TEMP 36.1; O2SAT 96; BMI 19.4
--- OUTSIDE RECORDS SUMMARY | 2025-05-31 17:03 | XMS_ITS | Clinical Summary ---
Author Organization [facility] Address [address] [place] [address] Phone Care Team Providers Care Raw Hide Trimmer Name Role Phone Brooks Al MD Primary Care Provider [phone] Surgical History Surgery Date Site/Laterality Comments HYSTERECTOMY 1989 PROCEDURE: HISTORICAL TOTAL HYSTERECTOMY WITH BSO; COMMENT: chronic infection, scarring CHOLECYSTECTOMY 1989 PROCEDURE: HISTORICAL CHOLECYSTECTOMY OTHER SURGICAL HISTORY 07/30/2013 PROCEDURE: OUTSIDE MAMMO; COMMENT: breast MRI Kenny Nazario 6 month repeat advised COLONOSCOPY 07/23/2010 PROCEDURE: OUTSIDE COLONOSCOPY; COMMENT: normal Dr Fernandez OTHER SURGICAL HISTORY 04/2019 Left PROCEDURE: UT ARTHROSCOPY KNEE SYNOVECTOMY LIMITED SPX; COMMENT: for synovial plica impingement OTHER SURGICAL HISTORY 10/12/2023 Right PROCEDURE: UT THORACOSCOPY W/THERA WEDGE RESEXN INITIAL UNILAT; COMMENT: [...] V28) DX:COPD (chronic o bstructive pulmonary disease) ([facility]) Tuberculosis DX:Tuberculosis; COMMENT: teens, s/p treatment (per patient) Family History Medical History Relation Name Comments Hyperlipidemia Brother 1 Lymphoma Brother 1 Other: HIV Brother 1 Coronary artery disease Brother 2 Hypertension Brother 2 Diabetes Father at age 85 from DM complication, no MT, Stroke Lung cancer Mother from lung Ca [...] Health Maintenance Due Date Last Done Comments Colorectal Cancer Screening: Colonoscopy 1960 Cervical Cancer Screening: Pap Smear 1981 Hepatitis A Vaccines (2 of 2 - Risk 2-dose series) 09/18/2008 03/18/2008 RSV Immunization Adult Patients (1 - Risk 50-74 years 1-dose series) 2010 Pneumococcal Vaccine: 50+ Years (2 of 2 - PCV) 05/25/2013 05/25/2012, 05/23/2011 Hepatitis B Vaccines (1 of 3 - Risk 3-dose series) 2020 Cholesterol Screening (Lipid Panel) 07/17/2022 Hepatitis C Screening 07/17/2022 Medicare Annual [...] Signed Date: 01/17/2025 17:37 ET Workstation ID: [id number] Transcribed By: Self Edit Transcribed Date: 01/17/2025 [...] Signed Date: 01/17/2025 17:37 ET Workstation ID: [id number] Transcribed By: Self Edit Transcribed Date: 01/17/2025 [...] ID:[id number] Group ID:[id number] Type:Not on file Address: [facility] [address] [id number] Care Teams Raw Hide Trimmer Relationship Specialty Start Date End Date Brooks Al MD [address] [place] [address] [address] PCP - General 05/30/23
--- OUTSIDE RECORDS SUMMARY | 2025-05-31 17:04 | XMS_ITS | Clinical Summary ---
Author Organization [facility] Address [address] [place] [address] Care Team Providers Care Jingle Writer Name Role Phone Shaun Carbajal MD Primary Care Provider [phone] Allergies Active Allergy Reactions Criticality Noted Date [...] 02/18/2022 Active Cholecalciferol (Vitamin D3) 1.25 MG (16883 UT) capsule Take by mouth Active Ascorbic [...] patient's age to complete this topic Insurance [facility] Medicaid [facility] Medicaid Care Teams Jingle Writer Relationship Specialty Start Date End Date Shaun Carbajal MD PCP - General Internal Medicine 02/22/22
== END 2025-05-31 16:14 | disposition home or self-care (01) ==
LOC: HO.HMCH 15:50
PROVIDERS: PCP Internal Medicine; Visit Provider Internal Medicine
DX: R09.89 Other specified symptoms and signs involving the circulatory and respiratory systems (principal)

== ENCOUNTER → 2025-05-31 15:49 | Outpatient (BNVA) | payer OTHER, SELFPAY | PROVIDERS: PCP Internal Medicine; Visit Provider Internal Medicine | DX: R09.89 Other specified symptoms and signs involving the circulatory and respiratory systems (principal); F17.210 Nicotine dependence, cigarettes, uncomplicated | CPT/HCPCS: 99212 ==

== ENCOUNTER 2025-08-06 11:01 | Outpatient (REF) | payer OTHER, SELFPAY ==
[2025-08-06 11:19] LABS: MANUAL DIFF FLAG NO
[2025-08-06 11:41] LABS: Hematocrit 40.6 % (37.0-47.0); Hemoglobin 13.5 g/dl (12.0-16.0); Imm Gran Abs Auto 0.03 X10*3/uL (0.00-0.03); Imm Gran Pct Auto 0.5 % (0.0-0.4); Lymphocytes Absolute Auto 1.6 X10*3/uL (1.2-4.9); Mean Corpuscular HGB Conc 33.3 g/dl (31.0-35.0); Mean Corpuscular Hemoglobin 32.6 pg (27.0-33.0); Mean Corpuscular Volume 98.1 fL (80.0-98.0); NRBC Abs Auto 0.000 X10*3/uL (0.0-0.012); NRBC Pct Auto 0.0 /100WBC (0.0-0.2); Platelet Count 287 X10*3/uL (160-400); Red Blood Count 4.14 X10*6/uL (4.20-5.50); White Blood Count 6.2 X10*3/uL (4.8-10.8)
[2025-08-06 13:01] LABS: Alanine Aminotransferase 22 U/L (0-31); Albumin Level 4.9 g/dL (3.5-5.0); Alkaline Phosphatase 41 U/L (39-117); Anion Gap 11 (12-20); Aspartate Amino Transferase 30 U/L (5-31); Blood Urea Nitrogen 24 mg/dL (9-16); Calcium 9.9 mg/dL (8.4-10.2); Carbon Dioxide 28 mmol/L (22-29); Chloride 106 mmol/L (96-108); Cholesterol 185 mg/dL (<200); Estimated Glomerular Filt Rate 53; HDL Cholesterol 65 mg/dL (>40); Potassium 4.0 mmol/L (3.3-5.1); Sodium 141 mmol/L (135-145); Total Protein 7.2 g/dL (6.5-8.0); Triglycerides 72 mg/dL (<150)
[2025-08-06 13:07] LABS: Free T4 (Free Thyroxine) 1.39 ng/dL (0.71-1.85); Thyroid Stimulating Hormone 0.25 uIU/mL (0.32-4.0)
--- OUTSIDE RECORDS SUMMARY | 2025-08-06 14:59 | XMS_ITS | Clinical Summary ---
Author Organization [facility] Address [address] [place] [address] Care Team Providers Care Lean Sensei Name Role Phone Shaun Carbajal MD Primary Care Provider [phone] Allergies Active Allergy Reactions Criticality Noted Date [...] 02/18/2022 Active Cholecalciferol (Vitamin D3) 1.25 MG (13749 UT) capsule Take by mouth Active Ascorbic [...] patient's age to complete this topic Insurance [facility] Medicaid [facility] Medicaid Care Teams Lean Sensei Relationship Specialty Start Date End Date Shaun Carbajal MD PCP - General Internal Medicine 02/22/22
--- OUTSIDE RECORDS SUMMARY | 2025-08-06 14:59 | XMS_ITS | Clinical Summary ---
Author Organization [facility] Address [address] [place] [address] Phone Care Team Providers Care Promotional Representative Name Role Phone Brooks Al MD Primary Care Provider [phone] Surgical History Surgery Date Site/Laterality Comments HYSTERECTOMY 1989 PROCEDURE: HISTORICAL TOTAL HYSTERECTOMY WITH BSO; COMMENT: chronic infection, scarring CHOLECYSTECTOMY 1989 PROCEDURE: HISTORICAL CHOLECYSTECTOMY OTHER SURGICAL HISTORY 07/30/2013 PROCEDURE: OUTSIDE MAMMO; COMMENT: breast MRI Kenny Nazario 6 month repeat advised COLONOSCOPY 07/23/2010 PROCEDURE: OUTSIDE COLONOSCOPY; COMMENT: normal Dr Fernandez OTHER SURGICAL HISTORY 04/2019 Left PROCEDURE: NE ARTHROSCOPY KNEE SYNOVECTOMY LIMITED SPX; COMMENT: for synovial plica impingement OTHER SURGICAL HISTORY 10/12/2023 Right PROCEDURE: NE THORACOSCOPY W/THERA WEDGE RESEXN INITIAL UNILAT; COMMENT: [...] V28) DX:COPD (chronic o bstructive pulmonary disease) ([facility]) Tuberculosis DX:Tuberculosis; COMMENT: teens, s/p treatment (per [...] Signed Date: 01/17/2025 17:37 ET Workstation ID: [id number] Transcribed By: Self Edit Transcribed Date: 01/17/2025 [...] Signed Date: 01/17/2025 17:37 ET Workstation ID: [id number] Transcribed By: Self Edit Transcribed Date: 01/17/2025 [...] ID:[id number] Group ID:[id number] Type:Not on file Address: [place] [address] [id number] Care Teams Promotional Representative Relationship Specialty Start Date End Date Brooks Al MD [address] [facility] [address] PCP - General 05/30/23
== END 2025-08-06 11:02 ==
LOC: HO.LAB 11:01
PROVIDERS: PCP Internal Medicine; Visit Provider Internal Medicine
DX: E78.00 Pure hypercholesterolemia, unspecified (principal); E03.9 Hypothyroidism, unspecified; E55.9 Vitamin D deficiency, unspecified; D64.9 Anemia, unspecified
CPT/HCPCS: 36415; 80053; 80061; 82306; 84439; 84443; 85025